=== PATIENT | female | born 1930 ===

== ENCOUNTER 2017-10-09 21:20 | Observation (INO) | payer MEDICARE, OTHER ==
[2017-10-09 21:21] VITALS: BMI 23.1
--- NOTE | 2017-10-09 22:29 | ED PDOC ---
Arrival/HPI <Aaron Morales - Last Filed: 10/09/17 23:48> <Radha Terrell - Last Filed: 10/10/17 04:25> - General Chief Complaint: GI Problem Time Seen by Provider: 10/09/17 21:40 - History of Present Illness Narrative History of Present Illness (Text): 86 year old female with a past medical history of gastric ulcers, diverticulitis , GERD, constipation, hypertension, CHF, anemia, dementia, COPD, diabetes, UTI, and osteoarthritis presents with 5 episodes of black vomit since this morning. Patient reports she felt dizzy this morning, she drank coffee, had loss of appetite today and ate minimally. She has not been able to eat today without vomiting. She also reports RLQ and LLQ crampy pain, but denies any urinary symptoms. She was given mylanta and tylenol at the [facility], but reports that this only minimally helped her symptoms. She also reports a frontal pressure headache and neck pain without any photophobia, phonophobia, change in vision, or change in hearing. She denies fever, chest pain, heart palpitations, shortness of breath, cough, diarrhea, dysuria, hematuria, or urinary frequency. (Radha Terrell) Past Medical History - Provider Review Nursing Documentation Reviewed: Yes - Infectious Disease Hx of Infectious Diseases: None - Tetanus Immunization Tetanus Immunization: Unknown - Reproductive Menopause: Yes - Cardiac Hx Cardiac Disorders: Yes Hx Congestive Heart Failure: Yes Hx Hypertension: Yes - Pulmonary Hx Chronic Obstructive Pulmonary Disease (COPD): Yes - Neurological HX Cerebrovascular Accident: No - HEENT Hx HEENT Disorder: No Hx Blind: No Hx Cataracts: No Hx Deafness: No Hx Difficulty Chewing: No Hx Epistaxis: No Hx Glaucoma: No Hx Macular Degeneration: No - Renal Hx Renal Failure: No - Endocrine/Metabolic Hx Diabetes Mellitus Type 1: Yes - Hematological/Oncological Hx Blood Transfusions: Yes Hx Blood Transfusion Reaction: (NOT AT PRESENT) - Integumentary Hx Dermatological Disorder: No Hx Basal Cell Carcinoma: No Hx Eczema: No Hx Melanoma: No Hx Psoriasis: No Hx Squamous Cell Carcinoma: No - Musculoskeletal/Rheumatological Hx Arthritis: Yes - Gastrointestinal Hx Gastrointestinal Disorders: No Hx Colostomy: No Hx Crohn's Disease: No Hx Diverticulitis: Yes Hx Gall Bladder Disease: No Hx Gastroesophageal Reflux: Yes Hx Ileostomy: No Hx Liver Failure: No Hx Pancreatitis: No HX Swallowing Problems: No - Genitourinary/Gynecological Hx Genitourinary Disorders: Yes Hx Hematuria: Yes Hx Incontinence: Yes Hx Sexually Transmitted Diseases: No Hx Urinary Tract Infection: No - Psychiatric Hx Psychophysiologic Disorder: Yes Hx Anxiety: Yes Hx Bipolar Disorder: No Hx Depression: Yes Hx Emotional Abuse: No Hx Hallucinations: No Hx Panic Disorder: No Hx Post Traumatic Stress Disorder: No Hx Psychosis: No Hx Physical Abuse: No Hx Schizophrenia: No Hx Sexual Abuse: No Hx Substance Use: No - Surgical History Hx Amputation: No Hx Appendectomy: No Hx Cardiac Catheterization: No Hx Cholecystectomy: No Hx Coronary Stent: No Hx Gastric Bypass Surgery: No Hx Hysterectomy: Yes Hx Joint Replacement: No Hx Kidney Transplant: No Hx Liver Transplant: No Hx Mastectomy: No Hx Musculoskeletal Surgery: No Hx Open Heart Surgery: No Hx Orthopedic Surgery: Yes Hx Splenectomy: No Hx Valve Replacement: No Other/Comment: Tonsillectomy - Anesthesia Hx Anesthesia Reactions: No (UNKNOWN) Hx Malignant Hyperthermia: No (UNKNOWN) - Suicidal Assessment Feels Threatened In Home Enviroment: No <Radha Terrell - Last Filed: 10/10/17 04:25> Family/Social History - Physician Review Nursing Documentation Reviewed: Yes Family/Social History: Unknown Family HX Smoking Status: Former Smoker Hx Alcohol Use: No Hx Substance Use: No Hx Substance Use Treatment: No <Radha Terrell - Last Filed: 10/10/17 04:25> Allergies/Home Meds <Aaron Morales - Last Filed: 10/09/17 23:48> <Radha Terrell - Last Filed: 10/10/17 04:25> Allergies/Adverse Reactions: Allergies aspirin Allergy (Verified 10/09/17 21:43) NAUSEA Home Medications: Home Meds Medication Instructions Recorded Confirmed Ferrous Sulfate 325 mg PO DAILY 01/01/16 10/09/17 Losartan Potassium [Cozaar] 100 mg PO DAILY 01/01/16 10/09/17 Acetaminophen [Acetaminophen ER] 650 mg PO Q4H PRN 01/02/16 10/09/17 Aluminum Hydroxide/Magnesium H 30 ml PO Q3 PRN 01/02/16 10/09/17 [Maalox 30 ml] Docusate Sodium [Move It Along] 200 mg PO HS 01/02/16 10/09/17 Docusate [Colace] 200 mg PO HS 01/02/16 10/09/17 Lorazepam [Ativan] 0.5 mg PO TID PRN 01/02/16 10/09/17 Magnesium Hydroxide [Milk Of 30 ml PO DAILY PRN 01/02/16 10/09/17 Magnesia] Mirtazapine [Remeron] 15 mg PO HS 01/02/16 10/09/17 Promethazine [Phenergan Oral Syrup] 6.25 mg PO Q4H PRN 01/02/16 10/09/17 Sod Phos,M-B/Na Phos,Di-Ba [Enema] 133 ml RC DAILY PRN 01/02/16 10/09/17 Sucralfate [Carafate] 1 gm PO QID 01/02/16 10/09/17 Review of Systems - Physician Review All systems were reviewed & negative as marked: Yes - Review of Systems Constitutional: Normal Eyes: Normal. absent: Vision Changes, Photophobia ENT: Sore Throat. absent: Hearing Changes Respiratory: Normal. absent: SOB, Cough Cardiovascular: Normal. absent: Chest Pain, Palpitations Gastrointestinal: Abdominal Pain (LLQ and RLQ), Nausea, Vomiting (black vomitus x5) Genitourinary Female: Normal. absent: Dysuria, Frequency, Hematuria Musculoskeletal: Arthralgias (right hand pain, left foot pain), Neck Pain. absent: Back Pain Skin: Normal Neurological: Headache (frontal), Dizziness <Radha Terrell - Last Filed: 10/10/17 04:25> Physical Exam <Aaron Morales - Last Filed: 10/09/17 23:48> Vital Signs Reviewed: Yes Temperature: Afebrile Blood Pressure: Normal Pulse: Regular Respiratory Rate: Normal Appearance: Positive for: Well-Appearing Pain Distress: Mild Mental Status: Positive for: Alert and Oriented X 3 - Systems Exam Head: Present: Atraumatic, Normocephalic Pupils: Present: PERRL Extroacular Muscles: Present: EOMI Conjunctiva: Present: Normal Mouth: Present: Moist Mucous Membranes, Normal Tounge. No: Normal Teeth (upper teeth not present) Pharnyx: Present: Normal. No: ERYTHEMA, EXUDATE Nose (External): Present: Atraumatic Respiratory/Chest: Present: Clear to Auscultation Cardiovascular: Present: Regular Rate and Rhythm, Normal S1, S2. No: Murmurs Abdomen: Present: Tenderness (LLQ and RLQ mild), Normal Bowel Sounds. No: Distention, Peritoneal Signs Upper Extremity: Present: Normal Inspection, Normal ROM, NORMAL PULSES, Tenderness (right hand) Lower Extremity: Present: Normal Inspection, NORMAL PULSES, Normal ROM. No: Philippe's Sign Neurological: Present: GCS=15, CN II-XII Intact, Speech Normal, Motor Func Grossly Intact Skin: Present: Warm, Dry, Normal Color <Radha Terrell - Last Filed: 10/10/17 04:25> Vital Signs Temp Pulse Resp BP Pulse Ox 10/09/17 21:39 99 F 84 17 124/58 L 97 Medical Decision Making <Aaron Morales - Last Filed: 10/09/17 23:48> <Radha Terrell - Last Filed: 10/10/17 04:25> ED Course and Treatment: 10/09/17 23:47 Jeanette Cantrell is an 86 year old female who presents to the emergency department complaining of several episodes of hematemesis today. In agreement with resident note, which includes further HPI details. Patient was seen and evaluated with resident, came up with plan and treatment together. (Aaron Morales) Impression: 86 year old female with a past medical history of gastric ulcers, diverticulitis, GERD, constipation, hypertension, CHF, anemia, dementia, COPD, diabetes, UTI, and osteoarthritis presents with 5 episodes of black vomit since this morning. Assessment: GI bleed due to gastric ulcer vs. gastritis Rule out anemia due to GI bleed, Plan: CBC and CMP to rule out anemia and electrolyte abnormalities due to black vomitus. Lipase ordered to rule out pancreatitis. Abdominal CT ordered to evaluate for reason of GI bleed. Urinanalysis to rule out UTI. 10/10/17 02:40 Rectal exam done to evaluate for blood in stool. Exam was inconclusive as no stool was able to be appreciated from the rectum on exam. Patient was given IV morphine 4 mg for arthritic neck pain. Chest X ray shows hiatal hernia and no acute process. EKG shows normal sinus rhythm with vent rate at 78. Abdominal CT shows hiatal hernia but no acute findings. Labs are unremarkable. Urinalysis is unremarkable. Case was discussed with Dr. Karimi. Patient will be admitted to the service for abdominal pain and coffee ground emesis. (Radha Terrell) - Lab Interpretations Lab Results: 10/09/17 23:13 10/09/17 23:13 Lab Results 10/10/17 00:55: Urine Color Yellow, Urine Appearance Clear, Urine pH 8.0, Ur Specific [place] 1.010, Urine Protein Negative, Urine Glucose (UA) Negative, Urine Ketones Negative, Urine Blood Negative, Urine Nitrate Negative, Urine Bilirubin Negative, Urine Urobilinogen 0.2, Ur Leukocyte Esterase Trace H, Urine RBC Negative, Urine WBC 0 - 2, Ur Epithelial Cells 3 - 4, Urine Bacteria Few 10/09/17 23:13: Sodium 138, Potassium 4.0, Chloride 96 L, Carbon Dioxide 33, Anion Gap 14, BUN 35 H, Creatinine 1.0, Est GFR ( Amer) > 60, Est GFR ( Non-Af Amer) 52, Random Glucose 179 H, Calcium 9.2, Magnesium 2.2, Total Bilirubin 0.5, AST 30, ALT 22, Alkaline Phosphatase 86, Total Protein 7.4, Albumin 4.2, Globulin 3.2, Albumin/Globulin Ratio 1.3, Lipase 133 10/09/17 23:13: PT 11.3, INR 0.99, APTT 25.8 10/09/17 23:13: WBC 10.2 D, RBC 3.65, Hgb 10.8 L, Hct 32.4 L, MCV 88.8, MCH 29.6, MCHC 33.3, RDW 15.5 H, Plt Count 237, MPV 8.8, Gran % 69.6 H, Lymph % ( Auto) 22.1, [place] % (Auto) 7.2 H, Eos % (Auto) 0.9 L, Baso % (Auto) 0.2, Gran # 7.07 H, Lymph # (Auto) 2.2, Irion # (Auto) 0.7 H, Eos # (Auto) 0.1, Baso # (Auto ) 0.02 - RAD Interpretation Radiology Orders: 10/09/17 22:36 ABD & PELVIS IV CONTRAST ONLY [CT] Stat 10/09/17 22:37 CHEST PORTABLE [RAD] Stat - Medication Orders Current Medication Orders: Sodium Chloride (Sodium Chloride 0.9%) 500 mls @ 75 mls/hr IV .Q6H40M STA Stop: 10/10/17 05:17 Last Admin: 10/09/17 23:36 Dose: 75 mls/hr eMAR Start Stop Document 10/09/17 23:36 SS (Rec: 10/09/17 23:36 SS [id number]) Intravenous Solution Start Date 10/09/17 Start Time 23:36 Sodium Chloride (Sodium Chloride 0.9%) 1,000 mls @ 100 mls/hr IV .Q10H STA Stop: 10/10/17 13:02 Last Admin: 10/10/17 04:06 Dose: 100 mls/hr eMAR Start Stop Document 10/10/17 04:06 SS (Rec: 10/10/17 04:06 SS [id number]) Intravenous Solution Start Date 10/10/17 Start Time 04:06 Discontinued Medications Morphine Sulfate (Morphine) 4 mg IVP STAT STA Stop: 10/10/17 00:04 Last Admin: 10/10/17 00:11 Dose: IVP Administration Document 10/10/17 00:11 [facility] (Rec[facility] 10[facility]10[facility]17 [id number] Charges for Administration # of IVP Administrations 0 Ondansetron HCl (Zofran Inj) 4 mg IVP STAT STA Stop: 10/09/17 22:54 Last Admin: 10/09/17 23:36 Dose: 4 mg IVP Administration Document 10/09/17 23:36 SS (Rec: 10/09/17 23:36 SS [id number]) Charges for Administration # of IVP Administrations 1 Pantoprazole Sodium (Protonix Inj) 40 mg IVP ONCE STA Stop: 10/10/17 03:05 Last Admin: 10/10/17 04:06 Dose: 40 mg IVP Administration Document 10/10/17 04:06 SS (Rec: 10/10/17 04:06 SS [id number]) Charges for Administration # of IVP Administrations 1 - Scribe Statement The provider has reviewed the documentation as recorded by the Scribe <Aaron Morales - Last Filed: 10/09/17 23:48> - PA / [employer] / Resident Statement / has reviewed & agrees with the documentation as recorded. / has examined the patient and agrees with the treatment plan. <Radha Terrell - Last Filed: 10/10/17 04:25> - Scribe Statement Brittny Copeland Provider Scribe Attestation: All medical record entries made by the Scribe were at my direction and personally dictated by me. I have reviewed the chart and agree that the record accurately reflects my personal performance of the history, physical exam, medical decision making, and the department course for this patient. I have also personally directed, reviewed, and agree with the discharge instructions and disposition. (Aaron Morales) Disposition/Present on Arrival <Aaron Morales - Last Filed: 10/09/17 23:48> - Present on Arrival Any Indicators Present on Arrival: No History of DVT/PE: No History of Uncontrolled Diabetes: No Urinary Catheter: No History of Decub. Ulcer: No History Surgical Site Infection Following: None - Disposition Have Diagnosis and Disposition been Completed?: Yes Disposition Time: 02:45 Patient Plan: Admission <Radha Terrell - Last Filed: 10/10/17 04:25> - Disposition Diagnosis: Coffee ground emesis, Abdominal pain Disposition: HOSPITALIZED Patient Problems: Current Active Problems Problem Status Onset Abdominal pain Acute Coffee ground emesis Acute Condition: STABLE
[2017-10-09] MEDS ORDERED: Sodium Chloride 0.9% 500 ML IV STA (22:38)
[2017-10-09 23:41] LABS: ALB/GLOB RATIO 1.3 (1.1-1.8); ALBUMIN 4.2 g/dL (3.0-4.8); ALT/SGPT 22 U/L (7-56); AST/SGOT 30 U/L (14-36); BLOOD UREA NITROGEN 35 mg/dL (7-21); CALCIUM 9.2 mg/dL (8.4-10.5); GFR AFRICAN-AMERICAN > 60; GFR NON-AFRICAN AMERICAN 52; LIPASE 133 U/L (23-300)
[2017-10-09 23:57] LABS: INR 0.99 (0.93-1.08); PROTHROMBIN TIME 11.3 SECONDS (9.4-12.5)
[2017-10-09 23:58] LABS: BASO # 0.02 K/mm3 (0.0-2.0); BASO % 0.2 % (0.0-3.0); EOS # 0.1 (0.0-0.7); EOS % 0.9 % (1.5-5.0); GRAN # 7.07 (1.4-6.5); GRAN % 69.6 % (50.0-68.0); HEMOGLOBIN 10.8 g/dL (12.0-16.0); LYMPH # 2.2 (1.2-3.4); LYMPH % 22.1 % (22.0-35.0); MEAN CELL VOLUME 88.8 fl (80.0-105.0); MEAN CORPUSCULAR HEMOGLOBIN 29.6 pg (25.0-35.0); MEAN CORPUSCULAR HGB CONC 33.3 g/dl (31.0-37.0); MEAN PLATELET VOLUME 8.8 fl (7.0-11.0); MONO # 0.7 (0.1-0.6); MONO % 7.2 % (1.0-6.0); PARTIAL THROMBOPLASTIN TIME 25.8 Seconds (25.1-36.5); RBC 3.65 10^6/uL (3.5-6.1); RED CELL DISTRIBUTION WIDTH 15.5 % (11.5-14.5); WHITE BLOOD COUNT 10.2 10^3/ul (4.5-11.0)
[2017-10-10] MEDS ORDERED: Morphine 4 mg/ml ISec IVP STA (00:03)
[2017-10-10] MEDS ORDERED: Morphine 2 mg/ml ISec ONE (00:11)
[2017-10-10] MEDS ORDERED: Iohexol 350 MG/100 ML VIAL ONE (00:53)
[2017-10-10 01:19] LABS: URINE BILIRUBIN NEGATIVE (NEGATIVE); URINE BLOOD NEGATIVE (NEGATIVE); URINE GLUCOSE (UA) NEGATIVE (NEGATIVE); URINE LEUKOCYTE ESTERASE TRACE Leu/uL (NEGATIVE); URINE PROTEIN NEGATIVE mg/dL (<30 mg/dL); URINE UROBILINOGEN 0.2 E.U./dL (<1 E.U./dL)
[2017-10-10 01:29] LABS: URINE COLOR YELLOW (YELLOW)
[2017-10-10 01:30] LABS: URINE APPEARANCE CLEAR (CLEAR)
[2017-10-10 01:42] LABS: URINE BACTERIA FEW (NEG); URINE RBC NEGATIVE /hpf (0-2); URINE WBC 0 - 2 /hpf (0-6)
[2017-10-10] MEDS ORDERED: Sodium Chloride 0.9% 1,000 ML IV STA (03:03)
[2017-10-10 09:07] LABS: HEMOGLOBIN 9.4 g/dL (12.0-16.0); MEAN CELL VOLUME 89.3 fl (80.0-105.0); MEAN CORPUSCULAR HEMOGLOBIN 29.5 pg (25.0-35.0); MEAN PLATELET VOLUME 8.4 fl (7.0-11.0); RBC 3.19 10^6/uL (3.5-6.1); RED CELL DISTRIBUTION WIDTH 15.7 % (11.5-14.5); WHITE BLOOD COUNT 7.1 10^3/ul (4.5-11.0)
[2017-10-10 09:20] LABS: BLOOD UREA NITROGEN 27 mg/dL (7-21); CALCIUM 8.6 mg/dL (8.4-10.5); GFR AFRICAN-AMERICAN > 60; GFR NON-AFRICAN AMERICAN 52
--- NOTE | 2017-10-10 09:33 | CP.PCM.CON ---
<Phoebe Green - Last Filed: 10/10/17 09:34> History of Present Illness - History of Present Illness History of Present Illness: Surgery Consult: Dr. Isaacs Pt is an 86F with PMHx significant for HTN, DM, GERD, diverticulosis & hiatal hernia who presents to [facility] with complaints of abdominal pain & hematemesis. As per the pt, she had one cup of coffee yesterday morning & started having vomiting which she describes as "black" in color. Pt states she has never had this happen before & denies any blood in the vomitus. Pt also admits to associated epigastric pain likely from retching. She states she had multiple episodes of vomiting throughout the day yesterday. Admits to having regular BMs everyday without any blood. Denies any other associated symptoms of fevers or chills. Pt denies difficulty swallowing or SOB. Pt does not recall her last colonoscopy/endoscopy but as per medical records she had an endoscopy/ colonoscopy in June 2015 which showed esophagitis with gastric ulcer as well as diverticulosis & colon polyps that were reported to be tubular adenomas in the ascending colon. PMHx: as stated above PSHx: hysterectomy, tonsillectomy & R hip surgery SocialHx: admits to smoking in the past, denies EtOH/drugs All: ASA Review of Systems - Review of Systems All systems: reviewed and no additional remarkable complaints except (as per HPI ) Past Patient History - Infectious Disease Hx of Infectious Diseases: None - Tetanus Immunizations Tetanus Immunization: Unknown - Past Medical History & Family History Past Medical History?: Yes - Past Social History Smoking Status: Former Smoker - CARDIAC Hx Cardiac Disorders: Yes Hx Hypertension: Yes - PULMONARY Hx Chronic Obstructive Pulmonary Disease (COPD): Yes - NEUROLOGICAL HX Cerebrovascular Accident: No - HEENT Hx HEENT Problems: No Hx Blind: No Hx Cataracts: No Hx Deafness: No Hx Difficulty Chewing: No Hx Epistaxis: No Hx Glaucoma: No Hx Macular Degeneration: No - RENAL Hx Renal Failure: No - ENDOCRINE/METABOLIC Hx Diabetes Mellitus Type 2: Yes - HEMATOLOGICAL/ONCOLOGICAL Hx Blood Disorders: Yes Hx AIDS: No Hx Anemia: Yes Hx Hepatitis C: No - INTEGUMENTARY Hx Dermatological Problems: No Hx Basil Cell: No Hx Eczema: No Hx Melanoma: No Hx Psoriasis: No Hx Squamous Cell: No - MUSCULOSKELETAL/RHEUMATOLOGICAL Hx Arthritis: Yes Hx Falls: Yes - GASTROINTESTINAL Hx Gastrointestinal Disorders: No Hx Colostomy: No Hx Crohn's Disease: No Hx Gall Bladder Disease: No Hx Gastroesophageal Reflux: Yes Hx Ileostomy: No Hx Liver Failure: No Hx Pancreatitis: No HX Swallowing Problems: No - GENITOURINARY/GYNECOLOGICAL Hx Genitourinary Disorders: Yes Hx Hematuria: Yes Hx Incontinence: Yes Hx Sexually Transmitted Disorders: No Hx Urinary Tract Infection: No - PSYCHIATRIC Hx Psychophysiologic Disorder: Yes Hx Anxiety: Yes Hx Bipolar Disorder: No Hx Depression: Yes Hx Emotional Abuse: No Hx Hallucinations: No Hx Panic Symptoms: No Hx Post Traumatic Stress Disorder: No Hx Psychosis: No Hx Physical Abuse: No Hx Schizophrenia: No Hx Sexual Abuse: No - SURGICAL HISTORY Hx Amputation: No Hx Appendectomy: No Hx Cardiac Catheterization: No Hx Cholecystectomy: No Hx Coronary Stent: No Hx Gastric Bypass Surgery: No Hx Hysterectomy: Yes Hx Joint Replacement: No Hx Kidney Transplant: No Hx Liver Transplant: No Hx Mastectomy: No Hx Musculoskeletal Surgery: No Hx Open Heart Surgery: No Hx Orthopedic Surgery: Yes Hx Splenectomy: No Hx Valve Replacement: No Other/Comment: Tonsillectomy - ANESTHESIA Hx Anesthesia Reactions: No (UNKNOWN) Hx Malignant Hyperthermia: No (UNKNOWN) Meds Allergies/Adverse Reactions: Allergies Allergy/AdvReac Type Severity Reaction Status Date / Time aspirin Allergy NAUSEA Verified 10/09/17 21:43 - Medications Medications: Current Medications Acetaminophen (Tylenol 325mg Tab) 650 mg PO Q4H PRN PRN Reason: mild pain Ferrous Sulfate (Feosol) 324 mg PO DAILY HANNA Sodium Chloride (Sodium Chloride 0.9%) 1,000 mls @ 100 mls/hr IV .Q10H STA Stop: 10/10/17 13:02 Last Admin: 10/10/17 04:06 Dose: 100 mls/hr Losartan Potassium (Cozaar) 100 mg PO DAILY HANNA Mirtazapine (Remeron) 15 mg PO HS HANNA Sucralfate (Carafate Tab) 1 gm PO QID HANNA Physical Exam - Constitutional Appears: Well, No Acute Distress - Head Exam Head Exam: ATRAUMATIC, NORMOCEPHALIC - Eye Exam Eye Exam: Normal appearance - ENT Exam ENT Exam: Mucous Membranes Moist - Respiratory Exam Respiratory Exam: NORMAL BREATHING PATTERN - Cardiovascular Exam Cardiovascular Exam: RRR - GI/Abdominal Exam GI & Abdominal Exam: Soft, Tenderness (epigastric). absent: Distended, Guarding , Rebound - Neurological Exam Neurological exam: Alert, Oriented x3 - Skin Skin Exam: Dry, Warm Results - Vital Signs Recent Vital Signs: Last Vital Signs Temp 98.2 F 10/10/17 05:30 Pulse 73 10/10/17 05:30 Resp 20 10/10/17 05:30 BP 126/65 10/10/17 05:30 Pulse Ox 97 10/10/17 05:05 - Labs Result Diagrams: 10/10/17 09:00 10/10/17 09:00 Labs: Laboratory Results - last 24 hr 10/10/17 10/10/17 09:00 09:00 WBC 7.1 D RBC 3.19 L Hgb 9.4 L Hct 28.5 L MCV 89.3 MCH 29.5 MCHC 33.0 RDW 15.7 H Plt Count 197 MPV 8.4 Sodium 140 Potassium 4.3 Chloride 101 Carbon Dioxide 31 Anion Gap 12 BUN 27 H Creatinine 1.0 Est GFR ( Amer) > 60 Est GFR (Non-Af Amer) 52 Random Glucose 179 H Calcium 8.6 - Imaging and Cardiology CT scan - abdomen Status: Image reviewed by me Assessment & Plan - Assessment and Plan (Free Text) Assessment: 86F presenting with hematemesis & hiatal hernia Plan: - monitor H/H; no longer vomiting - f/u GI recs - poor surgical candidate for hiatal hernia repair due to advanced age and co- morbidities, no plan for surgical intervention at this time - recommend q2 turning & air mattress to prevent pressure ulcers - d/w Dr. Ferny Green <Jim Isaacs - Last Filed: 10/10/17 14:30> Meds - Medications Medications: Current Medications Acetaminophen (Tylenol 325mg Tab) 650 mg PO Q4H PRN PRN Reason: mild pain Ferrous Sulfate (Feosol) 324 mg PO DAILY [facility] Last Admin: 10/10/17 09:38 Dose: 324 mg Losartan Potassium (Cozaar) 100 mg PO DAILY [facility] Last Admin: 10/10/17 09:38 Dose: 100 mg Mirtazapine (Remeron) 15 mg PO HS HANNA Pantoprazole Sodium (Protonix Inj) 40 mg IVP DAILY [facility] Sucralfate (Carafate Tab) 1 gm PO QID [facility] Last Admin: 10/10/17 14:21 Dose: 1 gm Results - Vital Signs Recent Vital Signs: Last Vital Signs Temp 98.2 F 10/10/17 05:30 Pulse 73 10/10/17 05:30 Resp 20 10/10/17 05:30 BP 126/65 10/10/17 05:30 Pulse Ox 97 10/10/17 05:05 - Labs Result Diagrams: 10/10/17 09:00 10/10/17 09:00 Labs: Laboratory Results - last 24 hr 10/10/17 10/10/17 09:00 09:00 WBC 7.1 D RBC 3.19 L Hgb 9.4 L Hct 28.5 L MCV 89.3 MCH 29.5 MCHC 33.0 RDW 15.7 H Plt Count 197 MPV 8.4 Sodium 140 Potassium 4.3 Chloride 101 Carbon Dioxide 31 Anion Gap 12 BUN 27 H Creatinine 1.0 Est GFR ( Amer) > 60 Est GFR (Non-Af Amer) 52 Random Glucose 179 H Calcium 8.6 Assessment & Plan - Assessment and Plan (Free Text) Assessment: Dx Hematemesis secondary to Incarcerated Sliding gastric hernia stuck in the chest No evidence bleeding now C/O Rt groin strain(Bulge not hernia) Will follow BNo surgery needed This consult done under my direct supervision Christiano Isaacs MD FACS
--- NOTE | 2017-10-10 09:48 | RAD ---
Date of service: 10/10/2017 HISTORY: r/o infiltrate COMPARISON: 07/07/2015 FINDINGS: LUNGS: No active pulmonary disease. PLEURA: No significant pleural effusion identified, no pneumothorax apparent. CARDIOVASCULAR: Normal. OSSEOUS STRUCTURES: No significant abnormalities. VISUALIZED UPPER ABDOMEN: Large hiatal hernia OTHER FINDINGS: None. IMPRESSION: No active disease. Large hiatal hernia
--- NOTE | 2017-10-10 11:07 | CT ---
Date of service: 10/10/2017 PROCEDURE: CT Abdomen and Pelvis with contrast HISTORY: abdominal pain, vomiting COMPARISON: 02/01/2016. TECHNIQUE: Contrast dose: 100 cc Omnipaque 350. Radiation dose: Total exam DLP = 407.73 mGy-cm. This CT exam was performed using one or more of the following dose reduction techniques: Automated exposure control, adjustment of the mA and/or kV according to patient size, and/or use of iterative reconstruction technique. FINDINGS: LOWER THORAX: Stable large hiatal hernia. LIVER: Unremarkable. No gross lesion or ductal dilatation. GALLBLADDER AND BILE DUCTS: Status post cholecystectomy. No abnormality is seen in the gallbladder fossa. PANCREAS: Unremarkable. No gross lesion or ductal dilatation. SPLEEN: Unremarkable. ADRENALS: Unremarkable. No mass. KIDNEYS AND URETERS: Unremarkable. No hydronephrosis. No solid mass. Incidental finding(s): Bilateral simple renal cysts unchanged compared to the prior study. VASCULATURE: Unremarkable. No aortic aneurysm. BOWEL: Diverticulosis without an acute inflammatory component or other associated pathologic process. APPENDIX: Normal appendix. PERITONEUM: Unremarkable. No free fluid. No free air. LYMPH NODES: Unremarkable. No enlarged lymph nodes. BLADDER: Unremarkable. REPRODUCTIVE: Unremarkable. BONES: Compression deformities T10, L3, L4. The findings at L3 are stable. Additional compression deformities new compared to the prior CT scan 01/01/2016. OTHER FINDINGS: None. IMPRESSION: No acute findings related to/accounting for the clinical presentation. Additional benign and/or incidental findings described above. New compression deformities thoracolumbar spine. Otherwise No significant interval change compared to the prior examination(s). Concordant results (preliminary interpretation) provided by [employer]. Procedure Completed: :17. Preliminary ([employer]) Report: Dictated and Authenticated: 02:25. Final Interpretation: 11:05. October 10, 2017.
--- NOTE | 2017-10-10 13:26 | CP.PCM.CON ---
<Chelsea Anderson - Last Filed: 10/10/17 15:10> History of Present Illness - History of Present Illness History of Present Illness: Seen and examined at bedside earlier today, chart reviewed. Request for GI consult is for abdominal pain and hematemesis. HPI: This is an 86 year old female from care home brought to the hospital yesterday for complaints of abdominal pain and hematemesis. Patient reported that she had a cup of "black" coffee yesterday morning and then started to vomit multiple times, it appeared "coffee ground". Prior to yesterday events, she has never had any N/V or abdominal pain. She did have epeigastic discomfort which has now resolved, denies having symptoms of dyspepsia or abdominal pain. Denies use of NSAIDS, if she needs something for pain, she is given tylenol as per patient. No change in bowel habits, melena or BRBPR. No weight loss or complaints of dysphagia. She has had EGD in colonoscopy in the past, most recent noted is 06/2015, EGD showed gastric ulcer/duodenal ulcer/esophagitis, gastric BX did show intestinal metaplasia, no dysplasia or HP. Colonoscopy showed coon polyps that were tubular adenomas. On admission ct scan A&P done and showed hiatal hernia and extensive diverticulosis with no signs of diverticulitis. CXR revealed large H/H but no active lung disease. Patient is NPO and no further episode of hematemesis or abdominal pain. PMH: HTN, PUD,GERD, diverticulsis, hiatal hernia, Anemia PSH: hysterectomy, right hip surgery,tonsilectomy Allergies: Aspirin MEDS: reviewed as per MAR Family HX: noncontributory at this time Social HX: former smoker, denies ETOH, drugs ROS: systems reviewed with positive findings, see HPI Past Patient History - Infectious Disease Hx of Infectious Diseases: None - Tetanus Immunizations Tetanus Immunization: Unknown - Past Medical History & Family History Past Medical History?: Yes - Past Social History Smoking Status: Former Smoker - CARDIAC Hx Cardiac Disorders: Yes Hx Hypertension: Yes - PULMONARY Hx Chronic Obstructive Pulmonary Disease (COPD): Yes - NEUROLOGICAL HX Cerebrovascular Accident: No - HEENT Hx HEENT Problems: No Hx Blind: No Hx Cataracts: No Hx Deafness: No Hx Difficulty Chewing: No Hx Epistaxis: No Hx Glaucoma: No Hx Macular Degeneration: No - RENAL Hx Renal Failure: No - ENDOCRINE/METABOLIC Hx Diabetes Mellitus Type 2: Yes - HEMATOLOGICAL/ONCOLOGICAL Hx Blood Disorders: Yes Hx AIDS: No Hx Anemia: Yes Hx Hepatitis C: No - INTEGUMENTARY Hx Dermatological Problems: No Hx Basil Cell: No Hx Eczema: No Hx Melanoma: No Hx Psoriasis: No Hx Squamous Cell: No - MUSCULOSKELETAL/RHEUMATOLOGICAL Hx Arthritis: Yes Hx Falls: Yes - GASTROINTESTINAL Hx Gastrointestinal Disorders: No Hx Colostomy: No Hx Crohn's Disease: No Hx Gall Bladder Disease: No Hx Gastroesophageal Reflux: Yes Hx Ileostomy: No Hx Liver Failure: No Hx Pancreatitis: No HX Swallowing Problems: No - GENITOURINARY/GYNECOLOGICAL Hx Genitourinary Disorders: Yes Hx Hematuria: Yes Hx Incontinence: Yes Hx Sexually Transmitted Disorders: No Hx Urinary Tract Infection: No - PSYCHIATRIC Hx Psychophysiologic Disorder: Yes Hx Anxiety: Yes Hx Bipolar Disorder: No Hx Depression: Yes Hx Emotional Abuse: No Hx Hallucinations: No Hx Panic Symptoms: No Hx Post Traumatic Stress Disorder: No Hx Psychosis: No Hx Physical Abuse: No Hx Schizophrenia: No Hx Sexual Abuse: No - SURGICAL HISTORY Hx Amputation: No Hx Appendectomy: No Hx Cardiac Catheterization: No Hx Cholecystectomy: No Hx Coronary Stent: No Hx Gastric Bypass Surgery: No Hx Hysterectomy: Yes Hx Joint Replacement: No Hx Kidney Transplant: No Hx Liver Transplant: No Hx Mastectomy: No Hx Musculoskeletal Surgery: No Hx Open Heart Surgery: No Hx Orthopedic Surgery: Yes Hx Splenectomy: No Hx Valve Replacement: No Other/Comment: Tonsillectomy - ANESTHESIA Hx Anesthesia Reactions: No (UNKNOWN) Hx Malignant Hyperthermia: No (UNKNOWN) Meds Allergies/Adverse Reactions: Allergies Allergy/AdvReac Type Severity Reaction Status Date / Time aspirin Allergy NAUSEA Verified 10/09/17 21:43 - Medications Medications: Current Medications Acetaminophen (Tylenol 325mg Tab) 650 mg PO Q4H PRN PRN Reason: mild pain Ferrous Sulfate (Feosol) 324 mg PO DAILY [facility] Last Admin: 10/10/17 09:38 Dose: 324 mg Sodium Chloride (Sodium Chloride 0.9%) 1,000 mls @ 100 mls/hr IV .Q10H STA Stop: 10/10/17 13:02 Last Admin: 10/10/17 04:06 Dose: 100 mls/hr Losartan Potassium (Cozaar) 100 mg PO DAILY [facility] Last Admin: 10/10/17 09:38 Dose: 100 mg Mirtazapine (Remeron) 15 mg PO HS [facility] Pantoprazole Sodium (Protonix Inj) 40 mg IVP DAILY [facility] Sucralfate (Carafate Tab) 1 gm PO QID [facility] Last Admin: 10/10/17 09:39 Dose: 1 gm Physical Exam - Constitutional Appears: No Acute Distress - Head Exam Head Exam: NORMOCEPHALIC - Eye Exam Eye Exam: Normal appearance. absent: Scleral icterus - ENT Exam ENT Exam: Mucous Membranes Moist - Neck Exam Neck exam: Positive for: Normal Inspection - Respiratory Exam Respiratory Exam: NORMAL BREATHING PATTERN. absent: Respiratory Distress - Cardiovascular Exam Cardiovascular Exam: +S1, +S2 - GI/Abdominal Exam GI & Abdominal Exam: Normal Bowel Sounds, Soft. absent: Distended, Guarding, Rebound, Tenderness - Extremities Exam Extremities exam: Positive for: pedal pulses present. Negative for: calf tenderness, pedal edema - Neurological Exam Neurological exam: Alert, Oriented x3 - Skin Skin Exam: Dry, Warm Results - Vital Signs Recent Vital Signs: Last Vital Signs Temp 98.2 F 10/10/17 05:30 Pulse 73 10/10/17 05:30 Resp 20 10/10/17 05:30 BP 126/65 10/10/17 05:30 Pulse Ox 97 10/10/17 05:05 - Labs Result Diagrams: 10/10/17 09:00 10/10/17 09:00 Labs: Laboratory Results - last 24 hr 10/10/17 10/10/17 09:00 09:00 WBC 7.1 D RBC 3.19 L Hgb 9.4 L Hct 28.5 L MCV 89.3 MCH 29.5 MCHC 33.0 RDW 15.7 H Plt Count 197 MPV 8.4 Sodium 140 Potassium 4.3 Chloride 101 Carbon Dioxide 31 Anion Gap 12 BUN 27 H Creatinine 1.0 Est GFR ( Amer) > 60 Est GFR (Non-Af Amer) 52 Random Glucose 179 H Calcium 8.6 Assessment & Plan - Assessment and Plan (Free Text) Assessment: ASSESSMENT: Hematemesis, differential to consider is PUD, h/o of gastric /duodenal ulcer, Ashley bowman tear Chronic Anemia Hiatal hernia DM HTN Diverticulosis PLAN: Continue Protonix 40 mg IVP on Carafate monitor h/h and for GI bleeding currently NPO, continue IVF for hydration, if no nausea consider clear liquids patient would benefit from EGD to check for ulcer/any ary bowman tear, pateint agree for procedure, will plan for tomorrow 10/11/17 in am. Thank you for this consult and for allowing us to participate in your patient care, further recommendation based upon clinical course. Seen and discussed with Dr. Reyes. <Leyla Reyes V - Last Filed: 10/10/17 23:34> Meds - Medications Medications: Current Medications Acetaminophen (Tylenol 325mg Tab) 650 mg PO Q4H PRN PRN Reason: mild pain Ferrous Sulfate (Feosol) 324 mg PO DAILY [facility] Last Admin: 10/10/17 09:38 Dose: 324 mg Sodium Chloride (Sodium Chloride 0.9%) 1,000 mls @ 100 mls/hr IV .Q10H [facility] Last Admin: 10/10/17 21:00 Dose: Not Given Losartan Potassium (Cozaar) 100 mg PO DAILY [facility] Last Admin: 10/10/17 09:38 Dose: 100 mg Mirtazapine (Remeron) 15 mg PO HS [facility] Last Admin: 10/10/17 21:17 Dose: 15 mg Pantoprazole Sodium (Protonix Inj) 40 mg IVP DAILY [facility] Sucralfate (Carafate Tab) 1 gm PO QID [facility] Last Admin: 10/10/17 21:17 Dose: 1 gm Results - Vital Signs Recent Vital Signs: Last Vital Signs Temp 98.4 F 10/10/17 21:59 Pulse 71 10/10/17 21:59 Resp 20 10/10/17 21:59 BP 132/66 10/10/17 21:59 Pulse Ox 94 L 10/10/17 21:59 - Labs Result Diagrams: 10/10/17 09:00 10/10/17 09:00 Labs: Laboratory Results - last 24 hr 10/10/17 10/10/17 09:00 09:00 WBC 7.1 D RBC 3.19 L Hgb 9.4 L Hct 28.5 L MCV 89.3 MCH 29.5 MCHC 33.0 RDW 15.7 H Plt Count 197 MPV 8.4 Sodium 140 Potassium 4.3 Chloride 101 Carbon Dioxide 31 Anion Gap 12 BUN 27 H Creatinine 1.0 Est GFR ( Amer) > 60 Est GFR (Non-Af Amer) 52 Random Glucose 179 H Calcium 8.6 Attending/Attestation - Attestation I have personally seen and examined this patient.: Yes I have fully participated in the care of the patient.: Yes I have reviewed all pertinent clinical information: Yes Notes (Text): This is an addendum to GI consult report dictated by the Chelsea Anderson ANP.The patient was seen and examined earlier. Medical records, lab studies, imagings were reviewed. Last 24 hours events reviewed. Agreed with the above treatment plan as outlined in Chelsea Anderson's notes the with the addition of the following on examination patient has some tenderness in the right upper quadrant area and epigastric area Her previous GI workup reviewed History of the large duodenal ulcer Continue PPI Follow-up of hemoglobin Clear liquid diet Would benefit from EGD 10/10/17 23:32
--- NOTE | 2017-10-10 18:47 | CARD ---
APPROVED REPORT Date of service: 10/09/2017 EKG Measurement Heart [id number] <Conclusion> Normal sinus rhythm Normal ECG
[2017-10-10] MEDS: Sodium Chloride 0.9% 1,000 ML IV SCH (21:00)
[2017-10-10] MEDS ORDERED: Morphine 2 mg/ml ISec IVP STA (23:48)
[2017-10-10] MEDS ORDERED: DiphenhydrAMINE 12.5 mg/5 ml LIQ UD (5 ml) PO STA (23:49)
[2017-10-11 07:06] LABS: HEMOGLOBIN 8.6 g/dL (12.0-16.0); MEAN CELL VOLUME 90.8 fl (80.0-105.0); MEAN CORPUSCULAR HEMOGLOBIN 29.2 pg (25.0-35.0); MEAN CORPUSCULAR HGB CONC 32.1 g/dl (31.0-37.0); MEAN PLATELET VOLUME 8.5 fl (7.0-11.0); RBC 2.95 10^6/uL (3.5-6.1); RED CELL DISTRIBUTION WIDTH 15.8 % (11.5-14.5); WHITE BLOOD COUNT 5.7 10^3/ul (4.5-11.0)
[2017-10-11 07:33] LABS: BLOOD UREA NITROGEN 16 mg/dL (7-21); GFR AFRICAN-AMERICAN > 60; GFR NON-AFRICAN AMERICAN 59
--- NOTE | 2017-10-11 08:07 | CP.PCM.PN ---
Subjective - Date & Time of Evaluation Date of Evaluation: 10/11/17 Time of Evaluation: 08:05 - Subjective Subjective: General Surgery Progress Note for: Dr. Isaacs Pt was seen and examined this morning at bedside. No acute events as per nursing. Pt denies fever, chills, nausea, vomiting, or abdominal pain. She is currently NPO. Objective - Vital Signs/Intake and Output Vital Signs (last 24 hours): Temp Pulse Resp BP Pulse Ox 98.6 F 69 20 128/56 L 95 10/11/17 06:00 10/11/17 06:00 10/11/17 06:00 10/11/17 06:00 10/11/17 06:00 Intake and Output: 10/11/17 10/11/17 06:59 18:59 Intake Total 360 Balance 360 - Medications Medications: Current Medications Acetaminophen (Tylenol 325mg Tab) 650 mg PO Q4H PRN PRN Reason: mild pain Ferrous Sulfate (Feosol) 324 mg PO DAILY [facility] Last Admin: 10/10/17 09:38 Dose: 324 mg Sodium Chloride (Sodium Chloride 0.9%) 1,000 mls @ 100 mls/hr IV .Q10H [facility] Last Admin: 10/10/17 21:00 Dose: Not Given Losartan Potassium (Cozaar) 100 mg PO DAILY [facility] Last Admin: 10/10/17 09:38 Dose: 100 mg Mirtazapine (Remeron) 15 mg PO HS [facility] Last Admin: 10/10/17 21:17 Dose: 15 mg Pantoprazole Sodium (Protonix Inj) 40 mg IVP DAILY [facility] Sucralfate (Carafate Tab) 1 gm PO QID [facility] Last Admin: 10/10/17 21:17 Dose: 1 gm - Labs Labs: 10/11/17 06:30 10/11/17 06:30 PT 11.3 SECONDS (9.4-12.5) 10/09/17 23:13 INR 0.99 (0.93-1.08) 10/09/17 23:13 APTT 25.8 Seconds (25.1-36.5) 10/09/17 23:13 - Constitutional Appears: Well, Non-toxic, No Acute Distress - Head Exam Head Exam: ATRAUMATIC, NORMOCEPHALIC - Eye Exam Eye Exam: EOMI, Normal appearance - Respiratory Exam Respiratory Exam: NORMAL BREATHING PATTERN. absent: Accessory Muscle Use, Respiratory Distress - Cardiovascular Exam Cardiovascular Exam: +S1, +S2 - GI/Abdominal Exam GI & Abdominal Exam: Soft, Normal Bowel Sounds. absent: Distended, Firm, Guarding, Rigid, Tenderness - Neurological Exam Neurological Exam: Alert, Awake, Oriented x3 - Psychiatric Exam Psychiatric exam: Normal Affect, Normal Mood - Skin Skin Exam: Dry, Intact, Normal Color, Warm Assessment and Plan - Assessment and Plan (Free Text) Assessment: 86yo F presenting with hematemesis & hiatal hernia Plan: - No surgical intervention planned at this time s no surgery is indicated - H&H lower from yest. cont to f/u H&H - EGD- Gastritis at GE junction, type III paraesophageal hernia - f/u GI recs - contact surgical team for any further questions or concerns. - Discussed with Dr. Isaacs
[2017-10-11 08:10] LABS: HDL CHOLESTEROL 39 mg/dL (29-60); IRON 49 ug/dL (45-180)
[2017-10-11 08:19] LABS: % IRON SATURATION 25 % (20-55); TOTAL IRON BINDING CAPACITY 195 ug/dL (265-497)
[2017-10-11 08:20] LABS: LDL CHOLESTEROL 71 mg/dL (0-129)
[2017-10-11] MEDS ORDERED: Propofol 10 mg/ml Inj (20 ML) ONE (08:25)
[2017-10-11] MEDS ORDERED: Sodium Chloride 0.9% 1,000 ML IV SCH (09:45)
--- NOTE | 2017-10-11 09:47 | HP ---
CHIEF COMPLAINT: Diarrhea with blood. HISTORY OF PRESENT ILLNESS: Ms. Jeanette Cantrell is an 86-year-old female with past medical history of gastric ulcer, diverticulitis, GERD, constipation, hypertension, congestive heart failure, anemia, dementia, COPD, diabetes mellitus, UTI, osteoarthritis came to the Emergency Room from [facility] with episodes of black vomitus and diarrhea. The patient reports that she felt dizzy and she has a dark coffee-ground vomitus, loss of appetite. She has not been able to eat on the day of admission due to vomiting, also reports right lower quadrant and left lower quadrant crampy abdominal pain. The patient denies any other symptoms. She was also given Tylenol at care home, she believes, but reports that this only minimally helped her symptoms. She is feeling frontal pressure, headache and neck pain without any photophobia. No change of vision. She denies fever, chills. PAST MEDICAL HISTORY: As above. History of gastritis, gastric ulcer, diverticulitis, GERD, constipation, hypertension, congestive heart failure, anemia, dementia, COPD, UTI, degenerative joint disease, chronic pain syndrome, diabetes mellitus, history of hematuria, urinary incontinence, hysterectomy. FAMILY HISTORY: Father and mother, noncontributory. HABITS: Former smoker, no drugs, no ethanol. ALLERGIES: THE PATIENT IS ALLERGIC TO ASPIRIN. HOME MEDICATIONS: Ferrous sulfate, losartan, multivitamin, Colace, Ativan, Remeron, Phenergan and Carafate. REVIEW OF SYSTEMS: Patient was seen and examined on bedside in her room, looking comfortable. Severe abdominal pain. No dysuria, frequency or hematuria. Complaining about headache. No neck pain, no back pain. No fever, no chills. PHYSICAL EXAMINATION: VITAL SIGNS: Temperature 98.4, pulse 71, blood pressure 130/66, pulse oxymetry 94, respiratory rate 20. HEENT: Head: Normocephalic, atraumatic. Eyes: PERRLA. Extraocular muscles intact. Conjunctivae clear. Nose patent. Mucous membranes moist. NECK: Supple. No carotid bruits. No JVD or thyromegaly. CHEST: Bilaterally symmetrical. HEART: S1 and S2 positive. LUNGS: Clear to auscultation. ABDOMEN: Soft. Bowel sounds present. No organomegaly. EXTREMITIES: No edema, no cyanosis. NEUROLOGICAL: Patient is awake and alert. Moving all four extremities. No focal deficit. LABORATORY DATA: White blood cell 7.4, hemoglobin 9.4, hematocrit 28.5, platelets 194. Sodium 140, potassium 4.1, BUN 27, creatinine 1, glucose 179. ASSESSMENT AND PLAN: Ms. Jeanette Cantrell is an 86-year-old female with anemia; increased BUN; hyperglycemia, urinary tract infection; seen by Gastroenterology, Dr. Reyes; history of hypertension; peptic ulcer disease; gastroesophageal reflux disease; diverticulitis; hiatal hernia; anemia; hysterectomy; right hip surgery; tonsillectomy; history of diabetes mellitus, came with hematemesis. Differential to consider is peptic ulcer disease, has history of gastric ulcers, duodenal ulcers, Rena-Herrera tear, chronic anemia and hiatal hernia. Continue Protonix intravenously, on Carafate. Monitoring hemoglobin and hematocrit; for gastrointestinal bleeding, continue nothing by mouth, continue intravenous fluid. If no nausea and vomiting, we will start clear liquid diet. The patient will benefit from esophagogastroduodenoscopy to check any ulcer or any Rena-Herrera tear, maybe she will go for endoscopy tomorrow. Medical records, labs and images over the last 24 hours was reviewed. GI and DVT prophylaxis. Resume proton pump inhibitor. Follow up with hemoglobin. Clear liquid diet. Will benefit from esophagogastroduodenoscopy. We will follow up. Nevin Karimi MD MTDD
[2017-10-11 12:02] LABS: HEMOGLOBIN 9.1 g/dL (12.0-16.0)
[2017-10-11 13:36] LABS: FOLATE > 20.0 ng/mL
[2017-10-11] MEDS: Sodium Chloride 0.9% 1,000 ML IV SCH (15:55)
[2017-10-12] MEDS: Sodium Chloride 0.9% 1,000 ML IV SCH ×2 (06:09→10:25)
--- NOTE | 2017-10-12 08:07 | PN ---
DATE: 10/11/2017 SUBJECTIVE: The patient was seen and examined on the bedside on 10/11/2017, looking comfortable. Abdominal pain is better. No acute event noted overnight. No diarrhea. No fever. No chills. No hematuria or hematochezia. No gaseous stomach. The patient was currently n.p.o. before procedure. PHYSICAL EXAMINATION: VITAL SIGNS: Temperature 98.6, pulse 69, respiratory rate 20, blood pressure 120/80 , pulse oximetry 95. HEENT: Head normocephalic, atraumatic. Eyes PERRLA. Extraocular muscles intact. Conjunctivae clear. Nose patent. Mucous membrane moist. NECK: Supple. No carotid bruit. No JVD or thyromegaly. CHEST: Bilaterally symmetrical. HEART: S1 and S2 positive. LUNGS: Clear to auscultation. ABDOMEN: Soft. Bowel sounds positive. No organomegaly. EXTREMITIES: No edema. No cyanosis. NEUROLOGICAL: The patient is awake and alert, but confused. MEDICATIONS: Tylenol, ferrous sulfate, normal saline, losartan, Remeron, pantoprazole, sucralfate. LABORATORY DATA: White blood cells 5.7, hemoglobin 8.6, hematocrit 26.8, platelets 197. Sodium 142, potassium 4.2, BUN 16, creatinine 0.9, glucose 154. ASSESSMENT AND PLAN: Ms. Jeanette Cantrell, 86-year-old female with anemia, hyperglycemia. Came with hematemesis and hiatal hernia. History of chronic obstructive pulmonary disease, chronic pain syndrome. No surgical intervention. Plan at this time, no surgery indicated by Dr. Isaacs. Monitoring H and H. Gastric and deep venous thrombosis prophylaxis. Esophagogastroduodenoscopy done, which shows gastritis at gastroesophageal junction, type 3 paraesophageal hernias. Follow up with the GI record. The patient will see drying oven tender as outpatient. The patient has advanced dementia. Surgical team saw the patient. The patient is not a candidate for surgery as per Dr. Isaacs. Hypertension, hypothyroidism, hypercholesterolemia. The patient is a resident of [facility], we will discharge there. we will follow up. Nevin Karimi MD [facility] # [id number] MTDD
[2017-10-12 09:34] LABS: HEMOGLOBIN 9.3 g/dL (12.0-16.0); MEAN CELL VOLUME 90.2 fl (80.0-105.0); MEAN CORPUSCULAR HEMOGLOBIN 29.5 pg (25.0-35.0); MEAN CORPUSCULAR HGB CONC 32.7 g/dl (31.0-37.0); MEAN PLATELET VOLUME 8.4 fl (7.0-11.0); RBC 3.15 10^6/uL (3.5-6.1); RED CELL DISTRIBUTION WIDTH 15.4 % (11.5-14.5); WHITE BLOOD COUNT 6.2 10^3/ul (4.5-11.0)
--- NOTE | 2017-10-12 10:34 | CP.PCM.PN ---
Subjective - Date & Time of Evaluation Date of Evaluation: 10/12/17 Time of Evaluation: 10:00 - Subjective Subjective: S&E at bedside and chart reviewed, no acute overnight events reported. S/p EGD yesterday, found to have a Grade A esophagitis and large parapesophageal hernia , type III. tolerating puree diet, no N/V or abdominal pain. Just informed today that patient is under Public guardian, this information was clarified with social media editor Sophia Objective - Vital Signs/Intake and Output Vital Signs (last 24 hours): Temp Pulse Resp BP Pulse Ox 98.6 F 70 18 135/69 96 10/12/17 06:00 10/12/17 06:00 10/12/17 06:00 10/12/17 06:00 10/12/17 06:00 Intake and Output: 10/12/17 10/12/17 06:59 18:59 Intake Total 360 Balance 360 - Medications Medications: Current Medications Acetaminophen (Tylenol 325mg Tab) 650 mg PO Q4H PRN PRN Reason: mild pain Last Admin: 10/11/17 21:51 Dose: 650 mg Ferrous Sulfate (Feosol) 324 mg PO DAILY [facility] Last Admin: 10/11/17 15:48 Dose: 324 mg Sodium Chloride (Sodium Chloride 0.9%) 1,000 mls @ 100 mls/hr IV .Q10H [facility] Last Admin: 10/12/17 06:09 Dose: 100 mls/hr Losartan Potassium (Cozaar) 100 mg PO DAILY [facility] Last Admin: 10/11/17 15:47 Dose: 100 mg Mirtazapine (Remeron) 15 mg PO HS [facility] Last Admin: 10/11/17 21:51 Dose: 15 mg Pantoprazole Sodium (Protonix Inj) 40 mg IVP DAILY [facility] Last Admin: 10/11/17 15:47 Dose: 40 mg Sucralfate (Carafate Tab) 1 gm PO QID [facility] Last Admin: 10/11/17 21:52 Dose: 1 gm - Labs Labs: 10/12/17 09:20 10/11/17 06:30 PT 11.3 SECONDS (9.4-12.5) 10/09/17 23:13 INR 0.99 (0.93-1.08) 10/09/17 23:13 APTT 25.8 Seconds (25.1-36.5) 10/09/17 23:13 - Constitutional Appears: No Acute Distress - Eye Exam Eye Exam: Normal appearance. absent: Scleral icterus - ENT Exam ENT Exam: Mucous Membranes Moist - Neck Exam Neck Exam: Normal Inspection - Respiratory Exam Respiratory Exam: NORMAL BREATHING PATTERN. absent: Respiratory Distress - Cardiovascular Exam Cardiovascular Exam: +S1, +S2 - GI/Abdominal Exam GI & Abdominal Exam: Soft, Normal Bowel Sounds. absent: Guarding, Tenderness, Rebound - Extremities Exam Extremities Exam: absent: Calf Tenderness, Pedal Edema - Neurological Exam Neurological Exam: Alert, Awake, Oriented x3 - Skin Skin Exam: Dry, Warm Assessment and Plan - Assessment and Plan (Free Text) Assessment: ASSESSMENT: Resolved Hematemesis, s/p EGD. LA grade A/ Large paraesophageal hernia type III , w/ BX Chronic Anemia, hgb stable Hiatal hernia DM HTN Diverticulosis PLAN: change protonix 40 mg to Pepcid 20 mg BID continue Carafate monitor h/h and for GI bleeding continue puree diet FU egd BX Spoke to Public Guardian: Alfredo Christianson [phone], discuss findings of EGD and recommendations. on discharge recommend puree diet for large hernia , continue carafate and pepcid 20 mg BID Seen and discussed with Dr. Reyes.
[2017-10-12 15:11] VITALS: BP 173/79; PULSE 75; RESP 20; TEMP 99.2; O2SAT 94
--- NOTE | 2017-10-15 05:08 | DS ---
10/12/17 DISPOSITION: Discharged to [facility]. CHIEF COMPLAINT: Diarrhea with blood and vomiting. HISTORY OF PRESENT ILLNESS: Ms. Jeanette Cantrell is an 86-year-old female with past medical history of gastric ulcer, diverticulitis, GERD, constipation, hypertension, congestive heart failure, anemia, dementia, COPD, diabetes mellitus, UTI, came to the Emergency Room from [facility] with episodes of black vomitus and diarrhea. The patient reports that she felt dizzy and she had a dark coffee-ground vomitus, loss of appetite. She was not able to eat that day. We admitted the patient, GI consult called with Dr. Reyes who ultimately saw the patient. The patient went for endoscopy by the GI, discharged to [facility] today with followup. PAST MEDICAL HISTORY: As above. History of gastritis, gastric ulcers, diverticulitis, GERD, constipation, hypertension, congestive heart failure, anemia, dementia, COPD, UTI, degenerative joint disease, chronic pain syndrome, diabetes mellitus, hematuria, hematochezia, urinary incontinence, hysterectomy. FAMILY HISTORY: Father and mother, noncontributory. HABITS: Former smoker. No smoking, no drugs. No ethanol. ALLERGIES: THE PATIENT IS ALLERGIC WITH ASPIRIN. HOME MEDICATIONS: Reviewed by me. REVIEW OF SYSTEMS: The patient was seen and examined at bedside in her room, looking comfortable. No more nausea, vomiting, or diarrhea. No abdominal pain. No acute events happened overnight. Status post EGD, found to have grade A esophagitis and large paraesophageal hernia, type 3. Tolerated pureed diet. PHYSICAL EXAMINATION: VITAL SIGNS: Temperature 98.6, pulse 70, respiratory rate 18, blood pressure 135/69. HEENT: Head: Normocephalic, atraumatic. Eyes: PERRLA. Extraocular muscles intact. Conjunctivae clear. Nose patent. NECK: Supple. No carotid bruits. No JVD or thyromegaly. CHEST: Bilaterally symmetrical. HEART: S1 and S2 positive. LUNGS: Clear to auscultation. ABDOMEN: Soft. Bowel sounds present. No organomegaly. EXTREMITIES: No edema, no cyanosis. NEUROLOGICAL: The patient is awake and alert. Moving all four extremities. No focal deficit. MEDICATIONS: Tylenol, iron, sodium, losartan, pantoprazole, sucralfate. LABORATORY DATA: White blood count 6.2, hemoglobin 9.3, hematocrit 28.4, platelets 195. Sodium 142, potassium 4.2, BUN 16, creatinine 0.9, glucose 154. ASSESSMENT AND PLAN: Ms. Jeanette Cantrell is an 86-year-old lady with anemia, hyperglycemia. Came with hematemesis, resolved, status post esophagogastroduodenoscopy, large grade A paraesophageal hernia, type 3; chronic anemia, now hemoglobin is stable; hiatal hernia; diabetes mellitus; hypertension; hypercholesterolemia; diverticulitis. Gave Protonix 40 mg p.o. b.i.d., Pepcid 20 twice a day. Continue Carafate. Continue monitoring hemoglobin and hematocrit for gastrointestinal bleeding. Continue pureed diet. Nevin Karimi MD MTDD
== END 2017-10-12 16:20 | disposition home or self-care (01) ==
LOC: ED 21:20 → ERH 10-10 02:45 → 5RNO 10-10 04:41
PROVIDERS: ADMIT Internal Medicine; ATTEND Internal Medicine
DX: K92.0 Hematemesis (principal); K29.50 Unspecified chronic gastritis without bleeding; K44.9 Diaphragmatic hernia without obstruction or gangrene; K21.0 Gastro-esophageal reflux disease with esophagitis; D12.2 Benign neoplasm of ascending colon; D64.9 Anemia, unspecified; E03.9 Hypothyroidism, unspecified; E78.00 Pure hypercholesterolemia, unspecified; F03.90 Unspecified dementia, unspecified severity, without behavioral disturbance, psychotic disturbance, mood disturbance, and anxiety; G89.4 Chronic pain syndrome; I11.0 Hypertensive heart disease with heart failure; I50.9 Heart failure, unspecified; J44.9 Chronic obstructive pulmonary disease, unspecified; E11.65 Type 2 diabetes mellitus with hyperglycemia; Z87.11 Personal history of peptic ulcer disease; Z79.4 Long term (current) use of insulin; Z87.891 Personal history of nicotine dependence; Z88.6 Allergy status to analgesic agent
CPT/HCPCS: 36415; 43239; 71045; 74177; 80048; 80053; 80061; 81001; 82607; 82746; 82948; 83036; 83540; 83550; 83690; 83735; 84100; 84443; 85014; 85018; 85025; 85027; 85610; 85730; 86850; 86900; 86920; 87086; 88305; 88342; 93005; 96374; 96375; 96376; 99285; C9113; G0378; J2001; J2270; J2405; J2704; J7030; J7040; Q9967

== ENCOUNTER 2018-01-31 10:01 | Emergency (ER) | payer MEDICARE, OTHER ==
[2018-01-31 10:02] VITALS: BMI 23.1
--- NOTE | 2018-01-31 11:25 | ED PDOC ---
Arrival/HPI - General Chief Complaint: Abdominal Pain Historian: Patient - History of Present Illness Narrative History of Present Illness (Text): 01/31/18 11:14 87yo female with pmhx of hypertension referred to ED from a DC by Dr. Mcdaniel for right lower abdominal pain. Per Dr. Mcdaniel patient's US showed mass in NH and he wants abdominal CT. Patient however complained of suprapubic pain and urinary frequency. She denies nausea, vomiting, diarrhea, constipation, fever, chills, back pain, any other complaint. Past Medical History - Provider Review Nursing Documentation Reviewed: Yes - Infectious Disease Hx of Infectious Diseases: None - Tetanus Immunization Tetanus Immunization: Unknown - Reproductive Menopause: Yes - Cardiac Hx Cardiac Disorders: Yes Hx Hypertension: Yes - Pulmonary Hx Chronic Obstructive Pulmonary Disease (COPD): Yes - Neurological HX Cerebrovascular Accident: No - HEENT Hx HEENT Disorder: No Hx Blind: No Hx Cataracts: No Hx Deafness: No Hx Difficulty Chewing: No Hx Epistaxis: No Hx Glaucoma: No Hx Macular Degeneration: No - Renal Hx Renal Failure: No - Endocrine/Metabolic Hx Diabetes Mellitus Type 2: Yes - Hematological/Oncological Hx Blood Transfusions: Yes Hx Blood Transfusion Reaction: No (NOT AT PRESENT) - Integumentary Hx Dermatological Disorder: No Hx Basal Cell Carcinoma: No Hx Eczema: No Hx Melanoma: No Hx Psoriasis: No Hx Squamous Cell Carcinoma: No - Musculoskeletal/Rheumatological Hx Arthritis: Yes Hx Falls: Yes - Gastrointestinal Hx Gastrointestinal Disorders: No Hx Colostomy: No Hx Crohn's Disease: No Hx Gall Bladder Disease: No Hx Gastroesophageal Reflux: Yes Hx Ileostomy: No Hx Liver Failure: No Hx Pancreatitis: No HX Swallowing Problems: No - Genitourinary/Gynecological Hx Genitourinary Disorders: Yes Hx Hematuria: Yes Hx Incontinence: Yes Hx Sexually Transmitted Diseases: No Hx Urinary Tract Infection: No - Psychiatric Hx Psychophysiologic Disorder: Yes Hx Anxiety: Yes Hx Depression: Yes Hx Substance Use: No - Surgical History Hx Amputation: No Hx Appendectomy: No Hx Cardiac Catheterization: No Hx Cholecystectomy: No Hx Coronary Stent: No Hx Gastric Bypass Surgery: No Hx Hysterectomy: Yes Hx Joint Replacement: No Hx Kidney Transplant: No Hx Liver Transplant: No Hx Mastectomy: No Hx Musculoskeletal Surgery: No Hx Open Heart Surgery: No Hx Orthopedic Surgery: Yes Hx Splenectomy: No Hx Valve Replacement: No Other/Comment: Tonsillectomy - Anesthesia Hx Anesthesia Reactions: No (UNKNOWN) Hx Malignant Hyperthermia: No (UNKNOWN) - Suicidal Assessment Feels Threatened In Home Enviroment: No Family/Social History - Physician Review Nursing Documentation Reviewed: Yes Family/Social History: Unknown Family HX Smoking Status: Former Smoker Hx Alcohol Use: No Hx Substance Use: No Hx Substance Use Treatment: No Allergies/Home Meds Allergies/Adverse Reactions: Allergies aspirin Allergy (Verified 10/09/17 21:43) NAUSEA Home Medications: Home Meds Medication Instructions Recorded Confirmed Ferrous Sulfate 325 mg PO DAILY 01/01/16 10/09/17 Losartan Potassium [Cozaar] 100 mg PO DAILY 01/01/16 10/09/17 Acetaminophen [Acetaminophen ER] 650 mg PO Q4H PRN 01/02/16 10/09/17 Aluminum Hydroxide/Magnesium H 30 ml PO Q3 PRN 01/02/16 10/09/17 [Maalox 30 ml] Docusate Sodium [Move It Along] 200 mg PO HS 01/02/16 10/09/17 Docusate [Colace] 200 mg PO HS 01/02/16 10/09/17 Lorazepam [Ativan] 0.5 mg PO TID PRN 01/02/16 10/09/17 Magnesium Hydroxide [Milk Of 30 ml PO DAILY PRN 01/02/16 10/09/17 Magnesia] Mirtazapine [Remeron] 15 mg PO HS 01/02/16 10/09/17 Promethazine [Phenergan Oral Syrup] 6.25 mg PO Q4H PRN 01/02/16 10/09/17 Sod Phos,M-B/Na Phos,Di-Ba [Enema] 133 ml RC DAILY PRN 01/02/16 10/09/17 Sucralfate [Carafate] 1 gm PO QID 01/02/16 10/09/17 Review of Systems - Physician Review All systems were reviewed & negative as marked: Yes - Review of Systems Constitutional: Normal Eyes: Normal ENT: Normal Respiratory: Normal Cardiovascular: Normal Gastrointestinal: Abdominal Pain. absent: Constipation, Diarrhea, Nausea, Vomiting, Hematochezia, Hematemesis Genitourinary Female: Frequency. absent: Dysuria, Hematuria Musculoskeletal: Normal Skin: Normal Neurological: Normal Endocrine: Normal Hemo/Lymphatic: Normal Psychiatric: Normal Physical Exam Vital Signs Reviewed: Yes Vital Signs Temp Pulse Resp BP Pulse Ox 01/31/18 10:20 98.1 F 68 18 101/66 99 Temperature: Afebrile Blood Pressure: Normal Pulse: Regular Respiratory Rate: Normal Appearance: Positive for: Well-Appearing, Non-Toxic, Comfortable Pain Distress: None Mental Status: Positive for: Alert and Oriented X 3 - Systems Exam Head: Present: Atraumatic, Normocephalic Pupils: Present: PERRL Extroacular Muscles: Present: EOMI Conjunctiva: Present: Normal Mouth: Present: Moist Mucous Membranes Neck: Present: Normal Range of Motion Respiratory/Chest: Present: Clear to Auscultation, Good Air Exchange. No: Respiratory Distress, Accessory Muscle Use Cardiovascular: Present: Regular Rate and Rhythm, Normal S1, S2. No: Murmurs Abdomen: Present: Tenderness (Suprapubic tenderness), Normal Bowel Sounds, Guarding (Voluntary). No: Distention, Peritoneal Signs, Rebound, McBurney's Point Tender, Rovsing's Sign Present Back: Present: Normal Inspection Upper Extremity: Present: Normal Inspection. No: Cyanosis, Edema Lower Extremity: Present: Normal Inspection. No: Edema Neurological: Present: GCS=15, CN II-XII Intact, Speech Normal Skin: Present: Warm, Dry, Normal Color. No: Rashes Psychiatric: Present: Alert, Oriented x 3, Normal Insight, Normal Concentration Medical Decision Making ED Course and Treatment: 01/31/18 13:21 87yo female referred to ED from DC for lower abdominal pain. Labs UA Blood culture Lactic acid EKG Pt's pain was controlled in ED with medication. Her lab was unremarkable. She had UTI and was treated with Keflex Abdominal/Pelvis CT IMPRESSION: 1. 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 2. No bowel obstruction, measure edema, ascites or free intrarenal gas. Extensive left colonic diverticular disease without diverticulitis. 3. Possible constipation. 4. Bilateral renal cysts appear stable. 5. Bilateral hip ORIF obscures imaging through the lower pelvis. 01/31/18 18:15 All result was DW the Pt's PMD who also saw her in ED and he recommends that she be discharged back to [place] with abx. Result and plan was DW the pt and she agreed. - RAD Interpretation Radiology Orders: 01/31/18 10:16 ABD & PELVIS IV CONTRAST ONLY [CT] Stat Disposition/Present on Arrival - Present on Arrival Any Indicators Present on Arrival: No History of DVT/PE: No History of Uncontrolled Diabetes: No Urinary Catheter: No History of Decub. Ulcer: No History Surgical Site Infection Following: None - Disposition Have Diagnosis and Disposition been Completed?: Yes Diagnosis: UTI (urinary tract infection) Disposition: HOME/ ROUTINE Disposition Time: 13:25 Patient Plan: Discharge Patient Problems: Current Active Problems Problem Status Onset UTI (urinary tract infection) Acute Condition: STABLE Discharge Instructions (ExitCare): Urinary Tract Infections in Adults Additional Instructions: Follow up with your Doctor Return to ED for any new or worsening symptoms Prescriptions: Cephalexin [cephalexin] 500 mg PO TID #21 cap Referrals: Nevin Karimi MD [Primary Care Provider] - Follow up with primary Dante Mcdaniel DO [Staff Provider] - Follow up with primary Forms: [facility] (Spanish)
[2018-01-31 11:39] LABS: BASO # 0.02 K/mm3 (0.0-2.0); BASO % 0.2 % (0.0-3.0); EOS # 0.1 (0.0-0.7); EOS % 1.3 % (1.5-5.0); GRAN # 6.49 (1.4-6.5); GRAN % 70.6 % (50.0-68.0); HEMOGLOBIN 11.2 g/dL (12.0-16.0); LYMPH # 1.8 (1.2-3.4); MEAN CELL VOLUME 91.4 fl (80.0-105.0); MEAN CORPUSCULAR HEMOGLOBIN 29.2 pg (25.0-35.0); MEAN PLATELET VOLUME 8.5 fl (7.0-11.0); MONO # 0.7 (0.1-0.6); MONO % 7.9 % (1.0-6.0); RBC 3.83 10^6/uL (3.5-6.1); RED CELL DISTRIBUTION WIDTH 13.9 % (11.5-14.5); WHITE BLOOD COUNT 9.2 10^3/uL (4.5-11.0)
[2018-01-31 11:44] LABS: ALB/GLOB RATIO 1.2 (1.1-1.8); ALBUMIN 3.8 g/dL (3.0-4.8); ALT/SGPT 18 U/L (7-56); AMYLASE 43 U/L (35-125); AST/SGOT 23 U/L (14-36); BLOOD UREA NITROGEN 16 mg/dL (7-21); GFR NON-AFRICAN AMERICAN 59; LIPASE 24 U/L (23-300)
[2018-01-31 11:50] LABS: INR 0.93; PARTIAL THROMBOPLASTIN TIME 26.3 Seconds (25.1-36.5); PROTHROMBIN TIME 10.7 SECONDS (9.4-12.5)
[2018-01-31 11:52] LABS: PH,URINE 7.5 (4.7-8.0); URINE BILIRUBIN NEGATIVE (NEGATIVE); URINE BLOOD NEGATIVE (NEGATIVE); URINE GLUCOSE (UA) NEGATIVE (NEGATIVE); URINE LEUKOCYTE ESTERASE SMALL Leu/uL (NEGATIVE); URINE PROTEIN NEGATIVE mg/dL (<30 mg/dL); URINE UROBILINOGEN 0.2 E.U./dL (<1 E.U./dL)
[2018-01-31 11:56] LABS: TROPONIN I 0.01 ng/mL
[2018-01-31 11:58] LABS: URINE APPEARANCE CLEAR (CLEAR); URINE COLOR YELLOW (YELLOW)
[2018-01-31] MEDS ORDERED: Iohexol 350 MG/100 ML VIAL ONE (12:05)
[2018-01-31 12:11] LABS: URINE AMORPHOUS SEDIMENT FEW; URINE BACTERIA MANY (NEG); URINE RBC 0 - 2 /hpf (0-2)
--- NOTE | 2018-01-31 13:19 | CT ---
Date of service: 01/31/2018 PROCEDURE: CT Abdomen and Pelvis with contrast HISTORY: abdominal pain COMPARISON: Abdomen and Pelvis CT with contrast 10/10/2017. TECHNIQUE: Following the intravenous administration of iodinated contrast material, a CT examination of the abdomen and pelvis performed from the domes of the diaphragms to the symphysis pubis with reformatted datasets provided in axial, sagittal and coronal planes. Oral contrast was not administered as per referring physician request. Coronal and sagittal reformats were generated. Contrast dose: Omnipaque 350, 96 cc Radiation dose: Total exam DLP = 278.02 mGy-cm. This CT exam was performed using one or more of the following dose reduction techniques: Automated exposure control, adjustment of the mA and/or kV according to patient size, and/or use of iterative reconstruction technique. FINDINGS: LOWER THORAX: Large hiatal hernia is again identified. Cardiomegaly is noted as well as atherosclerotic thoracic aortic changes but no pleural or pericardial effusion appreciable. LIVER: Diminished attenuation again seen throughout the liver. Stable limited blush of iodinated contrast material is appreciate the left lobe liver once again potentially reflecting small AVM or fistula dating back to prior CT with contrast 04/22/2015. Stable limited dilatation of the common hepatic duct is appreciated likely as a post cholecystectomy product. GALLBLADDER AND BILE DUCTS: Prior cholecystectomy again evident with stable likely related dilatation of the common bile duct without choledocholithiasis. PANCREAS: Unremarkable. No gross lesion or ductal dilatation. SPLEEN: Tiny lucency under 1 cm size is too small to characterize but stable in the interval. ADRENALS: Unremarkable. No mass. KIDNEYS AND URETERS: Multiple renal cysts are identified bilaterally, left greater than right with dominant cyst exophytic off the lower pole left kidney stable in size a 5.0 cm. No obstructive uropathy bilaterally. No definite radiodense urolithiasis or perinephric change bilaterally. No solid enhancing mass bilaterally. VASCULATURE: Nonaneurysmal abdominal aortic calcific atherosclerotic changes are identified. BOWEL: No bowel obstruction identified. Lack oral contrast limits evaluation of the gastrointestinal tract. Moderate fecal loading seen throughout the colon with extensive left colonic diverticular disease again evident, primarily affecting the sigmoid segment, but without acute inflammatory changes related. Small bowel appears normal in caliber throughout. Prominent fecal loading may indicate at least an element of constipation. Clinically correlate. APPENDIX: Not identified. No CT evidence to suggest appendicitis. PERITONEUM: Unremarkable. No free fluid. No free air. LYMPH NODES: Unremarkable. No enlarged lymph nodes. BLADDER: Distended but thin and smooth walled REPRODUCTIVE: Partially obscured by extensive orthopedic hardware in this patient is status post bilateral ORIF for bilateral proximal femoral fractures. BONES: Chronic L3 vertebral body fracture reiterated. OTHER FINDINGS: None. IMPRESSION: 1. 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 2. No bowel obstruction, measure edema, ascites or free intrarenal gas. Extensive left colonic diverticular disease without diverticulitis. 3. Possible constipation. 4. Bilateral renal cysts appear stable. 5. Bilateral hip ORIF obscures imaging through the lower pelvis.
[2018-01-31 18:26] VITALS: TEMP 98
--- NOTE | 2018-01-31 19:26 | CARD ---
APPROVED REPORT Date of service: 01/31/2018 EKG Measurement Heart [id number] ID [id number] <Conclusion> Normal sinus rhythm Normal ECG
[2018-01-31 20:46] VITALS: RESP 16
[2018-01-31 23:02] VITALS: BP 119/56; PULSE 70; O2SAT 95
== END 2018-01-31 23:00 | disposition home or self-care (01) ==
LOC: ED 10:01
DX: N39.0 Urinary tract infection, site not specified (principal); E11.9 Type 2 diabetes mellitus without complications; I10 Essential (primary) hypertension; J44.9 Chronic obstructive pulmonary disease, unspecified; Z87.891 Personal history of nicotine dependence
CPT/HCPCS: 74177; 80053; 81001; 82150; 82550; 83605; 83615; 83690; 84484; 85025; 85610; 85730; 87040; 87086; 87181; 93005; 99285; Q9967

== ENCOUNTER 2018-04-16 08:35 | Observation (INO) | payer MEDICARE, OTHER ==
[2018-04-16 09:06] VITALS: BMI 23.6
--- NOTE | 2018-04-16 09:07 | ED PDOC ---
Arrival/HPI - General Time Seen by Provider: 04/16/18 08:57 Historian: Patient - History of Present Illness Narrative History of Present Illness (Text): 04/16/18 09:04 87 year old female, whose past medical history includes diabetes, COPD, anemia, Peptic ulcer disease, and hypertension, presents to the emergency department complaining of vomiting and abdominal pain. Patient states she began vomiting coffee ground last night and has had several episodes since. She denies fevers, chills, headache, dizziness, chest pain, shortness of breath, dyspnea on exertion, cough, diarrhea, back pain, neck pain, or any other complaint. PMD: Dr. Mcdaniel Time/Duration: 24 hours Symptom Onset: Gradual Symptom Course: Unchanged Activities at Onset: Light Context: Other (long term) Past Medical History - Provider Review Nursing Documentation Reviewed: Yes - Infectious Disease Hx of Infectious Diseases: None - Tetanus Immunization Tetanus Immunization: Unknown - Cardiac Hx Cardiac Disorders: Yes Hx Hypertension: Yes - Pulmonary Hx Chronic Obstructive Pulmonary Disease (COPD): Yes - Neurological HX Cerebrovascular Accident: No - HEENT Hx HEENT Disorder: No Hx Blind: No Hx Cataracts: No Hx Deafness: No Hx Difficulty Chewing: No Hx Epistaxis: No Hx Glaucoma: No Hx Macular Degeneration: No - Renal Hx Renal Failure: No - Endocrine/Metabolic Hx Diabetes Mellitus Type 2: Yes - Hematological/Oncological Hx Blood Transfusions: Yes Hx Blood Transfusion Reaction: No (NOT AT PRESENT) - Integumentary Hx Dermatological Disorder: No Hx Basal Cell Carcinoma: No Hx Eczema: No Hx Melanoma: No Hx Psoriasis: No Hx Squamous Cell Carcinoma: No - Musculoskeletal/Rheumatological Hx Arthritis: Yes Hx Falls: Yes - Gastrointestinal Hx Gastrointestinal Disorders: No Hx Colostomy: No Hx Crohn's Disease: No Hx Gall Bladder Disease: No Hx Gastroesophageal Reflux: Yes Hx Ileostomy: No Hx Liver Failure: No Hx Pancreatitis: No HX Swallowing Problems: No - Genitourinary/Gynecological Hx Genitourinary Disorders: Yes Hx Hematuria: Yes Hx Incontinence: Yes Hx Sexually Transmitted Diseases: No Hx Urinary Tract Infection: No - Psychiatric Hx Psychophysiologic Disorder: Yes Hx Anxiety: Yes Hx Depression: Yes Hx Substance Use: No - Surgical History Hx Amputation: No Hx Appendectomy: No Hx Cardiac Catheterization: No Hx Cholecystectomy: No Hx Coronary Stent: No Hx Gastric Bypass Surgery: No Hx Hysterectomy: Yes Hx Joint Replacement: No Hx Kidney Transplant: No Hx Liver Transplant: No Hx Mastectomy: No Hx Musculoskeletal Surgery: No Hx Open Heart Surgery: No Hx Orthopedic Surgery: Yes Hx Splenectomy: No Hx Valve Replacement: No Other/Comment: Tonsillectomy - Anesthesia Hx Anesthesia Reactions: No (UNKNOWN) Hx Malignant Hyperthermia: No (UNKNOWN) - Suicidal Assessment Feels Threatened In Home Enviroment: No Family/Social History - Physician Review Nursing Documentation Reviewed: Yes Family/Social History: No Known Family HX Smoking Status: Former Smoker Hx Alcohol Use: No Hx Substance Use: No Hx Substance Use Treatment: No Allergies/Home Meds Allergies/Adverse Reactions: Allergies aspirin Allergy (Verified 10/09/17 21:43) NAUSEA Home Medications: Home Meds Medication Instructions Recorded Confirmed Acetaminophen [Acetaminophen ER] 650 mg PO Q4H PRN 01/02/16 04/16/18 Acetaminophen [Tylenol] 325 mg PO QID 04/16/18 04/16/18 Albuterol/Ipratropium [Duoneb 3 0.5 - 2.5 mg IH BID 04/16/18 04/16/18 mg/0.5 mg (3 ml) UD] Bisacodyl [Dulcolax] 5 mg PO BID 04/16/18 04/16/18 Guaifenesin/Dextromethorphan 10 ml PO Q8 04/16/18 04/16/18 [Diabetic Tussin] Insulin Human Regular [HumuLIN R] 100 units SQ DAILY 04/16/18 04/16/18 Lactobacillus Acidophilus [Bacid 1 mg PO DAILY 04/16/18 04/16/18 Acidophilus] Lactulose [Enulose] 30 ml PO DAILY 04/16/18 04/16/18 Lidocaine [Lidocare] 1 mg ID PRN PRN 04/16/18 04/16/18 Lubiprostone [Amitiza] 8 mcg PO BID 04/16/18 04/16/18 Magnesium Hydroxide [Milk Of 30 ml PO DAILY 04/16/18 04/16/18 Magnesia] Metoclopramide [Reglan] 10 mg PO DAILY 04/16/18 04/16/18 Mirtazapine [Remeron] 15 mg PO HS 04/16/18 04/16/18 Montelukast Sodium [Singulair] 10 mg PO DAILY 04/16/18 04/16/18 Mv-Mn/Iron/Folic Acid/Herb 190 5,000 unit PO DAILY 04/16/18 04/16/18 [Vitamin D3 Complete Caplet] Omeprazole 20 mg PO DAILY 04/16/18 04/16/18 Ondansetron HCl [Zofran] 4 mg PO DAILY 04/16/18 04/16/18 Polyethylene Glycol 3350 [Miralax] 17 gm PO DAILY 04/16/18 04/16/18 Propylene Glycol/Peg 400/Pf 1 % OU BID 04/16/18 04/16/18 [Systane Ultra 0.4-0.3% Eye Drp] Ranitidine HCl [Acid Paper Cleaner] 150 mg PO DAILY 04/16/18 04/16/18 SITagliptin [Januvia] 50 mg PO DAILY 04/16/18 04/16/18 Sucralfate [Carafate Tab] 1 gm PO QID 04/16/18 04/16/18 Tolnaftate [Antifungal Cream] 14.18 gm TOP DAILY 04/16/18 04/16/18 Tramadol HCl [Ultram] 50 mg PO BID 04/16/18 04/16/18 Vitamin B Complex [B Complex] 100 mg PO DAILY 04/16/18 04/16/18 Zolpidem [Ambien] 5 mg PO HS 04/16/18 04/16/18 Review of Systems - Physician Review All systems were reviewed & negative as marked: Yes - Review of Systems Constitutional: absent: Fevers Cardiovascular: absent: Chest Pain Physical Exam - Physical Exam Narrative Physical Exam (Text): 04/16/18 09:05 Constitutional: No acute distress. Head: Normocephalic. Atraumatic. Eyes: PERRL. ENT: Moist mucous membranes. Neck: Supple. Cardiovascular: Tachycardia. Chest: No tenderness. Respiratory: Clear to auscultation bilaterally. GI: Soft. Mild diffuse abdominal tenderness. Nondistended. Bucket at bedside with coffee ground emesis. Back: No CVA tenderness. Musculoskeletal: No tenderness or swelling of extremities. Skin: No rash. Neurologic: Alert, no focal deficit. Vital Signs Reviewed: Yes Vital Signs Temp Pulse Resp BP Pulse Ox 04/16/18 08:36 98.2 F 95 H 18 160/82 H 93 L Temperature: Afebrile Blood Pressure: Hypertensive Pulse: Tachycardic Respiratory Rate: Normal Appearance: Positive for: Well-Appearing, Non-Toxic, Comfortable Pain Distress: None Mental Status: Positive for: Alert and Oriented X 3 Medical Decision Making ED Course and Treatment: 04/16/18 09:07 Impression: 87 year old female who presents to the emergency department complaining of vomit and abdominal pain. Plan: -- BBK -- CT abdomen and Pelvis -- Labs -- Chest X-ray -- Protonix -- Zofran -- Urine culture -- Urinalysis -- Reassess and disposition Prior Visits: Notes and results from previous visits were reviewed. Progress Notes: EKG reviewed by me at 8:56am, shows: NSR at [address] elevations. 04/16/18 11:17 CT abdomen and Pelvis reviewed by radiologist, shows: IMPRESSION: Questionable large hiatal hernia or elevated left hemidiaphragm with large portion of the stomach in the left lower hemithorax. Grossly unchanged from prior examination. Extensive colonic diverticulosis. Bilateral renal cysts. Dr. Mcdaniel accepts patient to his service. Consult placed for GI Barak. - Lab Interpretations I have reviewed the lab results: Yes - RAD Interpretation Radiology Orders: 04/16/18 09:02 CHEST PORTABLE [RAD] Stat 04/16/18 09:03 ABD & PELVIS IV CONTRAST ONLY [CT] Stat - EKG Interpretation Interpreted by ED Physician: Yes Type: 12 lead EKG - Scribe Statement The provider has reviewed the documentation as recorded by the Scribe Rosa Obrien Provider Scribe Attestation: All medical record entries made by the Scribe were at my direction and personally dictated by me. I have reviewed the chart and agree that the record accurately reflects my personal performance of the history, physical exam, medical decision making, and the department course for this patient. I have also personally directed, reviewed, and agree with the discharge instructions and disposition. Disposition/Present on Arrival - Present on Arrival Any Indicators Present on Arrival: No History of DVT/PE: No History of Uncontrolled Diabetes: No Urinary Catheter: No History Surgical Site Infection Following: None - Disposition Have Diagnosis and Disposition been Completed?: Yes Diagnosis: GI bleed Disposition: HOSPITALIZED Disposition Time: 11:25 Patient Plan: Admission, Telemetry Condition: GUARDED
[2018-04-16 09:25] LABS: BASO # 0.01 K/mm3 (0.0-2.0); BASO % 0.1 % (0.0-3.0); EOS % 0.2 % (1.5-5.0); HEMOGLOBIN 12.6 g/dL (12.0-16.0); LYMPH # 1.4 (1.2-3.4); LYMPH % 15.5 % (22.0-35.0); MEAN CELL VOLUME 93.8 fl (80.0-105.0); MEAN CORPUSCULAR HEMOGLOBIN 30.2 pg (25.0-35.0); MEAN CORPUSCULAR HGB CONC 32.2 g/dl (31.0-37.0); MONO # 0.8 (0.1-0.6); MONO % 8.8 % (1.0-6.0); RBC 4.17 10^6/uL (3.5-6.1); WHITE BLOOD COUNT 8.9 10^3/uL (4.5-11.0)
[2018-04-16 09:43] LABS: INR 1.02; PARTIAL THROMBOPLASTIN TIME 29.8 Seconds (26.9-38.3); PROTHROMBIN TIME 11.5 SECONDS (9.4-12.5)
[2018-04-16 09:44] LABS: ALB/GLOB RATIO 1.3 (1.1-1.8); ALBUMIN 4.8 g/dL (3.0-4.8); CALCIUM 9.6 mg/dL (8.4-10.5)
[2018-04-16] MEDS ORDERED: Iohexol 300 100 ML IJ ONE (09:50)
--- NOTE | 2018-04-16 11:13 | CT ---
Date of service: 04/16/2018 PROCEDURE: CT Abdomen and Pelvis with contrast HISTORY: abd pain, coffee ground emesis COMPARISON: 01/31/2018 TECHNIQUE: Contrast dose: Radiation dose: Total exam DLP = 520.36 mGy-cm. This CT exam was performed using one or more of the following dose reduction techniques: Automated exposure control, adjustment of the mA and/or kV according to patient size, and/or use of iterative reconstruction technique. FINDINGS: LOWER THORAX: Questionable large hiatal hernia or elevated left hemidiaphragm with large portion of the stomach in the left lower hemithorax. LIVER: Unremarkable. No gross lesion or ductal dilatation. GALLBLADDER AND BILE DUCTS: Cholecystectomy. PANCREAS: Unremarkable. No gross lesion or ductal dilatation. SPLEEN: Unremarkable. ADRENALS: Unremarkable. No mass. KIDNEYS AND URETERS: Bilateral renal cysts measuring up to 5.7 centimeters in the left kidney. No hydronephrosis. No solid mass. VASCULATURE: Unremarkable. No aortic aneurysm. No aortic atherosclerotic calcification or mural plaque present. BOWEL: Extensive colonic diverticulosis. No obstruction. No gross mural thickening. APPENDIX: Normal appendix. PERITONEUM: Unremarkable. No free fluid. No free air. LYMPH NODES: Unremarkable. No enlarged lymph nodes. BLADDER: Unremarkable. REPRODUCTIVE: Unremarkable. BONES: No acute fracture. OTHER FINDINGS: Bilateral hip surgery with streak artifact limiting assessment of the pelvis. IMPRESSION: Questionable large hiatal hernia or elevated left hemidiaphragm with large portion of the stomach in the left lower hemithorax. Grossly unchanged from prior examination. Extensive colonic diverticulosis. Bilateral renal cysts.
[2018-04-16 12:26] LABS: PH,URINE 8.5 (4.7-8.0); URINE BILIRUBIN NEGATIVE (NEGATIVE); URINE BLOOD TRACE-INTACT (NEGATIVE); URINE GLUCOSE (UA) NEGATIVE (NEGATIVE); URINE LEUKOCYTE ESTERASE NEGATIVE Leu/uL (NEGATIVE); URINE PROTEIN 100 mg/dL (<30 mg/dL); URINE UROBILINOGEN 0.2 E.U./dL (<1 E.U./dL)
[2018-04-16 12:27] LABS: URINE APPEARANCE SL CLOUDY (CLEAR); URINE COLOR YELLOW (YELLOW)
[2018-04-16 12:30] LABS: URINE BACTERIA FEW /hpf; URINE WBC 0 - 2 /hpf (0-6)
[2018-04-16] MEDS ORDERED: Sodium Chloride 0.45% 1,000 ML IV SCH (13:30)
[2018-04-16] MEDS: Morphine 2 mg/ml ISec IVP PRN (14:25)
--- NOTE | 2018-04-16 14:38 | RAD ---
Date of service: 04/16/2018 HISTORY: r/o PNA COMPARISON: Portable chest 10/10/2017. abdomen pelvis CT 04/16/2018. FINDINGS: LUNGS: No definite interval acute infiltrate bilaterally. Large hiatal hernia (as per abdomen pelvis CT 04/16/2018) suspected once again, larger in size. PLEURA: No significant pleural effusion identified, no pneumothorax apparent. CARDIOVASCULAR: No aortic atherosclerotic calcification present. Stable cardiac size. No pulmonary vascular congestion. OSSEOUS STRUCTURES: No significant abnormalities. VISUALIZED UPPER ABDOMEN: Normal. OTHER FINDINGS: None. IMPRESSION: No acute infiltrate, pleural effusion or interval cardiomegaly. No pulmonary congestion. Large hiatal hernia now identified in the interval, likely increased in size.
[2018-04-16] MEDS ORDERED: Influenza Vaccine 60 mcg/0.5 mL SYR (4YR UP) IM ONE (17:17)
[2018-04-16] MEDS ORDERED: Pneumococcal 23-Valent Vaccine IM ONE (17:17)
[2018-04-16] MEDS: Insulin Reg-MEDIUM-Coverage SC SCH ×2 (18:12→22:12)
--- NOTE | 2018-04-16 18:45 | CP.PCM.CON ---
<Noah George - Last Filed: 04/16/18 18:42> History of Present Illness - History of Present Illness History of Present Illness: PGY-4 GI Fellow Consult Note Pt is an 87 yo Hisp Female with h/o Erosive Esophagitis, Large Hiatal Hernia, PUD, GERD, DM, HTN, COPD presenting with black emesis. She states in the PM of 04/15 she began to feel nauseous with episodes of black emesis. She reported multiple episodes with some associated bilateral lower quadrant achy pain. Denied and precipitating or alleviating factors. States that last BM was 3-4 days ago and was brown in color. She denied any weights loss, dysphagia, lightheadedness, NSAID/ASA/blood thinner use. EGD September 2017 with large Type III Hiatal Hernia, Gatritis (+IM, -HP). Previous EGD from 2015 with duodenal and gastric ulcers. CSPY 07/15/15: Diverticulosis and 2 tubular adenomas. 12 point ROS negative other than stated above MHx: See above SurgHx: Hysterectomy, Tonsillectomy, R Hip surgery Meds: Reviewed in chart FamHx: Denied CRC SocHx: Former tobacco, denied illicits/EtOH All: ASA Past Patient History - Infectious Disease Hx of Infectious Diseases: None - Tetanus Immunizations Tetanus Immunization: Unknown - Past Medical History & Family History Past Medical History?: Yes - Past Social History Smoking Status: Former Smoker - CARDIAC Hx Cardiac Disorders: Yes Hx Hypertension: Yes - PULMONARY Hx Respiratory Disorders: Yes (USED TO SMOKE CIGARETTES) Hx Chronic Obstructive Pulmonary Disease (COPD): Yes - NEUROLOGICAL Hx Neurological Disorder: Yes HX Cerebrovascular Accident: No Hx Dementia: Yes Hx Dizziness: Yes - HEENT Hx HEENT Problems: No Hx Blind: No Hx Cataracts: No Hx Deafness: No Hx Difficulty Chewing: No Hx Epistaxis: No Hx Glaucoma: No Hx Macular Degeneration: No - RENAL Hx Renal Failure: No - ENDOCRINE/METABOLIC Hx Endocrine Disorders: Yes Hx Diabetes Mellitus Type 2: Yes - HEMATOLOGICAL/ONCOLOGICAL Hx Blood Disorders: Yes Hx AIDS: No Hx Anemia: Yes Hx Hepatitis C: No - INTEGUMENTARY Hx Dermatological Problems: No Hx Basil Cell: No Hx Eczema: No Hx Melanoma: No Hx Psoriasis: No Hx Squamous Cell: No - MUSCULOSKELETAL/RHEUMATOLOGICAL Hx Musculoskeletal Disorders: Yes Hx Arthritis: Yes Hx Falls: Yes Hx Unsteady Gait: Yes (WALKER) - GASTROINTESTINAL Hx Gastrointestinal Disorders: Yes (DIVERTICULOSIS,DIAPHRAGMATIC HERNIA,PUD) Hx Colostomy: No Hx Crohn's Disease: No Hx Gall Bladder Disease: No Hx Gastroesophageal Reflux: Yes Hx Ileostomy: No Hx Liver Failure: No Hx Pancreatitis: No HX Swallowing Problems: No - GENITOURINARY/GYNECOLOGICAL Hx Genitourinary Disorders: Yes (URINARY RETENTION,STRAIGHT CATH FOR RESIDUAL URINE) Hx Hematuria: Yes Hx Incontinence: Yes Hx Sexually Transmitted Disorders: No Hx Urinary Tract Infection: No - PSYCHIATRIC Hx Psychophysiologic Disorder: Yes (INSOMNIA) Hx Anxiety: Yes Hx Depression: Yes Hx Substance Use: No - SURGICAL HISTORY Hx Surgeries: Yes Hx Amputation: No Hx Appendectomy: No Hx Cardiac Catheterization: No Hx Cholecystectomy: No Hx Coronary Stent: No Hx Gastric Bypass Surgery: No Hx Hysterectomy: Yes Hx Joint Replacement: No Hx Kidney Transplant: No Hx Liver Transplant: No Hx Mastectomy: No Hx Musculoskeletal Surgery: No Hx Open Heart Surgery: No Hx Orthopedic Surgery: Yes Hx Splenectomy: No Hx Valve Replacement: No Other/Comment: Tonsillectomy - ANESTHESIA Hx Anesthesia Reactions: No (UNKNOWN) Hx Malignant Hyperthermia: No (UNKNOWN) Meds Allergies/Adverse Reactions: Allergies Allergy/AdvReac Type Severity Reaction Status Date / Time aspirin Allergy NAUSEA Verified 04/16/18 11:57 - Medications Medications: Current Medications Sodium Chloride (Sodium Chloride 0.45%) 1,000 mls @ 40 mls/hr IV .Q24H [facility] Last Admin: 04/16/18 14:24 Dose: 40 mls/hr Insulin Human Regular (Humulin R Med) 0 units SC [facility]; Protocol Last Admin: 04/16/18 18:12 Dose: Not Given Metoclopramide HCl (Reglan) 10 mg PO DAILY [facility] Montelukast Sodium (Singulair) 10 mg PO DAILY [facility] Morphine Sulfate (Morphine) 2 mg IVP Q4H PRN PRN Reason: Pain, moderate (4-7) Last Admin: 04/16/18 14:25 Dose: 2 mg Non-Formulary Medication (Lubiprostone [Amitiza]) 8 mcg PO BID [facility] Last Admin: 04/16/18 18:13 Dose: Not Given Ondansetron HCl (Zofran Inj) 4 mg IVP Q6H PRN PRN Reason: Nausea/Vomiting Pantoprazole Sodium (Protonix Inj) 40 mg IVP Q12 [facility] Polyethylene Glycol (Miralax) 17 gm PO DAILY [facility] Sitagliptin Phosphate (Januvia) 50 mg PO DAILY [facility] Zolpidem Tartrate (Ambien) 5 mg PO HS [facility]; Protocol Physical Exam - Constitutional Appears: Well, No Acute Distress - Head Exam Head Exam: ATRAUMATIC, NORMAL INSPECTION - Eye Exam Eye Exam: EOMI. absent: Scleral icterus - ENT Exam ENT Exam: Mucous Membranes Moist. absent: Mucous Membranes Dry - Respiratory Exam Respiratory Exam: Clear to Auscultation Bilateral, NORMAL BREATHING PATTERN. absent: Accessory Muscle Use - Cardiovascular Exam Cardiovascular Exam: REGULAR RHYTHM, RRR - GI/Abdominal Exam GI & Abdominal Exam: Normal Bowel Sounds, Soft, Tenderness (mildly ttp in bilateral lower quads w/o guarding). absent: Bruit, Diminished Bowel Sounds, Distended, Firm, Guarding, Hernia, Organomegaly, Pulsatile Mass, Rebound, Rigid - Rectal Exam Rectal Exam: NORMAL INSPECTION Additional comments: brown stool on GENNY - Extremities Exam Extremities exam: Positive for: normal inspection. Negative for: pedal edema - Neurological Exam Neurological exam: Alert, CN II-XII Intact - Psychiatric Exam Psychiatric exam: Normal Affect, Normal Mood - Skin Skin Exam: Dry, Warm Results - Vital Signs Recent Vital Signs: Last Vital Signs Temp 98.2 F 04/16/18 08:36 Pulse 80 04/16/18 16:31 Resp 18 04/16/18 16:40 BP 140/66 04/16/18 16:31 Pulse Ox 100 04/16/18 16:31 - Labs Result Diagrams: 04/16/18 09:00 04/16/18 09:00 Labs: Laboratory Results - last 24 hr 04/16/18 04/16/18 04/16/18 09:00 09:00 09:00 WBC 8.9 RBC 4.17 Hgb 12.6 Hct 39.1 MCV 93.8 MCH 30.2 MCHC 32.2 RDW 14.0 Plt Count 283 MPV 9.0 Neut % (Auto) 75.4 H Lymph % (Auto) 15.5 L [place] % (Auto) 8.8 H Eos % (Auto) 0.2 L Baso % (Auto) 0.1 Lymph # (Auto) 1.4 [place] # (Auto) 0.8 H Eos # (Auto) 0.0 Baso # (Auto) 0.01 Absolute Neuts (auto) 6.71 H PT 11.5 INR 1.02 APTT 29.8 Sodium 142 Potassium 3.2 L Chloride 89 L Carbon Dioxide 40 H D Anion Gap 16 BUN 29 H Creatinine 1.1 Est GFR ( Amer) 57 Est GFR (Non-Af Amer) 47 Random Glucose 229 H Calcium 9.6 Phosphorus 4.2 Magnesium 2.3 H Total Bilirubin 0.9 AST 24 ALT 21 Alkaline Phosphatase 106 Total Protein 8.6 H Albumin 4.8 Globulin 3.8 Albumin/Globulin Ratio 1.3 Lipase 61 Urine Color Urine Appearance Urine pH Ur Specific [place] Urine Protein Urine Glucose (UA) Urine Ketones Urine Blood Urine Nitrate Urine Bilirubin Urine Urobilinogen Ur Leukocyte Esterase Urine RBC Urine WBC Ur Epithelial Cells Urine Bacteria Urine Other Blood Type Antibody Screen BBK History Checked 04/16/18 04/16/18 09:00 12:15 WBC RBC Hgb Hct MCV MCH MCHC RDW Plt Count MPV Neut % (Auto) Lymph % (Auto) [place] % (Auto) Eos % (Auto) Baso % (Auto) Lymph # (Auto) [place] # (Auto) Eos # (Auto) Baso # (Auto) Absolute Neuts (auto) PT INR APTT Sodium Potassium Chloride Carbon Dioxide Anion Gap BUN Creatinine Est GFR ( Amer) Est GFR (Non-Af Amer) Random Glucose Calcium Phosphorus Magnesium Total Bilirubin AST ALT Alkaline Phosphatase Total Protein Albumin Globulin Albumin/Globulin Ratio Lipase Urine Color Yellow Urine Appearance Sl cloudy Urine pH 8.5 Ur Specific [place] 1.015 Urine Protein 100 H Urine Glucose (UA) Negative Urine Ketones 15 H Urine Blood Trace-intact H Urine Nitrate Negative Urine Bilirubin Negative Urine Urobilinogen 0.2 Ur Leukocyte Esterase Negative Urine RBC 2 - 5 H Urine WBC 0 - 2 Ur Epithelial Cells 3 - 4 Urine Bacteria Few Urine Other Fiber Blood Type A POSITIVE Antibody Screen Negative BBK History Checked Patient has bt Assessment & Plan - Assessment and Plan (Free Text) Assessment: # Coffee ground emesis: Hgb at baseline. Vitals stable Pt with known h/o PUD, Hiatal hernia and Erosive Esophagitis, all placing at risk for upper GI bleeding sources ([place] ulcers/erosions with hiatal hernia). # H/o tubular adenomas, Diverticulosis Plan: - Cont PPI IV BID - NPO - Will consider EGD pending course - Monitor Labs Pt discussed with Dr. Cancino; please see attestation for further recs/changes. <Dejan Cancino - Last Filed: 04/16/18 21:53> Meds - Medications Medications: Current Medications Sodium Chloride (Sodium Chloride 0.45%) 1,000 mls @ 40 mls/hr IV .Q24H [facility] Last Admin: 04/16/18 14:24 Dose: 40 mls/hr Insulin Human Regular (Humulin R Med) 0 units SC [facility]; Protocol Last Admin: 04/16/18 18:12 Dose: Not Given Metoclopramide HCl (Reglan) 10 mg PO DAILY [facility] Montelukast Sodium (Singulair) 10 mg PO DAILY [facility] Morphine Sulfate (Morphine) 2 mg IVP Q4H PRN PRN Reason: Pain, moderate (4-7) Last Admin: 04/16/18 14:25 Dose: 2 mg Non-Formulary Medication (Lubiprostone [Amitiza]) 8 mcg PO BID [facility] Last Admin: 04/16/18 18:13 Dose: Not Given Ondansetron HCl (Zofran Inj) 4 mg IVP Q6H PRN PRN Reason: Nausea/Vomiting Pantoprazole Sodium (Protonix Inj) 40 mg IVP Q12 [facility] Polyethylene Glycol (Miralax) 17 gm PO DAILY [facility] Sitagliptin Phosphate (Januvia) 50 mg PO DAILY [facility] Zolpidem Tartrate (Ambien) 5 mg PO HS [facility]; Protocol Results - Vital Signs Recent Vital Signs: Last Vital Signs Temp 98.5 F 04/16/18 18:00 Pulse 82 04/16/18 18:00 Resp 18 04/16/18 18:00 BP 132/78 04/16/18 18:00 Pulse Ox 100 04/16/18 18:00 - Labs Result Diagrams: 04/16/18 09:00 04/16/18 09:00 Labs: Laboratory Results - last 24 hr 04/16/18 04/16/18 04/16/18 09:00 09:00 09:00 WBC 8.9 RBC 4.17 Hgb 12.6 Hct 39.1 MCV 93.8 MCH 30.2 MCHC 32.2 RDW 14.0 Plt Count 283 MPV 9.0 Neut % (Auto) 75.4 H Lymph % (Auto) 15.5 L [place] % (Auto) 8.8 H Eos % (Auto) 0.2 L Baso % (Auto) 0.1 Lymph # (Auto) 1.4 [place] # (Auto) 0.8 H Eos # (Auto) 0.0 Baso # (Auto) 0.01 Absolute Neuts (auto) 6.71 H PT 11.5 INR 1.02 APTT 29.8 Sodium 142 Potassium 3.2 L Chloride 89 L Carbon Dioxide 40 H D Anion Gap 16 BUN 29 H Creatinine 1.1 Est GFR ( Amer) 57 Est GFR (Non-Af Amer) 47 Random Glucose 229 H Calcium 9.6 Phosphorus 4.2 Magnesium 2.3 H Total Bilirubin 0.9 AST 24 ALT 21 Alkaline Phosphatase 106 Total Protein 8.6 H Albumin 4.8 Globulin 3.8 Albumin/Globulin Ratio 1.3 Lipase 61 Urine Color Urine Appearance Urine pH Ur Specific [place] Urine Protein Urine Glucose (UA) Urine Ketones Urine Blood Urine Nitrate Urine Bilirubin Urine Urobilinogen Ur Leukocyte Esterase Urine RBC Urine WBC Ur Epithelial Cells Urine Bacteria Urine Other Blood Type Antibody Screen BBK History Checked 04/16/18 04/16/18 09:00 12:15 WBC RBC Hgb Hct MCV MCH MCHC RDW Plt Count MPV Neut % (Auto) Lymph % (Auto) [place] % (Auto) Eos % (Auto) Baso % (Auto) Lymph # (Auto) [place] # (Auto) Eos # (Auto) Baso # (Auto) Absolute Neuts (auto) PT INR APTT Sodium Potassium Chloride Carbon Dioxide Anion Gap BUN Creatinine Est GFR ( Amer) Est GFR (Non-Af Amer) Random Glucose Calcium Phosphorus Magnesium Total Bilirubin AST ALT Alkaline Phosphatase Total Protein Albumin Globulin Albumin/Globulin Ratio Lipase Urine Color Yellow Urine Appearance Sl cloudy Urine pH 8.5 Ur Specific [place] 1.015 Urine Protein 100 H Urine Glucose (UA) Negative Urine Ketones 15 H Urine Blood Trace-intact H Urine Nitrate Negative Urine Bilirubin Negative Urine Urobilinogen 0.2 Ur Leukocyte Esterase Negative Urine RBC 2 - 5 H Urine WBC 0 - 2 Ur Epithelial Cells 3 - 4 Urine Bacteria Few Urine Other Fiber Blood Type A POSITIVE Antibody Screen Negative BBK History Checked Patient has bt Attending/Attestation - Attestation I have personally seen and examined this patient.: Yes I have fully participated in the care of the patient.: Yes I have reviewed all pertinent clinical information: Yes Notes (Text): 04/16/18 21:48 I have seen and examined patient with GI fellow. Agree with above documentation with the following additions. In brief, this is an 87 year old female with history of DM, HTN, GERD, hiatal hernia, who presents to hospital with complaint of abdominal pain and vomiting. She claims symptoms began 2 days ago in the evening, prior to this she was in usual state of health. She describes multiple episodes of dark colored emesis along with epigastric abdominal discomfort, 5/10 intensity, radiating to umbilicus. She denies fever/chills, weight loss, NSAID use, rectal bleeding. She had an EGD in September 2017 showing large hiatal hernia and gastritis. DM/HTN GERD Hiatal hernia Abdominal pain, vomiting CT imaging reviewed by me showing large hiatal hernia, no other gross GI pathol ogy - Clear liquid diet as tolerated - Continue with PPI therapy - H/H stable, continue to monitor - Anti-emetic therapy PRN - No current planned GI intervention, however will continue to monitor patient clinical course. She may benefit from elective surgical consultation for large hiatal hernia management.
--- NOTE | 2018-04-16 22:06 | HP ---
DATE OF EXAM: 04/16/2018 HISTORY OF PRESENT ILLNESS: I was called this morning from the longterm where she lives that she was throwing up coffee-ground emesis. She has been having abdominal pain for the past few days. She is an 87-year-old white female who presents with vomiting, abdominal pain for about 24 hours, coffee-ground last night. Several episodes can keep anything down. She has a past medical history of diabetes, COPD, anemia, peptic ulcer disease, hypertension, chronic abdominal pain. She has arthritis. She has fallen in the past. She has mostly in a wheelchair. She has reflux hematuria history, incontinence history, anxiety, depression, hysterectomy history. As far as the surgery is concerned, orthopedic surgery, tonsillectomy. ALLERGIES: ALLERGY TO ASPIRIN. MEDICATIONS: She is on a lot of medications. Tylenol, DuoNebs, Dulcolax, cough medicine as needed, acidophilus, Enulose, lidocaine, Amitiza, Reglan, Remeron, Singulair, omeprazole, Zofran, MiraLax, ranitidine, Januvia, Carafate, antifungal cream, Ultram, vitamins, and Ambien. FAMILY HISTORY: Unknown family history. SOCIAL HISTORY: Former smoker. No alcohol. No drugs. REVIEW OF SYSTEMS: No acute vision or hearing changes. No sore throat. No chest pain or palpitations. There is abdominal pain as throwing up coffee-ground emesis. No diarrhea. No back pain or leg pains. PHYSICAL EXAMINATION: VITAL SIGNS: She has a temperature 98.2, pulse 95, respiratory 18, blood pressure 160/82, 93% O2 sat. HEENT: Head is atraumatic, normocephalic, little bit distress and throwing up. Throat is dry. Extraocular muscles are intact. NECK: Supple. HEART: Regular rate. Normal S1, S2. LUNGS: Decreased breath sounds bilaterally, poor inspiration, but clear to auscultation. No wheezes or rhonchi. No rales. ABDOMEN: Mildly distended. Mild diffuse tenderness all over the place. Decreased bowel sounds are present. There is no guarding or rebound of the abdomen. EXTREMITIES: No edema. NEUROLOGIC: Alert and oriented x3, pleasant. LABORATORY DATA: had to cut through her situation, she had a questionable large hiatal hernia, elevated hemidiaphragm or large portion of the stomach and left lower hemithorax grossly unchanged from prior exam. Extensive diverticulosis that from the CAT scan of the abdomen and pelvis. She also had a urine which was clean. Sodium 142, potassium 3.2 BUN 29, creatinine 1.1, GFR is greater than 60, sugar is 229, on coverage, calcium 9.6, phosphorous 4.2, magnesium 2.3, total bili is 0.9, AST is 24, ALT is 21, alk phos 16, total protein 8.6, albumin is 4.8, lipase 61. INR is 1.02. White count 8.9, hemoglobin 12.6, hematocrit 39.1, platelets 283. PLAN: There is a occult blood pending. She will be go back on her medications. She will have GI consult. She is to be on IV fluids and we are looking for a GI bleed with her with abdominal pain. Dante Mcdaniel DO MTDD
--- NOTE | 2018-04-17 00:01 | CP.PCM.PN ---
<Giselle Ryder - Last Filed: 04/17/18 00:17> Subjective - Date & Time of Evaluation Date of Evaluation: 04/16/18 Time of Evaluation: 23:59 - Subjective Subjective: PGY-3 for House Doc CC: No urine output for more than 12 hours, bladder scan 255cc S: Pt is an 87 yo Hisp Female with h/o Erosive Esophagitis, Large Hiatal Hernia, PUD, GERD, DM, HTN, COPD presenting with black emesis. EGD September 2017 with large Type III Hiatal Hernia, Gatritis (+IM, -HP). Previous EGD from 2015 with duodenal and gastric ulcers. CSPY 07/15/15: Diverticulosis and 2 tubular adenomas. She is NPO, PPI IV BID, 1/2NS @ 40 Per primary team's H&P, she has CHF and CAD. She had hx of urinary retention O: vss. SaO2 99 RA EOMI, non-icteric Regular, S1, S2, systolic murmur CTA b/l no W/r/r/ Soft NTND, BS normal (+) suprapubic tenderness. No CVA tendernss A: Urinary retention Oliguria likely decrease renal perfusion from GI bleed lost and dehydration R/O UTI from suprapubic tenderess P: Med reviewed, unlikely anticholingeric effect NS@80. D/C 1/2NS strict i/o connor now. PMD to re-eval in Am whether discontinue or not Urinalysis and urine culture. Hold Antibiotics pending u/a result RN will call PMD in mily AM to notify. Objective - Vital Signs/Intake and Output Vital Signs (last 24 hours): Temp Pulse Resp BP Pulse Ox 98.5 F 90 18 132/78 100 04/16/18 18:00 04/16/18 22:00 04/16/18 18:00 04/16/18 18:00 04/16/18 18:00 - Medications Medications: Current Medications Sodium Chloride (Sodium Chloride 0.45%) 1,000 mls @ 40 mls/hr IV .Q24H [facility] Last Admin: 04/16/18 14:24 Dose: 40 mls/hr Insulin Human Regular (Humulin R Med) 0 units SC [facility]; Protocol Last Admin: 04/16/18 22:12 Dose: Not Given Metoclopramide HCl (Reglan) 10 mg PO DAILY [facility] Montelukast Sodium (Singulair) 10 mg PO DAILY [facility] Morphine Sulfate (Morphine) 2 mg IVP Q4H PRN PRN Reason: Pain, moderate (4-7) Last Admin: 04/16/18 14:25 Dose: 2 mg Non-Formulary Medication (Lubiprostone [Amitiza]) 8 mcg PO BID [facility] Last Admin: 04/16/18 18:13 Dose: Not Given Ondansetron HCl (Zofran Inj) 4 mg IVP Q6H PRN PRN Reason: Nausea/Vomiting Pantoprazole Sodium (Protonix Inj) 40 mg IVP Q12 [facility] Last Admin: 04/16/18 21:51 Dose: 40 mg Polyethylene Glycol (Miralax) 17 gm PO DAILY [facility] Sitagliptin Phosphate (Januvia) 50 mg PO DAILY [facility] Zolpidem Tartrate (Ambien) 5 mg PO HS [facility]; Protocol Last Admin: 04/16/18 21:51 Dose: 5 mg - Labs Labs: 04/16/18 09:00 04/16/18 09:00 PT 11.5 SECONDS (9.4-12.5) 04/16/18 09:00 INR 1.02 04/16/18 09:00 APTT 29.8 Seconds (26.9-38.3) 04/16/18 09:00 <Shruthi Crystal - Last Filed: 04/17/18 04:18> Objective - Vital Signs/Intake and Output Vital Signs (last 24 hours): Temp Pulse Resp BP Pulse Ox 97.4 F L 79 20 137/74 99 04/17/18 00:01 04/17/18 02:00 04/17/18 00:01 04/17/18 00:01 04/17/18 00:01 Intake and Output: 04/16/18 04/17/18 18:59 06:59 Output Total 215 Balance -215 - Medications Medications: Current Medications Sodium Chloride (Sodium Chloride 0.9%) 1,000 mls @ 80 mls/hr IV .[id number] [facility] Last Admin: 04/17/18 00:19 Dose: 80 mls/hr Insulin Human Regular (Humulin R Med) 0 units SC [facility]; Protocol Last Admin: 04/16/18 22:12 Dose: Not Given Metoclopramide HCl (Reglan) 10 mg PO DAILY [facility] Montelukast Sodium (Singulair) 10 mg PO DAILY [facility] Morphine Sulfate (Morphine) 2 mg IVP Q4H PRN PRN Reason: Pain, moderate (4-7) Last Admin: 04/16/18 14:25 Dose: 2 mg Non-Formulary Medication (Lubiprostone [Amitiza]) 8 mcg PO BID [facility] Last Admin: 04/16/18 18:13 Dose: Not Given Ondansetron HCl (Zofran Inj) 4 mg IVP Q6H PRN PRN Reason: Nausea/Vomiting Pantoprazole Sodium (Protonix Inj) 40 mg IVP Q12 [facility] Last Admin: 04/16/18 21:51 Dose: 40 mg Polyethylene Glycol (Miralax) 17 gm PO DAILY [facility] Sitagliptin Phosphate (Januvia) 50 mg PO DAILY [facility] Zolpidem Tartrate (Ambien) 5 mg PO HS [facility]; Protocol Last Admin: 04/16/18 21:51 Dose: 5 mg - Labs Labs: 04/16/18 09:00 04/16/18 09:00 PT 11.5 SECONDS (9.4-12.5) 04/16/18 09:00 INR 1.02 04/16/18 09:00 APTT 29.8 Seconds (26.9-38.3) 04/16/18 09:00 Attending/Attestation - Attestation I have personally seen and examined this patient.: No I have fully participated in the care of the patient.: Yes I have reviewed all pertinent clinical information, including history, physical exam and plan: Yes
[2018-04-17] MEDS: Sodium Chloride 0.9% 1,000 ML IV SCH ×3 (00:19→15:33)
[2018-04-17 00:42] LABS: URINE BILIRUBIN SMALL (NEGATIVE); URINE BLOOD TRACE-INTACT (NEGATIVE); URINE GLUCOSE (UA) NEGATIVE (NEGATIVE); URINE LEUKOCYTE ESTERASE NEGATIVE Leu/uL (NEGATIVE); URINE PROTEIN 100 mg/dL (<30 mg/dL)
[2018-04-17 00:44] LABS: URINE APPEARANCE CLEAR (CLEAR); URINE COLOR YELLOW (YELLOW)
[2018-04-17 00:54] LABS: URINE BACTERIA FEW /hpf
[2018-04-17] MEDS: Morphine 2 mg/ml ISec IVP PRN ×3 (05:22→13:57)
[2018-04-17 05:58] VITALS: O2SAT 95
[2018-04-17 06:56] LABS: MEAN CELL VOLUME 94.4 fl (80.0-105.0); MEAN CORPUSCULAR HEMOGLOBIN 28.8 pg (25.0-35.0); MEAN CORPUSCULAR HGB CONC 30.5 g/dl (31.0-37.0); MEAN PLATELET VOLUME 8.8 fl (7.0-11.0); RBC 3.4 10^6/uL (3.5-6.1); RED CELL DISTRIBUTION WIDTH 14.4 % (11.5-14.5)
[2018-04-17 07:00] LABS: ALB/GLOB RATIO 1.2 (1.1-1.8); ALBUMIN 3.5 g/dL (3.0-4.8)
[2018-04-17 07:30] LABS: HEMOGLOBIN 9.8 g/dL (12.0-16.0)
[2018-04-17] MEDS: Insulin Reg-MEDIUM-Coverage SC SCH ×3 (08:54→17:26)
[2018-04-17] MEDS ORDERED: POLYETHYLENE GLYCOL 3350 17 GM/Dose PACKET PO SCH (10:00)
--- NOTE | 2018-04-17 11:36 | CP.PCM.PN ---
<Noah George - Last Filed: 04/17/18 11:32> Subjective - Date & Time of Evaluation Date of Evaluation: 04/17/18 Time of Evaluation: 09:30 - Subjective Subjective: PGY-4 GI Fellow Prog Note Pt lying in bed when seen this AM. States she is doing well. States last episode of black emesis was last night, only 2 total since admission. Abd pain also improved. States plans to try to eat more than simply drinking coffee. 5 point ROS negative other than stated above Objective - Vital Signs/Intake and Output Vital Signs (last 24 hours): Temp Pulse Resp BP Pulse Ox 98 F 87 20 120/50 L 95 04/17/18 05:57 04/17/18 05:57 04/17/18 05:57 04/17/18 05:57 04/17/18 05:57 Intake and Output: 04/17/18 04/17/18 06:59 18:59 Intake Total 1220 Output Total 515 Balance 705 - Medications Medications: Current Medications Ferrous Sulfate (Feosol) 324 mg PO DAILY [facility] Sodium Chloride (Sodium Chloride 0.9%) 1,000 mls @ 80 mls/hr IV .[id number] [facility] Last Admin: 04/17/18 00:19 Dose: 80 mls/hr Potassium Chloride (Potassium Chloride 10 Meq/100 Ml) 10 meq in 100 mls @ 50 mls/hr IVPB Q2H [facility] Stop: 04/17/18 12:14 Last Admin: 04/17/18 08:55 Dose: 50 mls/hr Insulin Human Regular (Humulin R Med) 0 units SC ACHS [facility]; Protocol Last Admin: 04/17/18 08:54 Dose: 1 units Metoclopramide HCl (Reglan) 10 mg PO DAILY [facility] Last Admin: 04/17/18 09:03 Dose: 10 mg Montelukast Sodium (Singulair) 10 mg PO DAILY [facility] Last Admin: 04/17/18 09:03 Dose: 10 mg Morphine Sulfate (Morphine) 2 mg IVP Q4H PRN PRN Reason: Pain, moderate (4-7) Last Admin: 04/17/18 08:55 Dose: 2 mg Non-Formulary Medication (Lubiprostone [Amitiza]) 8 mcg PO BID [facility] Last Admin: 04/17/18 09:04 Dose: Not Given Ondansetron HCl (Zofran Inj) 4 mg IVP Q6H PRN PRN Reason: Nausea/Vomiting Pantoprazole Sodium (Protonix Inj) 40 mg IVP Q12 [facility] Last Admin: 04/17/18 09:03 Dose: 40 mg Polyethylene Glycol (Miralax) 17 gm PO DAILY [facility] Last Admin: 04/17/18 09:04 Dose: 17 gm Sitagliptin Phosphate (Januvia) 50 mg PO DAILY [facility] Last Admin: 04/17/18 09:03 Dose: 50 mg Zolpidem Tartrate (Ambien) 5 mg PO HS [facility]; Protocol Last Admin: 04/16/18 21:51 Dose: 5 mg - Labs Labs: 04/17/18 06:00 04/17/18 06:00 PT 11.5 SECONDS (9.4-12.5) 04/16/18 09:00 INR 1.02 04/16/18 09:00 APTT 29.8 Seconds (26.9-38.3) 04/16/18 09:00 - Constitutional Appears: Well, Chronically Ill - Head Exam Head Exam: ATRAUMATIC, NORMAL INSPECTION - Eye Exam Eye Exam: EOMI. absent: Scleral icterus - ENT Exam ENT Exam: Mucous Membranes Moist. absent: Mucous Membranes Dry - Respiratory Exam Respiratory Exam: NORMAL BREATHING PATTERN. absent: Accessory Muscle Use, Respiratory Distress - GI/Abdominal Exam GI & Abdominal Exam: Soft, Normal Bowel Sounds. absent: Bruit, Distended, Firm, Guarding, Rigid, Tenderness, Mass, Organomegaly, Pulsatile Mass Assessment and Plan - Assessment and Plan (Free Text) Assessment: # Coffee ground emesis: Improved. Hgb at baseline (suspect concentration on admission). Vitals stable Pt with known h/o PUD, Hiatal hernia and Erosive E sophagitis, all placing at risk for upper GI bleeding sources ([place]abar ulcers/erosions with hiatal hernia). # H/o tubular adenomas, Diverticulosis Plan: - Transition to PO PPI QD - OK to advance diet - No plans for EGD at this time unless symptoms worsen, Hgb drop, etc. Pt discussed with Dr. Cancino; please see attestation for further recs/changes. <Dejan Cancino - Last Filed: 04/17/18 12:15> Objective - Vital Signs/Intake and Output Vital Signs (last 24 hours): Temp Pulse Resp BP Pulse Ox 98 F 87 20 120/50 L 95 04/17/18 05:57 04/17/18 05:57 04/17/18 05:57 04/17/18 05:57 04/17/18 05:57 Intake and Output: 04/17/18 04/17/18 06:59 18:59 Intake Total 1220 Output Total 515 Balance 705 - Medications Medications: Current Medications Ferrous Sulfate (Feosol) 324 mg PO DAILY [facility] Sodium Chloride (Sodium Chloride 0.9%) 1,000 mls @ 80 mls/hr IV .[id number] [facility] Last Admin: 04/17/18 00:19 Dose: 80 mls/hr Potassium Chloride (Potassium Chloride 10 Meq/100 Ml) 10 meq in 100 mls @ 50 mls/hr IVPB Q2H [facility] Stop: 04/17/18 12:14 Last Admin: 04/17/18 08:55 Dose: 50 mls/hr Insulin Human Regular (Humulin R Med) 0 units SC [facility]; Protocol Last Admin: 04/17/18 08:54 Dose: 1 units Metoclopramide HCl (Reglan) 10 mg PO DAILY [facility] Last Admin: 04/17/18 09:03 Dose: 10 mg Montelukast Sodium (Singulair) 10 mg PO DAILY [facility] Last Admin: 04/17/18 09:03 Dose: 10 mg Morphine Sulfate (Morphine) 2 mg IVP Q4H PRN PRN Reason: Pain, moderate (4-7) Last Admin: 04/17/18 08:55 Dose: 2 mg Non-Formulary Medication (Lubiprostone [Amitiza]) 8 mcg PO BID [facility] Last Admin: 04/17/18 09:04 Dose: Not Given Ondansetron HCl (Zofran Inj) 4 mg IVP Q6H PRN PRN Reason: Nausea/Vomiting Pantoprazole Sodium (Protonix Ec Tab) 40 mg PO 0600 [facility] Polyethylene Glycol (Miralax) 17 gm PO DAILY [facility] Last Admin: 04/17/18 09:04 Dose: 17 gm Sitagliptin Phosphate (Januvia) 50 mg PO DAILY [facility] Last Admin: 04/17/18 09:03 Dose: 50 mg Zolpidem Tartrate (Ambien) 5 mg PO HS [facility]; Protocol Last Admin: 04/16/18 21:51 Dose: 5 mg - Labs Labs: 04/17/18 06:00 04/17/18 06:00 PT 11.5 SECONDS (9.4-12.5) 04/16/18 09:00 INR 1.02 04/16/18 09:00 APTT 29.8 Seconds (26.9-38.3) 04/16/18 09:00 Attending/Attestation - Attestation I have fully participated in the care of the patient.: Yes I have reviewed all pertinent clinical information, including history, physical exam and plan: Yes Notes (Text): 04/17/18 12:13 Nausea, vomiting - resolved History of hiatal hernia from EGD in June 2017, again visualized on cross sectional imaging - Advance diet as tolerated - Continue with PPI therapy - Anti-emetic therapy as needed - Patient would benefit from elective surgical evaluation for potential hernia repair if symptoms recur - If patient tolerating PO diet, from GI perspective ok to discharge home with subsequent outpatient follow up
--- NOTE | 2018-04-17 12:50 | CARD ---
APPROVED REPORT Date of service: 04/16/2018 EKG Measurement Heart [id number] <Conclusion> Normal sinus rhythm
[2018-04-17 13:03] VITALS: RESP 18
[2018-04-17 18:01] VITALS: BP 125/62; PULSE 83; TEMP 98.7
--- NOTE | 2018-04-18 00:02 | DS ---
HISTORY OF PRESENT ILLNESS: The patient is taking clear liquids very well. I am going to increase it to regular today. If she does well at lunch time, I am going to discharge her back to [facility], should be in observation level of care and also it is okay PHYSICAL EXAMINATION: VITAL SIGNS: She has 98 temperature, 78 pulse, 120/58 blood pressure, 20 respiratory rate, and 95% O2 saturation on room air. HEENT: Head is atraumatic and normocephalic. HEART: Regular rate. LUNGS: Clear to auscultation. ABDOMEN: Soft, nontender, and positive bowel sounds. EXTREMITIES: No edema. MEDICATIONS: She will back on her regular medications. The pain is much better. She wants to stick with the Reglan. I am also going to add some iron. She was seen by GI and she said she can go back. Her urine was clean. LABORATORY DATA: She had a sodium 137, potassium 3.1, BUN is 27, creatinine 1.1, GFR is 47, sugar is 163, calcium is 8, total bilirubin 1.1, AST is 25, ALT is 20, alk phos 25, total protein 6.5. INR is 1.02. White count 70, hemoglobin 9.8, hematocrit 32.1, platelets 241. PLAN: She will be on the Reglan and she will be hopefully going back this afternoon to [facility] where she lives and with the same medications she is on now which I send a copy of medication list that she is on here with her to [facility], and I will see you there tomorrow. Dante Mcdaniel DO MTDD
[2018-04-18] MEDS ORDERED: Pantoprazole 40 mg EC Tab PO SCH (06:00)
== END 2018-04-17 20:23 ==
LOC: ED 08:35 → ERH 11:30 → INTOOBSV 11:30 → ERH 16:54 → 2RNO 17:49
PROVIDERS: ADMIT Family Medicine; ATTEND Family Medicine
DX: K92.2 Gastrointestinal hemorrhage, unspecified (principal); R10.9 Unspecified abdominal pain; K21.0 Gastro-esophageal reflux disease with esophagitis; K44.9 Diaphragmatic hernia without obstruction or gangrene; K57.30 Diverticulosis of large intestine without perforation or abscess without bleeding; E11.9 Type 2 diabetes mellitus without complications; E86.0 Dehydration; F03.90 Unspecified dementia, unspecified severity, without behavioral disturbance, psychotic disturbance, mood disturbance, and anxiety; I11.0 Hypertensive heart disease with heart failure; I25.10 Atherosclerotic heart disease of native coronary artery without angina pectoris; I50.9 Heart failure, unspecified; J44.9 Chronic obstructive pulmonary disease, unspecified; M19.90 Unspecified osteoarthritis, unspecified site; N28.1 Cyst of kidney, acquired; G47.00 Insomnia, unspecified; Z87.11 Personal history of peptic ulcer disease; Z87.19 Personal history of other diseases of the digestive system; Z87.891 Personal history of nicotine dependence; Z90.710 Acquired absence of both cervix and uterus; Z88.6 Allergy status to analgesic agent
CPT/HCPCS: 36415; 71045; 74177; 80053; 81001; 82948; 83690; 83735; 84100; 85025; 85027; 85610; 85730; 86850; 86900; 87086; 93005; 96374; 96375; 96376; 99285; C9113; G0378; J2270; J2405; J3480; J7030; Q9967

== ENCOUNTER 2018-04-20 17:45 | Observation (INO) | payer MEDICARE, OTHER ==
[2018-04-20 18:32] LABS: PH,URINE 7.5 (4.7-8.0); URINE BILIRUBIN NEGATIVE (NEGATIVE); URINE BLOOD TRACE-LYSED (NEGATIVE); URINE GLUCOSE (UA) NEGATIVE (NEGATIVE); URINE LEUKOCYTE ESTERASE SMALL Leu/uL (NEGATIVE); URINE PROTEIN 30 mg/dL (<30 mg/dL); URINE UROBILINOGEN 0.2 E.U./dL (<1 E.U./dL)
[2018-04-20 18:33] LABS: URINE APPEARANCE CLOUDY (CLEAR); URINE COLOR LIGHT YELLOW (YELLOW)
[2018-04-20 18:45] LABS: URINE BACTERIA MANY /hpf
[2018-04-20 19:02] LABS: BASO # 0.01 K/mm3 (0.0-2.0); BASO % 0.1 % (0.0-3.0); EOS # 0.1 (0.0-0.7); EOS % 0.5 % (1.5-5.0); HEMOGLOBIN 11.7 g/dL (12.0-16.0); LYMPH # 1.6 (1.2-3.4); LYMPH % 16.1 % (22.0-35.0); MEAN CELL VOLUME 92.2 fl (80.0-105.0); MEAN CORPUSCULAR HEMOGLOBIN 30.3 pg (25.0-35.0); MEAN CORPUSCULAR HGB CONC 32.9 g/dl (31.0-37.0); MEAN PLATELET VOLUME 8.9 fl (7.0-11.0); MONO # 0.8 (0.1-0.6); MONO % 8.4 % (1.0-6.0); RBC 3.86 10^6/uL (3.5-6.1); RED CELL DISTRIBUTION WIDTH 14.1 % (11.5-14.5)
[2018-04-20 19:12] LABS: INR 0.95; PROTHROMBIN TIME 10.6 SECONDS (9.4-12.5)
[2018-04-20 19:18] LABS: ALB/GLOB RATIO 1.2 (1.1-1.8); ALBUMIN 4.2 g/dL (3.0-4.8); ALT/SGPT 20 U/L (7-56); AST/SGOT 24 U/L (14-36); BLOOD UREA NITROGEN 17 mg/dL (7-21); CALCIUM 9.1 mg/dL (8.4-10.5); GFR NON-AFRICAN AMERICAN > 60; LIPASE 74 U/L (23-300)
[2018-04-20 19:24] LABS: TROPONIN I 0.04 ng/mL
[2018-04-20] MEDS ORDERED: Morphine 2 mg/ml ISec IVP SCH (20:00)
[2018-04-20] MEDS ORDERED: Iohexol 350 MG/100 ML VIAL ONE ×2 (20:09→20:18)
[2018-04-20] MEDS ORDERED: Sodium Chloride 0.45% 1,000 ML IV SCH (20:15)
--- NOTE | 2018-04-20 20:20 | ED PDOC ---
Arrival/HPI - General Chief Complaint: Abdominal Pain Time Seen by Provider: 04/20/18 18:06 Historian: Patient - History of Present Illness Narrative History of Present Illness (Text): 04/20/18 20:17 87yo female with pmhx of Diabetes, chronic back pain, GI bleed referred from [place] for complaint of abdominal pain and back pain. Patient notes that pain started today. Also repot urinary frequency. Denies dysuria, hematuria, fever, chills, chest pain, SOB, diaphoresis, chest pain, tearing/ripping upper back pain, nausea, vomiting, diarrhea, any other complaint. Past Medical History - Provider Review Nursing Documentation Reviewed: Yes - Infectious Disease Hx of Infectious Diseases: None - Tetanus Immunization Tetanus Immunization: Unknown - Reproductive Menopause: Yes - Cardiac Hx Cardiac Disorders: Yes Hx Hypertension: Yes - Pulmonary Hx Respiratory Disorders: Yes (USED TO SMOKE CIGARETTES) Hx Chronic Obstructive Pulmonary Disease (COPD): Yes - Neurological Hx Neurological Disorder: Yes HX Cerebrovascular Accident: No Hx Dementia: Yes Hx Dizziness: Yes - HEENT Hx HEENT Disorder: No Hx Blind: No Hx Cataracts: No Hx Deafness: No Hx Difficulty Chewing: No Hx Epistaxis: No Hx Glaucoma: No Hx Macular Degeneration: No - Renal Hx Renal Failure: No - Endocrine/Metabolic Hx Endocrine Disorders: Yes Hx Diabetes Mellitus Type 2: Yes - Hematological/Oncological Hx Blood Disorders: Yes Hx AIDS: No Hx Anemia: Yes Hx Hepatitis C: No - Integumentary Hx Dermatological Disorder: No Hx Basal Cell Carcinoma: No Hx Eczema: No Hx Melanoma: No Hx Psoriasis: No Hx Squamous Cell Carcinoma: No - Musculoskeletal/Rheumatological Hx Musculoskeletal Disorders: Yes Hx Arthritis: Yes Hx Falls: Yes Hx Unsteady Gait: Yes (WALKER) - Gastrointestinal Hx Gastrointestinal Disorders: Yes (DIVERTICULOSIS,DIAPHRAGMATIC HERNIA,PUD) Hx Colostomy: No Hx Crohn's Disease: No Hx Gall Bladder Disease: No Hx Gastroesophageal Reflux: Yes Hx Ileostomy: No Hx Liver Failure: No Hx Pancreatitis: No HX Swallowing Problems: No - Genitourinary/Gynecological Hx Genitourinary Disorders: Yes (URINARY RETENTION,STRAIGHT CATH FOR RESIDUAL URINE) Hx Hematuria: Yes Hx Incontinence: Yes Hx Sexually Transmitted Diseases: No Hx Urinary Tract Infection: No - Psychiatric Hx Psychophysiologic Disorder: Yes (INSOMNIA) Hx Anxiety: Yes Hx Depression: Yes Hx Substance Use: No - Surgical History Hx Amputation: No Hx Appendectomy: No Hx Cardiac Catheterization: No Hx Cholecystectomy: No Hx Coronary Stent: No Hx Gastric Bypass Surgery: No Hx Hysterectomy: Yes Hx Joint Replacement: No Hx Kidney Transplant: No Hx Liver Transplant: No Hx Mastectomy: No Hx Musculoskeletal Surgery: No Hx Open Heart Surgery: No Hx Orthopedic Surgery: Yes Hx Splenectomy: No Hx Valve Replacement: No Other/Comment: Tonsillectomy - Anesthesia Hx Anesthesia: Yes Hx Anesthesia Reactions: No (UNKNOWN) Hx Malignant Hyperthermia: No (UNKNOWN) - Suicidal Assessment Feels Threatened In Home Enviroment: No Family/Social History - Physician Review Nursing Documentation Reviewed: Yes Family/Social History: Unknown Family HX Smoking Status: Former Smoker Hx Alcohol Use: No Hx Substance Use: No Hx Substance Use Treatment: No Allergies/Home Meds Allergies/Adverse Reactions: Allergies aspirin Allergy (Verified 04/16/18 11:57) NAUSEA Home Medications: Home Meds Medication Instructions Recorded Confirmed RX: Acetaminophen [Acetaminophen 650 mg PO Q4H PRN 01/02/16 04/16/18 ER] Acetaminophen [Tylenol] 325 mg PO QID 04/16/18 04/16/18 Bisacodyl [Dulcolax] 5 mg PO BID 04/16/18 04/16/18 Guaifenesin/Dextromethorphan 10 ml PO Q8 04/16/18 04/16/18 [Diabetic Tussin] Insulin Human Regular [HumuLIN R] 100 units SQ DAILY 04/16/18 04/16/18 Magnesium Hydroxide [Milk Of 30 ml PO DAILY 04/16/18 04/16/18 Magnesia] Metoclopramide [Reglan] 10 mg PO DAILY 04/16/18 04/16/18 Mv-Mn/Iron/Folic Acid/Herb 190 5,000 unit PO DAILY 04/16/18 04/16/18 [Vitamin D3 Complete Caplet] Omeprazole 20 mg PO DAILY 04/16/18 04/16/18 Ondansetron HCl [Zofran] 4 mg PO DAILY 04/16/18 04/16/18 Polyethylene Glycol 3350 [Miralax] 17 gm PO DAILY 04/16/18 04/16/18 Propylene Glycol/Peg 400/Pf 1 % OU BID 04/16/18 04/16/18 [Systane Ultra 0.4-0.3% Eye Drp] RX: Albuterol/Ipratropium [Duoneb 0.5 - 2.5 mg IH BID 04/16/18 04/16/18 3 mg/0.5 mg (3 ml) UD] RX: Lactobacillus Acidophilus 1 mg PO DAILY 04/16/18 04/16/18 [Bacid Acidophilus] RX: Lactulose [Enulose] 30 ml PO DAILY 04/16/18 04/16/18 RX: Lidocaine [Lidocare] 1 mg ID PRN PRN 04/16/18 04/16/18 RX: Lubiprostone [Amitiza] 8 mcg PO BID 04/16/18 04/16/18 RX: Mirtazapine [Remeron] 15 mg PO HS 04/16/18 04/16/18 RX: Montelukast Sodium [Singulair] 10 mg PO DAILY 04/16/18 04/16/18 RX: Ranitidine HCl [Acid Clerk Of Scales] 150 mg PO DAILY 04/16/18 04/16/18 RX: Sucralfate [Carafate Tab] 1 gm PO QID 04/16/18 04/16/18 RX: Tramadol HCl [Ultram] 50 mg PO BID 04/16/18 04/16/18 SITagliptin [Januvia] 50 mg PO DAILY 04/16/18 04/16/18 Tolnaftate [Antifungal Cream] 14.18 gm TOP DAILY 04/16/18 04/16/18 Vitamin B Complex [B Complex] 100 mg PO DAILY 04/16/18 04/16/18 Zolpidem [Ambien] 5 mg PO HS 04/16/18 04/16/18 Review of Systems - Physician Review All systems were reviewed & negative as marked: Yes - Review of Systems Constitutional: Normal Eyes: Normal ENT: Normal Respiratory: Normal Cardiovascular: Normal Gastrointestinal: Normal Genitourinary Female: Normal Musculoskeletal: Normal Skin: Normal Neurological: Normal Endocrine: Normal Hemo/Lymphatic: Normal Psychiatric: Normal Physical Exam Vital Signs Reviewed: Yes Vital Signs Temp Pulse Resp BP Pulse Ox 04/20/18 18:19 178/94 H 98 04/20/18 17:51 98.2 F 97 H 19 171/84 H 98 Temperature: Afebrile Blood Pressure: Normal Pulse: Regular Respiratory Rate: Normal Appearance: Positive for: Well-Appearing, Non-Toxic, Comfortable Pain Distress: None Mental Status: Positive for: Alert and Oriented X 3 - Systems Exam Head: Present: Atraumatic, Normocephalic Pupils: Present: PERRL Extroacular Muscles: Present: EOMI Conjunctiva: Present: Normal Mouth: Present: Moist Mucous Membranes Neck: Present: Normal Range of Motion Respiratory/Chest: Present: Clear to Auscultation, Good Air Exchange. No: Respiratory Distress, Accessory Muscle Use Cardiovascular: Present: Regular Rate and Rhythm, Normal S1, S2. No: Murmurs Abdomen: Present: Normal Bowel Sounds, Other (soft). No: Tenderness, Distention, Peritoneal Signs, Rebound, Guarding, McBurney's Point Tender, Rovsing's Sign Present Back: Present: Paraspinal Tenderness. No: Midline Tenderness, Pain with Leg Raise Upper Extremity: Present: Normal Inspection. No: Cyanosis, Edema Lower Extremity: Present: Normal Inspection. No: Edema Neurological: Present: GCS=15, CN II-XII Intact, Speech Normal Skin: Present: Warm, Dry, Normal Color. No: Rashes Psychiatric: Present: Alert, Oriented x 3, Normal Insight, Normal Concentration Medical Decision Making ED Course and Treatment: 04/21/18 01:29 PT present to ED for stated history. Lab EKG Abdominal pelvic CT Tramadol EKG Sinus rhythm with PVC @ 95bpm. N-stemi Labs was unremarkable She had UTI and Rocephin was ordered Case was NADINE Nur while he was in ED and he saw pt by the bedside. Pt was admitted to his service. abd/pelvic CT - Diverticulitis - Lab Interpretations Lab Results: PT 10.6 SECONDS (9.4-12.5) 04/20/18 18:52 INR 0.95 04/20/18 18:52 APTT 34.0 Seconds (26.9-38.3) 04/20/18 18:52 Troponin I 0.04 ng/mL D 04/20/18 18:52 Total Bilirubin 0.5 mg/dL (0.2-1.3) 04/20/18 18:52 AST 24 U/L (14-36) 04/20/18 18:52 ALT 20 U/L (7-56) 04/20/18 18:52 Alkaline Phosphatase 91 U/L (38-126) 04/20/18 18:52 Total Protein 7.6 g/dL (5.8-8.3) 04/20/18 18:52 Albumin 4.2 g/dL (3.0-4.8) 04/20/18 18:52 Globulin 3.4 gm/dL 04/20/18 18:52 Albumin/Globulin Ratio 1.2 (1.1-1.8) 04/20/18 18:52 Lipase 74 U/L (23-300) 04/20/18 18:52 Urine Color Light yellow (YELLOW) 04/20/18 18:26 Urine Appearance Cloudy (CLEAR) 04/20/18 18:26 Urine pH 7.5 (4.7-8.0) 04/20/18 18:26 Ur Specific [place] 1.020 (1.005-1.035) 04/20/18 18:26 Urine Protein 30 mg/dL (<30 mg/dL) H 04/20/18 18:26 Urine Glucose (UA) Negative mg/dL (NEGATIVE) 04/20/18 18:26 Urine Ketones Negative mg/dL (NEGATIVE) 04/20/18 18:26 Urine Blood Trace-lysed (NEGATIVE) H 04/20/18 18:26 Urine Nitrate Negative (NEGATIVE) 04/20/18 18:26 Urine Bilirubin Negative (NEGATIVE) 04/20/18 18:26 Urine Urobilinogen 0.2 E.U./dL (<1 E.U./dL) 04/20/18 18:26 Ur Leukocyte Esterase Small [place]/uL (NEGATIVE) H 04/20/18 18:26 Urine RBC 2 - 5 /hpf (0-2) H 04/20/18 18:26 Urine WBC 5 - 10 /hpf (0-6) H 04/20/18 18:26 Ur Epithelial Cells 4 - 5 /hpf (0-5) 04/20/18 18:26 Urine Bacteria Many /hpf (NONE) 04/20/18 18:26 - RAD Interpretation Radiology Orders: 04/20/18 20:01 CHEST PORTABLE [RAD] Stat 04/20/18 20:02 ABD & PELVIS IV CONTRAST ONLY [CT] Stat - Medication Orders Current Medication Orders: Sodium Chloride (Sodium Chloride 0.45%) 1,000 mls @ 40 mls/hr IV .Q24H [facility] Morphine Sulfate (Morphine) 1 mg IVP Q4 [facility] Ondansetron HCl (Zofran Inj) 4 mg IVP Q6 PRN PRN Reason: Nausea/Vomiting Pantoprazole Sodium (Protonix Inj) 40 mg IVP BID [facility] Discontinued Medications Tramadol HCl (Ultram) 50 mg PO STAT [facility] Stop: 04/20/18 18:24 Last Admin: 04/20/18 18:39 Dose: 50 mg MAR Pain Assessment Document 04/20/18 18:39 MA (Rec: 04/20/18 18:39 MA [id number]) Pain Reassessment Is this a pain reassessment? Yes Sleep Is patient sleeping during reassessment? No Presence of Pain Presence of Pain Yes Pain Scale Used Protocol: PSCALES Pain Scale Used Numeric Location Upper or Lower Lower Pain Location Body Site Back Description Description Constant Intensity of Pain at present 8 Pain Behavior Moaning Crying Irritability Aggravating Factors Changing Position Alleviating Factors/Management Medication Techniques Disposition/Present on Arrival - Present on Arrival Any Indicators Present on Arrival: No History of DVT/PE: No History of Uncontrolled Diabetes: No Urinary Catheter: No History of Decub. Ulcer: No History Surgical Site Infection Following: None - Disposition Have Diagnosis and Disposition been Completed?: Yes Diagnosis: UTI (urinary tract infection), Intractable pain, Diverticulitis, Lumbar compression fracture Disposition: HOSPITALIZED Disposition Time: 20:00 Patient Plan: Admission Patient Problems: Current Active Problems Problem Status Onset Diverticulitis Acute Intractable pain Acute Lumbar compression fracture Acute UTI (urinary tract infection) Acute Condition: FAIR
[2018-04-20] MEDS ORDERED: cefTRIAXone 1 gm 1 GM/100 ML BAG IVPB STA (20:21)
[2018-04-20 20:34] LABS: AMYLASE 54 U/L (35-125)
[2018-04-20] MEDS: Morphine 2 mg/ml ISec IVP PRN (22:33)
[2018-04-20] MEDS: Insulin Reg-MEDIUM-Coverage SC SCH (22:40)
--- NOTE | 2018-04-20 23:17 | HP ---
DATE OF EXAM: 04/20/2018 HISTORY OF PRESENT ILLNESS: I was called to the [facility] for her because she has a lot of abdominal pain and I went to see her. She has some guarding. She was yelling and screaming very loud, very acutely and I sent her to the [facility]. She is an 87-year-old white female who I know very well with chronic back pain, chronic abdominal pain, and hiatal hernia; at this time, it was quite severe with some guarding and no rebound in the residential. Also increase in urination. No fever. No chills, just not herself, clinically uncomfortable, would need anything, and threw up little bit in the residential. She quit cigarettes. PAST MEDICAL HISTORY: She has a history of COPD, dementia, dizziness, diabetes, anemia history, unsteady gait, she is usually on a wheelchair, and arthritis. She has a history of falls. She has diverticulosis, diaphragmatic hernia, and peptic ulcer disease. She has reflux and urinary retention. She has been straight cath before, hematuria before, incontinence of the urine, insomnia, anxiety, and depression. PAST SURGICAL HISTORY: She has tonsillectomy. She has hip surgery. FAMILY HISTORY: Unknown family history. SOCIAL HISTORY: Former smoker. No alcohol. No drugs. ALLERGIES: ASPIRIN. MEDICATIONS: She is on Tylenol, DuoNebs, Dulcolax, Tussin, Bacid,Enulose, lidocaine, Amitiza, milk of magnesia, Reglan, Remeron, Singulair, multivitamin, Zofran, MiraLax, ranitidine, Januvia, Carafate, antifungal, Ultram, B complex, and Ambien. REVIEW OF SYSTEMS: No acute vision or hearing changes. No sore throat. No chest pain. No shortness of breath. There is abdominal pain, severe. She is also throwing up. PHYSICAL EXAMINATION: VITAL SIGNS: Temperature 98.2, pulse 97, respiratory rate 19, blood pressure 178/94, and O2 sat 98%. GENERAL: She is a lot uncomfortable, alert and oriented x3, and very much in pain. HEENT: Head is atraumatic and normocephalic. Extraocular muscles are intact. Pupils equal and reactive to light. Throat is moist. NECK: Supple. HEART: Regular rate. Normal S1 and S2. LUNGS: Decreased breath sounds bilaterally. Poor inspiration. ABDOMEN: Mildly distended. Some guarding. No rebound. Decreased bowel sounds. There is palpable back pain. EXTREMITIES: No edema. NEUROLOGIC: GCS is 15. Cranial nerves II through XII grossly intact. Alert and oriented x3. SKIN: For I could tell is intact. No apparent rashes. LABORATORY DATA: She had multiple tests done. White count 10, hemoglobin 11.7, hematocrit 35.6, and platelets 279. INR is 0.95. Sodium 136, potassium 4.3, BUN 17, creatinine 0.8, GFR is greater than 60, sugar is 145, and calcium 9.1. Total bili is 0.5, AST is 24, ALT is 20, alk phos is 91, lactate dehydrogenase is high at 41, and total creatine kinase is 44. Troponin I is 0.04. Total protein is 7.6. Albumin is 4.2, amylase is 54, and lipase is 74. Urine has many bacteria, small leukocytes. She will be put in observation level of care, awaiting for a CAT scan of the abdomen and pelvis to come back. Chest x-ray is pending. IMPRESSION AND PLAN: She has Zofran. She has Rocephin for the urine, IV Protonix, morphine, IV fluids, and n.p.o. Hold off on the consults for now until we get the abdominal and pelvis CAT scan. We will watch her overnight in observation level of care, hopefully this will resolve. Jeanette Cantrell with severe abdominal pain. Dante Mcdaniel DO
[2018-04-21 03:44] VITALS: BMI 25.0
[2018-04-21] MEDS: Insulin Reg-MEDIUM-Coverage SC SCH ×2 (08:57→11:56)
[2018-04-21] MEDS ORDERED: cefTRIAXone 1 gm 1 GM/100 ML BAG IVPB SCH (10:00)
--- NOTE | 2018-04-21 11:15 | CARD ---
APPROVED REPORT Date of service: 04/20/2018 EKG Measurement Heart [id number] <Conclusion> Sinus rhythm with frequent premature ventricular complexes Nonspecific ST and T wave abnormality Abnormal ECG
--- NOTE | 2018-04-21 13:36 | RAD ---
Date of service: 04/20/2018 HISTORY: admission COMPARISON: Comparison chest dated 04/16/2018. Comparison also made with concurrent CT scan abdomen pelvis which also image both lung bases. FINDINGS: LUNGS: No acute infiltrates. PLEURA: No significant pleural effusion identified, no pneumothorax apparent. CARDIOVASCULAR: Moderate aortic atherosclerotic calcification present. Heart appears enlarged. There is a large hiatal hernia. OSSEOUS STRUCTURES: No significant abnormalities. VISUALIZED UPPER ABDOMEN: Normal. OTHER FINDINGS: None. IMPRESSION: No acute infiltrates. Cardiomegaly with large hiatal hernia.
[2018-04-21] MEDS: Morphine 2 mg/ml ISec IVP PRN (13:57)
[2018-04-21 14:25] VITALS: BP 126/65; PULSE 75; RESP 20; TEMP 97.9; O2SAT 94
--- NOTE | 2018-04-21 15:50 | CT ---
Date of service: 04/20/2018 PROCEDURE: CT Abdomen and Pelvis.. HISTORY: Abdominal pain COMPARISON: Comparison made with prior CT scan 04/16/2018. TECHNIQUE: Contiguous axial images of the abdomen and pelvis performed following intravenous injection of approximately 97 cc Omnipaque 350 contrast material. Reformats generated. Radiation dose: Total exam DLP = 290.26 mGy-cm. This CT exam was performed using one or more of the following dose reduction techniques: Automated exposure control, adjustment of the mA and/or kV according to patient size, and/or use of iterative reconstruction technique. FINDINGS: LOWER THORAX: Heart appears mildly enlarged. No significant pericardial effusion. There is a large sliding-type hiatal hernia with a large portion of the stomach occupying the left medial lung base. The there appears to be some minimal compressive type atelectasis left lung base as well. No effusion or evidence of basilar pneumothorax. LIVER: Mild fatty hepatic infiltration. No obvious hepatic masses collections or calcifications. Portal and splenic veins are opacified. GALLBLADDER AND BILE DUCTS: Cholecystectomy. PANCREAS: Pancreas is atrophic. SPLEEN: Spleen exhibits normal size and attenuation pattern. ADRENALS: No obvious adrenal lesions are identified.. KIDNEYS AND URETERS: Kidneys demonstrate relatively symmetric nephrograms. Read demonstrated are multiple on bilateral low-attenuation foci the largest of which is consistent with a simple exophytic cyst exophytic arising from the lower pole left kidney measuring approximately 5.2 x 4.9 cm.. The smaller foci on may represent on smaller hyperdense cysts. Follow-up ultrasound could confirm if necessary. BLADDER: Urinary bladder is physiologically distended. No evidence of intraluminal urinary bladder calculi. REPRODUCTIVE: Hysterectomy APPENDIX: Unremarkable. BOWEL: Evaluation of the bowel is somewhat limited due to the lack of oral contrast material. As mentioned above, there is a large sliding-type hiatal hernia with most of the stomach occupying the posteromedial lung base. Visualized loops of small bowel exhibit relatively normal contour and caliber. No evidence of acute mechanical small bowel obstruction. Extensive colonic diverticula again seen the bulk of which arise from distal descending and sigmoid colon however diverticula are also seen along the transverse and right colon as well.. There is wall thickening of a short segment of the splenic flexure region consistent with acute a diverticulitis.. There is also wall thickening of the distal of sigmoid and rectum. Possibility of an intrinsic invasive wall lesion must be considered as well. Follow-up of colonoscopy rib suggested following treatment for acute diverticulitis. PERITONEUM: Unremarkable. No fluid collection. No free air. Small fat containing umbilical hernia.. LYMPH NODES: Unremarkable. No enlarged lymph nodes. VASCULATURE: Unremarkable. No aortic aneurysm. Mild moderate o aortic atherosclerotic calcification or mural plaque present. BONES: Diffuse demineralization. Chronic anterior wedge deformities of the L3, L4 and T10 segments multilevel degenerative spondylosis of the thoracic and lower lumbar spine. Compression screws and intramedullary fixation rods both femurs. OTHER FINDINGS: None. IMPRESSION: Extensive colonic diverticula with evidence of acute diverticulitis involving a short segment of the splenic flexure region of the colon. Large sliding-type hiatal hernia. Cholecystectomy. Fatty infiltration. Large exophytic cyst left kidney. Multiple additional low-attenuation foci both kidneys likely representing cysts as well though some are hyperdense in appearance Hysterectomy. Redemonstrated are
--- NOTE | 2018-04-22 02:07 | DS ---
HISTORY OF PRESENT ILLNESS: She came in yesterday for severe abdominal pain, given medications and treatment and antibiotics and IV fluids and it resolved. Today, she is doing much better. Our plan is to make her in observation level of care and discharge her back to the [facility] on the second floor. She is eating some and no more abdominal pain. PHYSICAL EXAMINATION: VITAL SIGNS: She has a 97.8 temperature, 73 pulse, 122/63 blood pressure, 18 respiratory rate, and 95% sat on room air. HEENT: Head is atraumatic, normocephalic. HEART: Regular rate. LUNGS: Decreased breath sounds, but clear. ABDOMEN: Soft. Positive bowel sounds. Nontender. No guarding or rebound. EXTREMITIES: No edema, much better. LABORATORY DATA: She has a 10 white count, 11.7 hemoglobin, 35.6 hematocrit and 279 platelets. Sodium 136, potassium 4.3, BUN 17, creatinine 0.8, GFR is greater than 60, sugar is 152, calcium is 9.1, total bili is 0.5, AST is 20, ALT is 20. Troponin I is 0.04, total protein 7.6, amylase is 54, lipase is 74. I discussed with the GI fellow. I went over the CAT scan of the abdomen and pelvis that showed a little bit of enterocolitis. They said it is okay, possible many bacteria in the urine. She had a dose of Rocephin, will give another one today. She will be discharged back to the [facility] with severe abdominal pain observation level. Dante Mcdaniel DO MTDGarry
== END 2018-04-21 17:11 ==
LOC: ED 17:45 → INTOOBSV 20:00 → OBSVTOIN 20:00 → ERH 20:00 → 5RSO 04-21 00:10
PROVIDERS: ADMIT Family Medicine; ATTEND Family Medicine
DX: R10.9 Unspecified abdominal pain (principal); N39.0 Urinary tract infection, site not specified; K57.92 Diverticulitis of intestine, part unspecified, without perforation or abscess without bleeding; M48.56XA Collapsed vertebra, not elsewhere classified, lumbar region, initial encounter for fracture; E11.9 Type 2 diabetes mellitus without complications; G89.29 Other chronic pain; I10 Essential (primary) hypertension; J44.9 Chronic obstructive pulmonary disease, unspecified; K21.9 Gastro-esophageal reflux disease without esophagitis; K44.9 Diaphragmatic hernia without obstruction or gangrene; F03.90 Unspecified dementia, unspecified severity, without behavioral disturbance, psychotic disturbance, mood disturbance, and anxiety; Z87.11 Personal history of peptic ulcer disease; Z87.891 Personal history of nicotine dependence; Z90.710 Acquired absence of both cervix and uterus; Z91.81 History of falling; R33.9 Retention of urine, unspecified; Z88.6 Allergy status to analgesic agent
CPT/HCPCS: 71045; 74177; 80053; 81001; 82150; 82550; 82948; 83615; 83690; 84484; 85025; 85610; 85730; 87040; 87086; 93005; 96374; 96375; 96376; 99284; C9113; G0378; J0696; J2270; J7030; Q9967

== ENCOUNTER 2018-05-01 01:42 | Inpatient (IN) | payer MEDICARE, OTHER ==
[2018-05-01 01:53] VITALS: BMI 23.9
[2018-05-01] MEDS ORDERED: Sodium Chloride 0.9% 1,000 ML IV SCH (02:00)
[2018-05-01 02:43] LABS: BASO # 0.01 K/mm3 (0.0-2.0); BASO % 0.1 % (0.0-3.0); EOS % 0.1 % (1.5-5.0); HEMOGLOBIN 12.1 g/dL (12.0-16.0); LYMPH # 1.7 (1.2-3.4); MEAN CELL VOLUME 93.1 fl (80.0-105.0); MEAN CORPUSCULAR HGB CONC 32.2 g/dl (31.0-37.0); MEAN PLATELET VOLUME 8.6 fl (7.0-11.0); MONO # 0.9 (0.1-0.6); MONO % 6.3 % (1.0-6.0); RBC 4.04 10^6/uL (3.5-6.1); RED CELL DISTRIBUTION WIDTH 14.1 % (11.5-14.5)
[2018-05-01 02:47] LABS: INR 1.03; PROTHROMBIN TIME 11.4 SECONDS (9.4-12.5)
--- NOTE | 2018-05-01 02:51 | ED PDOC ---
Arrival/HPI - General Chief Complaint: Abdominal Pain Time Seen by Provider: 05/01/18 01:46 Historian: Patient - History of Present Illness Narrative History of Present Illness (Text): 05/01/18 01:58 Jeanette Cantrell is an 87 year old female, whose past medical history includes COPD, dementia, anemia, peptic ulcer disease, GERD, diabetes, and hypertension, who presents to the Emergency department sent from skilled nursing for hematemesis. As per skilled nursing, patient had coffee-grind emesis today. Patient also reports associated abdominal discomfort. Patient denies any fever, chills, chest pain, shortness of breath, diarrhea, urinary symptoms, back pain, neck pain, headache, dizziness, or any other complaints. Symptom Onset: Gradual Symptom Course: Unchanged Activities at Onset: Light Context: Home Past Medical History - Provider Review Nursing Documentation Reviewed: Yes - Infectious Disease Hx of Infectious Diseases: None - Tetanus Immunization Tetanus Immunization: Unknown - Cardiac Hx Cardiac Disorders: Yes Hx Hypertension: Yes - Pulmonary Hx Respiratory Disorders: Yes (USED TO SMOKE CIGARETTES) Hx Chronic Obstructive Pulmonary Disease (COPD): Yes - Neurological Hx Neurological Disorder: Yes HX Cerebrovascular Accident: No Hx Dementia: Yes Hx Dizziness: Yes - HEENT Hx HEENT Disorder: No Hx Blind: No Hx Cataracts: No Hx Deafness: No Hx Difficulty Chewing: No Hx Epistaxis: No Hx Glaucoma: No Hx Macular Degeneration: No - Renal Hx Renal Failure: No - Endocrine/Metabolic Hx Endocrine Disorders: Yes Hx Diabetes Mellitus Type 2: Yes - Hematological/Oncological Hx Blood Disorders: Yes Hx AIDS: No Hx Anemia: Yes Hx Hepatitis C: No - Integumentary Hx Dermatological Disorder: No Hx Basal Cell Carcinoma: No Hx Eczema: No Hx Melanoma: No Hx Psoriasis: No Hx Squamous Cell Carcinoma: No - Musculoskeletal/Rheumatological Hx Musculoskeletal Disorders: Yes Hx Arthritis: Yes Hx Falls: Yes Hx Unsteady Gait: Yes (WALKER) - Gastrointestinal Hx Gastrointestinal Disorders: Yes (DIVERTICULOSIS,DIAPHRAGMATIC HERNIA,PUD) Hx Colostomy: No Hx Crohn's Disease: No Hx Gall Bladder Disease: No Hx Gastroesophageal Reflux: Yes Hx Ileostomy: No Hx Liver Failure: No Hx Pancreatitis: No HX Swallowing Problems: No - Genitourinary/Gynecological Hx Genitourinary Disorders: Yes Hx Hematuria: Yes Hx Incontinence: Yes Hx Sexually Transmitted Diseases: No Hx Urinary Tract Infection: No - Psychiatric Hx Psychophysiologic Disorder: Yes (INSOMNIA) Hx Anxiety: Yes Hx Depression: Yes Hx Substance Use: No - Surgical History Hx Amputation: No Hx Appendectomy: No Hx Cardiac Catheterization: No Hx Cholecystectomy: No Hx Coronary Stent: No Hx Gastric Bypass Surgery: No Hx Hysterectomy: Yes Hx Joint Replacement: No Hx Kidney Transplant: No Hx Liver Transplant: No Hx Mastectomy: No Hx Musculoskeletal Surgery: No Hx Open Heart Surgery: No Hx Orthopedic Surgery: Yes Hx Splenectomy: No Hx Valve Replacement: No Other/Comment: Tonsillectomy - Anesthesia Hx Anesthesia: Yes Hx Anesthesia Reactions: No (UNKNOWN) Hx Malignant Hyperthermia: No (UNKNOWN) - Suicidal Assessment Feels Threatened In Home Enviroment: No Family/Social History - Physician Review Nursing Documentation Reviewed: Yes Family/Social History: Unknown Family HX Smoking Status: Never Smoked Hx Alcohol Use: No Hx Substance Use: No Hx Substance Use Treatment: No Allergies/Home Meds Allergies/Adverse Reactions: Allergies aspirin Allergy (Verified 05/01/18 01:53) NAUSEA Home Medications: Home Meds Medication Instructions Recorded Confirmed RX: Acetaminophen [Acetaminophen 650 mg PO Q4H PRN 01/02/16 05/01/18 ER] RX: Acetaminophen [Tylenol] 325 mg PO QID 04/16/18 05/01/18 RX: Albuterol/Ipratropium [Duoneb 0.5 - 2.5 mg IH BID 04/16/18 05/01/18 3 mg/0.5 mg (3 ml) UD] RX: Bisacodyl [Dulcolax] 5 mg PO BID 04/16/18 05/01/18 RX: Guaifenesin/Dextromethorphan 10 ml PO Q8 04/16/18 05/01/18 [Diabetic Tussin] RX: Insulin Human Regular [HumuLIN 100 units SQ DAILY 04/16/18 05/01/18 R] RX: Lactobacillus Acidophilus 1 mg PO DAILY 04/16/18 05/01/18 [Bacid Acidophilus] RX: Lactulose [Enulose] 30 ml PO DAILY 04/16/18 05/01/18 RX: Lidocaine [Lidocare] 1 mg ID PRN PRN 04/16/18 05/01/18 RX: Lubiprostone [Amitiza] 8 mcg PO BID 04/16/18 05/01/18 RX: Magnesium Hydroxide [Milk Of 30 ml PO DAILY 04/16/18 05/01/18 Magnesia] RX: Metoclopramide [Reglan] 10 mg PO DAILY 04/16/18 05/01/18 RX: Mirtazapine [Remeron] 15 mg PO HS 04/16/18 05/01/18 RX: Montelukast Sodium [Singulair] 10 mg PO DAILY 04/16/18 05/01/18 RX: Mv-Mn/Iron/Folic Acid/Herb 190 5,000 unit PO DAILY 04/16/18 05/01/18 [Vitamin D3 Complete Caplet] RX: Omeprazole 20 mg PO DAILY 04/16/18 05/01/18 RX: Ondansetron HCl [Zofran] 4 mg PO DAILY 04/16/18 05/01/18 RX: Polyethylene Glycol 3350 17 gm PO DAILY 04/16/18 05/01/18 [Miralax] RX: Propylene Glycol/Peg 400/Pf 1 % OU BID 04/16/18 05/01/18 [Systane Ultra 0.4-0.3% Eye Drp] RX: Ranitidine HCl [Acid Automatic Paint Sprayer Operator] 150 mg PO DAILY 04/16/18 05/01/18 RX: SITagliptin [Januvia] 50 mg PO DAILY 04/16/18 05/01/18 RX: Sucralfate [Carafate Tab] 1 gm PO QID 04/16/18 05/01/18 RX: Tolnaftate [Antifungal Cream] 14.18 gm TOP DAILY 04/16/18 05/01/18 RX: Tramadol HCl [Ultram] 50 mg PO BID 04/16/18 05/01/18 RX: Vitamin B Complex [B Complex] 100 mg PO DAILY 04/16/18 05/01/18 RX: Zolpidem [Ambien] 5 mg PO HS 04/16/18 05/01/18 Review of Systems - Physician Review All systems were reviewed & negative as marked: Yes - Review of Systems Constitutional: Normal. absent: Fevers Eyes: Normal ENT: Normal Respiratory: Normal. absent: SOB, Cough Cardiovascular: Normal. absent: Chest Pain Gastrointestinal: Abdominal Pain, Hematemesis Genitourinary Female: Normal. absent: Dysuria, Frequency, Hematuria, Urine Output Changes Musculoskeletal: Normal. absent: Back Pain, Neck Pain Skin: Normal. absent: Rash Neurological: Normal. absent: Headache, Dizziness Endocrine: Normal Hemo/Lymphatic: Normal Psychiatric: Normal Physical Exam Vital Signs Reviewed: Yes Vital Signs Temp Pulse Resp BP Pulse Ox 05/01/18 01:55 98.4 F 101 H 16 131/97 H 95 Temperature: Afebrile Blood Pressure: Normal Pulse: Regular Respiratory Rate: Normal Appearance: Positive for: Well-Appearing, Non-Toxic, Comfortable Pain Distress: None Mental Status: Positive for: Alert and Oriented X 3 - Systems Exam Head: Present: Atraumatic, Normocephalic Pupils: Present: PERRL Extroacular Muscles: Present: EOMI Conjunctiva: Present: Normal Mouth: Present: Moist Mucous Membranes Neck: Present: Normal Range of Motion Respiratory/Chest: Present: Clear to Auscultation, Good Air Exchange. No: Respiratory Distress, Accessory Muscle Use Cardiovascular: Present: Regular Rate and Rhythm, Normal S1, S2. No: Murmurs Abdomen: No: Tenderness, Distention, Peritoneal Signs Back: Present: Normal Inspection Upper Extremity: Present: Normal Inspection. No: Cyanosis, Edema Lower Extremity: Present: Normal Inspection. No: Edema Neurological: Present: GCS=15, CN II-XII Intact, Speech Normal Skin: Present: Warm, Dry, Normal Color. No: Rashes Psychiatric: Present: Alert, Oriented x 3, Normal Insight, Normal Concentration Medical Decision Making ED Course and Treatment: 05/01/18 01:58 Impression: 87 year old female sent for coffee-grind vomiting. Plan: -- EKG -- CT Abdomen and Pelvis -- Labs, blood type and screen, amylase, lipase, cardiac enzymes -- IV fluids -- Protonix -- Morphine -- Reassess and disposition Prior Visits: Notes and results from previous visits were reviewed. Progress Notes: Reviewed EKG, sinus tachycardia at 101 bpm[address] Non-specific ST/T wave changes. 05/01/18 03:[address] Mcdaniel, who is aware and agrees with plan. Accepts pt in to his service. Pt will be admitted to Telemetry for GI bleed. 05/01/18 04:45 CT Abdomen and Pelvis: Large hiatal hernia. Left lower lobe airspace consolidation suggestive of pneumonia. Cholecystectomy. Colonic diverticulosis. Mild multifocal thickening of the colon more prominent in the transverse and descending colon. Bilateral renal cysts are noted with the largest measuring 5.2 cm on the left side. Distended bladder. Fat-containing umbilical hernia without incarceration. Normal unenhanced liver. Nondilated extrahepatic biliary system. Normal unenhanced spleen. Normal pancreas. Normal bilateral adrenal glands. Normal size of the right kidney. There is no right renal mass. There are no right renal calculi. There is no right hydronephrosis. Normal visualized right ureter. Normal size of the left kidney. There is no left renal mass. There are no left renal calculi. There is no left hydronephrosis. Normal visualized left ureter. Normal visualized stomach. Normal small intestine. The appendix is visualized and appears normal. There is no demonstrated peritoneal fluid. Normal abdominal aorta. Normal inferior vena cava. Normal retroperitoneum. There is no pelvic mass lesion or lymphadenopathy. There is no pelvic fluid. Diffuse spondylosis. Mild benign chronic osteoporotic compression deformities of mid lumbar vertebral bodies. IMPRESSION: Large hiatal hernia. Left lower lobe airspace consolidation suggestive of pneumonia. Cholecystectomy. Colonic diverticulosis. Mild multifocal thickening of the colon more prominent in the transverse and descending colon. Underdistention, spasm versus mild colitis. Bilateral renal cysts are noted with the largest measuring 5.2 cm on the left side. Distended bladder. Electronically signed on May 01, 2018 4:43:20 AM EST by: Shannon Portillo M.D., Certified by ABR, MSK, Neuroradiology - Lab Interpretations Lab Results: PT 11.4 SECONDS (9.4-12.5) 05/01/18 02:28 INR 1.03 05/01/18 02:28 APTT 29.0 Seconds (26.9-38.3) 05/01/18 02:28 I have reviewed the lab results: Yes - RAD Interpretation Radiology Orders: 05/01/18 01:58 CHEST PORTABLE [RAD] Stat Automatic Edger: Radiologist - EKG Interpretation Interpreted by ED Physician: Yes Type: 12 lead EKG - Medication Orders Current Medication Orders: Sodium Chloride (Sodium Chloride 0.9%) 1,000 mls @ 80 mls/hr IV .[id number] HANNA Last Admin: 05/01/18 02:30 Dose: 80 mls/hr eMAR Start Stop Document 05/01/18 02:30 SS (Rec: 05/01/18 02:30 SS [id number]) Intravenous Solution Start Date 05/01/18 Start Time 02:30 Discontinued Medications Pantoprazole Sodium (Protonix Inj) 40 mg IVP ONCE STA Stop: 05/01/18 02:01 Last Admin: 05/01/18 02:30 Dose: 40 mg IVP Administration Document 05/01/18 02:30 SS (Rec: 05/01/18 02:30 SS [id number]) Charges for Administration # of IVP Administrations 1 - PA / TECHNICAL SALES SPECIALIST / Resident Statement MD/DO has reviewed & agrees with the documentation as recorded. - Scribe Statement The provider has reviewed the documentation as recorded by the Brockibmikel Hernandez Provider Scribe Attestation: All medical record entries made by the Scribmikel were at my direction and personally dictated by me. I have reviewed the chart and agree that the record accurately reflects my personal performance of the history, physical exam, medical decision making, and the department course for this patient. I have also personally directed, reviewed, and agree with the discharge instructions and disposition. Disposition/Present on Arrival - Present on Arrival Any Indicators Present on Arrival: No History of DVT/PE: No History of Uncontrolled Diabetes: Yes Urinary Catheter: No History of Decub. Ulcer: No History Surgical Site Infection Following: None - Disposition Have Diagnosis and Disposition been Completed?: Yes Diagnosis: Coffee ground emesis Disposition: HOSPITALIZED Disposition Time: 03:30 Condition: FAIR
[2018-05-01 02:55] LABS: ALB/GLOB RATIO 1.3 (1.1-1.8); ALBUMIN 4.6 g/dL (3.0-4.8); CALCIUM 9.5 mg/dL (8.4-10.5)
[2018-05-01 02:57] LABS: TROPONIN I 0.02 ng/mL
[2018-05-01] MEDS ORDERED: Morphine 2 mg/ml ISec IVP STA (03:09)
[2018-05-01] MEDS ORDERED: Sodium Chloride 0.9% 1,000 ML IV STA (03:31)
[2018-05-01] MEDS ORDERED: Morphine 2 mg/ml ISec IVP SCH (05:43)
[2018-05-01] MEDS ORDERED: Morphine 2 mg/ml ISec IVP PRN (05:44)
[2018-05-01] MEDS: Morphine 2 mg/ml ISec IVP PRN ×2 (05:53→17:59)
[2018-05-01] MEDS ORDERED: Vancomycin 1gm in NS 250ml 1 GM/250 ML BAG IVPB STA (06:39)
[2018-05-01] MEDS ORDERED: Piperacillin/Tazobact 3.375 gm 100 ML IVPB STA (06:40)
[2018-05-01] MEDS: Sodium Chloride 0.45% 1,000 ML IV SCH (08:15)
--- NOTE | 2018-05-01 09:50 | RAD ---
Date of service: 05/01/2018 HISTORY: gi bleed COMPARISON: 04/20/2018 FINDINGS: LUNGS: No active pulmonary disease. PLEURA: No significant pleural effusion identified, no pneumothorax apparent. CARDIOVASCULAR: Aortic calcification Normal cardiac size. No pulmonary vascular congestion. OSSEOUS STRUCTURES: No significant abnormalities. VISUALIZED UPPER ABDOMEN: There is a large hiatal hernia measuring 12 cm in diameter. This is unchanged OTHER FINDINGS: None. IMPRESSION: No active disease.
--- NOTE | 2018-05-01 10:07 | CARD ---
APPROVED REPORT Date of service: 05/01/2018 EKG Measurement Heart [id number] <Conclusion> Sinus tachycardia Cannot rule out Anterior infarct, age undetermined Abnormal ECG
[2018-05-01] MEDS: Insulin Reg-MEDIUM-Coverage SC SCH ×3 (12:10→22:57)
--- NOTE | 2018-05-01 12:55 | CT ---
Date of service: 05/01/2018 PROCEDURE: CT Abdomen and Pelvis without intravenous contrast HISTORY: abd pain COMPARISON: None. TECHNIQUE: Without contrast.. Contrast dose: Radiation dose: Total exam DLP = 274.25 mGy-cm. This CT exam was performed using one or more of the following dose reduction techniques: Automated exposure control, adjustment of the mA and/or kV according to patient size, and/or use of iterative reconstruction technique. FINDINGS: LOWER THORAX: There is a large hiatal hernia measuring 7 cm in height. Coronary artery and aortic calcification. Minimal infiltrate or atelectasis at left lung base. LIVER: Unremarkable. No gross lesion or ductal dilatation. GALLBLADDER AND BILE DUCTS: Gallbladder removed PANCREAS: Unremarkable. No gross lesion or ductal dilatation. SPLEEN: Unremarkable. ADRENALS: Unremarkable. No mass. KIDNEYS AND URETERS: Unremarkable. No hydronephrosis. No solid mass. Multiple cysts VASCULATURE: Unremarkable. No aortic aneurysm. Aortic calcification BOWEL: Severe diverticulosis of the sigmoid colon APPENDIX: Unremarkable. Normal appendix. PERITONEUM: Unremarkable. No free fluid. No free air. LYMPH NODES: Unremarkable. No enlarged lymph nodes. BLADDER: Unremarkable. REPRODUCTIVE: Unremarkable. BONES: No acute fracture. OTHER FINDINGS: The report concurs with the preliminary [facility] report IMPRESSION: No acute intra-abdominal findings
--- NOTE | 2018-05-01 13:10 | CP.PCM.CON ---
<MatthieuDevi - Last Filed: 05/01/18 13:16> History of Present Illness - History of Present Illness History of Present Illness: PGY5 GI Fellow Consult Note Pt is an 87 yo Hisp Female with h/o Erosive Esophagitis, Large Hiatal Hernia, PUD, GERD, DM, HTN, COPD presenting with black emesis at [place]. She states that yesterday she began to feel nauseous and had multiple episodes of black emesis. She reported multiple episodes with some associated bilateral lower quadrant achy pain. Denied and precipitating or alleviating factors. States that last BM was today in [facility] and was brown in color, but she suffers from chronic constipation. She denied any weights loss, dysphagia, lightheadedness, NSAID/ASA/blood thinner use. She presented to [facility] in 03/2018 with similar complaint, conservative management was advised since hgb was stable. Her hgb continues to be stable around 12. EGD September 2017 with large Type III Hiatal Hernia, Gatritis (+IM, -HP). Previous EGD from 2015 with duodenal and gastric ulcers. CSPY 07/15/15: Diverticulosis and 2 tubular adenomas. 12 point ROS negative other than stated above MHx: See above SurgHx: Hysterectomy, Tonsillectomy, R Hip surgery Meds: Reviewed in chart FamHx: Denied CRC SocHx: Former tobacco, denied illicits/EtOH Past Patient History - Infectious Disease Hx of Infectious Diseases: None - Tetanus Immunizations Tetanus Immunization: Unknown - Past Medical History & Family History Past Medical History?: Yes - Past Social History Smoking Status: Never Smoked - CARDIAC Hx Cardiac Disorders: Yes Hx Hypertension: Yes - PULMONARY Hx Respiratory Disorders: Yes (USED TO SMOKE CIGARETTES) Hx Chronic Obstructive Pulmonary Disease (COPD): Yes - NEUROLOGICAL Hx Neurological Disorder: Yes HX Cerebrovascular Accident: No Hx Dementia: Yes Hx Dizziness: Yes - HEENT Hx HEENT Problems: No Hx Blind: No Hx Cataracts: No Hx Deafness: No Hx Difficulty Chewing: No Hx Epistaxis: No Hx Glaucoma: No Hx Macular Degeneration: No - RENAL Hx Renal Failure: No - ENDOCRINE/METABOLIC Hx Endocrine Disorders: Yes Hx Diabetes Mellitus Type 2: Yes - HEMATOLOGICAL/ONCOLOGICAL Hx Blood Disorders: Yes Hx AIDS: No Hx Anemia: Yes Hx Hepatitis C: No - INTEGUMENTARY Hx Dermatological Problems: No Hx Basil Cell: No Hx Eczema: No Hx Melanoma: No Hx Psoriasis: No Hx Squamous Cell: No - MUSCULOSKELETAL/RHEUMATOLOGICAL Hx Musculoskeletal Disorders: Yes Hx Arthritis: Yes Hx Falls: Yes Hx Unsteady Gait: Yes (WALKER) - GASTROINTESTINAL Hx Gastrointestinal Disorders: Yes (DIVERTICULOSIS,DIAPHRAGMATIC HERNIA,PUD) Hx Colostomy: No Hx Crohn's Disease: No Hx Gall Bladder Disease: No Hx Gastroesophageal Reflux: Yes Hx Ileostomy: No Hx Liver Failure: No Hx Pancreatitis: No HX Swallowing Problems: No - GENITOURINARY/GYNECOLOGICAL Hx Genitourinary Disorders: Yes Hx Hematuria: Yes Hx Incontinence: Yes Hx Sexually Transmitted Disorders: No Hx Urinary Tract Infection: No - PSYCHIATRIC Hx Psychophysiologic Disorder: Yes (INSOMNIA) Hx Anxiety: Yes Hx Depression: Yes Hx Substance Use: No - SURGICAL HISTORY Hx Amputation: No Hx Appendectomy: No Hx Cardiac Catheterization: No Hx Cholecystectomy: No Hx Coronary Stent: No Hx Gastric Bypass Surgery: No Hx Hysterectomy: Yes Hx Joint Replacement: No Hx Kidney Transplant: No Hx Liver Transplant: No Hx Mastectomy: No Hx Musculoskeletal Surgery: No Hx Open Heart Surgery: No Hx Orthopedic Surgery: Yes Hx Splenectomy: No Hx Valve Replacement: No Other/Comment: Tonsillectomy - ANESTHESIA Hx Anesthesia: Yes Hx Anesthesia Reactions: No (UNKNOWN) Hx Malignant Hyperthermia: No (UNKNOWN) Meds Allergies/Adverse Reactions: Allergies Allergy/AdvReac Type Severity Reaction Status Date / Time aspirin Allergy NAUSEA Verified 05/01/18 01:53 - Medications Medications: Current Medications Sodium Chloride (Sodium Chloride 0.45%) 1,000 mls @ 60 mls/hr IV .[id number] [facility] Last Admin: 05/01/18 08:15 Dose: 60 mls/hr Piperacillin Sod/Tazobactam Sod (Zosyn 3.375 In Ns 100ml) 100 mls @ 25 mls/hr IVPB Q8 [facility]; Protocol Stop: 05/08/18 14:01 Insulin Human Regular (Humulin R Med) 0 units SC ACHS [facility]; Protocol Last Admin: 05/01/18 12:10 Dose: Not Given Morphine Sulfate (Morphine) 1 mg IVP Q3 PRN PRN Reason: Pain, moderate (4-7) Last Admin: 05/01/18 05:53 Dose: 1 mg Ondansetron HCl (Zofran Inj) 4 mg IVP Q6H PRN PRN Reason: Nausea/Vomiting Ondansetron HCl (Zofran Inj) 4 mg IVP Q6 PRN PRN Reason: Nausea/Vomiting Pantoprazole Sodium (Protonix Inj) 40 mg IVP DAILY@0600 [facility] Physical Exam - Constitutional Appears: Well, No Acute Distress - Head Exam Head Exam: ATRAUMATIC, NORMOCEPHALIC - Eye Exam Eye Exam: Normal appearance - ENT Exam ENT Exam: Mucous Membranes Moist, Normal Exam - Neck Exam Neck exam: Positive for: Normal Inspection - Respiratory Exam Respiratory Exam: Clear to Auscultation Bilateral, NORMAL BREATHING PATTERN. absent: Rales, Rhonchi, Wheezes, Respiratory Distress - Cardiovascular Exam Cardiovascular Exam: REGULAR RHYTHM, +S1, +S2 - GI/Abdominal Exam GI & Abdominal Exam: Normal Bowel Sounds, Tenderness (lower quadrants B/L). absent: Distended, Firm, Guarding, Hernia, Organomegaly, Pulsatile Mass, Rebound, Rigid, Soft - Rectal Exam Rectal Exam: NORMAL INSPECTION. absent: Black Stool, Bloody Stool, Hemorrhoids, Fecal Impaction - Extremities Exam Extremities exam: Negative for: joint swelling, pedal edema - Neurological Exam Neurological exam: Alert, Oriented x3 - Psychiatric Exam Psychiatric exam: Normal Affect, Normal Mood - Skin Skin Exam: Dry, Intact, Normal Color, Warm Results - Vital Signs Recent Vital Signs: Last Vital Signs Temp 98.2 F 05/01/18 12:35 Pulse 67 05/01/18 12:35 Resp 20 05/01/18 12:35 BP 119/70 05/01/18 12:35 Pulse Ox 99 05/01/18 12:35 - Labs Result Diagrams: 05/01/18 02:28 05/01/18 02:28 Labs: Laboratory Results - last 24 hr 05/01/18 05/01/18 05/01/18 02:28 02:28 02:28 WBC 14.0 H D RBC 4.04 Hgb 12.1 Hct 37.6 MCV 93.1 MCH 30.0 MCHC 32.2 RDW 14.1 Plt Count 303 MPV 8.6 Neut % (Auto) 81.5 H Lymph % (Auto) 12.0 L [place] % (Auto) 6.3 H Eos % (Auto) 0.1 L Baso % (Auto) 0.1 Lymph # (Auto) 1.7 [place] # (Auto) 0.9 H Eos # (Auto) 0.0 Baso # (Auto) 0.01 Absolute Neuts (auto) 11.43 H PT 11.4 INR 1.03 APTT 29.0 Sodium 137 Potassium 3.6 Chloride 89 L Carbon Dioxide 38 H Anion Gap 13 BUN 34 H Creatinine 1.2 Est GFR ( Amer) 51 Est GFR (Non-Af Amer) 42 POC Glucose (mg/dL) Random Glucose 267 H Calcium 9.5 Total Bilirubin 0.6 AST 28 ALT 11 Alkaline Phosphatase 84 Lactate Dehydrogenase 482 Total Creatine Kinase 23 L Troponin I 0.02 D Total Protein 8.1 Albumin 4.6 Globulin 3.6 Albumin/Globulin Ratio 1.3 Amylase 108 Lipase 180 Blood Type Antibody Screen BBK History Checked 05/01/18 05/01/18 02:45 12:04 WBC RBC Hgb Hct MCV MCH MCHC RDW Plt Count MPV Neut % (Auto) Lymph % (Auto) [place] % (Auto) Eos % (Auto) Baso % (Auto) Lymph # (Auto) [place] # (Auto) Eos # (Auto) Baso # (Auto) Absolute Neuts (auto) PT INR APTT Sodium Potassium Chloride Carbon Dioxide Anion Gap BUN Creatinine Est GFR ( Amer) Est GFR (Non-Af Amer) POC Glucose (mg/dL) 146 H Random Glucose Calcium Total Bilirubin AST ALT Alkaline Phosphatase Lactate Dehydrogenase Total Creatine Kinase Troponin I Total Protein Albumin Globulin Albumin/Globulin Ratio Amylase Lipase Blood Type A POSITIVE Antibody Screen Negative BBK History Checked Patient has bt Assessment & Plan - Assessment and Plan (Free Text) Assessment: Pt is an 87 yo Hisp Female with h/o Erosive Esophagitis, Large Hiatal Hernia, PUD, GERD, DM, HTN, COPD presenting with black emesis at [place]. Coffee ground emesis?: Hgb at baseline. Vitals stable h/o PUD Hiatal hernia hx of Erosive Esophagitis H/o tubular adenomas Diverticulosis Plan: - Cont PPI IV BID - start clears for now - Will consider EGD pending course - Monitor Labs, repeat CBC at 1400 - recommend type and screen, obtaining blood consent - maintain at least x2 IVs Pt discussed with Dr. Cancino; please see attestation for further recs/changes. <Dejan Cancino - Last Filed: 05/01/18 17:57> Meds - Medications Medications: Current Medications Sodium Chloride (Sodium Chloride 0.45%) 1,000 mls @ 60 mls/hr IV .[id number] [facility] Last Admin: 05/01/18 08:15 Dose: 60 mls/hr Piperacillin Sod/Tazobactam Sod (Zosyn 3.375 In Ns 100ml) 100 mls @ 25 mls/hr I VPB Q8 [facility]; Protocol Stop: 05/08/18 14:01 Last Admin: 05/01/18 14:29 Dose: 25 mls/hr Insulin Human Regular (Humulin R Med) 0 units SC ACHS [facility]; Protocol Last Admin: 05/01/18 12:10 Dose: Not Given Morphine Sulfate (Morphine) 1 mg IVP Q3 PRN PRN Reason: Pain, moderate (4-7) Last Admin: 05/01/18 05:53 Dose: 1 mg Ondansetron HCl (Zofran Inj) 4 mg IVP Q6H PRN PRN Reason: Nausea/Vomiting Ondansetron HCl (Zofran Inj) 4 mg IVP Q6 PRN PRN Reason: Nausea/Vomiting Pantoprazole Sodium (Protonix Inj) 40 mg IVP Q12 [facility] Results - Vital Signs Recent Vital Signs: Last Vital Signs Temp 97.0 F L 05/01/18 14:41 Pulse 79 05/01/18 17:15 Resp 16 05/01/18 17:15 BP 106/41 L 05/01/18 14:41 Pulse Ox 98 05/01/18 14:41 - Labs Result Diagrams: 05/01/18 17:15 05/01/18 02:28 Labs: Laboratory Results - last 24 hr 05/01/18 05/01/18 05/01/18 02:28 02:28 02:28 WBC 14.0 H D RBC 4.04 Hgb 12.1 Hct 37.6 MCV 93.1 MCH 30.0 MCHC 32.2 RDW 14.1 Plt Count 303 MPV 8.6 Neut % (Auto) 81.5 H Lymph % (Auto) 12.0 L [place] % (Auto) 6.3 H Eos % (Auto) 0.1 L Baso % (Auto) 0.1 Lymph # (Auto) 1.7 [place] # (Auto) 0.9 H Eos # (Auto) 0.0 Baso # (Auto) 0.01 Absolute Neuts (auto) 11.43 H PT 11.4 INR 1.03 APTT 29.0 Sodium 137 Potassium 3.6 Chloride 89 L Carbon Dioxide 38 H Anion Gap 13 BUN 34 H Creatinine 1.2 Est GFR ( Amer) 51 Est GFR (Non-Af Amer) 42 POC Glucose (mg/dL) Random Glucose 267 H Calcium 9.5 Total Bilirubin 0.6 AST 28 ALT 11 Alkaline Phosphatase 84 Lactate Dehydrogenase 482 Total Creatine Kinase 23 L Troponin I 0.02 D Total Protein 8.1 Albumin 4.6 Globulin 3.6 Albumin/Globulin Ratio 1.3 Amylase 108 Lipase 180 Blood Type Antibody Screen BBK History Checked 05/01/18 05/01/18 05/01/18 02:45 12:04 16:05 WBC RBC Hgb Hct MCV MCH MCHC RDW Plt Count MPV Neut % (Auto) Lymph % (Auto) [place] % (Auto) Eos % (Auto) Baso % (Auto) Lymph # (Auto) [place] # (Auto) Eos # (Auto) Baso # (Auto) Absolute Neuts (auto) PT INR APTT Sodium Potassium Chloride Carbon Dioxide Anion Gap BUN Creatinine Est GFR ( Amer) Est GFR (Non-Af Amer) POC Glucose (mg/dL) 146 H 277 H Random Glucose Calcium Total Bilirubin AST ALT Alkaline Phosphatase Lactate Dehydrogenase Total Creatine Kinase Troponin I Total Protein Albumin Globulin Albumin/Globulin Ratio Amylase Lipase Blood Type A POSITIVE Antibody Screen Negative BBK History Checked Patient has bt 05/01/18 17:15 WBC 8.3 D RBC 3.38 L Hgb 9.9 L D Hct 32.2 L MCV 95.3 MCH 29.3 MCHC 30.7 L RDW 14.5 Plt Count 216 MPV 8.1 Neut % (Auto) Lymph % (Auto) [place] % (Auto) Eos % (Auto) Baso % (Auto) Lymph # (Auto) [place] # (Auto) Eos # (Auto) Baso # (Auto) Absolute Neuts (auto) PT INR APTT Sodium Potassium Chloride Carbon Dioxide Anion Gap BUN Creatinine Est GFR ( Amer) Est GFR (Non-Af Amer) POC Glucose (mg/dL) Random Glucose Calcium Total Bilirubin AST ALT Alkaline Phosphatase Lactate Dehydrogenase Total Creatine Kinase Troponin I Total Protein Albumin Globulin Albumin/Globulin Ratio Amylase Lipase Blood Type Antibody Screen BBK History Checked Attending/Attestation - Attestation I have personally seen and examined this patient.: Yes I have fully participated in the care of the patient.: Yes I have reviewed all pertinent clinical information: Yes Notes (Text): 05/01/18 17:52 I have seen and examined patient with GI fellow. Agree with above documentation with the following additions. In brief, this is an 87 year old female with history of DM, HTN, COPD, GERD, hiatal hernia who presents from nursing facility with complaint of abdominal pain and emesis. She had a recent hospitalization for similar complaints with symptoms that resolved with conservative management. She reports having epigastric abdominal pain, 5/10 intensity that started yesterday and was accompanied by two episodes of dark colored emesis. Since arrival to hospital she has not had any recurrent vomiting and is tolerating PO liquids without difficulty. She denies weight loss, rectal bleeding. She underwent EGD in 2018 which showed a large hiatal hernia. DM/HTN COPD GERD hiatal hernia Anemia Vomiting, abdominal pain - Clear liquid diet as tolerated - Anti-emetic therapy PRN - H/H stable, continue to monitor - Continue with PPI therapy - Will plan for EGD Sunday for further evaluation of recurrent abdominal pain and vomiting in setting of anemia - rule out peptic ulcer disease, esophagitis, sumanth ulcer. Will continue to monitor patient clinical course.
[2018-05-01] MEDS: Piperacillin/Tazobact 3.375 gm 100 ML IVPB SCH ×2 (14:29→22:02)
--- NOTE | 2018-05-01 15:09 | CP.PCM.CON ---
History of Present Illness - History of Present Illness History of Present Illness: 87 year old female with PMH of DM, HTN, CAD, COPD, Arthritis, S/P hysterectomy, S/P tonsillectomy, History of right hip surgery, Left hip fracture S/P intramedullary fixation, S/P treatment for PSeudomembranous colitis, S/P colonoscopy and colonic polyp removal, S/P UTI with Morganella morgagni S/P treatment with Ciprofloxacin and S/P treatment of recurrent UTI with Nitrofurantoin, Enterococcus in the urine S/P treatment with Nitrofurantoin, Urinary incontinence was brought in to [facility] because of apparent coffee[facility] [facility]. The patient is currently complaining of epigastric pain. She denies fever or chills, no nausea but states she had vomiting, no headache or dizziness, no chest pain, no SOB, no diarrhea, no dysuria, no cough, no rhinorrhea, no sore throat. Infectious diseases consult is requested to see if the patient needs antibiotics. Review of Systems - Review of Systems All systems: reviewed and no additional remarkable complaints except (as per HPI) Past Patient History - Infectious Disease Hx of Infectious Diseases: None - Tetanus Immunizations Tetanus Immunization: Unknown - Past Medical History & Family History Past Medical History?: Yes - Past Social History Smoking Status: Never Smoked - CARDIAC Hx Cardiac Disorders: Yes Hx Hypertension: Yes - PULMONARY Hx Respiratory Disorders: Yes (USED TO SMOKE CIGARETTES) Hx Chronic Obstructive Pulmonary Disease (COPD): Yes - NEUROLOGICAL Hx Neurological Disorder: Yes HX Cerebrovascular Accident: No Hx Dementia: Yes Hx Dizziness: Yes - HEENT Hx HEENT Problems: No Hx Blind: No Hx Cataracts: No Hx Deafness: No Hx Difficulty Chewing: No Hx Epistaxis: No Hx Glaucoma: No Hx Macular Degeneration: No - RENAL Hx Renal Failure: No - ENDOCRINE/METABOLIC Hx Endocrine Disorders: Yes Hx Diabetes Mellitus Type 2: Yes - HEMATOLOGICAL/ONCOLOGICAL Hx Blood Disorders: Yes Hx AIDS: No Hx Anemia: Yes Hx Hepatitis C: No - INTEGUMENTARY Hx Dermatological Problems: No Hx Basil Cell: No Hx Eczema: No Hx Melanoma: No Hx Psoriasis: No Hx Squamous Cell: No - MUSCULOSKELETAL/RHEUMATOLOGICAL Hx Musculoskeletal Disorders: Yes Hx Arthritis: Yes Hx Falls: Yes Hx Unsteady Gait: Yes (WALKER) - GASTROINTESTINAL Hx Gastrointestinal Disorders: Yes (DIVERTICULOSIS,DIAPHRAGMATIC HERNIA,PUD) Hx Colostomy: No Hx Crohn's Disease: No Hx Gall Bladder Disease: No Hx Gastroesophageal Reflux: Yes Hx Ileostomy: No Hx Liver Failure: No Hx Pancreatitis: No HX Swallowing Problems: No - GENITOURINARY/GYNECOLOGICAL Hx Genitourinary Disorders: Yes Hx Hematuria: Yes Hx Incontinence: Yes Hx Sexually Transmitted Disorders: No Hx Urinary Tract Infection: No - PSYCHIATRIC Hx Psychophysiologic Disorder: Yes (INSOMNIA) Hx Anxiety: Yes Hx Depression: Yes Hx Substance Use: No - SURGICAL HISTORY Hx Amputation: No Hx Appendectomy: No Hx Cardiac Catheterization: No Hx Cholecystectomy: No Hx Coronary Stent: No Hx Gastric Bypass Surgery: No Hx Hysterectomy: Yes Hx Joint Replacement: No Hx Kidney Transplant: No Hx Liver Transplant: No Hx Mastectomy: No Hx Musculoskeletal Surgery: No Hx Open Heart Surgery: No Hx Orthopedic Surgery: Yes Hx Splenectomy: No Hx Valve Replacement: No Other/Comment: Tonsillectomy - ANESTHESIA Hx Anesthesia: Yes Hx Anesthesia Reactions: No (UNKNOWN) Hx Malignant Hyperthermia: No (UNKNOWN) Meds Allergies/Adverse Reactions: Allergies Allergy/AdvReac Type Severity Reaction Status Date / Time aspirin Allergy NAUSEA Verified 05/01/18 01:53 - Medications Medications: Current Medications Sodium Chloride (Sodium Chloride 0.45%) 1,000 mls @ 60 mls/hr IV .[id number] [facility] Last Admin: 05/01/18 08:15 Dose: 60 mls/hr Insulin Human Regular (Humulin R Med) 0 units SC [facility]; Protocol Morphine Sulfate (Morphine) 1 mg IVP Q3 PRN PRN Reason: Pain, moderate (4-7) Last Admin: 05/01/18 05:53 Dose: 1 mg Ondansetron HCl (Zofran Inj) 4 mg IVP Q6H PRN PRN Reason: Nausea/Vomiting Ondansetron HCl (Zofran Inj) 4 mg IVP Q6 PRN PRN Reason: Nausea/Vomiting Pantoprazole Sodium (Protonix Inj) 40 mg IVP DAILY@0600 [facility] Physical Exam - Constitutional Appears: Chronically Ill - Head Exam Head Exam: NORMAL INSPECTION - Respiratory Exam Respiratory Exam: Decreased Breath Sounds - Cardiovascular Exam Cardiovascular Exam: +S1, +S2 - GI/Abdominal Exam GI & Abdominal Exam: Soft, Tenderness (mild, epigastric). absent: Distended, Firm, Rebound, Rigid Results - Vital Signs Recent Vital Signs: Last Vital Signs Temp 98.4 F 05/01/18 08:15 Pulse 66 05/01/18 08:15 Resp 20 05/01/18 08:15 BP 115/57 L 05/01/18 08:15 Pulse Ox 100 05/01/18 08:15 - Labs Result Diagrams: 05/01/18 02:28 05/01/18 02:28 Labs: Laboratory Results - last 24 hr 05/01/18 05/01/18 05/01/18 02:28 02:28 02:28 WBC 14.0 H D RBC 4.04 Hgb 12.1 Hct 37.6 MCV 93.1 MCH 30.0 MCHC 32.2 RDW 14.1 Plt Count 303 MPV 8.6 Neut % (Auto) 81.5 H Lymph % (Auto) 12.0 L [place] % (Auto) 6.3 H Eos % (Auto) 0.1 L Baso % (Auto) 0.1 Lymph # (Auto) 1.7 [place] # (Auto) 0.9 H Eos # (Auto) 0.0 Baso # (Auto) 0.01 Absolute Neuts (auto) 11.43 H PT 11.4 INR 1.03 APTT 29.0 Sodium 137 Potassium 3.6 Chloride 89 L Carbon Dioxide 38 H Anion Gap 13 BUN 34 H Creatinine 1.2 Est GFR ( Amer) 51 Est GFR (Non-Af Amer) 42 Random Glucose 267 H Calcium 9.5 Total Bilirubin 0.6 AST 28 ALT 11 Alkaline Phosphatase 84 Lactate Dehydrogenase 482 Total Creatine Kinase 23 L Troponin I 0.02 D Total Protein 8.1 Albumin 4.6 Globulin 3.6 Albumin/Globulin Ratio 1.3 Amylase 108 Lipase 180 Blood Type Antibody Screen BBK History Checked 05/01/18 02:45 WBC RBC Hgb Hct MCV MCH MCHC RDW Plt Count MPV Neut % (Auto) Lymph % (Auto) [place] % (Auto) Eos % (Auto) Baso % (Auto) Lymph # (Auto) [place] # (Auto) Eos # (Auto) Baso # (Auto) Absolute Neuts (auto) PT INR APTT Sodium Potassium Chloride Carbon Dioxide Anion Gap BUN Creatinine Est GFR ( Amer) Est GFR (Non-Af Amer) Random Glucose Calcium Total Bilirubin AST ALT Alkaline Phosphatase Lactate Dehydrogenase Total Creatine Kinase Troponin I Total Protein Albumin Globulin Albumin/Globulin Ratio Amylase Lipase Blood Type A POSITIVE Antibody Screen Negative BBK History Checked Patient has bt Assessment & Plan - Assessment and Plan (Free Text) Plan: Assessment Hematemesis, R/O bleeding gastrointestinal ulcers, R/O bleeding varices history of Left hip fracture S/P intramedullary fixation sustained after a fall S/P treatment for PSeudomembranous colitis S/P colonoscopy and colonic polyp removal S/P UTI with Morganella morgagni S/P treatment with Ciprofloxacin and S/P treatment of recurrent UTI with Nitrofurantoin Enterococcus in the urine S/P treatment with Nitrofurantoin Urinary incontinence DM HTN CAD COPD Arthritis S/P hysterectomy S/P tonsillectomy History of right hip surgery Plan since etiology of upper GI bleeding is not yet determined, we have started Rocephin and Flagyl for now follow up GI evaluation and recommendations follow up CT A/P results will monitor clinically
[2018-05-01] MEDS ORDERED: Influenza Vaccine 60 mcg/0.5 mL SYR (4YR UP) IM ONE (17:34)
[2018-05-01] MEDS ORDERED: Pneumococcal 23-Valent Vaccine IM ONE (17:34)
[2018-05-01 17:37] LABS: HEMOGLOBIN 9.9 g/dL (12.0-16.0); MEAN CELL VOLUME 95.3 fl (80.0-105.0); MEAN CORPUSCULAR HEMOGLOBIN 29.3 pg (25.0-35.0); MEAN CORPUSCULAR HGB CONC 30.7 g/dl (31.0-37.0); MEAN PLATELET VOLUME 8.1 fl (7.0-11.0); RBC 3.38 10^6/uL (3.5-6.1); RED CELL DISTRIBUTION WIDTH 14.5 % (11.5-14.5); WHITE BLOOD COUNT 8.3 10^3/uL (4.5-11.0)
[2018-05-01 17:53] LABS: ALB/GLOB RATIO 1.3 (1.1-1.8); ALBUMIN 3.6 g/dL (3.0-4.8); CALCIUM 7.9 mg/dL (8.4-10.5)
[2018-05-01] MEDS: Dextrose 50% SYRINGE Inj (50 ml) IV PRN ×2 (21:45→21:49)
[2018-05-02] MEDS: Morphine 2 mg/ml ISec IVP PRN ×7 (01:37→22:36)
[2018-05-02] MEDS: Sodium Chloride 0.45% 1,000 ML IV SCH (03:28)
[2018-05-02] MEDS: Piperacillin/Tazobact 3.375 gm 100 ML IVPB SCH ×3 (05:14→21:22)
[2018-05-02] MEDS ORDERED: Pantoprazole 40mg/100mL NS 40 MG/100 ML BAG IVPB SCH (06:00)
--- NOTE | 2018-05-02 07:04 | CP.PCM.PN ---
<Devi Sommers - Last Filed: 05/02/18 09:00> Subjective - Date & Time of Evaluation Date of Evaluation: 05/02/18 Time of Evaluation: 07:00 - Subjective Subjective: PGY5 Gi Follow-up Pt seen and examined bedside No complaints tolerated diet Scheduled for EGD tomorrow No complaints denies any rectal bleeding, hematemesis, or coffeeground emesis ROS: 12 point ROS conducted, neg other than above Objective - Vital Signs/Intake and Output Vital Signs (last 24 hours): Temp Pulse Resp BP Pulse Ox 98.1 F 74 18 96/44 L 96 05/01/18 22:00 05/01/18 22:00 05/01/18 22:00 05/01/18 22:00 05/01/18 22:00 Intake and Output: 05/02/18 05/02/18 06:59 18:59 Intake Total 540 Output Total 200 Balance 340 - Medications Medications: Current Medications Dextrose (Dextrose 50% Inj) 0 ml IV STAT PRN; Protocol PRN Reason: Hypoglycemia Protocol Last Admin: 05/01/18 21:49 Dose: 50 ml Sodium Chloride (Sodium Chloride 0.45%) 1,000 mls @ 60 mls/hr IV .[id number] [facility] Last Admin: 05/02/18 03:28 Dose: Not Given Piperacillin Sod/Tazobactam Sod (Zosyn 3.375 In Ns 100ml) 100 mls @ 25 mls/hr IVPB Q8 [facility]; Protocol Stop: 05/08/18 14:01 Last Admin: 05/02/18 05:14 Dose: 25 mls/hr Dextrose (Dextrose 5% In Water 1000 Ml) 1,000 mls @ 0 mls/hr IV .Q0M PRN; Protocol PRN Reason: Hypoglycemia Protocol Insulin Human Regular (Humulin R Med) 0 units SC ACHS [facility]; Protocol Last Admin: 05/01/18 22:57 Dose: Not Given Morphine Sulfate (Morphine) 1 mg IVP Q3 PRN PRN Reason: Pain, moderate (4-7) Last Admin: 05/02/18 06:14 Dose: 1 mg Ondansetron HCl (Zofran Inj) 4 mg IVP Q6H PRN PRN Reason: Nausea/Vomiting Ondansetron HCl (Zofran Inj) 4 mg IVP Q6 PRN PRN Reason: Nausea/Vomiting Pantoprazole Sodium (Protonix Inj) 40 mg IVP Q12 [facility] Last Admin: 05/01/18 22:01 Dose: 40 mg - Labs Labs: 05/01/18 17:15 05/01/18 17:15 PT 11.4 SECONDS (9.4-12.5) 05/01/18 02:28 INR 1.03 05/01/18 02:28 APTT 29.0 Seconds (26.9-38.3) 05/01/18 02:28 - Constitutional Appears: Well, No Acute Distress - Head Exam Head Exam: ATRAUMATIC, NORMOCEPHALIC - Eye Exam Eye Exam: Normal appearance - ENT Exam ENT Exam: Mucous Membranes Moist, Normal Exam - Neck Exam Neck Exam: Normal Inspection - Respiratory Exam Respiratory Exam: Clear to Ausculation Bilateral, NORMAL BREATHING PATTERN. absent: Rales, Rhonchi, Wheezes, Respiratory Distress, Stridor - Cardiovascular Exam Cardiovascular Exam: REGULAR RHYTHM, +S1, +S2 - GI/Abdominal Exam GI & Abdominal Exam: Soft, Normal Bowel Sounds. absent: Distended, Firm, Guarding, Rigid, Tenderness, Organomegaly, Rebound - Extremities Exam Extremities Exam: absent: Joint Swelling, Pedal Edema - Neurological Exam Neurological Exam: Alert, Awake, Oriented x3 - Psychiatric Exam Psychiatric exam: Normal Affect, Normal Mood - Skin Skin Exam: Dry, Intact, Normal Color, Warm Assessment and Plan - Assessment and Plan (Free Text) Assessment: Pt is an 87 yo Hisp Female with h/o Erosive Esophagitis, Large Hiatal Hernia, PUD, GERD, DM, HTN, COPD presenting with black emesis at ND. Coffee ground emesis?: Hgb decreased (delusional?). Vitals stable h/o PUD Hiatal hernia hx of Erosive Esophagitis H/o tubular adenomas Diverticulosis Plan: - Cont PPI IV BID - continue clears, NPO after midnight for EGD tomorrow - Monitor Labs - maintain at least x2 IVs - zofran PRN Pt discussed with Dr. Cancino; please see attestation for further recs/changes. <Dejan Cancino Y - Last Filed: 05/02/18 09:35> Objective - Vital Signs/Intake and Output Vital Signs (last 24 hours): Temp Pulse Resp BP Pulse Ox 97.9 F 72 17 104/54 L 94 L 05/02/18 06:00 05/02/18 06:00 05/02/18 06:00 05/02/18 06:00 05/02/18 06:00 Intake and Output: 05/02/18 05/02/18 06:59 18:59 Intake Total 540 Output Total 200 Balance 340 - Medications Medications: Current Medications Dextrose (Dextrose 50% Inj) 0 ml IV STAT PRN; Protocol PRN Reason: Hypoglycemia Protocol Last Admin: 05/01/18 21:49 Dose: 50 ml Sodium Chloride (Sodium Chloride 0.45%) 1,000 mls @ 60 mls/hr IV .[id number] [facility] Last Admin: 05/02/18 03:28 Dose: Not Given Piperacillin Sod/Tazobactam Sod (Zosyn 3.375 In Ns 100ml) 100 mls @ 25 mls/hr IVPB Q8 [facility]; Protocol Stop: 05/08/18 14:01 Last Admin: 05/02/18 05:14 Dose: 25 mls/hr Dextrose (Dextrose 5% In Water 1000 Ml) 1,000 mls @ 0 mls/hr IV .Q0M PRN; Protocol PRN Reason: Hypoglycemia Protocol Insulin Human Regular (Humulin R Med) 0 units SC ACHS [facility]; Protocol Last Admin: 05/01/18 22:57 Dose: Not Given Morphine Sulfate (Morphine) 1 mg IVP Q3 PRN PRN Reason: Pain, moderate (4-7) Last Admin: 05/02/18 09:26 Dose: 1 mg Ondansetron HCl (Zofran Inj) 4 mg IVP Q6H PRN PRN Reason: Nausea/Vomiting Ondansetron HCl (Zofran Inj) 4 mg IVP Q6 PRN PRN Reason: Nausea/Vomiting Pantoprazole Sodium (Protonix Inj) 40 mg IVP Q12 [facility] Last Admin: 05/01/18 22:01 Dose: 40 mg - Labs Labs: 05/02/18 07:00 05/02/18 07:00 PT 11.4 SECONDS (9.4-12.5) 05/01/18 02:28 INR 1.03 05/01/18 02:28 APTT 29.0 Seconds (26.9-38.3) 05/01/18 02:28 Attending/Attestation - Attestation I have fully participated in the care of the patient.: Yes I have reviewed all pertinent clinical information, including history, physical exam and plan: Yes Notes (Text): 05/02/18 09:33 DM/HTN GERD Hiatal hernia COPD Vomiting - resolved Anemia - Liquid diet as tolerated - Continue to monitor H/H - Continue with PPI therapy - Will plan for EGD tomorrow for further evaluation of recurrent vomiting, NPO after midnight
[2018-05-02 07:24] LABS: MEAN CORPUSCULAR HEMOGLOBIN 29.8 pg (25.0-35.0); MEAN CORPUSCULAR HGB CONC 31.4 g/dl (31.0-37.0); MEAN PLATELET VOLUME 8.5 fl (7.0-11.0); RBC 3.02 10^6/uL (3.5-6.1); RED CELL DISTRIBUTION WIDTH 14.5 % (11.5-14.5); WHITE BLOOD COUNT 7.2 10^3/uL (4.5-11.0)
[2018-05-02 07:51] LABS: ALB/GLOB RATIO 1.2 (1.1-1.8); ALBUMIN 3.2 g/dL (3.0-4.8); ALT/SGPT 11 U/L (7-56); AST/SGOT 18 U/L (14-36); BLOOD UREA NITROGEN 16 mg/dL (7-21); CALCIUM 7.8 mg/dL (8.4-10.5); GFR NON-AFRICAN AMERICAN 52
--- NOTE | 2018-05-02 11:45 | CP.PCM.APN ---
Subjective - Date & Time of Evaluation Date of Evaluation: 05/02/18 Time of Evaluation: 10:35 - Subjective Subjective: pt seen and examineda t bedside, pt c/o headache and abd pain Review of Systems - Constitutional Constitutional: Headache - Gastrointestinal Gastrointestinal: As Per HPI Additional comments: abd pain Objective - Vital Signs/Intake and Output Vital Signs (last 24 hours): Temp Pulse Resp BP Pulse Ox 97.9 F 72 17 104/54 L 94 L 05/02/18 06:00 05/02/18 06:00 05/02/18 06:00 05/02/18 06:00 05/02/18 06:00 Intake and Output: 05/02/18 05/02/18 06:59 18:59 Intake Total 540 Output Total 200 Balance 340 - Medications Medications: Current Medications Dextrose (Dextrose 50% Inj) 0 ml IV STAT PRN; Protocol PRN Reason: Hypoglycemia Protocol Last Admin: 05/01/18 21:49 Dose: 50 ml Sodium Chloride (Sodium Chloride 0.45%) 1,000 mls @ 60 mls/hr IV .[id number] [facility] Last Admin: 05/02/18 03:28 Dose: Not Given Piperacillin Sod/Tazobactam Sod (Zosyn 3.375 In Ns 100ml) 100 mls @ 25 mls/hr IVPB Q8 [facility]; Protocol Stop: 05/08/18 14:01 Last Admin: 05/02/18 05:14 Dose: 25 mls/hr Dextrose (Dextrose 5% In Water 1000 Ml) 1,000 mls @ 0 mls/hr IV .Q0M PRN; Protocol PRN Reason: Hypoglycemia Protocol Insulin Human Regular (Humulin R Med) 0 units SC ACHS [facility]; Protocol Last Admin: 05/01/18 22:57 Dose: Not Given Morphine Sulfate (Morphine) 1 mg IVP Q3 PRN PRN Reason: Pain, moderate (4-7) Last Admin: 05/02/18 09:26 Dose: 1 mg Ondansetron HCl (Zofran Inj) 4 mg IVP Q6H PRN PRN Reason: Nausea/Vomiting Ondansetron HCl (Zofran Inj) 4 mg IVP Q6 PRN PRN Reason: Nausea/Vomiting Pantoprazole Sodium (Protonix Inj) 40 mg IVP Q12 [facility] Last Admin: 05/02/18 11:11 Dose: 40 mg - Labs Labs: 05/02/18 07:00 05/02/18 07:00 PT 11.4 SECONDS (9.4-12.5) 05/01/18 02:28 INR 1.03 05/01/18 02:28 APTT 29.0 Seconds (26.9-38.3) 05/01/18 02:28 - Constitutional Appears: No Acute Distress - Eye Exam Eye Exam: Normal appearance - Neck Exam Neck Exam: Normal Inspection - Respiratory Exam Respiratory Exam: Decreased Breath Sounds, NORMAL BREATHING PATTERN - Cardiovascular Exam Cardiovascular Exam: +S1, +S2 - Extremities Exam Extremities Exam: Normal Capillary Refill - Neurological Exam Neurological Exam: Awake - Psychiatric Exam Psychiatric exam: Normal Mood - Skin Skin Exam: Dry, Intact Assessment and Plan - Assessment and Plan (Free Text) Plan: ITS Impressions Chest X-Ray 05/01/18 01:58 IMPRESSION: No active disease. Abdomen/Pelvis CT 05/01/18 03:23 IMPRESSION: No acute intra-abdominal findings 87 yr female with pmh sig for erosive esophitis, large haital hernia, gerd, dm, dm, htn, copd, psuedomembranous colitis, uti with dawson , left hip fracture s/p IM tootie admitted from [facility] with reports of coffee ground emesis as well as leukocytosis now admitted and undergoing eval with gastroenterology and inf disease on IV antibiotics with workup in progress. pt on bid IV PPI pt for EGD in am with Dr Cancino will continue to follow, discussed with inter. disc team BPCI/TIC - BPCIA/TIC Educated pt/family on BPCIA/CIR/Med to Bed Programs: N/A Flyers given, including [facility] Beneficiary letter: N/A Pt/family verbalized understanding & agreed to program: N/A
--- NOTE | 2018-05-02 13:18 | PN ---
DATE: 05/02/2018 SUBJECTIVE: I saw her this morning in bed. She is still having abdominal pain, still not feeling well, still nauseous. She is on dextrose IV, insulin coverage, morphine, Protonix IV b.i.d., IV fluids, Zofran and Zosyn. PHYSICAL EXAMINATION: VITAL SIGNS: She has a 97.9 temperature, 72 pulse, 104/54 blood pressure, 17 respiratory rate, 94% O2 sat on room air. HEENT: Head is atraumatic, normocephalic. HEART: Regular rate. LUNGS: Decreased breath sounds but clear. ABDOMEN: Mildly discomfort. No guarding, no rebound. Bowel sounds may be little distended. She has a history of hiatal hernia. She has feels nauseous, but she kept the food down so far. EXTREMITIES: No edema. Like to get her out of bed to chair, may be some physical therapy. LABORATORY DATA: She has a 7.2 white count better. When she came in, it was 14.9 hemoglobin, 28.7 hematocrit with 224 platelets. She has 1.03 INR. 134 sodium, potassium 3.7, BUN 16, creatinine 1, GFR is greater than 60, sugar is 122, calcium 7.8, total bili is 0.6, AST is 18, ALT is 11, alk phos 52, total protein is 5.8. ASSESSMENT AND PLAN: She is being seen by Infectious Disease and by GI. She is going to go for a endoscopy tomorrow for the recurrent nausea, vomiting and gastrointestinal bleed. CAT scan of the abdomen, no intra-abdominal pathology. She is in discomfort. Continue with the medications, pain medications, and hopefully she will do well with the endoscopy tomorrow as per Infectious Disease and GI. Dante Mcdaniel DO
--- NOTE | 2018-05-02 15:01 | CP.PCM.PN ---
Subjective - Date & Time of Evaluation Date of Evaluation: 05/02/18 Time of Evaluation: 12:10 - Subjective Subjective: Comfortable in bed, afebrile, still with some abdominal discomfort. Objective - Vital Signs/Intake and Output Vital Signs (last 24 hours): Temp Pulse Resp BP Pulse Ox 97.0 F L 79 16 106/41 L 98 05/01/18 14:41 05/01/18 14:41 05/01/18 14:41 05/01/18 14:41 05/01/18 14:41 - Medications Medications: Current Medications Sodium Chloride (Sodium Chloride 0.45%) 1,000 mls @ 60 mls/hr IV .[id number] [facility] Last Admin: 05/01/18 08:15 Dose: 60 mls/hr Piperacillin Sod/Tazobactam Sod (Zosyn 3.375 In Ns 100ml) 100 mls @ 25 mls/hr IVPB Q8 [facility]; Protocol Stop: 05/08/18 14:01 Last Admin: 05/01/18 14:29 Dose: 25 mls/hr Insulin Human Regular (Humulin R Med) 0 units SC ACHS [facility]; Protocol Last Admin: 05/01/18 12:10 Dose: Not Given Morphine Sulfate (Morphine) 1 mg IVP Q3 PRN PRN Reason: Pain, moderate (4-7) Last Admin: 05/01/18 05:53 Dose: 1 mg Ondansetron HCl (Zofran Inj) 4 mg IVP Q6H PRN PRN Reason: Nausea/Vomiting Ondansetron HCl (Zofran Inj) 4 mg IVP Q6 PRN PRN Reason: Nausea/Vomiting Pantoprazole Sodium (Protonix Inj) 40 mg IVP Q12 [facility] - Labs Labs: 05/01/18 02:28 05/01/18 02:28 PT 11.4 SECONDS (9.4-12.5) 05/01/18 02:28 INR 1.03 05/01/18 02:28 APTT 29.0 Seconds (26.9-38.3) 05/01/18 02:28 - Constitutional Appears: No Acute Distress, Chronically Ill - Head Exam Head Exam: NORMAL INSPECTION - Neck Exam Neck Exam: absent: Meningismus - Respiratory Exam Respiratory Exam: Decreased Breath Sounds - Cardiovascular Exam Cardiovascular Exam: +S1, +S2 - GI/Abdominal Exam GI & Abdominal Exam: Soft, Tenderness (mild, epigastric). absent: Distended, Guarding, Rigid, Rebound Assessment and Plan - Assessment and Plan (Free Text) Plan: Assessment Hematemesis, R/O bleeding gastrointestinal ulcers, R/O bleeding varices history of Left hip fracture S/P intramedullary fixation sustained after a fall S/P treatment for PSeudomembranous colitis S/P colonoscopy and colonic polyp removal S/P UTI with Morganella morgagni S/P treatment with Ciprofloxacin and S/P treatment of recurrent UTI with Nitrofurantoin Enterococcus in the urine S/P treatment with Nitrofurantoin Urinary incontinence DM HTN CAD COPD Arthritis S/P hysterectomy S/P tonsillectomy History of right hip surgery Plan since etiology of upper GI bleeding is not yet determined, will continue Rocephin and Flagyl day 2 for now as per GI, patient for EGD tomorrow reviewed CT A/P - no intra-abdominal infection source noted will continue to monitor clinically
[2018-05-02] MEDS: Insulin Reg-MEDIUM-Coverage SC SCH ×3 (17:28→22:41)
[2018-05-03] MEDS: Morphine 2 mg/ml ISec IVP PRN ×2 (03:09→20:17)
[2018-05-03] MEDS: Sodium Chloride 0.45% 1,000 ML IV SCH (05:56)
[2018-05-03] MEDS: Piperacillin/Tazobact 3.375 gm 100 ML IVPB SCH ×3 (05:56→21:30)
[2018-05-03 07:07] LABS: HEMOGLOBIN 9.4 g/dL (12.0-16.0); MEAN CELL VOLUME 94.3 fl (80.0-105.0); MEAN CORPUSCULAR HEMOGLOBIN 29.7 pg (25.0-35.0); MEAN CORPUSCULAR HGB CONC 31.5 g/dl (31.0-37.0); MEAN PLATELET VOLUME 8.9 fl (7.0-11.0); RBC 3.16 10^6/uL (3.5-6.1); RED CELL DISTRIBUTION WIDTH 14.4 % (11.5-14.5); WHITE BLOOD COUNT 6.8 10^3/uL (4.5-11.0)
[2018-05-03 07:44] LABS: ALB/GLOB RATIO 1.1 (1.1-1.8); ALBUMIN 3.2 g/dL (3.0-4.8); ALT/SGPT 11 U/L (7-56); AST/SGOT 17 U/L (14-36); BLOOD UREA NITROGEN 12 mg/dL (7-21); CALCIUM 8.1 mg/dL (8.4-10.5); GFR NON-AFRICAN AMERICAN 52
[2018-05-03] MEDS: Insulin Reg-MEDIUM-Coverage SC SCH ×4 (08:18→21:19)
[2018-05-03] MEDS ORDERED: Lidocaine 1% Inj (20ml) ONE (11:30)
[2018-05-03] MEDS ORDERED: Etomidate 20 mg/10ml Inj IV ONE (11:31)
[2018-05-03] MEDS ORDERED: Sodium Chloride 0.9% 1,000 ML IV SCH (12:00)
--- NOTE | 2018-05-03 12:33 | PN ---
DATE: 05/03/2018 SUBJECTIVE: She is resting comfortably in bed. She is still having abdominal discomfort. She is n.p.o. She is going for endoscopy today finally because she has had so many abdominal discomforts and pains back and forth was going on and there was lot of coughing up blood. MEDICATIONS: She is on morphine, Protonix, IV fluids, Zofran, and Zosyn. PHYSICAL EXAMINATION: VITAL SIGNS: She has 98.7 temperature, 63 pulse, 120/52 blood pressure, 20 respiratory rate, 93% O2 sat on room air. HEAD: Atraumatic, normocephalic. HEART: Regular rate. LUNGS: Decreased breath sounds, but clear. ABDOMEN: Softer today. Positive bowel sounds. She is hungry. EXTREMITIES: No edema. LABORATORY DATA: She has a 6.8 white count, 9.4 hemoglobin, 29.8 hematocrit with 222 platelets. Sodium 139, potassium 3.7, BUN 12, creatinine 1, GFR is greater than 60, sugar is 113, calcium is 8.1, total bili is 0.6. AST is 17, ALT is 11, alk phos 65. ASSESSMENT AND PLAN: Being seen by Infectious Disease, GI. CAT scan of the abdomen and pelvis showed no acute intra-abdominal findings. Intravenous antibiotics and an endoscopy today. We will see where that leads us back to [facility] where she lives at will as per instructions from Infectious Disease and GI. Dante Mcdaniel DO MTDGarry
[2018-05-03] MEDS ORDERED: Petrolatum Oint Foilpak (5 gm) TOP PRN (13:00)
--- NOTE | 2018-05-03 13:16 | CP.PCM.PN ---
Subjective - Date & Time of Evaluation Date of Evaluation: 05/03/18 Time of Evaluation: 11:05 - Subjective Subjective: Comfortable in bed, no fevers, went fot EGD this morning. Objective - Vital Signs/Intake and Output Vital Signs (last 24 hours): Temp Pulse Resp BP Pulse Ox 97.9 F 72 17 104/54 L 94 L 05/02/18 06:00 05/02/18 06:00 05/02/18 06:00 05/02/18 06:00 05/02/18 06:00 Intake and Output: 05/02/18 05/02/18 06:59 18:59 Intake Total 540 Output Total 200 Balance 340 - Medications Medications: Current Medications Dextrose (Dextrose 50% Inj) 0 ml IV STAT PRN; Protocol PRN Reason: Hypoglycemia Protocol Last Admin: 05/01/18 21:49 Dose: 50 ml Sodium Chloride (Sodium Chloride 0.45%) 1,000 mls @ 60 mls/hr IV .[id number] [facility] Last Admin: 05/02/18 03:28 Dose: Not Given Piperacillin Sod/Tazobactam Sod (Zosyn 3.375 In Ns 100ml) 100 mls @ 25 mls/hr IVPB Q8 [facility]; Protocol Stop: 05/08/18 14:01 Last Admin: 05/02/18 13:05 Dose: 25 mls/hr Dextrose (Dextrose 5% In Water 1000 Ml) 1,000 mls @ 0 mls/hr IV .Q0M PRN; Protocol PRN Reason: Hypoglycemia Protocol Insulin Human Regular (Humulin R Med) 0 units SC ACHS [facility]; Protocol Last Admin: 05/01/18 22:57 Dose: Not Given Morphine Sulfate (Morphine) 1 mg IVP Q3 PRN PRN Reason: Pain, moderate (4-7) Last Admin: 05/02/18 13:02 Dose: 1 mg Ondansetron HCl (Zofran Inj) 4 mg IVP Q6H PRN PRN Reason: Nausea/Vomiting Ondansetron HCl (Zofran Inj) 4 mg IVP Q6 PRN PRN Reason: Nausea/Vomiting Pantoprazole Sodium (Protonix Inj) 40 mg IVP Q12 [facility] Last Admin: 05/02/18 11:11 Dose: 40 mg - Labs Labs: 05/02/18 07:00 05/02/18 07:00 PT 11.4 SECONDS (9.4-12.5) 05/01/18 02:28 INR 1.03 05/01/18 02:28 APTT 29.0 Seconds (26.9-38.3) 05/01/18 02:28 - Constitutional Appears: Chronically Ill - Head Exam Head Exam: NORMAL INSPECTION - Respiratory Exam Respiratory Exam: Decreased Breath Sounds - Cardiovascular Exam Cardiovascular Exam: +S1, +S2 - GI/Abdominal Exam GI & Abdominal Exam: Soft. absent: Tenderness Assessment and Plan - Assessment and Plan (Free Text) Plan: Assessment Hematemesis, R/O bleeding gastrointestinal ulcers; EGD done did not show bleeding varices history of Left hip fracture S/P intramedullary fixation sustained after a fall S/P treatment for PSeudomembranous colitis S/P colonoscopy and colonic polyp removal S/P UTI with Morganella morgagni S/P treatment with Ciprofloxacin and S/P treatment of recurrent UTI with Nitrofurantoin Enterococcus in the urine S/P treatment with Nitrofurantoin Urinary incontinence DM HTN CAD COPD Arthritis S/P hysterectomy S/P tonsillectomy History of right hip surgery Plan on Zosyn day 3 - will just check urine and it that is negative will d/c antibiotics reviewed CT A/P - no intra-abdominal infection source noted will continue to monitor clinically discussed with Dr. Mcdaniel
--- NOTE | 2018-05-03 13:25 | CP.PCM.PN ---
Subjective - Date & Time of Evaluation Date of Evaluation: 05/03/18 Time of Evaluation: 13:20 - Subjective Subjective: Patient seen and examined, no acute events overnight. She denies abdominal pain or recurrent episodes of vomiting. s/p EGD today showing gastritis, large paraesophageal hernia. Objective - Vital Signs/Intake and Output Vital Signs (last 24 hours): Temp Pulse Resp BP Pulse Ox 98.4 F 65 16 164/80 H 100 05/03/18 12:18 05/03/18 12:18 05/03/18 12:18 05/03/18 12:18 05/03/18 12:18 Intake and Output: 05/03/18 05/03/18 06:59 18:59 Intake Total 240 75 Output Total 1700 600 Balance -1460 -525 - Medications Medications: Current Medications Dextrose (Dextrose 50% Inj) 0 ml IV STAT PRN; Protocol PRN Reason: Hypoglycemia Protocol Last Admin: 05/01/18 21:49 Dose: 50 ml Sodium Chloride (Sodium Chloride 0.45%) 1,000 mls @ 60 mls/hr IV .[id number] [facility] Last Admin: 05/03/18 05:56 Dose: 60 mls/hr Piperacillin Sod/Tazobactam Sod (Zosyn 3.375 In Ns 100ml) 100 mls @ 25 mls/hr IVPB Q8 [facility]; Protocol Stop: 05/08/18 14:01 Last Admin: 05/03/18 13:00 Dose: 25 mls/hr Dextrose (Dextrose 5% In Water 1000 Ml) 1,000 mls @ 0 mls/hr IV .Q0M PRN; Protocol PRN Reason: Hypoglycemia Protocol Sodium Chloride (Sodium Chloride 0.9%) 1,000 mls @ 100 mls/hr IV .Q10H [facility] Stop: 05/03/18 13:49 Insulin Human Regular (Humulin R Med) 0 units SC ACHS [facility]; Protocol Last Admin: 05/03/18 11:03 Dose: Not Given Morphine Sulfate (Morphine) 1 mg IVP Q3 PRN PRN Reason: Pain, moderate (4-7) Last Admin: 05/03/18 03:09 Dose: 1 mg Ondansetron HCl (Zofran Inj) 4 mg IVP Q6H PRN PRN Reason: Nausea/Vomiting Ondansetron HCl (Zofran Inj) 4 mg IVP Q6 PRN PRN Reason: Nausea/Vomiting Pantoprazole Sodium (Protonix Ec Tab) 40 mg PO 0600 [facility] - Labs Labs: 05/03/18 06:45 05/03/18 06:45 PT 11.4 SECONDS (9.4-12.5) 05/01/18 02:28 INR 1.03 05/01/18 02:28 APTT 29.0 Seconds (26.9-38.3) 05/01/18 02:28 Assessment and Plan - Assessment and Plan (Free Text) Assessment: DM/HTN UTI Pulmonary HTN COPD Abdominal pain, vomiting - resolved s/p EGD today showing large paraesopageal hernia, gastritis. No features of recent or active bleeding noted. Plan: - Advance diet as tolerated, suggest small frequent meals throughout the course of the day - Follow up EGD biopsy results - Continue with antibiotic therapy as per ID - Continue with PPI therapy - Anti-emetic therapy PRN - Ideally would suggest surgical evaluation for hernia repair to prevent recurre nt vomiting, however patient is likely poor surgical candidate. Would favor strict dietary control and observation for time being. No further planned GI intervention, will sign off case. Please reconsult as necessary, thank you.
[2018-05-03 14:25] LABS: URINE BILIRUBIN NEGATIVE (NEGATIVE); URINE BLOOD SMALL (NEGATIVE); URINE GLUCOSE (UA) NEGATIVE (NEGATIVE); URINE LEUKOCYTE ESTERASE TRACE Leu/uL (NEGATIVE); URINE PROTEIN TRACE mg/dL (<30 mg/dL); URINE UROBILINOGEN 0.2 E.U./dL (<1 E.U./dL)
[2018-05-03 14:37] LABS: URINE APPEARANCE CLEAR (CLEAR); URINE COLOR YELLOW (YELLOW)
[2018-05-03 14:51] LABS: URINE BACTERIA MANY /hpf
--- NOTE | 2018-05-03 22:46 | CP.PCM.PN ---
Subjective - Date & Time of Evaluation Date of Evaluation: 05/03/18 Time of Evaluation: 22:42 - Subjective Subjective: president celebrity acquistion had asked to co sign order for 1:1 sitter. Patient was evaluated in Room # 563-01. Complains of upper back pain and requests pain medication. As per nurse Jacques, has received Morphine sulfate. Has no other complaints. Seems to be confused.Does not answer questions to evaluate her status of orientation. Medical record was reviewed. This 87 year old white woman was admitted with complaint of coffe ground emesis. She has PMH of COPD,dementia, DM,HTN,GERD,PUD, UTI, anemia. Objective - Vital Signs/Intake and Output Vital Signs (last 24 hours): Temp Pulse Resp BP Pulse Ox 98.6 F 70 20 139/63 96 05/03/18 22:40 05/03/18 22:40 05/03/18 22:40 05/03/18 22:40 05/03/18 22:40 Intake and Output: 05/03/18 05/04/18 18:59 06:59 Intake Total 735 Output Total 2300 Balance -1565 - Medications Medications: Current Medications Dextrose (Dextrose 50% Inj) 0 ml IV STAT PRN; Protocol PRN Reason: Hypoglycemia Protocol Last Admin: 05/01/18 21:49 Dose: 50 ml Emollient Ointment (Vaseline Oint) 0 gm TOP DAILY PRN PRN Reason: DRY SKIN Sodium Chloride (Sodium Chloride 0.45%) 1,000 mls @ 60 mls/hr IV .[id number] [facility] Last Admin: 05/03/18 05:56 Dose: 60 mls/hr Piperacillin Sod/Tazobactam Sod (Zosyn 3.375 In Ns 100ml) 100 mls @ 25 mls/hr IVPB Q8 [facility]; Protocol Stop: 05/08/18 14:01 Last Admin: 05/03/18 21:30 Dose: 25 mls/hr Dextrose (Dextrose 5% In Water 1000 Ml) 1,000 mls @ 0 mls/hr IV .Q0M PRN; Protocol PRN Reason: Hypoglycemia Protocol Insulin Human Regular (Humulin R Med) 0 units SC ACHS [facility]; Protocol Last Admin: 05/03/18 21:19 Dose: Not Given Morphine Sulfate (Morphine) 1 mg IVP Q3 PRN PRN Reason: Pain, moderate (4-7) Last Admin: 05/03/18 20:17 Dose: 1 mg Ondansetron HCl (Zofran Inj) 4 mg IVP Q6H PRN PRN Reason: Nausea/Vomiting Ondansetron HCl (Zofran Inj) 4 mg IVP Q6 PRN PRN Reason: Nausea/Vomiting Pantoprazole Sodium (Protonix Ec Tab) 40 mg PO 0600 [facility] - Labs Labs: 05/03/18 06:45 05/03/18 06:45 PT 11.4 SECONDS (9.4-12.5) 05/01/18 02:28 INR 1.03 05/01/18 02:28 APTT 29.0 Seconds (26.9-38.3) 05/01/18 02:28 - Constitutional Appears: Well, No Acute Distress - Head Exam Head Exam: ATRAUMATIC, NORMAL INSPECTION, NORMOCEPHALIC - Eye Exam Eye Exam: Normal appearance - ENT Exam ENT Exam: Normal External Ear Exam - Neck Exam Neck Exam: Normal Inspection - Respiratory Exam Respiratory Exam: NORMAL BREATHING PATTERN - Cardiovascular Exam Cardiovascular Exam: absent: JVD - GI/Abdominal Exam GI & Abdominal Exam: absent: Distended - Rectal Exam Rectal Exam: Deferred - Exam Additional comments: Deferred. - Extremities Exam Extremities Exam: Normal Inspection - Back Exam Back Exam: NORMAL INSPECTION - Neurological Exam Neurological Exam: Altered - Psychiatric Exam Psychiatric exam: Anxious - Skin Skin Exam: Normal Color Assessment and Plan - Assessment and Plan (Free Text) Assessment: Confusion. Anemia. COPD. Dementia. PUD. GERD. DM. HTN. Plan: As per nurse Hanna , 1:1 order was not carried out as they are planning for discharge of patient. Will continue 1:1 PRN later on. Continue other management.
[2018-05-04] MEDS ORDERED: Pantoprazole 40 mg EC Tab PO SCH (06:00)
[2018-05-04] MEDS: Piperacillin/Tazobact 3.375 gm 100 ML IVPB SCH (06:15)
[2018-05-04 08:02] LABS: HEMOGLOBIN 9.8 g/dL (12.0-16.0); MEAN CELL VOLUME 93.4 fl (80.0-105.0); MEAN CORPUSCULAR HEMOGLOBIN 29.4 pg (25.0-35.0); MEAN CORPUSCULAR HGB CONC 31.5 g/dl (31.0-37.0); MEAN PLATELET VOLUME 9.1 fl (7.0-11.0); RBC 3.33 10^6/uL (3.5-6.1); WHITE BLOOD COUNT 7.7 10^3/uL (4.5-11.0)
[2018-05-04 08:26] LABS: ALB/GLOB RATIO 1.1 (1.1-1.8); ALBUMIN 3.5 g/dL (3.0-4.8); ALT/SGPT 10 U/L (7-56); AST/SGOT 20 U/L (14-36); BLOOD UREA NITROGEN 13 mg/dL (7-21); CALCIUM 8.4 mg/dL (8.4-10.5); GFR NON-AFRICAN AMERICAN 59
[2018-05-04 08:36] VITALS: RESP 18
[2018-05-04] MEDS: Insulin Reg-MEDIUM-Coverage SC SCH ×2 (08:43→13:31)
--- NOTE | 2018-05-04 14:29 | CP.PCM.PN ---
Subjective - Date & Time of Evaluation Date of Evaluation: 05/04/18 Time of Evaluation: 11:25 - Subjective Subjective: Patient is comfortable, less abdominal discomfort, no fevers. Objective - Vital Signs/Intake and Output Vital Signs (last 24 hours): Temp Pulse Resp BP Pulse Ox 98.4 F 65 16 164/80 H 100 05/03/18 12:18 05/03/18 12:18 05/03/18 12:18 05/03/18 12:18 05/03/18 12:18 Intake and Output: 05/03/18 05/03/18 06:59 18:59 Intake Total 240 75 Output Total 1700 600 Balance -1460 -525 - Medications Medications: Current Medications Dextrose (Dextrose 50% Inj) 0 ml IV STAT PRN; Protocol PRN Reason: Hypoglycemia Protocol Last Admin: 05/01/18 21:49 Dose: 50 ml Sodium Chloride (Sodium Chloride 0.45%) 1,000 mls @ 60 mls/hr IV .[id number] HANNA Last Admin: 05/03/18 05:56 Dose: 60 mls/hr Piperacillin Sod/Tazobactam Sod (Zosyn 3.375 In Ns 100ml) 100 mls @ 25 mls/hr IVPB Q8 HANNA; Protocol Stop: 05/08/18 14:01 Last Admin: 05/03/18 13:00 Dose: 25 mls/hr Dextrose (Dextrose 5% In Water 1000 Ml) 1,000 mls @ 0 mls/hr IV .Q0M PRN; Protocol PRN Reason: Hypoglycemia Protocol Sodium Chloride (Sodium Chloride 0.9%) 1,000 mls @ 100 mls/hr IV .Q10H HANNA Stop: 05/03/18 13:49 Insulin Human Regular (Humulin R Med) 0 units SC ACHS HANNA; Protocol Last Admin: 05/03/18 11:03 Dose: Not Given Morphine Sulfate (Morphine) 1 mg IVP Q3 PRN PRN Reason: Pain, moderate (4-7) Last Admin: 05/03/18 03:09 Dose: 1 mg Ondansetron HCl (Zofran Inj) 4 mg IVP Q6H PRN PRN Reason: Nausea/Vomiting Ondansetron HCl (Zofran Inj) 4 mg IVP Q6 PRN PRN Reason: Nausea/Vomiting Pantoprazole Sodium (Protonix Ec Tab) 40 mg PO 0600 HANNA - Labs Labs: 05/03/18 06:45 05/03/18 06:45 PT 11.4 SECONDS (9.4-12.5) 05/01/18 02:28 INR 1.03 05/01/18 02:28 APTT 29.0 Seconds (26.9-38.3) 05/01/18 02:28 - Constitutional Appears: Chronically Ill - Head Exam Head Exam: NORMAL INSPECTION - Neck Exam Neck Exam: absent: Meningismus - Respiratory Exam Respiratory Exam: Decreased Breath Sounds - Cardiovascular Exam Cardiovascular Exam: +S1, +S2 - GI/Abdominal Exam GI & Abdominal Exam: Soft. absent: Tenderness Assessment and Plan - Assessment and Plan (Free Text) Plan: Assessment Hematemesis, R/O bleeding gastrointestinal ulcers; EGD done did not show bleeding varices history of Left hip fracture S/P intramedullary fixation sustained after a fall S/P treatment for PSeudomembranous colitis S/P colonoscopy and colonic polyp removal S/P UTI with Morganella morgagni S/P treatment with Ciprofloxacin and S/P treatment of recurrent UTI with Nitrofurantoin Enterococcus in the urine S/P treatment with Nitrofurantoin Urinary incontinence DM HTN CAD COPD Arthritis S/P hysterectomy S/P tonsillectomy History of right hip surgery Plan will d/c Zosyn - urinalysis does not show pyuria reviewed CT A/P - no intra-abdominal infection source noted will continue to monitor clinically while the patient is in the hospital discussed with Dr. Mcdaniel
[2018-05-04 14:41] VITALS: BP 144/73; PULSE 70; TEMP 98.9; O2SAT 93
--- NOTE | 2018-05-04 16:43 | DS ---
HISTORY: She is going to go back to [facility] today. She is doing much better. She is status post endoscopy. She will be on Protonix, Zofran and Zosyn. PHYSICAL EXAMINATION VITAL SIGNS: She has a 98.5 temperature, 61 pulse, 124/60 blood pressure, 18 respiratory rate, 94% O2 sat on 2 liters. HEENT: Head is atraumatic, normocephalic. HEART: Regular rate. LUNGS: Decreased breath sounds. ABDOMEN: Soft, nontender. Positive bowel sounds. She does have a bad hiatal hernia. EXTREMITIES: No edema. LABORATORY DATA: She had 7.7 white count, 9.8 hemoglobin, 31.1 hematocrit with a 210 platelets. She has 137 sodium, potassium 3.6, BUN is 30, creatinine 0.9, GFR is greater than 60, sugar is 123, calcium is 8.4, total bili is 0.9, AST is 20, ALT is 10, alkaline phosphatase is 67, total protein is 6.6. She had a urinary tract infection. She is going back to [facility]. She had a GI bleed, hiatal hernia, UTI, should be on IV antibiotics. We will try and decrease her medications and pain medications she will need to be on. I will see her there tomorrow. Dante Mcdaniel DO MTDD
== END 2018-05-04 15:34 | DRG 379 ==
LOC: ED 01:42 → ERH 03:29 → 5RNO 12:50
PROVIDERS: ADMIT Family Medicine; ATTEND Family Medicine
PROC: 0DB68ZX Excision of Stomach, Via Natural or Artificial Opening Endoscopic, Diagnostic (ICD-10-PCS; principal; 2018-05-03 10:30)
DX: K92.2 Gastrointestinal hemorrhage, unspecified (principal); K92.0 Hematemesis; K44.9 Diaphragmatic hernia without obstruction or gangrene; J44.9 Chronic obstructive pulmonary disease, unspecified; I10 Essential (primary) hypertension; E11.9 Type 2 diabetes mellitus without complications; K59.09 Other constipation; K57.30 Diverticulosis of large intestine without perforation or abscess without bleeding; N28.1 Cyst of kidney, acquired; F03.90 Unspecified dementia, unspecified severity, without behavioral disturbance, psychotic disturbance, mood disturbance, and anxiety; Z87.19 Personal history of other diseases of the digestive system; D64.9 Anemia, unspecified; Z87.440 Personal history of urinary (tract) infections; I25.10 Atherosclerotic heart disease of native coronary artery without angina pectoris; I27.20 Pulmonary hypertension, unspecified; K21.9 Gastro-esophageal reflux disease without esophagitis; Z87.11 Personal history of peptic ulcer disease; Z86.010 Personal history of colon polyps; M19.90 Unspecified osteoarthritis, unspecified site; R32 Unspecified urinary incontinence; Z87.891 Personal history of nicotine dependence; Z90.710 Acquired absence of both cervix and uterus; K29.50 Unspecified chronic gastritis without bleeding; R00.0 Tachycardia, unspecified; Z90.49 Acquired absence of other specified parts of digestive tract; Z88.6 Allergy status to analgesic agent; R11.2 Nausea with vomiting, unspecified; Z87.81 Personal history of (healed) traumatic fracture

== ENCOUNTER 2018-05-07 22:07 | Inpatient (IN) | payer MEDICARE, OTHER ==
[2018-05-07 22:07] VITALS: BMI 23.9
[2018-05-07] MEDS ORDERED: Sodium Chloride 0.9% 1,000 ML IV SCH (23:30)
[2018-05-07 23:51] LABS: BASO # 0.03 K/mm3 (0.0-2.0); BASO % 0.2 % (0.0-3.0); EOS # 0.1 (0.0-0.7); EOS % 0.6 % (1.5-5.0); HEMOGLOBIN 10.9 g/dL (12.0-16.0); LYMPH # 1.9 (1.2-3.4); LYMPH % 15.2 % (22.0-35.0); MEAN CELL VOLUME 94.1 fl (80.0-105.0); MEAN CORPUSCULAR HEMOGLOBIN 29.5 pg (25.0-35.0); MEAN CORPUSCULAR HGB CONC 31.3 g/dl (31.0-37.0); MEAN PLATELET VOLUME 8.8 fl (7.0-11.0); MONO # 0.9 (0.1-0.6); MONO % 7.4 % (1.0-6.0); RBC 3.7 10^6/uL (3.5-6.1); RED CELL DISTRIBUTION WIDTH 14.2 % (11.5-14.5); WHITE BLOOD COUNT 12.3 10^3/uL (4.5-11.0)
[2018-05-07 23:59] LABS: ALB/GLOB RATIO 1.3 (1.1-1.8); ALBUMIN 4.3 g/dL (3.0-4.8); ALT/SGPT 9 U/L (7-56); AST/SGOT 20 U/L (14-36); BLOOD UREA NITROGEN 17 mg/dL (7-21); CALCIUM 9.4 mg/dL (8.4-10.5); GFR NON-AFRICAN AMERICAN 59
[2018-05-08 03:03] LABS: PH,URINE 8.5 (4.7-8.0); URINE BILIRUBIN NEGATIVE (NEGATIVE); URINE BLOOD MODERATE (NEGATIVE); URINE GLUCOSE (UA) NEGATIVE (NEGATIVE); URINE LEUKOCYTE ESTERASE NEGATIVE Leu/uL (NEGATIVE); URINE PROTEIN 30 mg/dL (<30 mg/dL); URINE UROBILINOGEN 0.2 E.U./dL (<1 E.U./dL)
[2018-05-08 03:04] LABS: URINE APPEARANCE SL CLOUDY (CLEAR); URINE COLOR YELLOW (YELLOW)
[2018-05-08 03:26] LABS: URINE BACTERIA SMALL /hpf
[2018-05-08] MEDS ORDERED: Iohexol 350 MG/100 ML VIAL ONE (03:29)
--- NOTE | 2018-05-08 04:34 | ED PDOC ---
Arrival/HPI <Tala Cooper - Last Filed: 05/08/18 06:37> - General Historian: Patient - History of Present Illness Narrative History of Present Illness (Text): 05/08/18 06:43 87 y/o female with PMH of TIA, DM, hiatal hernia presents to the ED with hematemesis x1 this morning. [facility]. She admits to nausea, epigastric pain few hours after having breakfast that morning. She denied fever, chills, changes in bowel movement, hematochezia, melena, chest pain, SOB, palpitations. Time/Duration: 24 hours Symptom Onset: Gradual Quality: Aching Severity Level: 7 <BretshwetaYung - Last Filed: 05/08/18 06:48> - General Chief Complaint: Abdominal Pain Past Medical History - Provider Review Nursing Documentation Reviewed: Yes - Travel History Have you recently traveled outside [place] w/in the past 3 mons?: No - Infectious Disease Hx of Infectious Diseases: None - Tetanus Immunization Tetanus Immunization: Unknown - Reproductive Menopause: Yes - Cardiac Hx Cardiac Disorders: Yes Hx Hypertension: Yes - Pulmonary Hx Respiratory Disorders: Yes (USED TO SMOKE CIGARETTES) Hx Chronic Obstructive Pulmonary Disease (COPD): Yes - Neurological Hx Neurological Disorder: Yes HX Cerebrovascular Accident: No Hx Dementia: Yes Hx Dizziness: Yes - HEENT Hx HEENT Disorder: No Hx Blind: No Hx Cataracts: No Hx Deafness: No Hx Difficulty Chewing: No Hx Epistaxis: No Hx Glaucoma: No Hx Macular Degeneration: No - Renal Hx Renal Failure: No - Endocrine/Metabolic Hx Endocrine Disorders: Yes Hx Diabetes Mellitus Type 2: Yes - Hematological/Oncological Hx Blood Disorders: Yes Hx AIDS: No Hx Anemia: Yes Hx Hepatitis C: No - Integumentary Hx Dermatological Disorder: No Hx Basal Cell Carcinoma: No Hx Eczema: No Hx Melanoma: No Hx Psoriasis: No Hx Squamous Cell Carcinoma: No - Musculoskeletal/Rheumatological Hx Musculoskeletal Disorders: Yes Hx Arthritis: Yes Hx Falls: Yes Hx Unsteady Gait: Yes (WALKER) - Gastrointestinal Hx Gastrointestinal Disorders: Yes (DIVERTICULOSIS,DIAPHRAGMATIC HERNIA,PUD) Hx Colostomy: No Hx Crohn's Disease: No Hx Gall Bladder Disease: No Hx Gastroesophageal Reflux: Yes Hx Ileostomy: No Hx Liver Failure: No Hx Pancreatitis: No HX Swallowing Problems: No - Genitourinary/Gynecological Hx Genitourinary Disorders: Yes Hx Hematuria: Yes Hx Incontinence: Yes Hx Sexually Transmitted Diseases: No Hx Urinary Tract Infection: No - Psychiatric Hx Psychophysiologic Disorder: Yes (INSOMNIA) Hx Anxiety: Yes Hx Depression: Yes Hx Substance Use: No - Surgical History Hx Amputation: No Hx Appendectomy: No Hx Cardiac Catheterization: No Hx Cholecystectomy: No Hx Coronary Stent: No Hx Gastric Bypass Surgery: No Hx Hysterectomy: Yes Hx Joint Replacement: No Hx Kidney Transplant: No Hx Liver Transplant: No Hx Mastectomy: No Hx Musculoskeletal Surgery: No Hx Open Heart Surgery: No Hx Orthopedic Surgery: Yes Hx Splenectomy: No Hx Valve Replacement: No Other/Comment: Tonsillectomy - Anesthesia Hx Anesthesia: Yes Hx Anesthesia Reactions: No (UNKNOWN) Hx Malignant Hyperthermia: No (UNKNOWN) - Suicidal Assessment Feels Threatened In Home Enviroment: No <Yung Lugo - Last Filed: 05/08/18 06:48> Family/Social History - Physician Review Nursing Documentation Reviewed: Yes Family/Social History: No Known Family HX Smoking Status: Never Smoked Hx Alcohol Use: No Hx Substance Use: No Hx Substance Use Treatment: No <Yung Lugo - Last Filed: 05/08/18 06:48> Allergies/Home Meds <Tala Cooper - Last Filed: 05/08/18 06:37> <Yung Lugo - Last Filed: 05/08/18 06:48> Allergies/Adverse Reactions: Allergies aspirin Allergy (Verified 05/07/18 22:21) NAUSEA Home Medications: Home Meds Medication Instructions Recorded Confirmed Acetaminophen [Acetaminophen ER] 650 mg PO Q4H PRN 01/02/16 05/01/18 Acetaminophen [Tylenol] 325 mg PO QID 04/16/18 05/01/18 Albuterol/Ipratropium [Duoneb 3 0.5 - 2.5 mg IH BID 04/16/18 05/01/18 mg/0.5 mg (3 ml) UD] Bisacodyl [Dulcolax] 5 mg PO BID 04/16/18 05/01/18 Guaifenesin/Dextromethorphan 10 ml PO Q8 04/16/18 05/01/18 [Diabetic Tussin] Insulin Human Regular [HumuLIN R] 100 units SQ DAILY 04/16/18 05/01/18 Lactobacillus Acidophilus [Bacid 1 mg PO DAILY 04/16/18 05/01/18 Acidophilus] Lactulose [Enulose] 30 ml PO DAILY 04/16/18 05/01/18 Lidocaine [Lidocare] 1 mg ID PRN PRN 04/16/18 05/01/18 Lubiprostone [Amitiza] 8 mcg PO BID 04/16/18 05/01/18 Magnesium Hydroxide [Milk Of 30 ml PO DAILY 04/16/18 05/01/18 Magnesia] Metoclopramide [Reglan] 10 mg PO DAILY 04/16/18 05/01/18 Mirtazapine [Remeron] 15 mg PO HS 04/16/18 05/01/18 Montelukast Sodium [Singulair] 10 mg PO DAILY 04/16/18 05/01/18 Mv-Mn/Iron/Folic Acid/Herb 190 5,000 unit PO DAILY 04/16/18 05/01/18 [Vitamin D3 Complete Caplet] Omeprazole 20 mg PO DAILY 04/16/18 05/01/18 Ondansetron HCl [Zofran] 4 mg PO DAILY 04/16/18 05/01/18 Polyethylene Glycol 3350 [Miralax] 17 gm PO DAILY 04/16/18 05/01/18 Propylene Glycol/Peg 400/Pf 1 % OU BID 04/16/18 05/01/18 [Systane Ultra 0.4-0.3% Eye Drp] Ranitidine HCl [Acid Ball Fringe Machine Operator] 150 mg PO DAILY 04/16/18 05/01/18 SITagliptin [Januvia] 50 mg PO DAILY 04/16/18 05/01/18 Sucralfate [Carafate Tab] 1 gm PO QID 04/16/18 05/01/18 Tolnaftate [Antifungal Cream] 14.18 gm TOP DAILY 04/16/18 05/01/18 Tramadol HCl [Ultram] 50 mg PO BID 04/16/18 05/01/18 Vitamin B Complex [B Complex] 100 mg PO DAILY 04/16/18 05/01/18 Zolpidem [Ambien] 5 mg PO HS 04/16/18 05/01/18 Review of Systems - Physician Review All systems were reviewed & negative as marked: Yes - Review of Systems Constitutional: Normal. absent: Fevers, Night Sweats Eyes: Normal ENT: Normal Respiratory: Normal. absent: SOB, Cough Cardiovascular: Normal Gastrointestinal: Abdominal Pain, Nausea, Vomiting, Hematemesis Genitourinary Female: Normal Musculoskeletal: Normal Skin: Normal Neurological: Normal Endocrine: Normal Hemo/Lymphatic: Normal Psychiatric: Normal <Yung Lugo - Last Filed: 05/08/18 06:48> Physical Exam Vital Signs Temp Pulse Resp BP Pulse Ox 05/08/18 03:54 77 18 133/58 L 96 05/08/18 01:09 74 18 131/79 100 05/07/18 22:34 98.5 F 91 H 20 136/78 92 L <KennethTala - Last Filed: 05/08/18 06:37> Vital Signs Reviewed: Yes Vital Signs Temp Pulse Resp BP Pulse Ox 05/08/18 03:54 77 18 133/58 L 96 05/08/18 01:09 74 18 131/79 100 05/07/18 22:34 98.5 F 91 H 20 136/78 92 L Temperature: Afebrile Blood Pressure: Normal Pulse: Regular Respiratory Rate: Normal Appearance: Positive for: Well-Appearing, Non-Toxic, Comfortable Pain Distress: Mild Mental Status: Positive for: Alert and Oriented X 3 - Systems Exam Head: Present: Atraumatic, Normocephalic Pupils: Present: PERRL Extroacular Muscles: Present: EOMI Conjunctiva: Present: Normal Mouth: Present: Moist Mucous Membranes Pharnyx: Present: Normal Neck: Present: Normal Range of Motion Respiratory/Chest: Present: Clear to Auscultation, Good Air Exchange. No: Respiratory Distress, Wheezes, Rhonchi Cardiovascular: Present: Regular Rate and Rhythm, Normal S1, S2 Abdomen: Present: Tenderness (mild tender epigastric area), Normal Bowel Sounds. No: Distention Upper Extremity: Present: Normal Inspection. No: Cyanosis, Edema Lower Extremity: Present: Normal Inspection. No: Edema Neurological: Present: GCS=15, Speech Normal Skin: Present: Warm, Dry, Normal Color. No: Rashes Psychiatric: Present: Alert, Oriented x 3, Normal Insight <BretshwetaYung - Last Filed: 05/08/18 06:48> Medical Decision Making ED Course and Treatment: 05/08/18 05:27 CT SCAN OF THE ABDOMEN AND PELVIS WITH IV CONTRAST. CLINICAL INDICATION: Abdominal pain. TECHNIQUE: Axial and reformatted sagittal and coronal images of the abdomen pelvis obtained with IV contrast administration. COMPARISON: 05/01/2018. FINDINGS: Large hiatal hernia. Left lower lobe airspace consolidation suggestive of pneumonia. Cholecystectomy. Colonic diverticulosis. Moderate constipation. Bilateral renal cysts are noted with the largest measuring 5.2 cm on the left side. Underdistended , catheterized bladder. Fat-containing umbilical hernia without incarceration. Normal enhanced liver. Nondilated extrahepatic biliary system. Normal enhanced spleen. Normal pancreas. Normal bilateral adrenal glands. Normal size of the right kidney. There is no right renal mass. There are no right renal calculi. There is no right hydronephrosis. Normal visualized right ureter. Normal size of the left kidney. There is no left renal mass. There are no left renal calculi. There is no left hydronephrosis. Normal visualized left ureter. Normal visualized stomach. Normal small intestine. The appendix is visualized and appears normal. There is no demonstrated peritoneal fluid. Normal abdominal aorta. Normal inferior vena cava. Normal retroperitoneum. There is no pelvic mass lesion or lymphadenopathy. There is no pelvic fluid. Diffuse spondylosis. Mild benign chronic osteoporotic compression deformities of mid lumbar vertebral bodies. IMPRESSION: Large hiatal hernia. Left lower lobe airspace consolidation suggestive of pneumonia. Cholecystectomy. Colonic diverticulosis. Bilateral renal cysts are noted with the largest measuring 5.2 cm on the left side. Distended bladder. - Lab Interpretations Lab Results: Total Bilirubin 0.4 mg/dL (0.2-1.3) 05/07/18 22:48 AST 20 U/L (14-36) 05/07/18 22:48 ALT 9 U/L (7-56) 05/07/18 22:48 Alkaline Phosphatase 79 U/L (38-126) 05/07/18 22:48 Total Protein 7.7 g/dL (5.8-8.3) 05/07/18 22:48 Albumin 4.3 g/dL (3.0-4.8) 05/07/18 22:48 Globulin 3.3 gm/dL 05/07/18 22:48 Albumin/Globulin Ratio 1.3 (1.1-1.8) 05/07/18 22:48 Urine Color Yellow (YELLOW) 05/08/18 02:25 Urine Appearance Sl cloudy (CLEAR) 05/08/18 02:25 Urine pH 8.5 (4.7-8.0) 05/08/18 02:25 Ur Specific [place] 1.015 (1.005-1.035) 05/08/18 02:25 Urine Protein 30 mg/dL (<30 mg/dL) H 05/08/18 02:25 Urine Glucose (UA) Negative mg/dL (NEGATIVE) 05/08/18 02:25 Urine Ketones Negative mg/dL (NEGATIVE) 05/08/18 02:25 Urine Blood Moderate (NEGATIVE) H 05/08/18 02:25 Urine Nitrate Negative (NEGATIVE) 05/08/18 02:25 Urine Bilirubin Negative (NEGATIVE) 05/08/18 02:25 Urine Urobilinogen 0.2 E.U./dL (<1 E.U./dL) 05/08/18 02:25 Ur Leukocyte Esterase Negative [place]/uL (NEGATIVE) 05/08/18 02:25 Urine RBC 10 - 15 /hpf (0-2) H 05/08/18 02:25 Urine WBC 1 - 3 /hpf (0-6) 05/08/18 02:25 Ur Epithelial Cells 3 - 4 /hpf (0-5) 05/08/18 02:25 Urine Bacteria Small /hpf (NONE) 05/08/18 02:25 - RAD Interpretation Radiology Orders: 05/07/18 23:21 CHEST PORTABLE [RAD] Stat 05/08/18 02:34 ABDOMEN & PELVIS [ABD & PELVIS IV CONTRAST ONLY] [CT] Stat - Medication Orders Current Medication Orders: Sodium Chloride (Sodium Chloride 0.9%) 1,000 mls @ 100 mls/hr IV .Q10H HANNA Last Admin: 05/07/18 23:36 Dose: 100 mls/hr eMAR Start Stop Document 05/07/18 23:36 SS (Rec: 05/07/18 23:[address] [id number] Intravenous Solution Start Date 05/07/18 Start Time 23:36 Discontinued Medications Ondansetron HCl (Zofran Inj) 4 mg IVP STAT STA Stop: 05/07/18 23:22 Last Admin: 05/07/18 23:36 Dose: 4 mg IVP Administration Document 05/07/18 23:36 SS (Rec: 05/07/18 23:36 SS [id number]) Charges for Administration # of IVP Administrations 1 Pantoprazole Sodium (Protonix Inj) 40 mg IVP STAT STA Stop: 05/07/18 23:22 Last Admin: 05/07/18 23:36 Dose: 40 mg IVP Administration Document 05/07/18 23:36 SS (Rec: 05/07/18 23:36 [id number]) Charges for Administration # of IVP Administrations 1 <Tala Cooper - Last Filed: 05/08/18 06:37> - Lab Interpretations Lab Results: Total Bilirubin 0.4 mg/dL (0.2-1.3) 05/07/18 22:48 AST 20 U/L (14-36) 05/07/18 22:48 ALT 9 U/L (7-56) 05/07/18 22:48 Alkaline Phosphatase 79 U/L (38-126) 05/07/18 22:48 Total Protein 7.7 g/dL (5.8-8.3) 05/07/18 22:48 Albumin 4.3 g/dL (3.0-4.8) 05/07/18 22:48 Globulin 3.3 gm/dL 05/07/18 22:48 Albumin/Globulin Ratio 1.3 (1.1-1.8) 05/07/18 22:48 Urine Color Yellow (YELLOW) 05/08/18 02:25 Urine Appearance Sl cloudy (CLEAR) 05/08/18 02:25 Urine pH 8.5 (4.7-8.0) 05/08/18 02:25 Ur Specific [place] 1.015 (1.005-1.035) 05/08/18 02:25 Urine Protein 30 mg/dL (<30 mg/dL) H 05/08/18 02:25 Urine Glucose (UA) Negative mg/dL (NEGATIVE) 05/08/18 02:25 Urine Ketones Negative mg/dL (NEGATIVE) 05/08/18 02:25 Urine Blood Moderate (NEGATIVE) H 05/08/18 02:25 Urine Nitrate Negative (NEGATIVE) 05/08/18 02:25 Urine Bilirubin Negative (NEGATIVE) 05/08/18 02:25 Urine Urobilinogen 0.2 E.U./dL (<1 E.U./dL) 05/08/18 02:25 Ur Leukocyte Esterase Negative [place]/uL (NEGATIVE) 05/08/18 02:25 Urine RBC 10 - 15 /hpf (0-2) H 05/08/18 02:25 Urine WBC 1 - 3 /hpf (0-6) 05/08/18 02:25 Ur Epithelial Cells 3 - 4 /hpf (0-5) 05/08/18 02:25 Urine Bacteria Small /hpf (NONE) 05/08/18 02:25 - RAD Interpretation Radiology Orders: 05/07/18 23:21 CHEST PORTABLE [RAD] Stat 05/08/18 02:34 ABDOMEN & PELVIS [ABD & PELVIS IV CONTRAST ONLY] [CT] Stat - Medication Orders Current Medication Orders: Sodium Chloride (Sodium Chloride 0.9%) 1,000 mls @ 100 mls/hr IV .Q10H HANNA Last Admin: 05/07/18 23:36 Dose: 100 mls/hr eMAR Start Stop Document 05/07/18 23:36 SS (Rec: 05/07/18 23:[address] [facility] Intravenous Solution Start Date 05/07/18 Start Time 23:36 Discontinued Medications Ondansetron HCl (Zofran Inj) 4 mg IVP STAT STA Stop: 05/07/18 23:22 Last Admin: 05/07/18 23:36 Dose: 4 mg IVP Administration Document 05/07/18 23:36 SS (Rec: 05/07/18 23:[address] [id number]-) Charges for Administration # of IVP Administrations 1 Pantoprazole Sodium (Protonix Inj) 40 mg IVP STAT STA Stop: 05/07/18 23:22 Last Admin: 05/07/18 23:36 Dose: 40 mg IVP Administration Document 05/07/18 23:36 SS (Rec: 05/07/18 23:[address] [id number]-) Charges for Administration # of IVP Administrations 1 <Yung Lugo - Last Filed: 05/08/18 06:48> Disposition/Present on Arrival - Present on Arrival Any Indicators Present on Arrival: No History of DVT/PE: No History of Uncontrolled Diabetes: Yes Urinary Catheter: No History of Decub. Ulcer: No History Surgical Site Infection Following: None - Disposition Have Diagnosis and Disposition been Completed?: Yes Disposition Time: 06:37 Patient Plan: Admission <Tala Cooper - Last Filed: 05/08/18 06:37> - Present on Arrival Any Indicators Present on Arrival: No History of DVT/PE: No History of Uncontrolled Diabetes: Yes Urinary Catheter: No History of Decub. Ulcer: No History Surgical Site Infection Following: None <Yung Lugo - Last Filed: 05/08/18 06:48> - Disposition Diagnosis: Pneumonia Referrals: Dante Mcdaniel, [Primary Care Provider] - Follow up with primary Forms: [employer]ee[employer] (Greek)
[2018-05-08] MEDS ORDERED: Piperacillin/Tazobact 3.375 gm 100 ML IVPB STA (06:40)
[2018-05-08 09:11] LABS: PH,URINE 8.5 (4.7-8.0); URINE APPEARANCE CLEAR (CLEAR); URINE BILIRUBIN NEGATIVE (NEGATIVE); URINE BLOOD MODERATE (NEGATIVE); URINE COLOR LIGHT YELLOW (YELLOW); URINE GLUCOSE (UA) NEGATIVE (NEGATIVE); URINE LEUKOCYTE ESTERASE TRACE Leu/uL (NEGATIVE); URINE PROTEIN 30 mg/dL (<30 mg/dL); URINE UROBILINOGEN 0.2 E.U./dL (<1 E.U./dL)
[2018-05-08 09:19] LABS: URINE RBC 20 - 25 /hpf (0-2)
[2018-05-08 09:20] LABS: URINE AMORPHOUS SEDIMENT FEW /hpf; URINE BACTERIA SMALL /hpf
--- NOTE | 2018-05-08 09:36 | RAD ---
Date of service: 05/07/2018 HISTORY: cp COMPARISON: 05/01/2018 FINDINGS: LUNGS: No active pulmonary disease. PLEURA: No significant pleural effusion identified, no pneumothorax apparent. CARDIOVASCULAR: Aortic calcification Normal cardiac size. No pulmonary vascular congestion. OSSEOUS STRUCTURES: No significant abnormalities. VISUALIZED UPPER ABDOMEN: Large hiatal hernia measuring 12 cm OTHER FINDINGS: None. IMPRESSION: No active disease.
--- NOTE | 2018-05-08 10:05 | HP ---
DATE OF EXAM: 05/08/2018 HISTORY OF PRESENT ILL phone call from the retirement last night. She was throwing up coffee-ground emesis. She has done that before. She has not been feeling well. I have sent to the emergency room. She found to be having a pneumonia. She has been on antibiotics. She has a history of hypertension. She is to smoke cigarettes, history of COPD, dementia and dizziness. She has diabetes type 2. She has been anemic before. Arthritis, she has falls, unsteady gait, diverticulosis, bad hiatal hernia. She does have reflux. She had hematuria in the past. She is incontinent, insomnia, has anxiety and depression. She has had a tonsillectomy in her past. ALLERGIES: TO ASPIRIN. MEDIATIONS: She is on DuoNebs, insulin coverage, Amitiza, Reglan, Remeron, omeprazole, Zofran, Januvia. She is not feeling that great. FAMILY HISTORY: No known family history. SOCIAL HISTORY: No smoking now. No alcohol. No drugs. REVIEW OF SYSTEMS: She had nausea and vomiting with coffee-ground emesis. No fevers. No sweats. No shortness of breath. Mild cough every now and then. No chest pain or palpitations. She does have abdominal pain. She did throw up brown coffee-ground liquid. No problems urinating. She is incontinent, but no problems. No skin issues that she knows of. PHYSICAL EXAMINATION: GENERAL: She is well appearing, little uncomfortable. Alert and oriented x3. VITAL SIGNS: She has 98.5 temperature, 91 pulse, 20 respiratory rate, 136/70 blood pressure, 92% O2 sat. HEENT: Head is atraumatic, normocephalic. Extraocular muscles are intact. Pupils equal and reactive to light. Throat is dry. NECK: Supple. HEART: Regular rate. Normal S1, S2. LUNGS: Decreased breath sounds bilaterally. This is showing pneumonia on CT scan. No wheezes or rhonchi. ABDOMEN: Soft, nontender. Positive bowel sounds. There might be a little mid epigastric tenderness. No guarding. No rebound. EXTREMITIES: No edema. NEUROLOGIC: GCS is 15. Cranial nerves II through XII grossly intact. SKIN: For I could tell, no rashes or ulcers. LABORATORY DATA: CAT scan of the abdomen and pelvis that showed large hiatal hernia, left lower lobe pneumonia. She had multiple tests done. Urine was moderate blood, small bacteria. Sodium 138, potassium 4, BUN 70, creatinine 0.9, GFR is 59, sugar 159, calcium 9.4, phosphorous 3.6, magnesium 2.1. Total bili is 0.4, AST is 20, ALT is 9, alk phos 79, total protein 7.7. White count is 12.3, little up, 10.9 hemoglobin, 34.8 hematocrit, 274 platelets. IMPRESSION AND PLAN: She has some other tests pending. She is going to have a consult with Infectious Disease. We will put her on Merrem IV. She will be on her gastrointestinal medications and her insulin coverage. She will be seen by gastrointestinal and pulmonary and also Infectious Disease. I will order physical therapy. Hopefully, she will do well and improve. pneumonia, nausea, vomiting. Dante Mcdaniel DO MTDD
[2018-05-08] MEDS: Sodium Chloride 0.9% 1,000 ML IV SCH ×2 (10:42→22:24)
[2018-05-08] MEDS: Vancomycin 1gm in NS 250ml 1 GM/250 ML BAG IVPB SCH ×2 (10:42→22:22)
--- NOTE | 2018-05-08 10:42 | CP.PCM.CON ---
<SommersDevi kingsley - Last Filed: 05/08/18 10:50> History of Present Illness - History of Present Illness History of Present Illness: PGY5 Initial GI Consult Pt is an 87 yo Hisp Female with h/o Erosive Esophagitis, Large Hiatal Hernia, PUD, GERD, DM, HTN, COPD presenting with abd pain from OR. She was recently discharged [facility] 2 days prior for possible hematesmesis. [facility] underwent a EGD which revealed a large paraesophageal hernia and diffuse intestinal metaplasia of beck stomach (h.pylori neg); no evidence of previous bleed or source. Pt was stable prior to discharge and tolerating her meals. She denies any further episodes of hematemsis or coffee-ground emesis. She denies any rectal bleeding. She complains of epigastric discomfort and notes that it is a buring like sensation. She is asking for a regular diet in the AM. She denied any weights loss, dysphagia, lightheadedness, NSAID/ASA/blood thinner use. Her hgb continues to be stable around 10 EGD Apr 2018: paraesophageal hernia, + diffuse gastritis; September 2017 with large Type III Hiatal Hernia, Gatritis (+IM, -HP). Previous EGD from 2016 with duodenal and gastric ulcers. CSPY 07/15/15: Diverticulosis and 2 tubular adenomas. 12 point ROS negative other than stated above MHx: See above SurgHx: Hysterectomy, Tonsillectomy, R Hip surgery Meds: Reviewed in chart FamHx: Denied CRC SocHx: Former tobacco, denied illicits/EtOH Past Patient History - Infectious Disease Hx of Infectious Diseases: None - Tetanus Immunizations Tetanus Immunization: Unknown - Past Medical History & Family History Past Medical History?: Yes - Past Social History Smoking Status: Never Smoked - CARDIAC Hx Cardiac Disorders: Yes Hx Hypertension: Yes - PULMONARY Hx Respiratory Disorders: Yes (USED TO SMOKE CIGARETTES) Hx Chronic Obstructive Pulmonary Disease (COPD): Yes - NEUROLOGICAL Hx Neurological Disorder: Yes HX Cerebrovascular Accident: No Hx Dementia: Yes Hx Dizziness: Yes - HEENT Hx HEENT Problems: No Hx Blind: No Hx Cataracts: No Hx Deafness: No Hx Difficulty Chewing: No Hx Epistaxis: No Hx Glaucoma: No Hx Macular Degeneration: No - RENAL Hx Renal Failure: No - ENDOCRINE/METABOLIC Hx Endocrine Disorders: Yes Hx Diabetes Mellitus Type 2: Yes - HEMATOLOGICAL/ONCOLOGICAL Hx Blood Disorders: Yes Hx AIDS: No Hx Anemia: Yes Hx Hepatitis C: No - INTEGUMENTARY Hx Dermatological Problems: No Hx Basil Cell: No Hx Eczema: No Hx Melanoma: No Hx Psoriasis: No Hx Squamous Cell: No - MUSCULOSKELETAL/RHEUMATOLOGICAL Hx Musculoskeletal Disorders: Yes Hx Arthritis: Yes Hx Falls: Yes Hx Unsteady Gait: Yes (WALKER) - GASTROINTESTINAL Hx Gastrointestinal Disorders: Yes (DIVERTICULOSIS,DIAPHRAGMATIC HERNIA,PUD) Hx Colostomy: No Hx Crohn's Disease: No Hx Gall Bladder Disease: No Hx Gastroesophageal Reflux: Yes Hx Ileostomy: No Hx Liver Failure: No Hx Pancreatitis: No HX Swallowing Problems: No - GENITOURINARY/GYNECOLOGICAL Hx Genitourinary Disorders: Yes Hx Hematuria: Yes Hx Incontinence: Yes Hx Sexually Transmitted Disorders: No Hx Urinary Tract Infection: No - PSYCHIATRIC Hx Psychophysiologic Disorder: Yes (INSOMNIA) Hx Anxiety: Yes Hx Depression: Yes Hx Substance Use: No - SURGICAL HISTORY Hx Amputation: No Hx Appendectomy: No Hx Cardiac Catheterization: No Hx Cholecystectomy: No Hx Coronary Stent: No Hx Gastric Bypass Surgery: No Hx Hysterectomy: Yes Hx Joint Replacement: No Hx Kidney Transplant: No Hx Liver Transplant: No Hx Mastectomy: No Hx Musculoskeletal Surgery: No Hx Open Heart Surgery: No Hx Orthopedic Surgery: Yes Hx Splenectomy: No Hx Valve Replacement: No Other/Comment: Tonsillectomy - ANESTHESIA Hx Anesthesia: Yes Hx Anesthesia Reactions: No (UNKNOWN) Hx Malignant Hyperthermia: No (UNKNOWN) Meds Allergies/Adverse Reactions: Allergies Allergy/AdvReac Type Severity Reaction Status Date / Time aspirin Allergy NAUSEA Verified 05/07/18 22:21 - Medications Medications: Current Medications Meropenem (Merrem Iv 1 Gm Premix) 1 gm in 50 mls @ 100 mls/hr IVPB Q12 [facility]; Protocol Vancomycin HCl (Vancomycin 1gm) 1 gm in 250 mls @ 167 mls/hr IVPB Q12H [facility]; Protocol Sodium Chloride (Sodium Chloride 0.9%) 1,000 mls @ 80 mls/hr IV .[id number] [facility] Insulin Human Regular (Humulin R Med) 0 units SC ACHS [facility]; Protocol Metoclopramide HCl (Reglan) 10 mg IVP ACHS [facility] Ondansetron HCl (Zofran Inj) 4 mg IVP Q6 PRN PRN Reason: Nausea/Vomiting Pantoprazole Sodium (Protonix Inj) 40 mg IVP DAILY@0600 [facility] Physical Exam - Constitutional Appears: Non-toxic, No Acute Distress - Head Exam Head Exam: ATRAUMATIC, NORMOCEPHALIC - Eye Exam Eye Exam: Normal appearance - ENT Exam ENT Exam: Mucous Membranes Moist, Normal Exam - Neck Exam Neck exam: Positive for: Normal Inspection - Respiratory Exam Respiratory Exam: Clear to Auscultation Bilateral, NORMAL BREATHING PATTERN. absent: Rales, Rhonchi, Wheezes, Respiratory Distress - Cardiovascular Exam Cardiovascular Exam: REGULAR RHYTHM, +S1, +S2 - GI/Abdominal Exam GI & Abdominal Exam: Normal Bowel Sounds, Soft, Tenderness (epigastric). absent: Diminished Bowel Sounds, Distended, Firm, Hernia, Organomegaly, Rebound, Rigid - Rectal Exam Rectal Exam: Deferred - Extremities Exam Extremities exam: Negative for: joint swelling, pedal edema - Back Exam Back exam: NORMAL INSPECTION - Neurological Exam Neurological exam: Alert, Oriented x3 - Psychiatric Exam Psychiatric exam: Normal Affect, Normal Mood - Skin Skin Exam: Dry, Intact, Normal Color, Warm Results - Vital Signs Recent Vital Signs: Last Vital Signs Temp 98 F 05/08/18 09:05 Pulse 72 05/08/18 09:05 Resp 18 05/08/18 09:05 BP 120/68 05/08/18 09:05 Pulse Ox 98 05/08/18 09:05 - Labs Result Diagrams: 05/07/18 22:48 05/07/18 22:48 Labs: Laboratory Results - last 24 hr 05/07/18 05/07/18 05/08/18 22:48 22:48 02:25 WBC 12.3 H D RBC 3.70 Hgb 10.9 L Hct 34.8 L MCV 94.1 MCH 29.5 MCHC 31.3 RDW 14.2 Plt Count 274 MPV 8.8 Neut % (Auto) 76.6 H Lymph % (Auto) 15.2 L [place] % (Auto) 7.4 H Eos % (Auto) 0.6 L Baso % (Auto) 0.2 Lymph # (Auto) 1.9 [place] # (Auto) 0.9 H Eos # (Auto) 0.1 Baso # (Auto) 0.03 Absolute Neuts (auto) 9.45 H Sodium 138 Potassium 4.0 Chloride 96 L Carbon Dioxide 33 Anion Gap 13 BUN 17 Creatinine 0.9 Est GFR ( Amer) > 60 Est GFR (Non-Af Amer) 59 Random Glucose 159 H Calcium 9.4 Phosphorus 3.6 Magnesium 2.1 Total Bilirubin 0.4 AST 20 ALT 9 Alkaline Phosphatase 79 Total Protein 7.7 Albumin 4.3 Globulin 3.3 Albumin/Globulin Ratio 1.3 Urine Color Yellow Urine Appearance Sl cloudy Urine pH 8.5 Ur Specific [place] 1.015 Urine Protein 30 H Urine Glucose (UA) Negative Urine Ketones Negative Urine Blood Moderate H Urine Nitrate Negative Urine Bilirubin Negative Urine Urobilinogen 0.2 Ur Leukocyte Esterase Negative Urine RBC 10 - 15 H Urine WBC 1 - 3 Ur Epithelial Cells 3 - 4 Amorphous Sediment Urine Bacteria Small 05/08/18 09:00 WBC RBC Hgb Hct MCV MCH MCHC RDW Plt Count MPV Neut % (Auto) Lymph % (Auto) [place] % (Auto) Eos % (Auto) Baso % (Auto) Lymph # (Auto) [place] # (Auto) Eos # (Auto) Baso # (Auto) Absolute Neuts (auto) Sodium Potassium Chloride Carbon Dioxide Anion Gap BUN Creatinine Est GFR ( Amer) Est GFR (Non-Af Amer) Random Glucose Calcium Phosphorus Magnesium Total Bilirubin AST ALT Alkaline Phosphatase Total Protein Albumin Globulin Albumin/Globulin Ratio Urine Color Light yellow Urine Appearance Clear Urine pH 8.5 Ur Specific [place] 1.010 Urine Protein 30 H Urine Glucose (UA) Negative Urine Ketones Negative Urine Blood Moderate H Urine Nitrate Negative Urine Bilirubin Negative Urine Urobilinogen 0.2 Ur Leukocyte Esterase Trace H Urine RBC 20 - 25 H Urine WBC 5 - 10 H Ur Epithelial Cells 4 - 5 Amorphous Sediment Few Urine Bacteria Small Assessment & Plan - Assessment and Plan (Free Text) Assessment: Pt is an 87 yo Hisp Female with h/o Erosive Esophagitis, Large Hiatal Hernia, PUD, GERD, DM, HTN, COPD presenting with black emesis at OR. Abd pain, etiology: gastritis?, hiatial hernia? h/o PUD Hiatal hernia hx of Erosive Esophagitis H/o tubular adenomas Diverticulosis Plan: - continue protonix 40mg daily - advance diet to heart healthy - continue to monitor H/H - start miralax daily - no indication of GI bleed, no indication of repeat EGD Pt discussed with Dr. Cancino; please see attestation for further recs/changes. <Dejan Cancino Y - Last Filed: 05/08/18 12:36> Meds - Medications Medications: Current Medications Meropenem (Merrem Iv 1 Gm Premix) 1 gm in 50 mls @ 100 mls/hr IVPB Q12 [facility]; Protocol Vancomycin HCl (Vancomycin 1gm) 1 gm in 250 mls @ 167 mls/hr IVPB Q12H [facility]; Protocol Last Admin: 05/08/18 10:42 Dose: 167 mls/hr Sodium Chloride (Sodium Chloride 0.9%) 1,000 mls @ 80 mls/hr IV .[id number] [facility] Last Admin: 05/08/18 10:42 Dose: 80 mls/hr Insulin Human Regular (Humulin R Med) 0 units SC ACHS [facility]; Protocol Last Admin: 05/08/18 12:15 Dose: 1 units Metoclopramide HCl (Reglan) 5 mg IVP ACHS [facility] Last Admin: 05/08/18 12:15 Dose: 5 mg Ondansetron HCl (Zofran Inj) 4 mg IVP Q6 PRN PRN Reason: Nausea/Vomiting Pantoprazole Sodium (Protonix Inj) 40 mg IVP DAILY@0600 [facility] Results - Vital Signs Recent Vital Signs: Last Vital Signs Temp 98 F 05/08/18 09:05 Pulse 72 05/08/18 09:05 Resp 18 05/08/18 09:05 BP 120/68 05/08/18 09:05 Pulse Ox 98 05/08/18 09:05 - Labs Result Diagrams: 05/07/18 22:48 05/07/18 22:48 Labs: Laboratory Results - last 24 hr 05/07/18 05/07/18 05/08/18 22:48 22:48 02:25 WBC 12.3 H D RBC 3.70 Hgb 10.9 L Hct 34.8 L MCV 94.1 MCH 29.5 MCHC 31.3 RDW 14.2 Plt Count 274 MPV 8.8 Neut % (Auto) 76.6 H Lymph % (Auto) 15.2 L [place] % (Auto) 7.4 H Eos % (Auto) 0.6 L Baso % (Auto) 0.2 Lymph # (Auto) 1.9 [place] # (Auto) 0.9 H Eos # (Auto) 0.1 Baso # (Auto) 0.03 Absolute Neuts (auto) 9.45 H Sodium 138 Potassium 4.0 Chloride 96 L Carbon Dioxide 33 Anion Gap 13 BUN 17 Creatinine 0.9 Est GFR ( Amer) > 60 Est GFR (Non-Af Amer) 59 POC Glucose (mg/dL) Random Glucose 159 H Calcium 9.4 Phosphorus 3.6 Magnesium 2.1 Total Bilirubin 0.4 AST 20 ALT 9 Alkaline Phosphatase 79 Total Protein 7.7 Albumin 4.3 Globulin 3.3 Albumin/Globulin Ratio 1.3 Urine Color Yellow Urine Appearance Sl cloudy Urine pH 8.5 Ur Specific [place] 1.015 Urine Protein 30 H Urine Glucose (UA) Negative Urine Ketones Negative Urine Blood Moderate H Urine Nitrate Negative Urine Bilirubin Negative Urine Urobilinogen 0.2 Ur Leukocyte Esterase Negative Urine RBC 10 - 15 H Urine WBC 1 - 3 Ur Epithelial Cells 3 - 4 Amorphous Sediment Urine Bacteria Small 05/08/18 05/08/18 09:00 11:09 WBC RBC Hgb Hct MCV MCH MCHC RDW Plt Count MPV Neut % (Auto) Lymph % (Auto) [place] % (Auto) Eos % (Auto) Baso % (Auto) Lymph # (Auto) [place] # (Auto) Eos # (Auto) Baso # (Auto) Absolute Neuts (auto) Sodium Potassium Chloride Carbon Dioxide Anion Gap BUN Creatinine Est GFR ( Amer) Est GFR (Non-Af Amer) POC Glucose (mg/dL) 162 H Random Glucose Calcium Phosphorus Magnesium Total Bilirubin AST ALT Alkaline Phosphatase Total Protein Albumin Globulin Albumin/Globulin Ratio Urine Color Light yellow Urine Appearance Clear Urine pH 8.5 Ur Specific [place] 1.010 Urine Protein 30 H Urine Glucose (UA) Negative Urine Ketones Negative Urine Blood Moderate H Urine Nitrate Negative Urine Bilirubin Negative Urine Urobilinogen 0.2 Ur Leukocyte Esterase Trace H Urine RBC 20 - 25 H Urine WBC 5 - 10 H Ur Epithelial Cells 4 - 5 Amorphous Sediment Few Urine Bacteria Small Attending/Attestation - Attestation I have fully participated in the care of the patient.: Yes I have reviewed all pertinent clinical information: Yes Notes (Text): 05/08/18 12:34 DM/HTN GERD s/p EGD this month showing large paraesophageal hernia, gastritis COPD Nausea, vomiting - resolved Anemia, chronic disease Pneumonia - Advance diet as tolerated, suggest small frequent meals throughout the day - Continue with PPI - Antibiotic therapy for pneumonia as per medical team - H/H stable, continue to monitor - Anti-emetic therapy PRN - Will continue to monitor patient clinical course
--- NOTE | 2018-05-08 12:01 | CT ---
Date of service: 05/08/2018 PROCEDURE: CT Abdomen and Pelvis with contrast HISTORY: Abdominal pain, hematemesis. COMPARISON: 05/01/2018. CT abdomen and pelvis 10/10/2017 CT abdomen and pelvis. TECHNIQUE: Intravenous contrast dose: 100 cc Omnipaque 350. Radiation dose: Total exam DLP = 470.01 mGy-cm. This CT exam was performed using one or more of the following dose reduction techniques: Automated exposure control, adjustment of the mA and/or kV according to patient size, and/or use of iterative reconstruction technique. FINDINGS: LOWER THORAX: Stable paraesophageal hiatal hernia. Stable left lower lobe infiltrate/atelectasis. LIVER: Unremarkable. No gross lesion or ductal dilatation. GALLBLADDER AND BILE DUCTS: Status post cholecystectomy. No abnormality is seen in the gallbladder fossa. PANCREAS: Unremarkable. No gross lesion or ductal dilatation. SPLEEN: Unremarkable. ADRENALS: Unremarkable. No mass. KIDNEYS AND URETERS: Unremarkable. No hydronephrosis. No solid mass. Bilateral simple renal cysts Incidental finding(s):. VASCULATURE: Unremarkable. No aortic aneurysm. Atherosclerotic calcification and mural plaque present. Findings are seen throughout the aorta extending into the iliac vessels. BOWEL: Diverticulosis without an acute inflammatory component or other associated pathologic process. APPENDIX: No abnormalities to suggest acute appendicitis. No right lower quadrant inflammatory processes identified. PERITONEUM: Unremarkable. No free fluid. No free air. LYMPH NODES: Unremarkable. No enlarged lymph nodes. BLADDER: Llamas catheter decompresses the urinary bladder. REPRODUCTIVE: Prior hysterectomy. BONES: No acute fracture. Compression deformities L3 and L4. Additional findings identified in the lower thoracic spine. These are unchanged compared to prior CT scans. OTHER FINDINGS: Cutaneous and subcutaneous changes suggest decubitus ulcer inferior to the tip of the coccyx. These are stable findings. IMPRESSION: No acute or significant findings related to/ accounting for the clinical presentation. Additional benign and/or incidental findings described above. No significant interval change compared to the prior examination(s). Concordant findings (preliminary report) provided by [employer].
[2018-05-08] MEDS: Insulin Reg-MEDIUM-Coverage SC SCH ×3 (12:15→22:05)
[2018-05-08] MEDS: Meropenem IV 1 gm in NS 1 GM/50 ML BAG IVPB SCH ×2 (13:35→22:21)
[2018-05-08] MEDS: Morphine 2 mg/ml ISec IVP PRN ×3 (15:10→23:42)
--- NOTE | 2018-05-08 16:10 | CARD ---
APPROVED REPORT Date of service: 05/07/2018 EKG Measurement Heart [id number] <Conclusion> Normal sinus rhythm Normal ECG
--- NOTE | 2018-05-08 16:22 | CP.PCM.CON ---
History of Present Illness - History of Present Illness History of Present Illness: 87 year old female with PMH of DM, HTN, CAD, COPD, Arthritis, S/P hysterectomy, S/P tonsillectomy, History of right hip surgery, Left hip fracture S/P intramedullary fixation, S/P treatment for PSeudomembranous colitis, S/P colonoscopy and colonic polyp removal, S/P UTI with Morganella morgagni S/P treatment with Ciprofloxacin and S/P treatment of recurrent UTI with Nitrofurantoin, Enterococcus in the urine S/P treatment with Nitrofurantoin, Urinary incontinence was recently admitted for hematemesis and was found to have gastritis on EGD and was placed on anti-acid meds. [facility] the [facility] living but she developed nausea as well as generalized weakness. She denies fever or chills, no headache or dizziness, no chest pain, has dry cough, no sore throat, no rhinorrhea, no diarrhea, no dysuria, some abdominal discomf ort. CT scan of the abdomen and pelvis is showing left lower lobe infiltrate. Infectious Diseases consult is requested to further evaluate and manage. Review of Systems - Review of Systems All systems: reviewed and no additional remarkable complaints except (as per HPI) Past Patient History - Infectious Disease Hx of Infectious Diseases: None - Tetanus Immunizations Tetanus Immunization: Unknown - Past Medical History & Family History Past Medical History?: Yes - Past Social History Smoking Status: Never Smoked - CARDIAC Hx Cardiac Disorders: Yes Hx Hypertension: Yes - PULMONARY Hx Respiratory Disorders: Yes (USED TO SMOKE CIGARETTES) Hx Chronic Obstructive Pulmonary Disease (COPD): Yes - NEUROLOGICAL Hx Neurological Disorder: Yes HX Cerebrovascular Accident: No Hx Dementia: Yes Hx Dizziness: Yes - HEENT Hx HEENT Problems: No Hx Blind: No Hx Cataracts: No Hx Deafness: No Hx Difficulty Chewing: No Hx Epistaxis: No Hx Glaucoma: No Hx Macular Degeneration: No - RENAL Hx Renal Failure: No - ENDOCRINE/METABOLIC Hx Endocrine Disorders: Yes Hx Diabetes Mellitus Type 2: Yes - HEMATOLOGICAL/ONCOLOGICAL Hx Blood Disorders: Yes Hx AIDS: No Hx Anemia: Yes Hx Hepatitis C: No - INTEGUMENTARY Hx Dermatological Problems: No Hx Basil Cell: No Hx Eczema: No Hx Melanoma: No Hx Psoriasis: No Hx Squamous Cell: No - MUSCULOSKELETAL/RHEUMATOLOGICAL Hx Musculoskeletal Disorders: Yes Hx Arthritis: Yes Hx Falls: Yes Hx Unsteady Gait: Yes (WALKER) - GASTROINTESTINAL Hx Gastrointestinal Disorders: Yes (DIVERTICULOSIS,DIAPHRAGMATIC HERNIA,PUD) Hx Colostomy: No Hx Crohn's Disease: No Hx Gall Bladder Disease: No Hx Gastroesophageal Reflux: Yes Hx Ileostomy: No Hx Liver Failure: No Hx Pancreatitis: No HX Swallowing Problems: No - GENITOURINARY/GYNECOLOGICAL Hx Genitourinary Disorders: Yes Hx Hematuria: Yes Hx Incontinence: Yes Hx Sexually Transmitted Disorders: No Hx Urinary Tract Infection: No - PSYCHIATRIC Hx Psychophysiologic Disorder: Yes (INSOMNIA) Hx Anxiety: Yes Hx Depression: Yes Hx Substance Use: No - SURGICAL HISTORY Hx Amputation: No Hx Appendectomy: No Hx Cardiac Catheterization: No Hx Cholecystectomy: No Hx Coronary Stent: No Hx Gastric Bypass Surgery: No Hx Hysterectomy: Yes Hx Joint Replacement: No Hx Kidney Transplant: No Hx Liver Transplant: No Hx Mastectomy: No Hx Musculoskeletal Surgery: No Hx Open Heart Surgery: No Hx Orthopedic Surgery: Yes Hx Splenectomy: No Hx Valve Replacement: No Other/Comment: Tonsillectomy - ANESTHESIA Hx Anesthesia: Yes Hx Anesthesia Reactions: No (UNKNOWN) Hx Malignant Hyperthermia: No (UNKNOWN) Meds Allergies/Adverse Reactions: Allergies Allergy/AdvReac Type Severity Reaction Status Date / Time aspirin Allergy NAUSEA Verified 05/07/18 22:21 - Medications Medications: Current Medications Sodium Chloride (Sodium Chloride 0.9%) 1,000 mls @ 100 mls/hr IV .Q10H [facility] Last Admin: 05/07/18 23:36 Dose: 100 mls/hr Physical Exam - Constitutional Appears: No Acute Distress, Chronically Ill - Head Exam Head Exam: NORMAL INSPECTION - ENT Exam ENT Exam: Mucous Membranes Moist - Neck Exam Neck exam: Negative for: Meningismus - Respiratory Exam Respiratory Exam: Decreased Breath Sounds - Cardiovascular Exam Cardiovascular Exam: +S1, +S2 - GI/Abdominal Exam GI & Abdominal Exam: Soft. absent: Tenderness Results - Vital Signs Recent Vital Signs: Last Vital Signs Temp 98.2 F 05/08/18 05:33 Pulse 72 05/08/18 07:14 Resp 18 05/08/18 07:14 BP 116/48 L 05/08/18 07:14 Pulse Ox 98 05/08/18 07:14 - Labs Result Diagrams: 05/07/18 22:48 05/07/18 22:48 Labs: Laboratory Results - last 24 hr 05/07/18 05/07/18 05/08/18 22:48 22:48 02:25 WBC 12.3 H D RBC 3.70 Hgb 10.9 L Hct 34.8 L MCV 94.1 MCH 29.5 MCHC 31.3 RDW 14.2 Plt Count 274 MPV 8.8 Neut % (Auto) 76.6 H Lymph % (Auto) 15.2 L [place] % (Auto) 7.4 H Eos % (Auto) 0.6 L Baso % (Auto) 0.2 Lymph # (Auto) 1.9 [place] # (Auto) 0.9 H Eos # (Auto) 0.1 Baso # (Auto) 0.03 Absolute Neuts (auto) 9.45 H Sodium 138 Potassium 4.0 Chloride 96 L Carbon Dioxide 33 Anion Gap 13 BUN 17 Creatinine 0.9 Est GFR ( Amer) > 60 Est GFR (Non-Af Amer) 59 Random Glucose 159 H Calcium 9.4 Phosphorus 3.6 Magnesium 2.1 Total Bilirubin 0.4 AST 20 ALT 9 Alkaline Phosphatase 79 Total Protein 7.7 Albumin 4.3 Globulin 3.3 Albumin/Globulin Ratio 1.3 Urine Color Yellow Urine Appearance Sl cloudy Urine pH 8.5 Ur Specific [place] 1.015 Urine Protein 30 H Urine Glucose (UA) Negative Urine Ketones Negative Urine Blood Moderate H Urine Nitrate Negative Urine Bilirubin Negative Urine Urobilinogen 0.2 Ur Leukocyte Esterase Negative Urine RBC 10 - 15 H Urine WBC 1 - 3 Ur Epithelial Cells 3 - 4 Urine Bacteria Small Assessment & Plan - Assessment and Plan (Free Text) Plan: Assessment systemic inflammatory response syndrome due to left lower lobe HCAP history of Left hip fracture S/P intramedullary fixation sustained after a fall S/P treatment for PSeudomembranous colitis S/P colonoscopy and colonic polyp removal S/P UTI with Morganella morgagni S/P treatment with Ciprofloxacin and S/P treatment of recurrent UTI with Nitrofurantoin Enterococcus in the urine S/P treatment with Nitrofurantoin Urinary incontinence DM HTN CAD COPD Arthritis S/P hysterectomy S/P tonsillectomy History of right hip surgery Plan started Vancomycin and Merrem pending blood,sputum cx, PCT; reviewed CT A/P discussed with Dr. Mcdaniel
--- NOTE | 2018-05-08 16:27 | CON ---
DATE: 05/08/2018 REFERRING PHYSICIAN: Dante Mcdaniel DO REASON FOR CONSULT: Pneumonia. HISTORY OF PRESENT ILLNESS: This is an 87-year-old female with past medical history significant for TIA, diabetes mellitus, hiatal hernia, COPD, dementia, who presented to the emergency room with hematemesis x1. Today, the patient is seen sitting up in bed, in no acute distress. PAST MEDICAL HISTORY: Hypertension, COPD, dementia, diabetes mellitus, anemia, arthritis, diverticulosis, hiatal hernia, gastroesophageal reflux disease, insomnia, anxiety, depression, and tonsillectomy. ALLERGIES: ASPIRIN. FAMILY HISTORY: No cardiopulmonary disease reported. SOCIAL HISTORY: Former smoker. No EtOH abuse. No elicit drug use. MEDICATIONS: Humalog sliding scale a.c. at bedtime, meropenem 1 g, Reglan 5 mg a.c. at bedtime, morphine 1 mg every 4 hours pain, Zofran 4 mg every 6 hours p.r.n., Protonix 40 mg daily, sodium chloride 0.9% 1000 ml at 5 mL per hour, vancomycin 1 g every 12 hours. REVIEW OF SYSTEMS: No headache, rhinitis, cough, shortness of breath, chest pain, nausea, vomiting, diarrhea, leg pain or leg swelling reported today. The patient does have abdominal pain. PHYSICAL EXAMINATION: GENERAL: No acute distress. VITAL SIGNS: Blood pressure 120/68, pulse 72, temperature 98, oxygen saturation 90% on nasal cannula. HEENT: Moist mucous membranes. Crowded airway. Mallampati score of 4. NECK: Supple. No JVD. RESPIRATORY: Few rhonchi bilaterally. CARDIOVASCULAR: S1 and S2. ABDOMEN: Soft, right upper quadrant tenderness on palpation. EXTREMITIES: No bilateral lower extremity edema. NEUROLOGIC: Awake, alert, verbal. Follow commands. LABORATORY DATA: Reviewed. WBC 12.3, RBC 3.7, hemoglobin 10, hematocrit 34.8, platelets 274. Sodium 138, potassium 4.0, chloride 96, carbon dioxide 33, anion gap 13, BUN 17, creatinine 0.9, GFR is 59, POC glucose 162, random glucose 169, calcium 9.4, phosphorus 3.6, magnesium 2.1, total bilirubin 0.4, AST 20, ALT 9, alkaline phosphatase 79, total protein 7.7, albumin 4.3, globulin 3.3, albumin and globulin ration 1.3. Urinalysis shows urine protein 30, urine blood moderate, urine leukocyte esterase even RBC 20 to 25, urine WBC 5 to 10. Chest x-ray showed no active disease, just large hiatal hernia measuring 12 cm. Abdominal pelvis shows no acute or significant findings, but there was stable left lower infiltrate or atelectasis. IMPRESSION AND PLAN: Infiltrate on CT scan, chronic obstructive pulmonary disease, dementia, anemia, gastroesophageal reflux disease, hiatal hernia, arthritis. Procalcitonin level is pending. We will followup when available infiltrate possibly be aspirations as the patient had episode of hematemesis . On presenting to emergency department, we will place the patient on inhaled bronchodilators. We will placed the patient on Brovana, Pulmicort. The patient will need followup chest -ray to evaluate instability of infiltrates due to history of anemia. We will ordered sequential compression devices to bilateral lower extremity for deep venous thrombosis prophylaxis. Continue gastric prophylaxis. This patient seen and examined with Dr. Smith. Discussed assessment and plan as described above. This patient seen and examined with Harsha Comer, nurse practitioner. Discussed assessment and plan as described above. Thank you for this consult. We will follow with you. Hasrha Comer APN Malaika Smith MD
[2018-05-08 17:16] VITALS: RESP 20
[2018-05-08] MEDS: Arformoterol 15 mcg/2 ml Inh Sol IH SCH (19:57)
[2018-05-08] MEDS: Budesonide 0.5 mg/2 ml Inhal Susp UD IH SCH (19:57)
[2018-05-09] MEDS ORDERED: Pantoprazole 40mg/100mL NS 40 MG/100 ML BAG IVPB SCH (06:00)
[2018-05-09 06:38] LABS: MEAN CELL VOLUME 95.7 fl (80.0-105.0); MEAN CORPUSCULAR HEMOGLOBIN 30.1 pg (25.0-35.0); MEAN CORPUSCULAR HGB CONC 31.4 g/dl (31.0-37.0); MEAN PLATELET VOLUME 8.8 fl (7.0-11.0); RBC 2.76 10^6/uL (3.5-6.1); RED CELL DISTRIBUTION WIDTH 14.6 % (11.5-14.5); WHITE BLOOD COUNT 6.1 10^3/uL (4.5-11.0)
[2018-05-09] MEDS: Morphine 2 mg/ml ISec IVP PRN ×3 (06:45→21:22)
[2018-05-09 07:12] LABS: ALB/GLOB RATIO 1.1 (1.1-1.8); ALT/SGPT 11 U/L (7-56); AST/SGOT 22 U/L (14-36); BLOOD UREA NITROGEN 11 mg/dL (7-21); GFR NON-AFRICAN AMERICAN 52
[2018-05-09 07:23] LABS: HEMOGLOBIN 8.3 g/dL (12.0-16.0)
[2018-05-09] MEDS: Arformoterol 15 mcg/2 ml Inh Sol IH SCH ×2 (07:50→19:21)
[2018-05-09] MEDS: Budesonide 0.5 mg/2 ml Inhal Susp UD IH SCH ×2 (07:50→19:21)
[2018-05-09 08:01] LABS: HEMOGLOBIN 8.2 g/dL (12.0-16.0); MEAN CELL VOLUME 95.6 fl (80.0-105.0); MEAN CORPUSCULAR HEMOGLOBIN 29.9 pg (25.0-35.0); MEAN CORPUSCULAR HGB CONC 31.3 g/dl (31.0-37.0); MEAN PLATELET VOLUME 8.3 fl (7.0-11.0); RBC 2.74 10^6/uL (3.5-6.1); RED CELL DISTRIBUTION WIDTH 14.5 % (11.5-14.5); WHITE BLOOD COUNT 5.9 10^3/uL (4.5-11.0)
--- NOTE | 2018-05-09 08:28 | CP.PCM.PN ---
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 there was no sign of GI bleed per rectum or in emesis ROS: 12 point ROS conducted, neg other than above Objective - Vital Signs/Intake and Output Vital Signs (last 24 hours): Temp Pulse Resp BP Pulse Ox 98 F 67 20 106/59 L 96 05/09/18 08:12 05/09/18 08:12 05/09/18 08:12 05/09/18 08:12 05/09/18 08:12 Intake and Output: 05/09/18 05/09/18 06:59 18:59 Intake Total 860 Output Total 700 Balance 160 - Medications Medications: Current Medications Arformoterol Tartrate (Brovana) 15 mcg IH [id number] [facility] Last Admin: 05/09/18 07:50 Dose: 15 mcg Budesonide (Pulmicort Respules) 0.5 mg IH [id number] [facility] Last Admin: 05/09/18 07:50 Dose: 0.5 mg Meropenem (Merrem Iv 1 Gm Premix) 1 gm in 50 mls @ 100 mls/hr IVPB Q12 [facility]; Protocol Last Admin: 05/08/18 22:21 Dose: 100 mls/hr Vancomycin HCl (Vancomycin 1gm) 1 gm in 250 mls @ 167 mls/hr IVPB Q12H [facility]; Protocol Last Admin: 05/08/18 22:22 Dose: 167 mls/hr Sodium Chloride (Sodium Chloride 0.9%) 1,000 mls @ 80 mls/hr IV .[id number] [facility] Last Admin: 05/08/18 22:24 Dose: 80 mls/hr Insulin Human Regular (Humulin R Med) 0 units SC ACHS [facility]; Protocol Last Admin: 05/08/18 22:05 Dose: Not Given Metoclopramide HCl (Reglan) 5 mg IVP ACHS [facility] Last Admin: 05/08/18 22:23 Dose: 5 mg Morphine Sulfate (Morphine) 1 mg IVP Q4H PRN PRN Reason: Pain, moderate (4-7) Last Admin: 05/09/18 06:45 Dose: 1 mg Ondansetron HCl (Zofran Inj) 4 mg IVP Q6 PRN PRN Reason: Nausea/Vomiting Last Admin: 05/08/18 19:01 Dose: 4 mg Pantoprazole Sodium (Protonix Inj) 40 mg IVP DAILY@0600 [facility] Last Admin: 05/09/18 05:22 Dose: 40 mg - Labs Labs: 05/09/18 07:50 05/09/18 06:00 - Constitutional Appears: Well, No Acute Distress - Head Exam Head Exam: ATRAUMATIC, NORMOCEPHALIC - Eye Exam Eye Exam: Normal appearance - ENT Exam ENT Exam: Mucous Membranes Moist, Normal Exam - Neck Exam Neck Exam: Normal Inspection - Respiratory Exam Respiratory Exam: Clear to Ausculation Bilateral, NORMAL BREATHING PATTERN. absent: Rales, Rhonchi, Wheezes, Respiratory Distress - Cardiovascular Exam Cardiovascular Exam: REGULAR RHYTHM, +S1, +S2 - GI/Abdominal Exam GI & Abdominal Exam: Soft, Normal Bowel Sounds. absent: Distended, Firm, Guarding, Rigid, Tenderness, Organomegaly - Rectal Exam Rectal Exam: NORMAL INSPECTION. absent: Black Stool, Bloody Stool, Hemorrhoids - Extremities Exam Extremities Exam: absent: Joint Swelling, Pedal Edema - Neurological Exam Neurological Exam: Alert, Awake, Oriented x3 - Psychiatric Exam Psychiatric exam: Normal Affect, Normal Mood - Skin Skin Exam: Dry, Intact, Normal Color, Warm Assessment and Plan - Assessment and Plan (Free Text) Assessment: Pt is an 87 yo Hisp Female with h/o Erosive Esophagitis, Large Hiatal Hernia, PUD, GERD, DM, HTN, COPD presenting with black emesis at MI. Abd pain, etiology: gastritis?, hiatial hernia? h/o PUD Anemia, etiology chronic disease? Hiatal hernia hx of Erosive Esophagitis H/o tubular adenomas Diverticulosis Plan: -will check iron, ferritin, b12 and folate -repeat hgb stable at 8.2 in the AM, doubt any active GI bleed, rectal in the AM was neg - continue protonix 40mg daily - advance diet to heart healthy - continue to monitor H/H - continue miralax, transfuse if hgb <7 - no indication of GI bleed, no indication of repeat EGD Pt discussed with Dr. Cancino; please see attestation for further recs/changes. <Dejan Cancino - Last Filed: 05/09/18 11:16> Objective - Vital Signs/Intake and Output Vital Signs (last 24 hours): Temp Pulse Resp BP Pulse Ox 98 F 67 20 106/59 L 96 05/09/18 08:12 05/09/18 08:12 05/09/18 08:12 05/09/18 08:12 05/09/18 08:12 Intake and Output: 05/09/18 05/09/18 06:59 18:59 Intake Total 860 Output Total 700 Balance 160 - Medications Medications: Current Medications Arformoterol Tartrate (Brovana) 15 mcg IH [id number] [facility] Last Admin: 05/09/18 07:50 Dose: 15 mcg Budesonide (Pulmicort Respules) 0.5 mg IH [id number] [facility] Last Admin: 05/09/18 07:50 Dose: 0.5 mg Meropenem (Merrem Iv 1 Gm Premix) 1 gm in 50 mls @ 100 mls/hr IVPB Q12 [facility]; Protocol Last Admin: 05/08/18 22:21 Dose: 100 mls/hr Vancomycin HCl (Vancomycin 1gm) 1 gm in 250 mls @ 167 mls/hr IVPB Q12H [facility]; Protocol Last Admin: 05/08/18 22:22 Dose: 167 mls/hr Sodium Chloride (Sodium Chloride 0.9%) 1,000 mls @ 80 mls/hr IV .[id number] [facility] Last Admin: 05/08/18 22:24 Dose: 80 mls/hr Insulin Human Regular (Humulin R Med) 0 units SC ACHS [facility]; Protocol Last Admin: 05/08/18 22:05 Dose: Not Given Metoclopramide HCl (Reglan) 5 mg IVP ACHS [facility] Last Admin: 05/08/18 22:23 Dose: 5 mg Morphine Sulfate (Morphine) 1 mg IVP Q4H PRN PRN Reason: Pain, moderate (4-7) Last Admin: 05/09/18 06:45 Dose: 1 mg Ondansetron HCl (Zofran Inj) 4 mg IVP Q6 PRN PRN Reason: Nausea/Vomiting Last Admin: 05/08/18 19:01 Dose: 4 mg Pantoprazole Sodium (Protonix Inj) 40 mg IVP DAILY@0600 [facility] Last Admin: 05/09/18 05:22 Dose: 40 mg - Labs Labs: 05/09/18 07:50 05/09/18 06:00 Attending/Attestation - Attestation I have fully participated in the care of the patient.: Yes I have reviewed all pertinent clinical information, including history, physical exam and plan: Yes Notes (Text): 05/09/18 11:14 DM/HTN PUD GERD Hiatal hernia COPD Pneumonia - Diet as tolerated, recommend small quantity frequent meals given presence of large paraesophageal hernia - Consider CT surgical consultation given recurrent patient vomiting - Continue with PPI therapy - Continue to monitor H/H, no features of overt bleeding noted - Will continue to monitor patient clinical course
--- NOTE | 2018-05-09 11:01 | PN ---
DATE: 05/09/2018 SUBJECTIVE: She is resting comfortably in bed. She slept fairly well. She still feeling weak. She is being seen by Infectious Disease, GI and Pulmonary. She has a few issues going on, left lower lobe pneumonia, SIRS, nausea, vomiting, GI shows there is no GI bleed. PHYSICAL EXAMINATION: GENERAL: She is tired and weak. VITAL SIGNS: She has 98 temperature, 67 pulse, 106/59 blood pressure, 20 respiratory rate, 96% O2 sat on 2 liters. HEENT: Head is atraumatic, normocephalic. HEART: Regular rate. LUNGS: Decreased breath sounds. ABDOMEN: Soft and nontender. Positive bowel sounds. EXTREMITIES: No edema, but weak. MEDICATIONS: She is currently on Brovana, Merrem, morphine, Protonix, Pulmicort, Reglan, IV fluids, vancomycin IV and Zofran IV as needed. LABORATORY DATA: She has a white count of 5.9 better, hemoglobin dropped from 10.9 to 8.2, hematocrit 26.2, platelets are 182. I will add some iron. Sodium 137, potassium 4.2, BUN 11, creatinine 1, GFR is 52, sugar is 125, calcium is 8, total bilirubin is 0.2. AST is 22, ALT is 11, alk phos 58, continue with IV antibiotics. She might need physical therapy. I will order physical therapy for their advice. She has 10.9 hemoglobin, 28.2 hematocrit which is 2.7 grams of loss of hemoglobin. She might need a blood transfusion. We will continue with IV antibiotics, get out of bed to chair physical therapy recommend. Hopefully she will improve. She is here for SIRS, left lower lobe pneumonia, now anemia, coffee-ground emesis on 2.7 drop in hemoglobin. Dante Mcdaniel DO MTDGarry
[2018-05-09] MEDS: Insulin Reg-MEDIUM-Coverage SC SCH ×4 (11:11→22:19)
[2018-05-09] MEDS: Meropenem IV 1 gm in NS 1 GM/50 ML BAG IVPB SCH ×2 (11:11→21:19)
[2018-05-09] MEDS: Vancomycin 1gm in NS 250ml 1 GM/250 ML BAG IVPB SCH ×2 (11:20→21:20)
--- NOTE | 2018-05-09 13:44 | PN ---
DATE: 05/09/2018 PULMONARY PROGRESS NOTE REFERRING PHYSICIAN: Dr. Dante Mcdaniel. SUBJECTIVE: The patient is lying in bed. No acute distress. Complaining of generalized body ache. Denies cough, shortness of breath, chest pain, nausea, vomiting, diarrhea, leg pain, or leg swelling at this time. OBJECTIVE: GENERAL: No acute distress. VITAL SIGNS: Blood pressure 106/59, pulse 67, temperature 98, and oxygen saturation 96% on room air. HEENT: Moist mucous membranes. Crowded airway. Mallampati score of 4. NECK: Supple. No JVD. RESPIRATORY: Few rhonchi bilaterally. CARDIOVASCULAR: S1 and S2. ABDOMEN: Soft; positive epigastric tenderness. EXTREMITIES: No bilateral lower extremity edema. NEUROLOGIC: Awake, alert, and verbal. Follows commands. MEDICATIONS: Reviewed. Brovana 15 mcg inhalation every 12 hours, Pulmicort 0.5 mg inhalation every 12 hours, Humulin R sliding scale before meals and at bedtime, meropenem 1 g every 12 hours, Reglan 5 mg before meals and at bedtime, morphine 1 mg every 4 hours p.r.n., Zofran 4 mg IV push every 6 hours p.r.n., Protonix 40 mg daily, sodium chloride 0.9% 1000 mL at 80 mL per hour, and vancomycin 1 g every 12 hours. LABORATORY DATA: Reviewed. WBC 5.9, RBC 2.74, hemoglobin 8.2, hematocrit 26.2, and platelets 182. Sodium 137, potassium 4.2, chloride 105, carbon dioxide , BUN 11, creatinine 1, GFR 52, POC glucose 141, random glucose 125, calcium 8, total bilirubin 0.2, AST 22, ALT 11, alkaline phosphatase 58, total protein 5.6, albumin 3, globulin 2.6, albumin-globulin ratio 1.1, and procalcitonin less than 0.05. Blood cultures preliminary, no growth after 24 hours. Urine culture final, no growth. IMPRESSION AND PLAN: Infiltrate seen on CT scan. Procalcitonin is negative. Chronic obstructive pulmonary disease, dementia, anemia, gastroesophageal reflux disease, hiatal hernia, and arthritis. Infiltrate on CT scan may be aspiration as the patient had episode of hematemesis. The patient will need followup chest x-ray to evaluate stability of infiltrate. Continue inhaled bronchodilators. Continue sequential compression devices to bilateral lower extremities for deep venous thrombosis prophylaxis. The patient will need close cardiopulmonary monitoring, allow sedated as we suspect sleep apnea syndrome in this patient. We will change Protonix from daily to twice a day. The patient will need followup CBC in the morning. This patient seen and examined with Dr. Smith. Discussed assessment and plan as described above. This patient seen and examined with Harsha Comer, nurse practitioner. Discussed assessment and plan as described above. Thank you for this consult. We will follow with you. Harsha Comer APN Malaika Smith MD [facility]
--- NOTE | 2018-05-09 16:06 | CP.PCM.APN ---
Subjective - Date & Time of Evaluation Date of Evaluation: 05/09/18 Time of Evaluation: 11:10 - Subjective Subjective: Pt. seen and examined at bedside. Denied further vomiting, denied abdominal pain at present, denied nausea, states tolerated breakfast, pancakes and eggs. Objective - Vital Signs/Intake and Output Vital Signs (last 24 hours): Temp Pulse Resp BP Pulse Ox 98 F 67 20 106/59 L 96 05/09/18 08:12 05/09/18 08:12 05/09/18 08:12 05/09/18 08:12 05/09/18 08:12 Intake and Output: 05/09/18 05/09/18 06:59 18:59 Intake Total 860 Output Total 700 Balance 160 - Medications Medications: Current Medications Acetaminophen (Tylenol 325mg Tab) 650 mg PO Q4 PRN PRN Reason: Headache Last Admin: 05/09/18 15:00 Dose: 650 mg Arformoterol Tartrate (Brovana) 15 mcg IH [id number] [facility] Last Admin: 05/09/18 07:50 Dose: 15 mcg Budesonide (Pulmicort Respules) 0.5 mg IH [id number] [facility] Last Admin: 05/09/18 07:50 Dose: 0.5 mg Meropenem (Merrem Iv 1 Gm Premix) 1 gm in 50 mls @ 100 mls/hr IVPB Q12 [facility]; Protocol Last Admin: 05/09/18 11:11 Dose: 100 mls/hr Vancomycin HCl (Vancomycin 1gm) 1 gm in 250 mls @ 167 mls/hr IVPB Q12H [facility]; Protocol Last Admin: 05/09/18 11:20 Dose: 167 mls/hr Sodium Chloride (Sodium Chloride 0.9%) 1,000 mls @ 80 mls/hr IV .[id number] [facility] Last Admin: 05/08/18 22:24 Dose: 80 mls/hr Insulin Human Regular (Humulin R Med) 0 units SC ACHS [facility]; Protocol Last Admin: 05/09/18 13:08 Dose: 3 units Metoclopramide HCl (Reglan) 5 mg IVP ACHS [facility] Last Admin: 05/09/18 15:01 Dose: 5 mg Morphine Sulfate (Morphine) 1 mg IVP Q4H PRN PRN Reason: Pain, moderate (4-7) Last Admin: 05/09/18 12:21 Dose: 1 mg Ondansetron HCl (Zofran Inj) 4 mg IVP Q6 PRN PRN Reason: Nausea/Vomiting Last Admin: 05/08/18 19:01 Dose: 4 mg Pantoprazole Sodium (Protonix Inj) 40 mg IVP Q12H [facility] Last Admin: 05/09/18 15:00 Dose: 40 mg - Labs Labs: 05/09/18 07:50 05/09/18 06:00 - Constitutional Appears: Well, Non-toxic - Head Exam Head Exam: NORMOCEPHALIC - Eye Exam Eye Exam: Normal appearance - Neck Exam Neck Exam: Full ROM - Respiratory Exam Respiratory Exam: Clear to Ausculation Bilateral, NORMAL BREATHING PATTERN - Cardiovascular Exam Cardiovascular Exam: REGULAR RHYTHM, +S1, +S2 - GI/Abdominal Exam GI & Abdominal Exam: Soft - Rectal Exam Rectal Exam: Deferred - Exam Exam: absent: Circumcision, NORMAL INSPECTION, Scrotal Swelling, Testicular Tenderness, Uretheral Discharge, Testicular Vertical Lie, Bladder Distension Speculum exam: absent: Cervical Discharge, Erythema, Foreign Body, Laceration, NORMAL SPECULUM EXAM, Tissue, Vaginal Bleeding, Vaginal Discharge Bimanual exam: absent: Adenexal Mass, Adnexal, Cervical Motion Tendernes, NORMAL BIMANUAL EXAM, Uterine Enlargement, Uterine Tenderness - Extremities Exam Extremities Exam: Full ROM - Neurological Exam Neurological Exam: Alert, Awake, Oriented x3 - Psychiatric Exam Psychiatric exam: Normal Affect, Normal Mood - Skin Skin Exam: Dry, Intact, Normal Color, Warm Assessment and Plan - Assessment and Plan (Free Text) Assessment: ITS Impressions Chest X-Ray 05/07/18 23:21 IMPRESSION: No active disease. Abdomen/Pelvis CT 05/08/18 02:34 IMPRESSION: No acute or significant findings related to/ accounting for the clinical presentation. Additional benign and/or incidental findings described above. No significant interval change compared to the prior examination(s). Concordant findings (preliminary report) provided by [facility]. Assessment: 87 year old female with PMH of DM, HTN, CAD, COPD, Arthritis, S/P hysterectomy, S/P tonsillectomy, History of right hip surgery, Left hip fracture S/P intramedullary fixation, S/P treatment for PSeudomembranous colitis, now admitted with coffee ground emesis at half-way.CT ED resulted stable left lower infiltrates, admitted for further eval and treatment. Plan: 1. Pneumonia left lower lobe, Antibx per I.D., follow cbc. 2. Hematemesis GI consulted, monitor H/H, doubt active bleed, cont. Protonix, no workup recommended. 3. Anemia Monitor H/H, monitor, check Iron, Ferritin, B12, Folate. Will continue to monitor clinical status and follow closely. D/w consultants, PMD.
[2018-05-09] MEDS: Sodium Chloride 0.9% 1,000 ML IV SCH (18:05)
--- NOTE | 2018-05-09 21:15 | CP.PCM.PN ---
Subjective - Date & Time of Evaluation Date of Evaluation: 05/09/18 Time of Evaluation: 11:40 - Subjective Subjective: No fevers, not in distress. Objective - Vital Signs/Intake and Output Vital Signs (last 24 hours): Temp Pulse Resp BP Pulse Ox 98 F 72 18 120/68 98 05/08/18 09:05 05/08/18 09:05 05/08/18 14:56 05/08/18 09:05 05/08/18 09:05 - Medications Medications: Current Medications Arformoterol Tartrate (Brovana) 15 mcg IH [id number] [facility] Budesonide (Pulmicort Respules) 0.5 mg IH [id number] [facility] Meropenem (Merrem Iv 1 Gm Premix) 1 gm in 50 mls @ 100 mls/hr IVPB Q12 [facility]; Protocol Last Admin: 05/08/18 13:35 Dose: 100 mls/hr Vancomycin HCl (Vancomycin 1gm) 1 gm in 250 mls @ 167 mls/hr IVPB Q12H [facility]; Protocol Last Admin: 05/08/18 10:42 Dose: 167 mls/hr Sodium Chloride (Sodium Chloride 0.9%) 1,000 mls @ 80 mls/hr IV .[id number] [facility] Last Admin: 05/08/18 10:42 Dose: 80 mls/hr Insulin Human Regular (Humulin R Med) 0 units SC ACHS [facility]; Protocol Last Admin: 05/08/18 12:15 Dose: 1 units Metoclopramide HCl (Reglan) 5 mg IVP [facility] Last Admin: 05/08/18 12:15 Dose: 5 mg Morphine Sulfate (Morphine) 1 mg IVP Q4H PRN PRN Reason: Pain, moderate (4-7) Last Admin: 05/08/18 15:10 Dose: 1 mg Ondansetron HCl (Zofran Inj) 4 mg IVP Q6 PRN PRN Reason: Nausea/Vomiting Pantoprazole Sodium (Protonix Inj) 40 mg IVP DAILY@0600 [facility] - Labs Labs: 05/07/18 22:48 05/07/18 22:48 - Constitutional Appears: Chronically Ill - Head Exam Head Exam: NORMAL INSPECTION - Respiratory Exam Respiratory Exam: Decreased Breath Sounds - Cardiovascular Exam Cardiovascular Exam: +S1, +S2 - GI/Abdominal Exam GI & Abdominal Exam: Soft. absent: Tenderness Assessment and Plan - Assessment and Plan (Free Text) Plan: Assessment systemic inflammatory response syndrome due to left lower lobe HCAP history of Left hip fracture S/P intramedullary fixation sustained after a fall S/P treatment for PSeudomembranous colitis S/P colonoscopy and colonic polyp removal S/P UTI with Morganella morgagni S/P treatment with Ciprofloxacin and S/P treatment of recurrent UTI with Nitrofurantoin Enterococcus in the urine S/P treatment with Nitrofurantoin Urinary incontinence DM HTN CAD COPD Arthritis S/P hysterectomy S/P tonsillectomy History of right hip surgery Plan continue Vancomycin and Merrem day 2 pending final blood,sputum cx results; PCT is low; reviewed CT A/P discussed with Dr. Mcdaniel previously
[2018-05-10] MEDS: Morphine 2 mg/ml ISec IVP PRN (01:27)
[2018-05-10 06:32] LABS: HEMOGLOBIN 8.9 g/dL (12.0-16.0); MEAN CELL VOLUME 94.7 fl (80.0-105.0); MEAN CORPUSCULAR HEMOGLOBIN 29.6 pg (25.0-35.0); MEAN CORPUSCULAR HGB CONC 31.2 g/dl (31.0-37.0); MEAN PLATELET VOLUME 8.6 fl (7.0-11.0); RBC 3.01 10^6/uL (3.5-6.1); RED CELL DISTRIBUTION WIDTH 14.3 % (11.5-14.5)
[2018-05-10 07:12] LABS: ALB/GLOB RATIO 1.1 (1.1-1.8); ALBUMIN 3.1 g/dL (3.0-4.8); ALT/SGPT 12 U/L (7-56); AST/SGOT 19 U/L (14-36); BLOOD UREA NITROGEN 12 mg/dL (7-21); CALCIUM 8.3 mg/dL (8.4-10.5); GFR NON-AFRICAN AMERICAN 52
[2018-05-10] MEDS: Arformoterol 15 mcg/2 ml Inh Sol IH SCH (07:57)
[2018-05-10] MEDS: Budesonide 0.5 mg/2 ml Inhal Susp UD IH SCH (07:57)
[2018-05-10] MEDS: Insulin Reg-MEDIUM-Coverage SC SCH (08:00)
[2018-05-10] MEDS: Vancomycin 1gm in NS 250ml 1 GM/250 ML BAG IVPB SCH (08:28)
[2018-05-10 08:34] VITALS: BP 154/78; PULSE 81; TEMP 98.1; O2SAT 95
[2018-05-10] MEDS ORDERED: Amoxicillin-Clav 875-125 mg Tab PO SCH (10:00)
--- NOTE | 2018-05-10 10:26 | CP.PCM.PN ---
<Devi Sommers - Last Filed: 05/10/18 10:26> Subjective - Date & Time of Evaluation Date of Evaluation: 05/10/18 Time of Evaluation: 08:00 - Subjective Subjective: PGY 5 GI Follow-up Pt seen and examined bedside Has mild epigastric pain but sig improved Denies any nausea or vomiting Denies any rectal bleeding ROS: 12 point ROS conducted, neg other than above Objective - Vital Signs/Intake and Output Vital Signs (last 24 hours): Temp Pulse Resp BP Pulse Ox 98.1 F 81 20 154/78 H 95 05/10/18 06:00 05/10/18 06:00 05/10/18 06:00 05/10/18 06:00 05/10/18 06:00 Intake and Output: 05/10/18 05/10/18 06:59 18:59 Intake Total 1140 Output Total 2500 Balance -1360 - Medications Medications: Current Medications Acetaminophen (Tylenol 325mg Tab) 650 mg PO Q4 PRN PRN Reason: Headache Last Admin: 05/10/18 07:49 Dose: 650 mg Amoxicillin/Clavulanate Potassium (Augmentin 875 Mg-125 Mg Tab) 1 tab PO Q12 [facility]; Protocol Last Admin: 05/10/18 10:06 Dose: 1 tab Arformoterol Tartrate (Brovana) 15 mcg IH [id number] [facility] Last Admin: 05/10/18 07:57 Dose: 15 mcg Budesonide (Pulmicort Respules) 0.5 mg IH [id number] [facility] Last Admin: 05/10/18 07:57 Dose: 0.5 mg Vancomycin HCl (Vancomycin 1gm) 1 gm in 250 mls @ 167 mls/hr IVPB Q12H [facility]; Protocol Last Admin: 05/10/18 08:28 Dose: 167 mls/hr Sodium Chloride (Sodium Chloride 0.9%) 1,000 mls @ 80 mls/hr IV .[id number] [facility] Last Admin: 05/09/18 18:05 Dose: 80 mls/hr Insulin Human Regular (Humulin R Med) 0 units SC [facility]; Protocol Last Admin: 05/10/18 08:00 Dose: Not Given Metoclopramide HCl (Reglan) 5 mg IVP ACHS [facility] Last Admin: 05/10/18 08:00 Dose: Not Given Morphine Sulfate (Morphine) 1 mg IVP Q4H PRN PRN Reason: Pain, moderate (4-7) Last Admin: 05/10/18 01:27 Dose: 1 mg Ondansetron HCl (Zofran Inj) 4 mg IVP Q6 PRN PRN Reason: Nausea/Vomiting Last Admin: 05/08/18 19:01 Dose: 4 mg Pantoprazole Sodium (Protonix Inj) 40 mg IVP Q12H [facility] Last Admin: 05/10/18 01:33 Dose: 40 mg - Labs Labs: 05/10/18 06:10 05/10/18 06:10 - Constitutional Appears: Well, No Acute Distress - Head Exam Head Exam: ATRAUMATIC, NORMOCEPHALIC - Eye Exam Eye Exam: Normal appearance - ENT Exam ENT Exam: Mucous Membranes Moist, Normal Exam - Neck Exam Neck Exam: Normal Inspection - Respiratory Exam Respiratory Exam: Clear to Ausculation Bilateral, NORMAL BREATHING PATTERN. absent: Rales, Rhonchi, Wheezes, Respiratory Distress - Cardiovascular Exam Cardiovascular Exam: REGULAR RHYTHM, +S1, +S2 - GI/Abdominal Exam GI & Abdominal Exam: Soft, Tenderness (epigastric), Normal Bowel Sounds - Rectal Exam Rectal Exam: NORMAL INSPECTION - Extremities Exam Extremities Exam: absent: Joint Swelling, Pedal Edema - Neurological Exam Neurological Exam: Alert, Awake, Oriented x3 - Psychiatric Exam Psychiatric exam: Normal Affect, Normal Mood - Skin Skin Exam: Dry, Intact, Normal Color, Warm Assessment and Plan - Assessment and Plan (Free Text) Assessment: Pt is an 87 yo Hisp Female with h/o Erosive Esophagitis, Large Hiatal Hernia, PUD, GERD, DM, HTN, COPD presenting with black emesis at [place]. Abd pain, etiology: gastritis?, hiatial hernia? h/o PUD Anemia, etiology chronic disease? Hiatal hernia hx of Erosive Esophagitis H/o tubular adenomas Diverticulosis Plan: -hgb stable - continue protonix 40mg daily - advance diet to heart healthy - continue miralax, transfuse if hgb <7 - no indication of GI bleed, no indication of repeat EGD -okay to d/c from GI standpoint - advised small frequent meals Pt discussed with Dr. Cancino; please see attestation for further recs/changes. <Dejan Cancino Y - Last Filed: 05/10/18 10:59> Objective - Vital Signs/Intake and Output Vital Signs (last 24 hours): Temp Pulse Resp BP Pulse Ox 98.1 F 81 20 154/78 H 95 05/10/18 06:00 05/10/18 06:00 05/10/18 06:00 05/10/18 06:00 05/10/18 06:00 Intake and Output: 05/10/18 05/10/18 06:59 18:59 Intake Total 1140 Output Total 2500 Balance -1360 - Medications Medications: Current Medications Acetaminophen (Tylenol 325mg Tab) 650 mg PO Q4 PRN PRN Reason: Headache Last Admin: 05/10/18 07:49 Dose: 650 mg Amoxicillin/Clavulanate Potassium (Augmentin 875 Mg-125 Mg Tab) 1 tab PO Q12 [facility]; Protocol Last Admin: 05/10/18 10:06 Dose: 1 tab Arformoterol Tartrate (Brovana) 15 mcg IH [id number] [facility] Last Admin: 05/10/18 07:57 Dose: 15 mcg Budesonide (Pulmicort Respules) 0.5 mg IH [id number] [facility] Last Admin: 05/10/18 07:57 Dose: 0.5 mg Vancomycin HCl (Vancomycin 1gm) 1 gm in 250 mls @ 167 mls/hr IVPB Q12H [facility]; Protocol Last Admin: 05/10/18 08:28 Dose: 167 mls/hr Sodium Chloride (Sodium Chloride 0.9%) 1,000 mls @ 80 mls/hr IV .[id number] [facility] Last Admin: 05/09/18 18:05 Dose: 80 mls/hr Insulin Human Regular (Humulin R Med) 0 units SC ACHS [facility]; Protocol Last Admin: 05/10/18 08:00 Dose: Not Given Metoclopramide HCl (Reglan) 5 mg IVP ACHS [facility] Last Admin: 05/10/18 08:00 Dose: Not Given Morphine Sulfate (Morphine) 1 mg IVP Q4H PRN PRN Reason: Pain, moderate (4-7) Last Admin: 05/10/18 01:27 Dose: 1 mg Ondansetron HCl (Zofran Inj) 4 mg IVP Q6 PRN PRN Reason: Nausea/Vomiting Last Admin: 05/08/18 19:01 Dose: 4 mg Pantoprazole Sodium (Protonix Inj) 40 mg IVP Q12H [facility] Last Admin: 05/10/18 01:33 Dose: 40 mg - Labs Labs: 05/10/18 06:10 05/10/18 06:10 Attending/Attestation - Attestation I have personally seen and examined this patient.: Yes I have fully participated in the care of the patient.: Yes I have reviewed all pertinent clinical information, including history, physical exam and plan: Yes Notes (Text): 05/10/18 10:57 I have seen and examined patient with GI fellow. No acute events overnight, she is seen resting in bed comfortably. No recurrent abdominal pain or vomiting since she has been in hospital. Tolerating PO diet without difficulty. DM/HTN COPD Vomiting, paraesophageal hernia Anemia Dementia Pneumonia - Diet as tolerated, suggest small quantity frequent meals throughout the day - H/H stable, continue to monitor - Continue with antibiotic therapy as per ID - Suggest CT surgical evaluation in future if recurrent vomiting occurs given paraesophageal hernia - No further planned GI intervention, will sign off case. Please reconsult as necessary, thank you.
[2018-05-10 12:16] LABS: FERRITIN 15.8 ng/mL
--- NOTE | 2018-05-10 12:45 | PN ---
DATE: 05/10/2018 PULMONARY PROGRESS NOTE REFERRING PHYSICIAN: Dante Mcdaniel DO SUBJECTIVE: The patient is seen sitting up in bed. No acute distress. No overnight events reported. No headaches, rhinitis, cough, shortness of breath, chest pain, abdominal pain, nausea, vomiting, diarrhea, leg pain, or leg swelling reported. OBJECTIVE: GENERAL: No acute distress. VITAL SIGNS: Blood pressure 154/78, pulse 81, temperature 98.1, and oxygen saturation 95% on room air. HEENT: Moist mucous membranes. Crowded airway. Mallampati score of 4. NECK: Supple. No JVD. RESPIRATORY: Fair flow bilaterally. CARDIOVASCULAR: S1 and S2. ABDOMEN: Soft, nontender, no distension, no organomegaly. EXTREMITIES: No bilateral lower extremity edema. NEUROLOGIC: Awake, alert, and verbal. Follows commands. MEDICATIONS: Reviewed. Tylenol 650 every 4 hours p.r.n., Augmentin one tablet every 12 hours, Brovana 15 mcg every 12 hours, Pulmicort 0.5 mg every 12 hours, Humulin R sliding scale before meals and at bedtime, Reglan 5 mg before meals and at bedtime, morphine 1 mg every 4 hours p.r.n., Zofran 4 mg every 6 hours p.r.n., Protonix 40 mg every 12 hours, sodium chloride 0.9% 1000 mL at 80 mL per hour, and vancomycin 1 g every 12 hours. LABORATORY DATA: Reviewed. WBC 7, RBC 3.01, hemoglobin 8.9, hematocrit 28.5, and platelets 196. Sodium 138, potassium 4.1, chloride 107, carbon dioxide 27, anion gap 9, BUN 12, creatinine 1, GFR 52, POC glucose 133, random glucose 118, calcium 8.3, total bilirubin 0.3, AST 19, ALT 12, alkaline phosphatase 60, total protein 5.9, albumin 3.1, globulin 2.7, albumin-globulin ratio 1.1, and vitamin B12 pending. Blood cultures preliminary, no growth over 24 hours. IMPRESSION AND PLAN: Infiltrate seen on CT scan. Procalcitonin is negative. Chronic obstructive pulmonary disease, dementia, anemia, gastroesophageal reflux disease, hiatal hernia, and arthritis and suspected infiltrate may have been aspiration as the patient had episode of hematemesis upon coming to emergency room. The patient will need followup chest x-ray to evaluate stability of infiltrate. Continue inhaled bronchodilators, sequential compression devices to bilateral lower extremities for deep venous thrombosis prophylaxis. Head of bed elevated 45 degrees. Fall precaution. The patient is cleared from gastrointestinal perspective and possibly scheduled for discharge to home today. We did suspect sleep apnea syndrome in this patient. The patient will need sleep study as outpatient. This patient seen and examined with Dr. Smith. Discussed assessment and plan as described above. This patient seen and examined with Harsha Comer, nurse practitioner. Discussed assessment and plan as described above. Thank you for this consult. We will follow with you. Harsha Comer APN Malaika Smith MD
[2018-05-10 12:46] LABS: FOLATE 10.1 ng/mL
--- NOTE | 2018-05-10 12:51 | CP.PCM.PCO ---
Physician Communication Note - Physician Communication Note Physician Communication Note: PCT <0.05, cultures neg, switch to PO Augmentin fot 3-4 days
--- NOTE | 2018-05-10 22:52 | DS ---
HISTORY OF PRESENT ILLNESS: She is doing better. She does not want to be in the hospital anymore getting stronger. PHYSICAL EXAMINATION: VITAL SIGNS: She has a 98.1 temperature, 81 pulse, blood pressure, 20 respiratory rate, and 95% O2 sat on room air. HEENT: Head is atraumatic and normocephalic. HEART: Regular rate. LUNGS: Decreased breath sounds, but clear. ABDOMEN: Soft. EXTREMITIES: No edema eating and going to the bathroom. MEDICATIONS: She is on Brovana, insulin, Merrem, morphine, Protonix, Pulmicort, Reglan, IV fluids, Tylenol, vancomycin, and Zofran. LABORATORY DATA: White count 7, hemoglobin 8.9, hematocrit 20.5, and platelets 106. Sodium 138, potassium 4.1, BUN is 12, creatinine 1, GFR is 62, sugar is 118, calcium is 8.3, and total bili is 0.3. AST is 19, ALT is 12, alk phos is 60, and total protein is 5.9. ASSESSMENT AND PLAN: I am hoping to discharge her back to [facility] today, antibiotics as per Infectious Disease. She might need a few more days of IV antibiotics. I think we are going to do this at [facility] where she lives primarily. She has systemic inflammatory response syndrome and left lower lobe pneumonia. Dante Mcdaniel DO [place]
== END 2018-05-10 12:25 | DRG 194 ==
LOC: ED 22:07 → ERH 05-08 06:41 → 3RNO 05-08 09:21
PROVIDERS: ADMIT Family Medicine; ATTEND Family Medicine
PROC: 3E0F7GC Introduction of Other Therapeutic Substance into Respiratory Tract, Via Natural or Artificial Opening (ICD-10-PCS; principal; 2018-05-08)
DX: J18.1 Lobar pneumonia, unspecified organism (principal); J44.0 Chronic obstructive pulmonary disease with (acute) lower respiratory infection; K92.0 Hematemesis; I10 Essential (primary) hypertension; E11.9 Type 2 diabetes mellitus without complications; I25.10 Atherosclerotic heart disease of native coronary artery without angina pectoris; D63.8 Anemia in other chronic diseases classified elsewhere; F03.90 Unspecified dementia, unspecified severity, without behavioral disturbance, psychotic disturbance, mood disturbance, and anxiety; K21.0 Gastro-esophageal reflux disease with esophagitis; K27.9 Peptic ulcer, site unspecified, unspecified as acute or chronic, without hemorrhage or perforation; K57.30 Diverticulosis of large intestine without perforation or abscess without bleeding; K29.70 Gastritis, unspecified, without bleeding; K44.9 Diaphragmatic hernia without obstruction or gangrene; N28.1 Cyst of kidney, acquired; Y95 Nosocomial condition; Z86.73 Personal history of transient ischemic attack (TIA), and cerebral infarction without residual deficits; Z87.440 Personal history of urinary (tract) infections; Z86.010 Personal history of colon polyps; Z87.891 Personal history of nicotine dependence

== ENCOUNTER 2018-07-31 12:18 | Inpatient (IN) | payer MEDICARE, OTHER ==
--- NOTE | 2018-07-31 12:26 | ED PDOC ---
Arrival/HPI - General Time Seen by Provider: 07/31/18 12:21 - History of Present Illness Narrative History of Present Illness (Text): 07/31/18 12:25 Patient is an 87 y/o F with hx of COPD, dementia, PUD, GERD, on protonix and zantac, hematemesis, with endoscopy in April 2018 showing gastritis and paraesophageal hernia, presenting with another episode of hematemesis at halfway. Patient informs of multiple episodes of black vomit since last night; also informs of abdominal pain since yesterday. Notes cough secondary to episodes of vomiting. Patient denies nausea currently in the ED. Pt denies fevers, shortness of breath, chest pain, diarrhea, constipation, dysuria, hematuria, or any other complaints Time/Duration: 24 hours (yesterday) Symptom Onset: Sudden Activities at Onset: Light Context: Other (halfway) Past Medical History - Provider Review Nursing Documentation Reviewed: Yes Primary Care Provider: Dante Mcdaniel - Infectious Disease Hx of Infectious Diseases: None - Tetanus Immunization Tetanus Immunization: Unknown - Reproductive Menopause: Yes - Cardiac Hx Cardiac Disorders: Yes Hx Hypertension: Yes - Pulmonary Hx Respiratory Disorders: Yes (USED TO SMOKE CIGARETTES) Hx Chronic Obstructive Pulmonary Disease (COPD): Yes - Neurological Hx Neurological Disorder: Yes HX Cerebrovascular Accident: No Hx Dementia: Yes Hx Dizziness: Yes - HEENT Hx HEENT Disorder: No Hx Blind: No Hx Cataracts: No Hx Deafness: No Hx Difficulty Chewing: No Hx Epistaxis: No Hx Glaucoma: No Hx Macular Degeneration: No - Renal Hx Renal Failure: No - Endocrine/Metabolic Hx Endocrine Disorders: Yes Hx Diabetes Mellitus Type 2: Yes - Hematological/Oncological Hx Blood Disorders: Yes Hx AIDS: No Hx Anemia: Yes Hx Hepatitis C: No - Integumentary Hx Dermatological Disorder: No Hx Basal Cell Carcinoma: No Hx Eczema: No Hx Melanoma: No Hx Psoriasis: No Hx Squamous Cell Carcinoma: No - Musculoskeletal/Rheumatological Hx Arthritis: Yes - Gastrointestinal Hx Gastrointestinal Disorders: Yes (DIVERTICULOSIS,DIAPHRAGMATIC HERNIA,PUD) Hx Colostomy: No Hx Crohn's Disease: No Hx Gall Bladder Disease: No Hx Gastroesophageal Reflux: Yes Hx Ileostomy: No Hx Liver Failure: No Hx Pancreatitis: No HX Swallowing Problems: No - Genitourinary/Gynecological Hx Genitourinary Disorders: Yes Hx Hematuria: Yes Hx Incontinence: Yes Hx Sexually Transmitted Diseases: No Hx Urinary Tract Infection: No - Psychiatric Hx Psychophysiologic Disorder: Yes (INSOMNIA) Hx Anxiety: Yes Hx Depression: Yes Hx Substance Use: No - Surgical History Hx Amputation: No Hx Appendectomy: No Hx Cardiac Catheterization: No Hx Cholecystectomy: No Hx Coronary Stent: No Hx Gastric Bypass Surgery: No Hx Hysterectomy: Yes Hx Joint Replacement: No Hx Kidney Transplant: No Hx Liver Transplant: No Hx Mastectomy: No Hx Musculoskeletal Surgery: No Hx Open Heart Surgery: No Hx Orthopedic Surgery: Yes Hx Splenectomy: No Hx Valve Replacement: No Other/Comment: Tonsillectomy - Anesthesia Hx Anesthesia: Yes Hx Anesthesia Reactions: No (UNKNOWN) Hx Malignant Hyperthermia: No (UNKNOWN) - Suicidal Assessment Feels Threatened In Home Enviroment: No Family/Social History - Physician Review Nursing Documentation Reviewed: Yes Family/Social History: Unknown Family HX Smoking Status: Never Smoked Hx Alcohol Use: No Hx Substance Use: No Hx Substance Use Treatment: No Allergies/Home Meds Allergies/Adverse Reactions: Allergies aspirin Allergy (Verified 05/07/18 22:21) NAUSEA Home Medications: Home Meds Medication Instructions Recorded Confirmed Acetaminophen [Tylenol] 650 mg PO PRN PRN 07/31/18 07/31/18 Lactulose [Enulose] 10 gm PO DAILY 07/31/18 07/31/18 Metoclopramide HCl [Reglan] 5 mg PO HS PRN 07/31/18 07/31/18 Mylanta 07/31/18 Pantoprazole Sodium [Protonix] 40 mg PO BID 07/31/18 07/31/18 Ranitidine HCl [Zantac] 150 mg PO BID 07/31/18 07/31/18 SITagliptin [Januvia] 50 mg PO DAILY 07/31/18 07/31/18 Sertraline [Zoloft] 12.5 mg PO HS PRN 07/31/18 07/31/18 traMADol [Ultram] 50 mg PO TID PRN 07/31/18 07/31/18 Review of Systems - Review of Systems Constitutional: absent: Fevers Eyes: absent: Vision Changes ENT: absent: Hearing Changes Respiratory: Cough. absent: SOB Cardiovascular: absent: Chest Pain Gastrointestinal: Abdominal Pain, Nausea, Hematemesis Genitourinary Female: absent: Dysuria, Hematuria Skin: absent: Rash Physical Exam Temperature: Afebrile Blood Pressure: Normal Pulse: Regular Respiratory Rate: Normal Appearance: Positive for: Well-Appearing, Non-Toxic, Comfortable Pain Distress: None Mental Status: Positive for: Alert and Oriented X 3 - Systems Exam Head: Present: Atraumatic, Normocephalic Pupils: Present: PERRL Extroacular Muscles: Present: EOMI Conjunctiva: Present: Normal Mouth: Present: Moist Mucous Membranes Neck: Present: Normal Range of Motion Respiratory/Chest: Present: Clear to Auscultation, Good Air Exchange. No: Respiratory Distress, Accessory Muscle Use, Rales, Rhonchi Cardiovascular: Present: Normal S1, S2, Tachycardic. No: Murmurs, Rub, Gallop Abdomen: Present: Normal Bowel Sounds. No: Tenderness, Distention, Peritoneal Signs, Rebound, Guarding Back: Present: Normal Inspection Upper Extremity: Present: Normal Inspection. No: Cyanosis, Edema Lower Extremity: Present: Normal Inspection. No: Edema Neurological: Present: GCS=15, CN II-XII Intact, Speech Normal Skin: Present: Warm, Dry, Normal Color. No: Rashes Psychiatric: Present: Alert, Normal Insight, Normal Concentration. No: Oriented x 3 (oriented to person) Medical Decision Making ED Course and Treatment: 07/31/18 12:21 Impression: Pt is an 87 year old female, past medical history of COPD, dementia, PUD, GERD, on protonix and zantac, hematemesis, with endoscopy in April 2018 showing gastritis and paraesophageal hernia, presenting with another episode of hematemesis at halfway. Plan: -- Labs -- Chest X-Ray -- Protonix -- IV Fluids -- Zofran Inj -- Urinalysis -- Reassess and disposition Prior Visits: Notes and results from previous visits were reviewed. Progress Notes: 07/31/18 14:[address] Mcdaniel who requests urine / blood cultures and GI consult 07/31/18 14:08 Dr. Mcdaniel evaluated patient at beside; states pt is not her usual self and is concerned for sepsis. Requests abx and consult per Dr. Tejada (medical service) 07/31/18 15:21 CT abd/pelvis IMPRESSION: There is a large hiatal hernia. There is an air-fluid level within the hernia. There is severe mural thickening in the body of the stomach at the level of the diaphragm. This finding may represent gastritis or neoplastic lesion. 07/31/18 16:01 - Scribe Statement The provider has reviewed the documentation as recorded by the Scribe Claudio Oconnell All medical record entries made by the Scribe were at my direction and personally dictated by me. I have reviewed the chart and agree that the record accurately reflects my personal performance of the history, physical exam, medical decision making, and the department course for this patient. I have also personally directed, reviewed, and agree with the discharge instructions and disposition. Disposition/Present on Arrival - Present on Arrival Any Indicators Present on Arrival: No History of DVT/PE: No History of Uncontrolled Diabetes: Yes Urinary Catheter: No History of Decub. Ulcer: No History Surgical Site Infection Following: None - Disposition Have Diagnosis and Disposition been Completed?: Yes Diagnosis: SIRS (systemic inflammatory response syndrome), Hematemesis Disposition: HOSPITALIZED Disposition Time: 13:13 Patient Plan: Telemetry Patient Problems: Current Active Problems Problem Status Onset SIRS (systemic inflammatory response syndrome) Acute Hematemesis Acute Condition: FAIR
[2018-07-31] MEDS ORDERED: Sodium Chloride 0.9% 1,000 ML IV SCH ×2 (12:45→14:11)
[2018-07-31] MEDS ORDERED: Pantoprazole 40mg/100mL NS 40 MG/100 ML BAG IVPB SCH (12:45)
[2018-07-31 13:19] LABS: BASO # 0.01 K/mm3 (0.0-2.0); BASO % 0.1 % (0.0-3.0); HEMOGLOBIN 14.1 g/dL (12.0-16.0); LYMPH # 0.8 (1.2-3.4); LYMPH % 4.2 % (22.0-35.0); MEAN CELL VOLUME 89.3 fl (80.0-105.0); MEAN CORPUSCULAR HGB CONC 32.5 g/dl (31.0-37.0); MEAN PLATELET VOLUME 8.8 fl (7.0-11.0); MONO # 1.4 (0.1-0.6); MONO % 7.9 % (1.0-6.0); PLATELET COUNT 287 10^3/uL (120.0-450.0); RBC 4.86 10^6/uL (3.5-6.1); RED CELL DISTRIBUTION WIDTH 15.1 % (11.5-14.5); WHITE BLOOD COUNT 18.3 10^3/uL (4.5-11.0)
[2018-07-31 13:27] LABS: INR 0.99; PARTIAL THROMBOPLASTIN TIME 27.2 Seconds (26.9-38.3); PROTHROMBIN TIME 11.2 SECONDS (9.4-12.5)
[2018-07-31 13:35] LABS: ALB/GLOB RATIO 1.2 (1.1-1.8); ALBUMIN 4.3 g/dL (3.0-4.8); ALT/SGPT 15 U/L (7-56); AST/SGOT 30 U/L (14-36); BLOOD UREA NITROGEN 32 mg/dL (7-21); CALCIUM 9.4 mg/dL (8.4-10.5); GFR NON-AFRICAN AMERICAN 52; LIPASE 32 U/L (23-300)
[2018-07-31] MEDS ORDERED: Sodium Chloride 0.9% 500 ML IV STA (13:45)
[2018-07-31 13:49] LABS: LYMPHOCYTE 8 % (22.0-35.0); MONOCYTE 3 % (1.0-6.0); NEUTROPHIL 89 % (50.0-70.0); PLATELET ESTIMATE NORMAL (NORMAL)
[2018-07-31] MEDS ORDERED: Iohexol 300 100 ML IJ ONE (13:53)
[2018-07-31] MEDS ORDERED: metroNIDAZOLE IV 500 mg/100 ml 500 MG/100 ML BAG IVPB STA (14:04)
[2018-07-31] MEDS ORDERED: cefTRIAXone 1 gm 1 GM/100 ML BAG IVPB STA (14:04)
--- NOTE | 2018-07-31 15:08 | CT ---
Date of service: 07/31/2018 PROCEDURE: CT Abdomen and Pelvis with contrast HISTORY: hematemesis COMPARISON: None. TECHNIQUE: Contrast dose: 100 cc of Omni 300 Radiation dose: Total exam DLP = 338.65 mGy-cm. This CT exam was performed using one or more of the following dose reduction techniques: Automated exposure control, adjustment of the mA and/or kV according to patient size, and/or use of iterative reconstruction technique. FINDINGS: LOWER THORAX: There is a large hiatal hernia. There is an air-fluid level within the hernia. There is severe mural thickening in the body of the stomach at the level of the diaphragm. This finding may represent gastritis or neoplastic lesion. LIVER: Unremarkable. No gross lesion or ductal dilatation. GALLBLADDER AND BILE DUCTS: Gallbladder removed PANCREAS: Unremarkable. No gross lesion or ductal dilatation. SPLEEN: Unremarkable. ADRENALS: Unremarkable. No mass. KIDNEYS AND URETERS: Unremarkable. No hydronephrosis. No solid mass. VASCULATURE: Unremarkable. No aortic aneurysm. Extensive aortic calcification and mural thickening BOWEL: Unremarkable. No obstruction. No gross mural thickening. Severe diverticulosis of the sigmoid colon APPENDIX: Normal appendix. PERITONEUM: Unremarkable. No free fluid. No free air. LYMPH NODES: Unremarkable. No enlarged lymph nodes. BLADDER: Unremarkable. REPRODUCTIVE: Unremarkable. BONES: No acute fracture. OTHER FINDINGS: None. IMPRESSION: There is a large hiatal hernia. There is an air-fluid level within the hernia. There is severe mural thickening in the body of the stomach at the level of the diaphragm. This finding may represent gastritis or neoplastic lesion.
--- NOTE | 2018-07-31 15:16 | RAD ---
Date of service: 07/31/2018 HISTORY: hematemesis, abdominal pain COMPARISON: 05/07/2018 TECHNIQUE: 1 view obtained. FINDINGS: LUNGS: No active pulmonary disease. PLEURA: No significant pleural effusion identified, no pneumothorax apparent. CARDIOVASCULAR: Aortic calcification Normal cardiac size. No pulmonary vascular congestion. OSSEOUS STRUCTURES: No significant abnormalities. VISUALIZED UPPER ABDOMEN: Large hiatal hernia OTHER FINDINGS: None. IMPRESSION: Large hiatal hernia
[2018-07-31 15:49] LABS: URINE BILIRUBIN NEGATIVE (NEGATIVE); URINE BLOOD SMALL (NEGATIVE); URINE GLUCOSE (UA) 250 mg/dL (NEGATIVE); URINE LEUKOCYTE ESTERASE SMALL Leu/uL (NEGATIVE); URINE PROTEIN 100 mg/dL (<30 mg/dL); URINE UROBILINOGEN 0.2 E.U./dL (<1 E.U./dL)
[2018-07-31 15:49] LABS: VENOUS BLOOD GAS PO2 29 mm/Hg (30-55); VENOUS BLOOD PH 7.37 (7.32-7.43)
[2018-07-31 15:59] LABS: URINE APPEARANCE SL CLOUDY (CLEAR); URINE COLOR YELLOW (YELLOW)
[2018-07-31 16:08] LABS: URINE BACTERIA MANY /hpf; URINE WBC 25 - 30 /hpf (0-6)
[2018-07-31] MEDS ORDERED: Sodium Chloride 0.45% 1,000 ML IV SCH (17:45)
--- NOTE | 2018-07-31 18:33 | CARD ---
APPROVED REPORT Date of service: 07/31/2018 EKG Measurement Heart [id number] <Conclusion> Sinus rhythm with premature atrial complexes Anterior infarct, age undetermined NDSTT abnormalities CCR Abnormal ECG
[2018-07-31] MEDS ORDERED: Piperacill/Tazo 4.5gm in NS 4.5 GM/100 ML BAG IVPB SCH (22:00)
[2018-07-31] MEDS: Meropenem IV 1 gm in NS 1 GM/50 ML BAG IVPB SCH (22:29)
[2018-07-31] MEDS: Insulin Reg-MEDIUM-Coverage SC SCH (22:32)
[2018-07-31 23:39] VITALS: BMI 20.5
[2018-07-31] MEDS ORDERED: Pneumococcal 23-Valent Vaccine IM ONE (23:39)
--- NOTE | 2018-08-01 03:19 | HP ---
DATE OF EXAM: 07/31/2018 HISTORY OF PRESENT ILLNESS: I was called down to the emergency room 2 minutes in the hospital. She is an 87-year-old white female who I have known for many many years who presents from the [facility] with throwing up blood that happened once today in the [facility]. She has had it before. She has had gastritis, esophageal hernia, bloody throwing up, multiple episodes of vomit in the past. She has had abdominal pain on and off for months. She denies short of breath or chest pain. She is very uncomfortable, in a little bit of distress. PAST MEDICAL HISTORY: She is an 87-year-old white female who I know very well with history of gastroparesis, hiatal hernia, COPD, dementia, peptic ulcer disease, GERD. She had multiple throwing up blood. She quit cigarettes a very long time ago, mild dementia, dizziness, diabetes type 2, anemia history, diverticulosis, diaphragmatic hernia, peptic ulcer disease, gastroesophageal reflux, hematuria, history of incontinence, insomnia, anxiety, and depression. PAST SURGICAL HISTORY: She had a tonsillectomy. I believe she had an orthopedic surgery in the past. FAMILY HISTORY: Presently, unknown family history. SOCIAL HISTORY: Not smoking, drinking, or doing drugs at this time. ALLERGIES: ASPIRIN ALLERGY. MEDICATIONS: She is on Tylenol, Enulose, Reglan, Mylanta, Protonix, Zantac, Januvia, Zoloft, and Ultram. REVIEW OF SYSTEMS: No acute fevers or sweats. No vision changes. No hearing changes. No sore throat. No neck pain. There is a little bit of a cough. No shortness of breath. No chest pain or palpitations. There is abdominal pain with nausea and vomiting of blood. No problems urinating, she is incontinent. No rashes. She does get abdominal pain from time to time and arms and extremity pain from time to time. PHYSICAL EXAMINATION: GENERAL: She is presently not throwing up. She is fairly distressed, not really comfortable. Alert and oriented x3. VITAL SIGNS: She has 99.1 temperature, 85 pulse, 193/87 blood pressure, 19 respiratory rate, and 94% O2 sat. HEENT: Head is atraumatic, normocephalic. Extraocular muscles are intact. Pupils equally reactive to light. Throat is moist. NECK: Supple. No JVD. No meningeal signs. No palpable thyroid or cervical lymphadenopathy appreciated. HEART: Regular rate. Normal S1 and S2. LUNGS: Decreased breath sounds, poor inspiration, but clear to auscultation. ABDOMEN: Positive bowel sounds. Nontender. No guarding, no rebound, no CVA tenderness. EXTREMITIES: All four extremities have no edema. NEUROLOGIC: GCS is 15. Cranial nerves II through XII grossly intact. Speech is normal. SKIN: Warm and dry, a little poor turgor. DIAGNOSTICS: A CT scan of the abdomen and pelvis shows a large hiatal hernia. There is air fluid level within the hernia with severe mural thickening of the body of the stomach at the level of the diaphragm. It may represent a gastritis or neoplasm. Electrocardiogram; sinus rhythm, premature atrial complex with anterior infarct age undetermined. Chest x-ray; a large hiatal hernia. LABORATORY DATA: She has 137 sodium, potassium 3.7, BUN 32, creatinine is 1. GFR is 52, greater than 60. Last blood sugar was 210, when she came in it was 342. Calcium is 9.4. Phosphorous is 4.5. Magnesium 2.2. Total bili is 0.9. AST is 30. ALT is 15, alkaline phosphatase is 90, total protein is 7.8, albumin is 4.3. Globulin is 3.7. Lipase 32. Urine shows many bacteria. White count of 18.2, quite high, hemoglobin 14.1, hematocrit 43.4, and platelets of 287. ASSESSMENT AND PLAN: She is here in distress with throwing up blood. She has got an elevated white count. She has a little bit of renal insufficiency, throwing up blood. She will have consults with Gastroenterology, Infectious Disease, and Cardiology. She will have IV fluids. She will have clonidine patch, Merrem IV, pantoprazole IV, Reglan IV, Toradol for pain. We will see how she does. Dante Mcdaniel DO
[2018-08-01 07:04] LABS: BASO # 0.01 K/mm3 (0.0-2.0); BASO % 0.1 % (0.0-3.0); EOS % 0.2 % (1.5-5.0); LYMPH # 1.5 (1.2-3.4); LYMPH % 14.3 % (22.0-35.0); MEAN CELL VOLUME 89.7 fl (80.0-105.0); MEAN CORPUSCULAR HEMOGLOBIN 27.8 pg (25.0-35.0); MEAN PLATELET VOLUME 8.6 fl (7.0-11.0); MONO # 1.1 (0.1-0.6); MONO % 10.5 % (1.0-6.0); RBC 3.7 10^6/uL (3.5-6.1); RED CELL DISTRIBUTION WIDTH 15.6 % (11.5-14.5); WHITE BLOOD COUNT 10.6 10^3/uL (4.5-11.0)
[2018-08-01 07:21] LABS: ALB/GLOB RATIO 1.1 (1.1-1.8); ALT/SGPT 14 U/L (7-56); AST/SGOT 21 U/L (14-36); BLOOD UREA NITROGEN 28 mg/dL (7-21); CALCIUM 7.9 mg/dL (8.4-10.5); GFR NON-AFRICAN AMERICAN 52
[2018-08-01 07:22] LABS: HEMOGLOBIN 10.3 g/dL (12.0-16.0)
--- NOTE | 2018-08-01 07:53 | CP.PCM.CON ---
<Mike Vance - Last Filed: 08/01/18 14:19> History of Present Illness - History of Present Illness History of Present Illness: PGY6 GI Fellow Consult Note Patient is an 87yo female with PMHx significant for dementia, PUD, GERD, DM, HTN, COPD, large hiatal hernia and erosive esophagitis who presented to the ED from [facility] for coffee ground emesis. The patient is demented and thus his tory is limited. Yesterday she was seen in the ED and admitted to nausea/vomiting with ongoing nausea at the time of evaluation. Stated that emesis was yellow in color but it seems she was sent from [place] with "coffee ground" emesis. No further vomiting has been noted since the patient entered the hospital. Her initial blood work appeared to show volume depletion and hemoconcentration which has since normalized with IVF resuscitation. A noncontrast CT scan of the abdomen reveals known large paraesophageal hernia with most of the stomach lying in the chest along with gastric body inflammation/thickening at the diaphragmatic pinch. At this time, she admits to epigastric abdominal pain and ongoing nausea, but she has not had any further episodes of vomiting. Has been having difficulty passing urine. No fever, chills, change in bowel habits. 12 system ROS limited by dementia but otherwise negative PMHx: See HPI PSHx: Hysterectomy, right hip surgery, tonsillectomy FHx: Discussed with patient and she denies significant family history Social: Former tobacco use; denies EtOH or illicit drug use Endo: 04/2018 - EGD - Large paraesophageal hernia, + diffuse gastritis 09/2017 - EGD - Large Type III Hiatal Hernia, Gatritis (+IM, -HP) 06/2015 - Colon - Diverticulosis and 2 tubular adenomas Past Patient History - Infectious Disease Hx of Infectious Diseases: None - Tetanus Immunizations Tetanus Immunization: Unknown - Past Medical History & Family History Past Medical History?: Yes - Past Social History Smoking Status: Former Smoker - CARDIAC Hx Cardiac Disorders: Yes Hx Hypertension: Yes - PULMONARY Hx Respiratory Disorders: Yes (USED TO SMOKE CIGARETTES) Hx Chronic Obstructive Pulmonary Disease (COPD): Yes - NEUROLOGICAL Hx Neurological Disorder: Yes (NEUROPATHY) HX Cerebrovascular Accident: No Hx Dementia: Yes Hx Dizziness: Yes - HEENT Hx HEENT Problems: No Hx Blind: No Hx Cataracts: No Hx Deafness: No Hx Difficulty Chewing: No Hx Epistaxis: No Hx Glaucoma: No Hx Macular Degeneration: No - RENAL Hx Renal Failure: No - ENDOCRINE/METABOLIC Hx Endocrine Disorders: Yes Hx Diabetes Mellitus Type 2: Yes - HEMATOLOGICAL/ONCOLOGICAL Hx Blood Disorders: Yes Hx AIDS: No Hx Anemia: Yes Hx Hepatitis C: No - INTEGUMENTARY Hx Dermatological Problems: No Hx Basil Cell: No Hx Eczema: No Hx Melanoma: No Hx Psoriasis: No Hx Squamous Cell: No - MUSCULOSKELETAL/RHEUMATOLOGICAL Hx Musculoskeletal Disorders: Yes (HUMERUS FX,SHOULDER CONSTUSION, LS SPINE FRACTURE) Hx Arthritis: Yes Hx Falls: Yes Hx Unsteady Gait: Yes - GASTROINTESTINAL Hx Gastrointestinal Disorders: Yes (DIVERTICULOSIS,DIAPHRAGMATIC HERNIA,PUD) Hx Colostomy: No Hx Crohn's Disease: No Hx Diverticulitis: Yes Hx Gall Bladder Disease: No Hx Gastroesophageal Reflux: Yes Hx Ileostomy: No Hx Liver Failure: No Hx Pancreatitis: No HX Swallowing Problems: No Other/Comment: HEMATEMESIS 07-31-18,GI BLEED,HIATAL HERNIA - GENITOURINARY/GYNECOLOGICAL Hx Genitourinary Disorders: Yes (UROSEPSIS) Hx Hematuria: Yes Hx Incontinence: Yes Hx Sexually Transmitted Disorders: No Hx Urinary Tract Infection: No - PSYCHIATRIC Hx Psychophysiologic Disorder: Yes (INSOMNIA) Hx Anxiety: Yes Hx Depression: Yes Hx Substance Use: No - SURGICAL HISTORY Hx Surgeries: Yes Hx Amputation: No Hx Appendectomy: No Hx Cardiac Catheterization: No Hx Cholecystectomy: No Hx Coronary Stent: No Hx Gastric Bypass Surgery: No Hx Hysterectomy: Yes Hx Joint Replacement: No Hx Kidney Transplant: No Hx Liver Transplant: No Hx Mastectomy: No Hx Musculoskeletal Surgery: No Hx Open Heart Surgery: No Hx Orthopedic Surgery: Yes Hx Splenectomy: No Hx Valve Replacement: No Other/Comment: Tonsillectomy - ANESTHESIA Hx Anesthesia: Yes Hx Anesthesia Reactions: No (UNKNOWN) Hx Malignant Hyperthermia: No (UNKNOWN) Meds Allergies/Adverse Reactions: Allergies Allergy/AdvReac Type Severity Reaction Status Date / Time aspirin Allergy NAUSEA Verified 07/31/18 19:18 - Medications Medications: Current Medications Clonidine HCl (Catapres Tts1 0.1 Mg/24 Hr) 1 patch TD Q7D@1000 [facility] Last Admin: 07/31/18 19:15 Dose: 1 patch Sodium Chloride (Sodium Chloride 0.45%) 1,000 mls @ 60 mls/hr IV .[id number] [facility]ANNA Last Admin: 07/31/18 18:51 Dose: 60 mls/hr Meropenem (Merrem Iv 1 Gm Premix) 1 gm in 50 mls @ 100 mls/hr IVPB Q12 [facility]; Protocol Last Admin: 07/31/18 22:29 Dose: 100 mls/hr Insulin Human Regular (Humulin R Med) 0 units SC ACHS [facility]; Protocol Last Admin: 07/31/18 22:32 Dose: Not Given Ketorolac Tromethamine (Toradol) 15 mg IVP Q6 PRN PRN Reason: Pain, moderate (4-7) Last Admin: 08/01/18 06:43 Dose: 15 mg Ondansetron HCl (Zofran Inj) 4 mg IVP Q6 PRN PRN Reason: Nausea/Vomiting Pantoprazole Sodium (Protonix Inj) 40 mg IVP BID [facility] Physical Exam - Constitutional Appears: Non-toxic, No Acute Distress, Chronically Ill - Eye Exam Eye Exam: EOMI, PERRL - ENT Exam ENT Exam: Mucous Membranes Moist - Respiratory Exam Respiratory Exam: Clear to Auscultation Bilateral. absent: Rales, Rhonchi, Wheezes - Cardiovascular Exam Cardiovascular Exam: RRR, +S1, +S2 - GI/Abdominal Exam GI & Abdominal Exam: Normal Bowel Sounds, Soft, Tenderness (epigastric). absent: Distended, Firm, Guarding, Organomegaly, Rigid - Extremities Exam Extremities exam: Positive for: normal inspection. Negative for: pedal edema - Neurological Exam Neurological exam: Alert Additional comments: oriented X1 (person) - Psychiatric Exam Psychiatric exam: Normal Affect, Normal Mood - Skin Skin Exam: Dry, Warm Results - Vital Signs Recent Vital Signs: Last Vital Signs Temp 98.9 F 08/01/18 07:42 Pulse 74 08/01/18 07:42 Resp 20 08/01/18 07:42 BP 126/70 08/01/18 07:42 Pulse Ox 99 08/01/18 07:42 - Labs Result Diagrams: 08/01/18 06:40 08/01/18 06:40 Labs: Laboratory Results - last 24 hr 07/31/18 07/31/18 07/31/18 13:10 13:10 13:10 WBC 18.3 H D RBC 4.86 Hgb 14.1 D Hct 43.4 MCV 89.3 D MCH 29.0 MCHC 32.5 RDW 15.1 H Plt Count 287 MPV 8.8 Neut % (Auto) 87.8 H Lymph % (Auto) 4.2 L Aiken % (Auto) 7.9 H Eos % (Auto) 0.0 L Baso % (Auto) 0.1 Lymph # (Auto) 0.8 L Aiken # (Auto) 1.4 H Eos # (Auto) 0.0 Baso # (Auto) 0.01 Absolute Neuts (auto) 16.06 H Neutrophils % (Manual) 89 H Lymphocytes % (Manual) 8 L Monocytes % (Manual) 3 Platelet Evaluation Normal PT 11.2 INR 0.99 APTT 27.2 pO2 VBG pH VBG pCO2 VBG HCO3 VBG Total CO2 VBG O2 Sat (Calc) VBG Base Excess VBG Potassium Glucose Lactate FiO2 Sodium 137 Potassium 3.7 Chloride 93 L Carbon Dioxide 32 Anion Gap 16 BUN 32 H Creatinine 1.0 Est GFR ( Amer) > 60 Est GFR (Non-Af Amer) 52 POC Glucose (mg/dL) Random Glucose 342 H* D Calcium 9.4 Phosphorus 4.5 Magnesium 2.2 Total Bilirubin 0.9 AST 30 ALT 15 Alkaline Phosphatase 90 Troponin I Total Protein 7.8 Albumin 4.3 Globulin 3.5 Albumin/Globulin Ratio 1.2 Lipase 32 Venous Blood Potassium Urine Color Urine Appearance Urine pH Ur Specific [place] Urine Protein Urine Glucose (UA) Urine Ketones Urine Blood Urine Nitrate Urine Bilirubin Urine Urobilinogen Ur Leukocyte Esterase Urine RBC Urine WBC Ur Epithelial Cells Urine Bacteria Blood Type Antibody Screen BBK History Checked 07/31/18 07/31/18 07/31/18 13:10 15:35 15:40 WBC RBC Hgb Hct MCV MCH MCHC RDW Plt Count MPV Neut % (Auto) Lymph % (Auto) Aiken % (Auto) Eos % (Auto) Baso % (Auto) Lymph # (Auto) Aiken # (Auto) Eos # (Auto) Baso # (Auto) Absolute Neuts (auto) Neutrophils % (Manual) Lymphocytes % (Manual) Monocytes % (Manual) Platelet Evaluation PT INR APTT pO2 29 L VBG pH 7.37 VBG pCO2 55.0 VBG HCO3 31.8 H VBG Total CO2 33.5 H VBG O2 Sat (Calc) 56.5 VBG Base Excess 5.0 H VBG Potassium 3.1 L Glucose 278 H Lactate 1.8 FiO2 21.0 Sodium 136.0 Potassium Chloride 96.0 L Carbon Dioxide Anion Gap BUN Creatinine Est GFR ( Amer) Est GFR (Non-Af Amer) POC Glucose (mg/dL) Random Glucose Calcium Phosphorus Magnesium Total Bilirubin AST ALT Alkaline Phosphatase Troponin I Total Protein Albumin Globulin Albumin/Globulin Ratio Lipase Venous Blood Potassium 3.1 L Urine Color Yellow Urine Appearance Sl cloudy Urine pH 6.0 Ur Specific [place] >= 1.030 Urine Protein 100 H Urine Glucose (UA) 250 H Urine Ketones Trace H Urine Blood Small H Urine Nitrate Negative Urine Bilirubin Negative Urine Urobilinogen 0.2 Ur Leukocyte Esterase Small H Urine RBC 5 - 10 H Urine WBC 25 - 30 H Ur Epithelial Cells 6 - 8 H Urine Bacteria Many Blood Type A POSITIVE Antibody Screen Negative BBK History Checked Patient has bt 07/31/18 07/31/18 07/31/18 17:20 21:05 22:33 WBC RBC Hgb Hct MCV MCH MCHC RDW Plt Count MPV Neut % (Auto) Lymph % (Auto) Aiken % (Auto) Eos % (Auto) Baso % (Auto) Lymph # (Auto) Aiken # (Auto) Eos # (Auto) Baso # (Auto) Absolute Neuts (auto) Neutrophils % (Manual) Lymphocytes % (Manual) Monocytes % (Manual) Platelet Evaluation PT INR APTT pO2 VBG pH VBG pCO2 VBG HCO3 VBG Total CO2 VBG O2 Sat (Calc) VBG Base Excess VBG Potassium Glucose Lactate FiO2 Sodium Potassium Chloride Carbon Dioxide Anion Gap BUN Creatinine Est GFR ( Amer) Est GFR (Non-Af Amer) POC Glucose (mg/dL) 259 H 210 H Random Glucose Calcium Phosphorus Magnesium Total Bilirubin AST ALT Alkaline Phosphatase Troponin I 0.06 D Total Protein Albumin Globulin Albumin/Globulin Ratio Lipase Venous Blood Potassium Urine Color Urine Appearance Urine pH Ur Specific [place] Urine Protein Urine Glucose (UA) Urine Ketones Urine Blood Urine Nitrate Urine Bilirubin Urine Urobilinogen Ur Leukocyte Esterase Urine RBC Urine WBC Ur Epithelial Cells Urine Bacteria Blood Type Antibody Screen BBK History Checked 08/01/18 08/01/18 08/01/18 06:40 06:40 07:16 WBC 10.6 D RBC 3.70 Hgb 10.3 L D Hct 33.2 L MCV 89.7 MCH 27.8 MCHC 31.0 RDW 15.6 H Plt Count 239 MPV 8.6 Neut % (Auto) 74.9 H Lymph % (Auto) 14.3 L Aiken % (Auto) 10.5 H Eos % (Auto) 0.2 L Baso % (Auto) 0.1 Lymph # (Auto) 1.5 Aiken # (Auto) 1.1 H Eos # (Auto) 0.0 Baso # (Auto) 0.01 Absolute Neuts (auto) 7.95 H Neutrophils % (Manual) Lymphocytes % (Manual) Monocytes % (Manual) Platelet Evaluation PT INR APTT pO2 VBG pH VBG pCO2 VBG HCO3 VBG Total CO2 VBG O2 Sat (Calc) VBG Base Excess VBG Potassium Glucose Lactate FiO2 Sodium 137 Potassium 3.0 L Chloride 100 Carbon Dioxide 29 Anion Gap 10 BUN 28 H Creatinine 1.0 Est GFR ( Amer) > 60 Est GFR (Non-Af Amer) 52 POC Glucose (mg/dL) 169 H Random Glucose 153 H Calcium 7.9 L Phosphorus 3.7 Magnesium 2.0 Total Bilirubin 0.6 AST 21 ALT 14 Alkaline Phosphatase 63 Troponin I Total Protein 5.8 Albumin 3.0 Globulin 2.7 Albumin/Globulin Ratio 1.1 Lipase Venous Blood Potassium Urine Color Urine Appearance Urine pH Ur Specific [place] Urine Protein Urine Glucose (UA) Urine Ketones Urine Blood Urine Nitrate Urine Bilirubin Urine Urobilinogen Ur Leukocyte Esterase Urine RBC Urine WBC Ur Epithelial Cells Urine Bacteria Blood Type Antibody Screen BBK History Checked Assessment & Plan - Assessment and Plan (Free Text) Assessment: Patient is an 87yo female with PMHx significant for dementia, PUD, GERD, DM, HTN, COPD, large hiatal hernia and erosive esophagitis who presented to the ED from [facility] for coffee ground emesis -Nausea/vomiting -Large paraesophageal hernia Plan: -CT scan reviewed showing inflammation at diaphragmatic pinch - cannot rule out underlying ulcer disease (particularly Babar ulcer in setting of hernia) -Nausea/vomiting presumed 2/2 anatomy and lifestyle - recommend small meals, sitting upright during meals and not laying down soon after meals -Antiemetics per primary service -Continue Pantoprazole 40mg IV BID for now -Initial leukocytosis likely a result of hemoconcentration - do not suspect infectious etiology at this time, would discontinue antibiotic therapy in this patient unless urine culture is clinically relevant - ID following -Recommend tight glycemic control -Would discontinue Toradol (NSAID) and replace with Ultram or Tylenol as needed -Surgical consultation requested -No plan for endoscopic evaluation at this time -Advance diet as tolerated - Date & Time Date: 08/01/18 Time: 08:30 <Dejan Cancino - Last Filed: 08/01/18 15:20> Meds - Medications Medications: Current Medications Clonidine HCl (Catapres Tts1 0.1 Mg/24 Hr) 1 patch TD Q7D@1000 [facility]ANNA Last Admin: 07/31/18 19:15 Dose: 1 patch Meropenem (Merrem Iv 1 Gm Premix) 1 gm in 50 mls @ 100 mls/hr IVPB Q12 [facility]; Protocol Last Admin: 08/01/18 10:44 Dose: 100 mls/hr Sodium Chloride (Sodium Chloride 0.45%) 1,000 mls @ 80 mls/hr IV .[id number] [facility]ANNA Last Admin: 08/01/18 10:45 Dose: 80 mls/hr Insulin Human Regular (Humulin R Med) 0 units SC ACHS [facility]; Protocol Last Admin: 08/01/18 13:56 Dose: Not Given Ketorolac Tromethamine (Toradol) 15 mg IVP Q6 PRN PRN Reason: Pain, moderate (4-7) Last Admin: 08/01/18 06:43 Dose: 15 mg Ondansetron HCl (Zofran Inj) 4 mg IVP Q6 PRN PRN Reason: Nausea/Vomiting Last Admin: 08/01/18 09:28 Dose: 4 mg Pantoprazole Sodium (Protonix Inj) 40 mg IVP BID [facility] Last Admin: 08/01/18 10:45 Dose: 40 mg Results - Vital Signs Recent Vital Signs: Last Vital Signs Temp 98.9 F 08/01/18 07:42 Pulse 96 H 08/01/18 10:00 Resp 20 08/01/18 07:42 BP 126/70 08/01/18 07:42 Pulse Ox 99 08/01/18 07:42 - Labs Result Diagrams: 08/01/18 06:40 08/01/18 06:40 Labs: Laboratory Results - last 24 hr 07/31/18 07/31/18 07/31/18 15:35 15:40 17:20 WBC RBC Hgb Hct MCV MCH MCHC RDW Plt Count MPV Neut % (Auto) Lymph % (Auto) Aiken % (Auto) Eos % (Auto) Baso % (Auto) Lymph # (Auto) Aiken # (Auto) Eos # (Auto) Baso # (Auto) Absolute Neuts (auto) pO2 29 L VBG pH 7.37 VBG pCO2 55.0 VBG HCO3 31.8 H VBG Total CO2 33.5 H VBG O2 Sat (Calc) 56.5 VBG Base Excess 5.0 H VBG Potassium 3.1 L Sodium 136.0 Chloride 96.0 L Glucose 278 H Lactate 1.8 FiO2 21.0 Potassium Carbon Dioxide Anion Gap BUN Creatinine Est GFR ( Amer) Est GFR (Non-Af Amer) POC Glucose (mg/dL) 259 H Random Glucose Calcium Phosphorus Magnesium Total Bilirubin AST ALT Alkaline Phosphatase Troponin I Total Protein Albumin Globulin Albumin/Globulin Ratio Venous Blood Potassium 3.1 L Urine Color Yellow Urine Appearance Sl cloudy Urine pH 6.0 Ur Specific [place] >= 1.030 Urine Protein 100 H Urine Glucose (UA) 250 H Urine Ketones Trace H Urine Blood Small H Urine Nitrate Negative Urine Bilirubin Negative Urine Urobilinogen 0.2 Ur Leukocyte Esterase Small H Urine RBC 5 - 10 H Urine WBC 25 - 30 H Ur Epithelial Cells 6 - 8 H Urine Bacteria Many 07/31/18 07/31/18 08/01/18 21:05 22:33 06:40 WBC 10.6 D RBC 3.70 Hgb 10.3 L D Hct 33.2 L MCV 89.7 MCH 27.8 MCHC 31.0 RDW 15.6 H Plt Count 239 MPV 8.6 Neut % (Auto) 74.9 H Lymph % (Auto) 14.3 L Aiken % (Auto) 10.5 H Eos % (Auto) 0.2 L Baso % (Auto) 0.1 Lymph # (Auto) 1.5 Aiken # (Auto) 1.1 H Eos # (Auto) 0.0 Baso # (Auto) 0.01 Absolute Neuts (auto) 7.95 H pO2 VBG pH VBG pCO2 VBG HCO3 VBG Total CO2 VBG O2 Sat (Calc) VBG Base Excess VBG Potassium Sodium Chloride Glucose Lactate FiO2 Potassium Carbon Dioxide Anion Gap BUN Creatinine Est GFR ( Amer) Est GFR (Non-Af Amer) POC Glucose (mg/dL) 210 H Random Glucose Calcium Phosphorus Magnesium Total Bilirubin AST ALT Alkaline Phosphatase Troponin I 0.06 D Total Protein Albumin Globulin Albumin/Globulin Ratio Venous Blood Potassium Urine Color Urine Appearance Urine pH Ur Specific [place] Urine Protein Urine Glucose (UA) Urine Ketones Urine Blood Urine Nitrate Urine Bilirubin Urine Urobilinogen Ur Leukocyte Esterase Urine RBC Urine WBC Ur Epithelial Cells Urine Bacteria 08/01/18 08/01/18 08/01/18 06:40 07:16 11:21 WBC RBC Hgb Hct MCV MCH MCHC RDW Plt Count MPV Neut % (Auto) Lymph % (Auto) Aiken % (Auto) Eos % (Auto) Baso % (Auto) Lymph # (Auto) Aiken # (Auto) Eos # (Auto) Baso # (Auto) Absolute Neuts (auto) pO2 VBG pH VBG pCO2 VBG HCO3 VBG Total CO2 VBG O2 Sat (Calc) VBG Base Excess VBG Potassium Sodium 137 Chloride 100 Glucose Lactate FiO2 Potassium 3.0 L Carbon Dioxide 29 Anion Gap 10 BUN 28 H Creatinine 1.0 Est GFR ( Amer) > 60 Est GFR (Non-Af Amer) 52 POC Glucose (mg/dL) 169 H 178 H Random Glucose 153 H Calcium 7.9 L Phosphorus 3.7 Magnesium 2.0 Total Bilirubin 0.6 AST 21 ALT 14 Alkaline Phosphatase 63 Troponin I 0.06 Total Protein 5.8 Albumin 3.0 Globulin 2.7 Albumin/Globulin Ratio 1.1 Venous Blood Potassium Urine Color Urine Appearance Urine pH Ur Specific [place] Urine Protein Urine Glucose (UA) Urine Ketones Urine Blood Urine Nitrate Urine Bilirubin Urine Urobilinogen Ur Leukocyte Esterase Urine RBC Urine WBC Ur Epithelial Cells Urine Bacteria Attending/Attestation - Attestation I have fully participated in the care of the patient.: Yes I have reviewed all pertinent clinical information: Yes Notes (Text): 08/01/18 15:17 DM/HTN GERD Dementia COPD Hiatal hernia Nausea, vomiting - resolved - Liquid diet, advance slowly as tolerated. Suggest small frequent meals throughout the day. - Anti-emetic therapy PRN - H/H stable, continue to monitor - Continue with PPI therapy - Suggest alternative pain medication other than Toradol for ongoing relief - CT imaging reviewed by me showing gastric wall thickening in region of hernia. Given ongoing repeated symptoms of abdominal pain and vomiting, will recommend surgical consultation for consideration of potential hernia repair. - Will continue to monitor patient clinical course
[2018-08-01 08:35] LABS: TROPONIN I 0.06 ng/mL
--- NOTE | 2018-08-01 09:52 | CARD ---
APPROVED REPORT Date of service: 07/31/2018 EKG Measurement Heart [id number] <Conclusion> Normal sinus rhythm Normal ECG
[2018-08-01] MEDS: Insulin Reg-MEDIUM-Coverage SC SCH ×4 (10:43→22:30)
[2018-08-01] MEDS: Meropenem IV 1 gm in NS 1 GM/50 ML BAG IVPB SCH ×2 (10:44→22:33)
[2018-08-01] MEDS: Sodium Chloride 0.45% 1,000 ML IV SCH (10:45)
--- NOTE | 2018-08-01 11:03 | CP.PCM.CON ---
<Dandy Cross - Last Filed: 08/01/18 12:57> History of Present Illness - History of Present Illness History of Present Illness: Infectious disease consult note: 87-year-old female with past medical history of dementia, peptic ulcer disease, GERD, diabetes, hypertension, large hiatal hernia, COPD, erosive esophagitis [facility] the hospital from [facility] with reported episode of hematemesis. Of note patient's history is limited due to dementia. Patient yesterday was nauseous with reported 3 episodes of hematemesis. She described it as black vomit and she became concerned. She denies any abdominal pain or this ever occurring before. She denies any chest pain or shortness of breath. Infectious disease was consulted for sepsis. 12 point ROS performed however limited due to the dementia PMH: As above PSH: Hysterectomy, tonsillectomy, hip surgery SH: Former smoker, denies any alcohol or drug usage FH: Denies Review of Systems - Review of Systems All systems: reviewed and no additional remarkable complaints except Past Patient History - Infectious Disease Hx of Infectious Diseases: None - Tetanus Immunizations Tetanus Immunization: Unknown - Past Medical History & Family History Past Medical History?: Yes - Past Social History Smoking Status: Former Smoker - CARDIAC Hx Cardiac Disorders: Yes Hx Hypertension: Yes - PULMONARY Hx Respiratory Disorders: Yes (USED TO SMOKE CIGARETTES) Hx Chronic Obstructive Pulmonary Disease (COPD): Yes - NEUROLOGICAL Hx Neurological Disorder: Yes (NEUROPATHY) HX Cerebrovascular Accident: No Hx Dementia: Yes Hx Dizziness: Yes - HEENT Hx HEENT Problems: No Hx Blind: No Hx Cataracts: No Hx Deafness: No Hx Difficulty Chewing: No Hx Epistaxis: No Hx Glaucoma: No Hx Macular Degeneration: No - RENAL Hx Renal Failure: No - ENDOCRINE/METABOLIC Hx Endocrine Disorders: Yes Hx Diabetes Mellitus Type 2: Yes - HEMATOLOGICAL/ONCOLOGICAL Hx Blood Disorders: Yes Hx AIDS: No Hx Anemia: Yes Hx Hepatitis C: No - INTEGUMENTARY Hx Dermatological Problems: No Hx Basil Cell: No Hx Eczema: No Hx Melanoma: No Hx Psoriasis: No Hx Squamous Cell: No - MUSCULOSKELETAL/RHEUMATOLOGICAL Hx Musculoskeletal Disorders: Yes (HUMERUS FX,SHOULDER CONSTUSION, LS SPINE FRACTURE) Hx Arthritis: Yes Hx Falls: Yes Hx Unsteady Gait: Yes - GASTROINTESTINAL Hx Gastrointestinal Disorders: Yes (DIVERTICULOSIS,DIAPHRAGMATIC HERNIA,PUD) Hx Colostomy: No Hx Crohn's Disease: No Hx Diverticulitis: Yes Hx Gall Bladder Disease: No Hx Gastroesophageal Reflux: Yes Hx Ileostomy: No Hx Liver Failure: No Hx Pancreatitis: No HX Swallowing Problems: No Other/Comment: HEMATEMESIS 07-31-18,GI BLEED,HIATAL HERNIA - GENITOURINARY/GYNECOLOGICAL Hx Genitourinary Disorders: Yes (UROSEPSIS) Hx Hematuria: Yes Hx Incontinence: Yes Hx Sexually Transmitted Disorders: No Hx Urinary Tract Infection: No - PSYCHIATRIC Hx Psychophysiologic Disorder: Yes (INSOMNIA) Hx Anxiety: Yes Hx Depression: Yes Hx Substance Use: No - SURGICAL HISTORY Hx Surgeries: Yes Hx Amputation: No Hx Appendectomy: No Hx Cardiac Catheterization: No Hx Cholecystectomy: No Hx Coronary Stent: No Hx Gastric Bypass Surgery: No Hx Hysterectomy: Yes Hx Joint Replacement: No Hx Kidney Transplant: No Hx Liver Transplant: No Hx Mastectomy: No Hx Musculoskeletal Surgery: No Hx Open Heart Surgery: No Hx Orthopedic Surgery: Yes Hx Splenectomy: No Hx Valve Replacement: No Other/Comment: Tonsillectomy - ANESTHESIA Hx Anesthesia: Yes Hx Anesthesia Reactions: No (UNKNOWN) Hx Malignant Hyperthermia: No (UNKNOWN) Meds Allergies/Adverse Reactions: Allergies Allergy/AdvReac Type Severity Reaction Status Date / Time aspirin Allergy NAUSEA Verified 07/31/18 19:18 - Medications Medications: Current Medications Clonidine HCl (Catapres Tts1 0.1 Mg/24 Hr) 1 patch TD Q7D@1000 HANNA Last Admin: 07/31/18 19:15 Dose: 1 patch Meropenem (Merrem Iv 1 Gm Premix) 1 gm in 50 mls @ 100 mls/hr IVPB Q12 HANNA; Protocol Last Admin: 08/01/18 10:44 Dose: 100 mls/hr Sodium Chloride (Sodium Chloride 0.45%) 1,000 mls @ 80 mls/hr IV .[id number] HANNA Last Admin: 08/01/18 10:45 Dose: 80 mls/hr Potassium Chloride (Potassium Chloride 10 Meq/100 Ml) 10 meq in 100 mls @ 100 mls/hr IVPB Q2H HANNA Stop: 08/01/18 11:59 Last Admin: 08/01/18 10:44 Dose: 100 mls/hr Insulin Human Regular (Humulin R Med) 0 units SC ACHS HANNA; Protocol Last Admin: 08/01/18 10:43 Dose: 1 unit Ketorolac Tromethamine (Toradol) 15 mg IVP Q6 PRN PRN Reason: Pain, moderate (4-7) Last Admin: 08/01/18 06:43 Dose: 15 mg Ondansetron HCl (Zofran Inj) 4 mg IVP Q6 PRN PRN Reason: Nausea/Vomiting Last Admin: 08/01/18 09:28 Dose: 4 mg Pantoprazole Sodium (Protonix Inj) 40 mg IVP BID HANNA Last Admin: 08/01/18 10:45 Dose: 40 mg Physical Exam - Constitutional Appears: No Acute Distress - Head Exam Head Exam: ATRAUMATIC, NORMOCEPHALIC - Eye Exam Eye Exam: EOMI - ENT Exam ENT Exam: Mucous Membranes Moist - Respiratory Exam Respiratory Exam: Clear to Auscultation Bilateral. absent: Rales, Wheezes - Cardiovascular Exam Cardiovascular Exam: REGULAR RHYTHM, +S1, +S2 - GI/Abdominal Exam GI & Abdominal Exam: Soft. absent: Normal Bowel Sounds, Tenderness - Extremities Exam Extremities exam: Negative for: calf tenderness, pedal edema - Neurological Exam Neurological exam: Alert, Oriented x3 - Psychiatric Exam Psychiatric exam: Normal Mood - Skin Skin Exam: Dry, Warm Results - Vital Signs Recent Vital Signs: Last Vital Signs Temp 98.9 F 08/01/18 07:42 Pulse 74 08/01/18 07:42 Resp 20 08/01/18 07:42 BP 126/70 08/01/18 07:42 Pulse Ox 99 08/01/18 07:42 - Labs Result Diagrams: 08/01/18 06:40 08/01/18 06:40 Labs: Laboratory Results - last 24 hr 07/31/18 07/31/18 07/31/18 13:10 13:10 13:10 WBC 18.3 H D RBC 4.86 Hgb 14.1 D Hct 43.4 MCV 89.3 D MCH 29.0 MCHC 32.5 RDW 15.1 H Plt Count 287 MPV 8.8 Neut % (Auto) 87.8 H Lymph % (Auto) 4.2 L [place] % (Auto) 7.9 H Eos % (Auto) 0.0 L Baso % (Auto) 0.1 Lymph # (Auto) 0.8 L [place] # (Auto) 1.4 H Eos # (Auto) 0.0 Baso # (Auto) 0.01 Absolute Neuts (auto) 16.06 H Neutrophils % (Manual) 89 H Lymphocytes % (Manual) 8 L Monocytes % (Manual) 3 Platelet Evaluation Normal PT 11.2 INR 0.99 APTT 27.2 pO2 VBG pH VBG pCO2 VBG HCO3 VBG Total CO2 VBG O2 Sat (Calc) VBG Base Excess VBG Potassium Glucose Lactate FiO2 Sodium 137 Potassium 3.7 Chloride 93 L Carbon Dioxide 32 Anion Gap 16 BUN 32 H Creatinine 1.0 Est GFR ( Amer) > 60 Est GFR (Non-Af Amer) 52 POC Glucose (mg/dL) Random Glucose 342 H* D Calcium 9.4 Phosphorus 4.5 Magnesium 2.2 Total Bilirubin 0.9 AST 30 ALT 15 Alkaline Phosphatase 90 Troponin I Total Protein 7.8 Albumin 4.3 Globulin 3.5 Albumin/Globulin Ratio 1.2 Lipase 32 Venous Blood Potassium Urine Color Urine Appearance Urine pH Ur Specific [place] Urine Protein Urine Glucose (UA) Urine Ketones Urine Blood Urine Nitrate Urine Bilirubin Urine Urobilinogen Ur Leukocyte Esterase Urine RBC Urine WBC Ur Epithelial Cells Urine Bacteria Blood Type Antibody Screen BBK History Checked 07/31/18 07/31/18 07/31/18 13:10 15:35 15:40 WBC RBC Hgb Hct MCV MCH MCHC RDW Plt Count MPV Neut % (Auto) Lymph % (Auto) [place] % (Auto) Eos % (Auto) Baso % (Auto) Lymph # (Auto) [place] # (Auto) Eos # (Auto) Baso # (Auto) Absolute Neuts (auto) Neutrophils % (Manual) Lymphocytes % (Manual) Monocytes % (Manual) Platelet Evaluation PT INR APTT pO2 29 L VBG pH 7.37 VBG pCO2 55.0 VBG HCO3 31.8 H VBG Total CO2 33.5 H VBG O2 Sat (Calc) 56.5 VBG Base Excess 5.0 H VBG Potassium 3.1 L Glucose 278 H Lactate 1.8 FiO2 21.0 Sodium 136.0 Potassium Chloride 96.0 L Carbon Dioxide Anion Gap BUN Creatinine Est GFR ( Amer) Est GFR (Non-Af Amer) POC Glucose (mg/dL) Random Glucose Calcium Phosphorus Magnesium Total Bilirubin AST ALT Alkaline Phosphatase Troponin I Total Protein Albumin Globulin Albumin/Globulin Ratio Lipase Venous Blood Potassium 3.1 L Urine Color Yellow Urine Appearance Sl cloudy Urine pH 6.0 Ur Specific [place] >= 1.030 Urine Protein 100 H Urine Glucose (UA) 250 H Urine Ketones Trace H Urine Blood Small H Urine Nitrate Negative Urine Bilirubin Negative Urine Urobilinogen 0.2 Ur Leukocyte Esterase Small H Urine RBC 5 - 10 H Urine WBC 25 - 30 H Ur Epithelial Cells 6 - 8 H Urine Bacteria Many Blood Type A POSITIVE Antibody Screen Negative BBK History Checked Patient has bt 07/31/18 07/31/18 07/31/18 17:20 21:05 22:33 WBC RBC Hgb Hct MCV MCH MCHC RDW Plt Count MPV Neut % (Auto) Lymph % (Auto) [place] % (Auto) Eos % (Auto) Baso % (Auto) Lymph # (Auto) [place] # (Auto) Eos # (Auto) Baso # (Auto) Absolute Neuts (auto) Neutrophils % (Manual) Lymphocytes % (Manual) Monocytes % (Manual) Platelet Evaluation PT INR APTT pO2 VBG pH VBG pCO2 VBG HCO3 VBG Total CO2 VBG O2 Sat (Calc) VBG Base Excess VBG Potassium Glucose Lactate FiO2 Sodium Potassium Chloride Carbon Dioxide Anion Gap BUN Creatinine Est GFR ( Amer) Est GFR (Non-Af Amer) POC Glucose (mg/dL) 259 H 210 H Random Glucose Calcium Phosphorus Magnesium Total Bilirubin AST ALT Alkaline Phosphatase Troponin I 0.06 D Total Protein Albumin Globulin Albumin/Globulin Ratio Lipase Venous Blood Potassium Urine Color Urine Appearance Urine pH Ur Specific [place] Urine Protein Urine Glucose (UA) Urine Ketones Urine Blood Urine Nitrate Urine Bilirubin Urine Urobilinogen Ur Leukocyte Esterase Urine RBC Urine WBC Ur Epithelial Cells Urine Bacteria Blood Type Antibody Screen BBK History Checked 08/01/18 08/01/18 08/01/18 06:40 06:40 07:16 WBC 10.6 D RBC 3.70 Hgb 10.3 L D Hct 33.2 L MCV 89.7 MCH 27.8 MCHC 31.0 RDW 15.6 H Plt Count 239 MPV 8.6 Neut % (Auto) 74.9 H Lymph % (Auto) 14.3 L [place] % (Auto) 10.5 H Eos % (Auto) 0.2 L Baso % (Auto) 0.1 Lymph # (Auto) 1.5 [place] # (Auto) 1.1 H Eos # (Auto) 0.0 Baso # (Auto) 0.01 Absolute Neuts (auto) 7.95 H Neutrophils % (Manual) Lymphocytes % (Manual) Monocytes % (Manual) Platelet Evaluation PT INR APTT pO2 VBG pH VBG pCO2 VBG HCO3 VBG Total CO2 VBG O2 Sat (Calc) VBG Base Excess VBG Potassium Glucose Lactate FiO2 Sodium 137 Potassium 3.0 L Chloride 100 Carbon Dioxide 29 Anion Gap 10 BUN 28 H Creatinine 1.0 Est GFR ( Amer) > 60 Est GFR (Non-Af Amer) 52 POC Glucose (mg/dL) 169 H Random Glucose 153 H Calcium 7.9 L Phosphorus 3.7 Magnesium 2.0 Total Bilirubin 0.6 AST 21 ALT 14 Alkaline Phosphatase 63 Troponin I 0.06 Total Protein 5.8 Albumin 3.0 Globulin 2.7 Albumin/Globulin Ratio 1.1 Lipase Venous Blood Potassium Urine Color Urine Appearance Urine pH Ur Specific [place] Urine Protein Urine Glucose (UA) Urine Ketones Urine Blood Urine Nitrate Urine Bilirubin Urine Urobilinogen Ur Leukocyte Esterase Urine RBC Urine WBC Ur Epithelial Cells Urine Bacteria Blood Type Antibody Screen BBK History Checked Assessment & Plan - Assessment and Plan (Free Text) Assessment: Sepsis secondary to symptomatic urinary tract infection with gram-negative tootie Hematemesis Hiatal hernia Gastroparesis Peptic ulcer disease COPD Diabetes Dementia GERD Patient was given 1 dose of Rocephin and Flagyl, she has now been started on hyun openem which will continue CT of the abdomen showed large hiatal hernia, severe mural thickening in the body of the stomach at the level of the diaphragm consistent with gastritis or neoplastic lesion Follow-up septic work-up Urine culture was positive for gram-negative tootie, awaiting speciation Follow-up gastroenterology recommendations Follow cardiology recommendations Continue to monitor for any changes Case and plan to be reviewed and discussed with Dr. Tejada <Lito Tejada - Last Filed: 08/01/18 16:10> Meds - Medications Medications: Current Medications Clonidine HCl (Catapres Tts1 0.1 Mg/24 Hr) 1 patch TD Q7D@1000 HANNA Last Admin: 07/31/18 19:15 Dose: 1 patch Meropenem (Merrem Iv 1 Gm Premix) 1 gm in 50 mls @ 100 mls/hr IVPB Q12 HANNA; Protocol Last Admin: 08/01/18 10:44 Dose: 100 mls/hr Sodium Chloride (Sodium Chloride 0.45%) 1,000 mls @ 80 mls/hr IV .[id number] HANNA Last Admin: 05/16/19 10:45 Dose: 80 mls/hr Insulin Human Regular (Humulin R Med) 0 units SC [facility]; Protocol Last Admin: 08/01/18 13:56 Dose: Not Given Ketorolac Tromethamine (Toradol) 15 mg IVP Q6 PRN PRN Reason: Pain, moderate (4-7) Last Admin: 08/01/18 15:50 Dose: 15 mg Ondansetron HCl (Zofran Inj) 4 mg IVP Q6 PRN PRN Reason: Nausea/Vomiting Last Admin: 08/01/18 09:28 Dose: 4 mg Pantoprazole Sodium (Protonix Inj) 40 mg IVP BID [facility] Last Admin: 08/01/18 10:45 Dose: 40 mg Results - Vital Signs Recent Vital Signs: Last Vital Signs Temp 98.9 F 08/01/18 07:42 Pulse 96 H 08/01/18 10:00 Resp 20 08/01/18 07:42 BP 126/70 08/01/18 07:42 Pulse Ox 99 08/01/18 07:42 - Labs Result Diagrams: 08/01/18 06:40 08/01/18 06:40 Labs: Laboratory Results - last 24 hr 07/31/18 07/31/18 07/31/18 17:20 21:05 22:33 WBC RBC Hgb Hct MCV MCH MCHC RDW Plt Count MPV Neut % (Auto) Lymph % (Auto) [place] % (Auto) Eos % (Auto) Baso % (Auto) Lymph # (Auto) [place] # (Auto) Eos # (Auto) Baso # (Auto) Absolute Neuts (auto) Sodium Potassium Chloride Carbon Dioxide Anion Gap BUN Creatinine Est GFR ( Amer) Est GFR (Non-Af Amer) POC Glucose (mg/dL) 259 H 210 H Random Glucose Calcium Phosphorus Magnesium Total Bilirubin AST ALT Alkaline Phosphatase Troponin I 0.06 D Total Protein Albumin Globulin Albumin/Globulin Ratio 08/01/18 08/01/18 08/01/18 06:40 06:40 07:16 WBC 10.6 D RBC 3.70 Hgb 10.3 L D Hct 33.2 L MCV 89.7 MCH 27.8 MCHC 31.0 RDW 15.6 H Plt Count 239 MPV 8.6 Neut % (Auto) 74.9 H Lymph % (Auto) 14.3 L [place] % (Auto) 10.5 H Eos % (Auto) 0.2 L Baso % (Auto) 0.1 Lymph # (Auto) 1.5 [place] # (Auto) 1.1 H Eos # (Auto) 0.0 Baso # (Auto) 0.01 Absolute Neuts (auto) 7.95 H Sodium 137 Potassium 3.0 L Chloride 100 Carbon Dioxide 29 Anion Gap 10 BUN 28 H Creatinine 1.0 Est GFR ( Amer) > 60 Est GFR (Non-Af Amer) 52 POC Glucose (mg/dL) 169 H Random Glucose 153 H Calcium 7.9 L Phosphorus 3.7 Magnesium 2.0 Total Bilirubin 0.6 AST 21 ALT 14 Alkaline Phosphatase 63 Troponin I 0.06 Total Protein 5.8 Albumin 3.0 Globulin 2.7 Albumin/Globulin Ratio 1.1 08/01/18 08/01/18 11:21 16:04 WBC RBC Hgb Hct MCV MCH MCHC RDW Plt Count MPV Neut % (Auto) Lymph % (Auto) [place] % (Auto) Eos % (Auto) Baso % (Auto) Lymph # (Auto) [place] # (Auto) Eos # (Auto) Baso # (Auto) Absolute Neuts (auto) Sodium Potassium Chloride Carbon Dioxide Anion Gap BUN Creatinine Est GFR ( Amer) Est GFR (Non-Af Amer) POC Glucose (mg/dL) 178 H 191 H Random Glucose Calcium Phosphorus Magnesium Total Bilirubin AST ALT Alkaline Phosphatase Troponin I Total Protein Albumin Globulin Albumin/Globulin Ratio Attending/Attestation - Attestation I have personally seen and examined this patient.: Yes I have fully participated in the care of the patient.: Yes I have reviewed all pertinent clinical information: Yes
--- NOTE | 2018-08-01 12:42 | PN ---
DATE: 08/01/2018 SUBJECTIVE: She came in yesterday very lethargic, very much adamant with the coffee-ground emesis and elevated white count of 18,000 and a UTI. She is being seen by GI and Infectious Disease. Today she is doing much better. I think the IV fluids really helped her. MEDICATIONS: She is on Catapres for her blood pressure, insulin coverage and Merrem by Infectious Disease. Potassium replacement, Protonix IV, Toradol as needed, and Zofran. PHYSICAL EXAMINATION: VITAL SIGNS: She has a 98.9 temperature, 74 pulse, 126/70 blood pressure, 20 respiratory rate, and 99% O2 saturation on room air. HEENT: Head is atraumatic and normocephalic. HEART: Regular rate. LUNGS: Decreased breath sounds, but clear. ABDOMEN: Soft and positive bowel sounds. No guarding. No rebound or CVA tenderness. EXTREMITIES: No edema. NEUROLOGIC: She is much more alert today. Talking, animated, and smiling which is better. LABORATORY DATA: She has a 137 sodium, potassium is 3 I will replace the potassium, BUN 20, creatinine 1, GFR is 52, sugar is 123, calcium 7.9, phosphorous 3.7, magnesium 2, total bili is 0.6, AST is 21, ALT is 14, alk phos 53, troponin I is 0.06, and total protein is 5.8. White count is down to 10.6 from 18.3; hemoglobin is down to 10.3 from 14.1, she lost 4 grams of hemoglobin; hematocrit 33.2; and platelets of 239. Urine has many bacteria. ASSESSMENT AND PLAN: So, it looks like she is having a gastrointestinal bleed, 4 grams of hemoglobin less, possible systemic inflammatory response syndrome, and urinary tract infection. Dante Mcdaniel DO
--- NOTE | 2018-08-01 13:59 | CP.PCM.CON ---
History of Present Illness - History of Present Illness History of Present Illness: PGY1 General Surgery Consult Note for Dr. Mario Patient is an 87-year-old female with past medical history significant dementia, PUD, GERD, DM, HTN, COPD, large hiatal hernia and erosive esophagitis who pr esented to the ED from senior care with a complaint of coffee ground emesis. Please note, Patient's history was obtained from prior records due to dementia limiting ability to take a complete and thorough history. Per Nurse, Patient was no longer vomiting coffee ground emesis throughout the admission, and there was no visualization of hematemesis and/or dark brown vomitus. Nonetheless, the Patient's Nurse endorses visualizing Patients vomitus that was yellow in color. Patient is currently denying any nausea, vomiting, regurgitation, abdominal pain, fever, chills, and/or shortness of breath. Of note, CT without contrast of the abdomen was obtained and revealed known large paraesophageal hernia with most of the stomach lying in the chest along with gastric body inflammation/thickening at the diaphragmatic pinch. 12 system ROS is limited by dementia PMH: Dementia, PUD, GERD, DM, HTN, COPD, large hiatal hernia and erosive esophagitis s/p EGD (04/2018) which revealed Large paraesophageal hernia, + diffuse gastritis, EGD (09/2017) which revealed Large Type III Hiatal Hernia, Gatritis (+IM, -HP). EGD (06/2015) Colon - Diverticulosis and 2 tubular adenomas PSH: Hysterectomy, right hip surgery, tonsillectomy Family History: Patient denies Social History: Former tobacco use. Patient denies ETOH and/or recreational drug use Medications: MAR reviewed Allergies: ASA Review of Systems - Review of Systems Systems not reviewed;Unavailable: Other (limited due to dementia ) Past Patient History - Infectious Disease Hx of Infectious Diseases: None - Tetanus Immunizations Tetanus Immunization: Unknown - Past Medical History & Family History Past Medical History?: Yes - Past Social History Smoking Status: Former Smoker - CARDIAC Hx Cardiac Disorders: Yes Hx Hypertension: Yes - PULMONARY Hx Respiratory Disorders: Yes (USED TO SMOKE CIGARETTES) Hx Chronic Obstructive Pulmonary Disease (COPD): Yes - NEUROLOGICAL Hx Neurological Disorder: Yes (NEUROPATHY) HX Cerebrovascular Accident: No Hx Dementia: Yes Hx Dizziness: Yes - HEENT Hx HEENT Problems: No Hx Blind: No Hx Cataracts: No Hx Deafness: No Hx Difficulty Chewing: No Hx Epistaxis: No Hx Glaucoma: No Hx Macular Degeneration: No - RENAL Hx Renal Failure: No - ENDOCRINE/METABOLIC Hx Endocrine Disorders: Yes Hx Diabetes Mellitus Type 2: Yes - HEMATOLOGICAL/ONCOLOGICAL Hx Blood Disorders: Yes Hx AIDS: No Hx Anemia: Yes Hx Hepatitis C: No - INTEGUMENTARY Hx Dermatological Problems: No Hx Basil Cell: No Hx Eczema: No Hx Melanoma: No Hx Psoriasis: No Hx Squamous Cell: No - MUSCULOSKELETAL/RHEUMATOLOGICAL Hx Musculoskeletal Disorders: Yes (HUMERUS FX,SHOULDER CONSTUSION, LS SPINE FRACTURE) Hx Arthritis: Yes Hx Falls: Yes Hx Unsteady Gait: Yes - GASTROINTESTINAL Hx Gastrointestinal Disorders: Yes (DIVERTICULOSIS,DIAPHRAGMATIC HERNIA,PUD) Hx Colostomy: No Hx Crohn's Disease: No Hx Diverticulitis: Yes Hx Gall Bladder Disease: No Hx Gastroesophageal Reflux: Yes Hx Ileostomy: No Hx Liver Failure: No Hx Pancreatitis: No HX Swallowing Problems: No Other/Comment: HEMATEMESIS 07-31-18,GI BLEED,HIATAL HERNIA - GENITOURINARY/GYNECOLOGICAL Hx Genitourinary Disorders: Yes (UROSEPSIS) Hx Hematuria: Yes Hx Incontinence: Yes Hx Sexually Transmitted Disorders: No Hx Urinary Tract Infection: No - PSYCHIATRIC Hx Psychophysiologic Disorder: Yes (INSOMNIA) Hx Anxiety: Yes Hx Depression: Yes Hx Substance Use: No - SURGICAL HISTORY Hx Surgeries: Yes Hx Amputation: No Hx Appendectomy: No Hx Cardiac Catheterization: No Hx Cholecystectomy: No Hx Coronary Stent: No Hx Gastric Bypass Surgery: No Hx Hysterectomy: Yes Hx Joint Replacement: No Hx Kidney Transplant: No Hx Liver Transplant: No Hx Mastectomy: No Hx Musculoskeletal Surgery: No Hx Open Heart Surgery: No Hx Orthopedic Surgery: Yes Hx Splenectomy: No Hx Valve Replacement: No Other/Comment: Tonsillectomy - ANESTHESIA Hx Anesthesia: Yes Hx Anesthesia Reactions: No (UNKNOWN) Hx Malignant Hyperthermia: No (UNKNOWN) Meds Allergies/Adverse Reactions: Allergies Allergy/AdvReac Type Severity Reaction Status Date / Time aspirin Allergy NAUSEA Verified 07/31/18 19:18 - Medications Medications: Current Medications Clonidine HCl (Catapres Tts1 0.1 Mg/24 Hr) 1 patch TD Q7D@1000 [facility] Last Admin: 07/31/18 19:15 Dose: 1 patch Meropenem (Merrem Iv 1 Gm Premix) 1 gm in 50 mls @ 100 mls/hr IVPB Q12 [facility]; Protocol Last Admin: 08/01/18 10:44 Dose: 100 mls/hr Sodium Chloride (Sodium Chloride 0.45%) 1,000 mls @ 80 mls/hr IV .[id number] [facility] Last Admin: 08/01/18 10:45 Dose: 80 mls/hr Insulin Human Regular (Humulin R Med) 0 units SC ACHS [facility]; Protocol Last Admin: 08/01/18 10:43 Dose: 1 unit Ketorolac Tromethamine (Toradol) 15 mg IVP Q6 PRN PRN Reason: Pain, moderate (4-7) Last Admin: 08/01/18 06:43 Dose: 15 mg Ondansetron HCl (Zofran Inj) 4 mg IVP Q6 PRN PRN Reason: Nausea/Vomiting Last Admin: 08/01/18 09:28 Dose: 4 mg Pantoprazole Sodium (Protonix Inj) 40 mg IVP BID [facility] Last Admin: 08/01/18 10:45 Dose: 40 mg Physical Exam - Additional Findings Additional findings: - Constitutional Appears: Non-toxic, No Acute Distress, Chronically Ill - Eye Exam Eye Exam: EOMI, PERRL - ENT Exam ENT Exam: Mucous Membranes Moist - Respiratory Exam Respiratory Exam: Clear to Auscultation Bilateral. absent: Rales, Rhonchi, Wheezes - Cardiovascular Exam Cardiovascular Exam: RRR, +S1, +S2 - GI/Abdominal Exam GI & Abdominal Exam: Normal Bowel Sounds, Soft. absent: Tenderness, Distended, Firm, Guarding, Organomegaly, Rigid - Extremities Exam Extremities exam: Positive for: normal inspection. Negative for: pedal edema - Neurological Exam Neurological exam: Alert Additional comments: oriented X1 (person) - Psychiatric Exam Psychiatric exam: Normal Affect, Normal Mood - Skin Skin Exam: Dry, Warm Results - Vital Signs Recent Vital Signs: Last Vital Signs Temp 98.9 F 08/01/18 07:42 Pulse 74 08/01/18 07:42 Resp 20 08/01/18 07:42 BP 126/70 08/01/18 07:42 Pulse Ox 99 08/01/18 07:42 - Labs Result Diagrams: 08/01/18 06:40 08/01/18 06:40 Labs: Laboratory Results - last 24 hr 07/31/18 07/31/18 07/31/18 13:10 13:10 15:35 WBC RBC Hgb Hct MCV MCH MCHC RDW Plt Count MPV Neut % (Auto) Lymph % (Auto) [place] % (Auto) Eos % (Auto) Baso % (Auto) Lymph # (Auto) [place] # (Auto) Eos # (Auto) Baso # (Auto) Absolute Neuts (auto) Neutrophils % (Manual) 89 H Lymphocytes % (Manual) 8 L Monocytes % (Manual) 3 Platelet Evaluation Normal pO2 29 L VBG pH 7.37 VBG pCO2 55.0 VBG HCO3 31.8 H VBG Total CO2 33.5 H VBG O2 Sat (Calc) 56.5 VBG Base Excess 5.0 H VBG Potassium 3.1 L Sodium 136.0 Chloride 96.0 L Glucose 278 H Lactate 1.8 FiO2 21.0 Potassium Carbon Dioxide Anion Gap BUN Creatinine Est GFR ( Amer) Est GFR (Non-Af Amer) POC Glucose (mg/dL) Random Glucose Calcium Phosphorus Magnesium Total Bilirubin AST ALT Alkaline Phosphatase Troponin I Total Protein Albumin Globulin Albumin/Globulin Ratio Venous Blood Potassium 3.1 L Urine Color Urine Appearance Urine pH Ur Specific [place] Urine Protein Urine Glucose (UA) Urine Ketones Urine Blood Urine Nitrate Urine Bilirubin Urine Urobilinogen Ur Leukocyte Esterase Urine RBC Urine WBC Ur Epithelial Cells Urine Bacteria Blood Type A POSITIVE Antibody Screen Negative 07/31/18 07/31/18 07/31/18 15:40 17:20 21:05 WBC RBC Hgb Hct MCV MCH MCHC RDW Plt Count MPV Neut % (Auto) Lymph % (Auto) [place] % (Auto) Eos % (Auto) Baso % (Auto) Lymph # (Auto) [place] # (Auto) Eos # (Auto) Baso # (Auto) Absolute Neuts (auto) Neutrophils % (Manual) Lymphocytes % (Manual) Monocytes % (Manual) Platelet Evaluation pO2 VBG pH VBG pCO2 VBG HCO3 VBG Total CO2 VBG O2 Sat (Calc) VBG Base Excess VBG Potassium Sodium Chloride Glucose Lactate FiO2 Potassium Carbon Dioxide Anion Gap BUN Creatinine Est GFR ( Amer) Est GFR (Non-Af Amer) POC Glucose (mg/dL) 259 H 210 H Random Glucose Calcium Phosphorus Magnesium Total Bilirubin AST ALT Alkaline Phosphatase Troponin I Total Protein Albumin Globulin Albumin/Globulin Ratio Venous Blood Potassium Urine Color Yellow Urine Appearance Sl cloudy Urine pH 6.0 Ur Specific [place] >= 1.030 Urine Protein 100 H Urine Glucose (UA) 250 H Urine Ketones Trace H Urine Blood Small H Urine Nitrate Negative Urine Bilirubin Negative Urine Urobilinogen 0.2 Ur Leukocyte Esterase Small H Urine RBC 5 - 10 H Urine WBC 25 - 30 H Ur Epithelial Cells 6 - 8 H Urine Bacteria Many Blood Type Antibody Screen 07/31/18 08/01/18 08/01/18 22:33 06:40 06:40 WBC 10.6 D RBC 3.70 Hgb 10.3 L D Hct 33.2 L MCV 89.7 MCH 27.8 MCHC 31.0 RDW 15.6 H Plt Count 239 MPV 8.6 Neut % (Auto) 74.9 H Lymph % (Auto) 14.3 L [place] % (Auto) 10.5 H Eos % (Auto) 0.2 L Baso % (Auto) 0.1 Lymph # (Auto) 1.5 [place] # (Auto) 1.1 H Eos # (Auto) 0.0 Baso # (Auto) 0.01 Absolute Neuts (auto) 7.95 H Neutrophils % (Manual) Lymphocytes % (Manual) Monocytes % (Manual) Platelet Evaluation pO2 VBG pH VBG pCO2 VBG HCO3 VBG Total CO2 VBG O2 Sat (Calc) VBG Base Excess VBG Potassium Sodium 137 Chloride 100 Glucose Lactate FiO2 Potassium 3.0 L Carbon Dioxide 29 Anion Gap 10 BUN 28 H Creatinine 1.0 Est GFR ( Amer) > 60 Est GFR (Non-Af Amer) 52 POC Glucose (mg/dL) Random Glucose 153 H Calcium 7.9 L Phosphorus 3.7 Magnesium 2.0 Total Bilirubin 0.6 AST 21 ALT 14 Alkaline Phosphatase 63 Troponin I 0.06 D 0.06 Total Protein 5.8 Albumin 3.0 Globulin 2.7 Albumin/Globulin Ratio 1.1 Venous Blood Potassium Urine Color Urine Appearance Urine pH Ur Specific [place] Urine Protein Urine Glucose (UA) Urine Ketones Urine Blood Urine Nitrate Urine Bilirubin Urine Urobilinogen Ur Leukocyte Esterase Urine RBC Urine WBC Ur Epithelial Cells Urine Bacteria Blood Type Antibody Screen 08/01/18 08/01/18 07:16 11:21 WBC RBC Hgb Hct MCV MCH MCHC RDW Plt Count MPV Neut % (Auto) Lymph % (Auto) [place] % (Auto) Eos % (Auto) Baso % (Auto) Lymph # (Auto) [place] # (Auto) Eos # (Auto) Baso # (Auto) Absolute Neuts (auto) Neutrophils % (Manual) Lymphocytes % (Manual) Monocytes % (Manual) Platelet Evaluation pO2 VBG pH VBG pCO2 VBG HCO3 VBG Total CO2 VBG O2 Sat (Calc) VBG Base Excess VBG Potassium Sodium Chloride Glucose Lactate FiO2 Potassium Carbon Dioxide Anion Gap BUN Creatinine Est GFR ( Amer) Est GFR (Non-Af Amer) POC Glucose (mg/dL) 169 H 178 H Random Glucose Calcium Phosphorus Magnesium Total Bilirubin AST ALT Alkaline Phosphatase Troponin I Total Protein Albumin Globulin Albumin/Globulin Ratio Venous Blood Potassium Urine Color Urine Appearance Urine pH Ur Specific [place] Urine Protein Urine Glucose (UA) Urine Ketones Urine Blood Urine Nitrate Urine Bilirubin Urine Urobilinogen Ur Leukocyte Esterase Urine RBC Urine WBC Ur Epithelial Cells Urine Bacteria Blood Type Antibody Screen Assessment & Plan - Assessment and Plan (Free Text) Assessment: Patient is an 87yo female with PMHx significant for dementia, PUD, GERD, DM, HTN, COPD, large hiatal hernia and erosive esophagitis who presented to the ED from senior care for coffee ground emesis. Patient has known paraesophageal hernia and was found to have hernia Patient found to have large paraesophageal hernia with most of the stomach lying in the chest along with gastric body infla mmation/thickening at the diaphragmatic pinch found on CT of abdomen without contrast. Plan: - Advance diet slowly and as tolerated by patient - No immediate surgical intervention at this time - Protonix per GI recommendations - Patient may be discharged back to nursing facility once tolerating diet - Follow-up as an outpatient for elective hiatal repair vs gastrostomy tube/gastropexy Discussed with Dr. Marlon Chen PGY1
--- NOTE | 2018-08-01 14:56 | CP.PCM.PCO ---
Physician Communication Note - Physician Communication Note Physician Communication Note: Pt. seen c/o abdom pain,vomitted,after clear breakfast. Additional Comments - Additional Comments Additional Comments: As per GI, rec. small meals throughout day, and ensure seated up right, due to hx large hiatal hernia, No GI, workup rec at his time,per GI, cleared for DC back to NH after patient tolerates advanced diet. Will continue to monitor clinical status and follow closely.
--- NOTE | 2018-08-01 16:13 | CARD ---
APPROVED REPORT Date of service: 08/01/2018 EXAM: Two-dimensional and M-mode echocardiogram with Doppler and color Doppler. INDICATION EKG CHANGES 2D DIMENSIONS Left Atrium (2D)2.9 (1.6-4.0cm)IVSd1.3 (0.7-1.1cm) LVDd2.9 (3.9-5.9cm)PWd1.0 (0.7-1.1cm) LVDs2.0 (2.5-4.0cm)FS (%) 31.6 % LVEF (%)61.2 (>50%) M-Mode DIMENSIONS Aortic Root2.10 (2.2-3.7cm)Aortic Cusp Exc.1.20 (1.5-2.0cm) Aortic Valve AoV Peak [id number]/Luke Peak GR.7mmHg Mitral Valve E/A ratio0.0 TDI E/Lateral E'0.0E/Medial E'0.0 Tricuspid Valve TR Peak [id number] [id number] Peak Gr.22mmHg [id number] LEFT VENTRICLE The left ventricle is normal size. There is borderline concentric left ventricular hypertrophy. The left ventricular function is normal. The left ventricular ejection fraction is within the normal range. There is normal LV segmental wall motion. Transmitral Doppler flow pattern is Grade I-abnormal relaxation pattern. RIGHT VENTRICLE The right ventricle is normal size. There is normal right ventricular wall thickness. The right ventricular systolic function is normal. ATRIA The left atrium size is normal. The right atrium size is normal. AORTIC VALVE The aortic valve is moderately sclerotic. No aortic regurgitation is present. There is no aortic valvular stenosis. MITRAL VALVE The mitral valve is moderately thickened. Mitral regurgitation is trace. There is no mitral valve stenosis. TRICUSPID VALVE There is trace to mild tricuspid regurgitation. PULMONIC VALVE There is trace pulmonic valvular regurgitation. GREAT VESSELS The aortic root is normal in size. The IVC is normal in size and collapses >50% with inspiration. <Conclusion> There is borderline concentric left ventricular hypertrophy. The left ventricular function is normal. The left ventricular ejection fraction is within the normal range. There is normal LV segmental wall motion. Transmitral Doppler flow pattern is Grade I-abnormal relaxation pattern. Mitral regurgitation is trace. There is trace to mild tricuspid regurgitation.
--- NOTE | 2018-08-01 19:55 | US ---
HISTORY: Leg pain and swelling. Evaluate for DVT PHYSICIAN(S): Anderson Ozuna MD. TECHNIQUE: Duplex sonography and color-flow Doppler with graded compression were used to evaluate the deep venous systems of both lower extremities. FINDINGS: The visualized deep venous systems of both lower extremities are sonographically normal and compressible. Normal wave forms and augmentation are seen. There is no sonographic evidence for deep venous thrombosis in the visualized segments of both lower extremities. IMPRESSION: No sonographic evidence for deep venous thrombosis in the visualized segments of both lower extremities.
[2018-08-02] MEDS ORDERED: DiphenhydrAMINE 50 mg/ml Inj IVP STA (02:35)
[2018-08-02] MEDS: Sodium Chloride 0.45% 1,000 ML IV SCH ×2 (03:07→10:17)
[2018-08-02 06:04] LABS: HEMOGLOBIN 8.9 g/dL (12.0-16.0); MEAN CELL VOLUME 89.3 fl (80.0-105.0); MEAN CORPUSCULAR HEMOGLOBIN 27.9 pg (25.0-35.0); MEAN CORPUSCULAR HGB CONC 31.2 g/dl (31.0-37.0); MEAN PLATELET VOLUME 8.5 fl (7.0-11.0); RBC 3.19 10^6/uL (3.5-6.1); RED CELL DISTRIBUTION WIDTH 15.3 % (11.5-14.5); WHITE BLOOD COUNT 7.4 10^3/uL (4.5-11.0)
[2018-08-02 06:56] LABS: ALB/GLOB RATIO 1.1 (1.1-1.8); ALBUMIN 2.5 g/dL (3.0-4.8); ALT/SGPT 20 U/L (7-56); AST/SGOT 17 U/L (14-36); BLOOD UREA NITROGEN 23 mg/dL (7-21); CALCIUM 7.5 mg/dL (8.4-10.5); GFR NON-AFRICAN AMERICAN 52
[2018-08-02 09:08] VITALS: BP 167/64; RESP 16; TEMP 98.5; O2SAT 99
[2018-08-02] MEDS: Insulin Reg-MEDIUM-Coverage SC SCH ×2 (10:13→12:07)
[2018-08-02] MEDS: Meropenem IV 1 gm in NS 1 GM/50 ML BAG IVPB SCH (10:16)
--- NOTE | 2018-08-02 10:29 | CON ---
DATE OF CONSULTATION: 08/02/2018 HISTORY OF PRESENT ILLNESS: In short, the patient is an 87-year-old female with multiple medical issues, COPD, dementia, peptic ulcer disease, and GERD. The patient was admitted on the medical side from the prison for evaluation of bloody vomiting. Psych consult was called for evaluation of agitated behavior over nighttime, and the patient was yelling and screaming whole night long. The patient was seen and examined, previous records reviewed, discussed with the nursing staff. Medications reviewed. As per nursing staff, the patient has episodes of screaming and yelling, but there is no physical aggression, no agitation, and the patient presented the same way on last admissions, as per nursing report. Based on the previous record, this principal technical writer was involved into the patient's care in 2016 because the patient has episodes of confusion, yelling, and mild dementia, and the patient required prison placement and did not have power of tax attorney or legal guardian back then. Please review the previous record. Going back to the patient's presentation, the patient presented to be alert, but easily distracted, had difficulty to stay focused and concentrate. The patient is aware that she is in the hospital and circumstances of her admission to the medical side. The patient does not remember this principal technical writer from the previous admission. The patient reports that she feels fine. The patient reported that she does not feel hopeless or helpless. The main concern is vomiting as well as nausea feelings. The patient denied being depressed, denied thoughts of harming herself or others. At times, the patient reported that she has difficulty to fall asleep and to stay asleep at the nighttime. The patient reports that at prison, where she lives right now, the patient is aware what is the name of the prison. The patient reported that she lives in [facility], which is correct and true. The patient reported that the staff in the prison treats her nicely. The patient reported that she likes place where she lived right now. The patient denied hearing voices, denied seeing things, and had difficulty to comprehend those questions. The patient does not present to be psychotic. MEDICATIONS: Reviewed. The patient is on Catapres, Humulin, Toradol, meropenem, Zofran, Protonix, and sodium chloride. LABORATORY DATA: Labs reviewed. White blood cells were elevated on 07/31/2018, but going down today. Coagulation reviewed. Chemistry reviewed. Urinalysis reviewed. Urinalysis showed E-coli and urinary tract infection, for that the patient is on antibiotics. MENTAL STATUS EXAMINATION: The patient presented to be alert and oriented. The patient was not sure of what is the day today, but remembered that she is in the hospital. The patient also notes that she lives in prison, [facility]. Mood described as okay, "but I'm not feeling well because I'm vomiting. This is the patient's statement. Affect was constricted. Thought process at times circumstantial. Thought content, the patient denied visual, auditory, or tactile hallucinations. Denied paranoid ideation. The patient denied thoughts of harming herself or others, denied intent or plan. The patient does not present to be psychotic, agitated, or paranoid. Insight and judgment seemed to be limited, but improving. Impulses are well controlled. IMPRESSION: As per history, mild dementia. The patient was admitted on the medical side for urinary tract infection as well as episodes of vomiting blood. This principal technical writer cannot exclude delirium symptoms. PLAN: This principal technical writer will implement Remeron at the nighttime only as needed for insomnia, restlessness, as well as to stabilize her mood. Dr. Stallworth will follow up on this patient over the weekend. The patient is not in any acute distress. Should you have any questions give me a call back. Thank you very much for letting me participate in the care of your patient. Cherry Sanchez MD
[2018-08-02 11:09] VITALS: PULSE 55
--- NOTE | 2018-08-02 12:10 | PN ---
DATE: 08/02/2018 SUBJECTIVE: I saw her in bed. She has been yelling and screaming a lot over the past 12 hours. I am going to call Cherry, the psychiatrist, going to take a look at her, maybe put her on some medication for that. I will put her back on her Zoloft. MEDICATIONS: She is on Catapres, Merrem, IV Protonix, IV fluids, Toradol, and Zofran. PHYSICAL EXAMINATION: VITAL SIGNS: She has a 98.5 temperature, 76 pulse, 167/65 blood pressure, 16 respiratory rate, and 99% O2 saturation on 2 liters. HEENT: Head is atraumatic and normocephalic. HEART: Regular rate. LUNGS: Decreased breath sounds. ABDOMEN: Soft. EXTREMITIES: No edema. NEUROLOGIC: She is pleasant now but the nurses said last night she was screaming. LABORATORY DATA: She has a 7.4 white count, hemoglobin is now 8.9 which came in as 14.1. She lost 5 g of hemoglobin. I need to talk to GI about this. Hematocrit is 28.5 and platelets are 191. A 132 sodium, potassium 3.5, I will replace his potassium, BUN 23, creatinine 1, GFR is 52, sugar 133, calcium 7.5, total bili is 0.5, AST is 17, ALT is 29, alk phos 40, total protein is 4.9. ASSESSMENT AND PLAN: She is being seen by Infectious Disease, Gastrointestinal. I do think she might need something done. Check her stools for blood. No positive venous Dopplers in either lower extremity. She has a large hiatal hernia. I will keep an eye on her hemoglobin. It dropped 5 g since she got to the hospital. If it goes below 8, I will transfuse her. Dante Mcdaniel DO
--- NOTE | 2018-08-02 12:38 | CON ---
DATE OF CONSULTATION: 08/02/2018 CARDIOLOGY CONSULTATION HISTORY: The patient is an 87-year-old woman, who presents with hematemesis in the assisted. She has had some dark vomit in the past. She complains of lower abdominal pain. PAST MEDICAL HISTORY: The patient's past medical history is notable for COPD, dementia, as well as gastroesophageal reflux disease. On telemetry, she was noted to have an episode of nonsustained SVT, which was asymptomatic. Currently, the patient is in bed, unable to give a cogent history, but does complain of diffuse right lower quadrant pain. No angina. No shortness of breath noted. PHYSICAL EXAMINATION: VITAL SIGNS: Blood pressure 167/64, the heart rate is in the 70s. NECK: Negative JVD. LUNGS: Without rales. CARDIAC: Heart rate S1, S2. EXTREMITIES: Without edema. LABORATORY DATA: Hemoglobin is 8.9. Chemistries, BUN and creatinine are 23 and 1, glucose 133. Echocardiogram reveals good LV function with an EF of 61%. There is mild tricuspid regurg without pulmonary hypertension. IMPRESSION: 1. Transient supraventricular tachycardia. 2. Hypertension. 3. Abdominal pain. 4. Hematemesis. 5. History of gastritis. PLAN: Given these findings, we will start the patient on a beta chantal to help control her episodes of SVT. She is hemodynamically stable. Can DC telemetry today. Anderson Vásquez MD
--- NOTE | 2018-08-02 12:55 | CP.PCM.PN ---
<Deuce Armas - Last Filed: 08/02/18 12:48> Subjective - Date & Time of Evaluation Date of Evaluation: 08/02/18 Time of Evaluation: 12:48 - Subjective Subjective: Patient is resting comfortably in bed. Discussed with nurse, and patient had biliary emesis last night. No bleeding. Patient is confused and agitated when awake which is her baseline. Otherwise, tolerating liquid diet. Objective - Vital Signs/Intake and Output Vital Signs (last 24 hours): Temp Pulse Resp BP Pulse Ox 98.5 F 55 L 16 167/64 H 99 08/02/18 06:00 08/02/18 10:00 08/02/18 06:00 08/02/18 06:00 08/02/18 06:00 Intake and Output: 08/02/18 08/02/18 06:59 18:59 Intake Total 1050 Output Total 300 Balance 750 - Medications Medications: Current Medications Clonidine HCl (Catapres Tts1 0.1 Mg/24 Hr) 1 patch TD Q7D@1000 [facility] Last Admin: 07/31/18 19:15 Dose: 1 patch Meropenem (Merrem Iv 1 Gm Premix) 1 gm in 50 mls @ 100 mls/hr IVPB Q12 [facility]; Protocol Last Admin: 08/02/18 10:16 Dose: 100 mls/hr Sodium Chloride (Sodium Chloride 0.45%) 1,000 mls @ 80 mls/hr IV .[id number] [facility] Last Admin: 08/02/18 10:17 Dose: 80 mls/hr Insulin Human Regular (Humulin R Med) 0 units SC ACHS [facility]; Protocol Last Admin: 08/02/18 12:07 Dose: 3 unit Ketorolac Tromethamine (Toradol) 15 mg IVP Q6 PRN PRN Reason: Pain, moderate (4-7) Metoprolol Tartrate (Lopressor) 25 mg PO BID [facility] Mirtazapine (Remeron) 7.5 mg PO HS PRN PRN Reason: restlessness/insomnia/agitatio Ondansetron HCl (Zofran Inj) 4 mg IVP Q6 PRN PRN Reason: Nausea/Vomiting Last Admin: 08/01/18 20:06 Dose: 4 mg Pantoprazole Sodium (Protonix Inj) 40 mg IVP BID [facility] Last Admin: 08/02/18 10:17 Dose: 40 mg - Labs Labs: 08/02/18 05:20 08/02/18 05:20 PT 11.2 SECONDS (9.4-12.5) 07/31/18 13:10 INR 0.99 07/31/18 13:10 APTT 27.2 Seconds (26.9-38.3) 07/31/18 13:10 - Constitutional Appears: Non-toxic, No Acute Distress - Respiratory Exam Respiratory Exam: Clear to Ausculation Bilateral, NORMAL BREATHING PATTERN - Cardiovascular Exam Cardiovascular Exam: REGULAR RHYTHM, +S1, +S2 - GI/Abdominal Exam GI & Abdominal Exam: Soft, Normal Bowel Sounds. absent: Tenderness - Extremities Exam Extremities Exam: Normal Inspection. absent: Pedal Edema - Neurological Exam Neurological Exam: Altered - Psychiatric Exam Psychiatric exam: Agitated - Skin Skin Exam: Dry, Normal Color Assessment and Plan - Assessment and Plan (Free Text) Assessment: Patient is an 87yo female with PMHx significant for dementia, PUD, GERD, DM, HTN, COPD, large hiatal hernia and erosive esophagitis who presented to the ED from [facility] for coffee ground emesis -Nausea/vomiting -Large paraesophageal hernia Plan: -CT scan reviewed showing inflammation at diaphragmatic pinch - cannot rule out underlying ulcer disease (particularly Babar ulcer in setting of hernia) -Nausea/vomiting presumed 2/2 anatomy and lifestyle - recommend small meals, sitting upright during meals and not laying down soon after meals -Antiemetics per primary service -Continue Pantoprazole 40mg IV BID for now. OK to d/c on omeprazole 40mg daily. -Initial leukocytosis likely a result of hemoconcentration - do not suspect infectious etiology at this time, would discontinue antibiotic therapy in this patient unless urine culture is clinically relevant - ID following -Also, Hb drop is likely due to fluid resuscitation. Patient is at her baseline from previous admission. -Recommend tight glycemic control -Would discontinue Toradol (NSAID) and replace with Ultram or Tylenol as needed -Surgical consultation - No urgent surgical procedure indicated, but may consider outpatient gastropexy. -No plan for endoscopic evaluation at this time -Advance diet to small meals, gastoparesis diet. Case discussed with Dr. Cancino, see attestation. <Dejan Cancino - Last Filed: 08/02/18 16:58> Objective - Vital Signs/Intake and Output Vital Signs (last 24 hours): Temp Pulse Resp BP Pulse Ox 98.5 F 55 L 16 167/64 H 99 08/02/18 06:00 08/02/18 10:00 08/02/18 06:00 08/02/18 06:00 08/02/18 06:00 Intake and Output: 08/02/18 08/02/18 06:59 18:59 Intake Total 1050 Output Total 300 Balance 750 - Medications Medications: Current Medications Clonidine HCl (Catapres Tts1 0.1 Mg/24 Hr) 1 patch TD Q7D@1000 [facility] Last Admin: 07/31/18 19:15 Dose: 1 patch Meropenem (Merrem Iv 1 Gm Premix) 1 gm in 50 mls @ 100 mls/hr IVPB Q12 [facility]; Protocol Last Admin: 08/02/18 10:16 Dose: 100 mls/hr Sodium Chloride (Sodium Chloride 0.45%) 1,000 mls @ 80 mls/hr IV .[id number] [facility] Last Admin: 08/02/18 10:17 Dose: 80 mls/hr Insulin Human Regular (Humulin R Med) 0 units SC ACHS [facility]; Protocol Last Admin: 08/02/18 12:07 Dose: 3 unit Ketorolac Tromethamine (Toradol) 15 mg IVP Q6 PRN PRN Reason: Pain, moderate (4-7) Metoprolol Tartrate (Lopressor) 25 mg PO BID [facility] Mirtazapine (Remeron) 7.5 mg PO HS PRN PRN Reason: restlessness/insomnia/agitatio Ondansetron HCl (Zofran Inj) 4 mg IVP Q6 PRN PRN Reason: Nausea/Vomiting Last Admin: 08/01/18 20:06 Dose: 4 mg Pantoprazole Sodium (Protonix Inj) 40 mg IVP BID [facility] Last Admin: 08/02/18 10:17 Dose: 40 mg - Labs Labs: 08/02/18 05:20 08/02/18 05:20 PT 11.2 SECONDS (9.4-12.5) 07/31/18 13:10 INR 0.99 07/31/18 13:10 APTT 27.2 Seconds (26.9-38.3) 07/31/18 13:10 Attending/Attestation - Attestation I have fully participated in the care of the patient.: Yes I have reviewed all pertinent clinical information, including history, physical exam and plan: Yes Notes (Text): 08/02/18 16:57 DM / HTN COPD Dementia Nausea, vomiting in setting of large hiatal hernia - Advance diet slowly as tolerated - Continue with PPI therapy - Suggest small, frequent meals with strict aspiration precautions - Follow up surgical recommendations - Will continue to monitor patient clinical course
--- NOTE | 2018-08-02 15:13 | CP.PCM.PN ---
<Dandy Cross - Last Filed: 08/02/18 16:35> Subjective - Date & Time of Evaluation Date of Evaluation: 08/02/18 Time of Evaluation: 09:50 - Subjective Subjective: Infectious disease progress note: Patient seen and examined at bedside. No acute events overnight. C/o of some urinary symptoms. 3 episodes of n/v no hematemesis. No other complaints. 12 point ROS performed and negative unless stated above. Objective - Vital Signs/Intake and Output Vital Signs (last 24 hours): Temp Pulse Resp BP Pulse Ox 98.5 F 55 L 16 167/64 H 99 08/02/18 06:00 08/02/18 10:00 08/02/18 06:00 08/02/18 06:00 08/02/18 06:00 Intake and Output: 08/02/18 08/02/18 06:59 18:59 Intake Total 1050 Output Total 300 Balance 750 - Medications Medications: Current Medications Clonidine HCl (Catapres Tts1 0.1 Mg/24 Hr) 1 patch TD Q7D@1000 [facility] Last Admin: 07/31/18 19:15 Dose: 1 patch Meropenem (Merrem Iv 1 Gm Premix) 1 gm in 50 mls @ 100 mls/hr IVPB Q12 [facility]; Protocol Last Admin: 08/02/18 10:16 Dose: 100 mls/hr Sodium Chloride (Sodium Chloride 0.45%) 1,000 mls @ 80 mls/hr IV .[id number] [facility] Last Admin: 08/02/18 10:17 Dose: 80 mls/hr Insulin Human Regular (Humulin R Med) 0 units SC ACHS [facility]; Protocol Last Admin: 08/02/18 12:07 Dose: 3 unit Ketorolac Tromethamine (Toradol) 15 mg IVP Q6 PRN PRN Reason: Pain, moderate (4-7) Metoprolol Tartrate (Lopressor) 25 mg PO BID [facility] Mirtazapine (Remeron) 7.5 mg PO HS PRN PRN Reason: restlessness/insomnia/agitatio Ondansetron HCl (Zofran Inj) 4 mg IVP Q6 PRN PRN Reason: Nausea/Vomiting Last Admin: 08/01/18 20:06 Dose: 4 mg Pantoprazole Sodium (Protonix Inj) 40 mg IVP BID [facility] Last Admin: 08/02/18 10:17 Dose: 40 mg - Labs Labs: 08/02/18 05:20 08/02/18 05:20 PT 11.2 SECONDS (9.4-12.5) 07/31/18 13:10 INR 0.99 07/31/18 13:10 APTT 27.2 Seconds (26.9-38.3) 07/31/18 13:10 - Constitutional Appears: No Acute Distress - Head Exam Head Exam: ATRAUMATIC, NORMOCEPHALIC - Eye Exam Eye Exam: EOMI - ENT Exam ENT Exam: Mucous Membranes Moist - Respiratory Exam Respiratory Exam: Clear to Ausculation Bilateral. absent: Wheezes - Cardiovascular Exam Cardiovascular Exam: REGULAR RHYTHM, +S1, +S2 - GI/Abdominal Exam GI & Abdominal Exam: Soft. absent: Tenderness - Extremities Exam Extremities Exam: absent: Calf Tenderness, Pedal Edema - Neurological Exam Neurological Exam: Alert, Awake, Oriented x3 - Psychiatric Exam Psychiatric exam: Normal Mood - Skin Skin Exam: Dry, Warm Assessment and Plan - Assessment and Plan (Free Text) Assessment: Sepsis secondary to symptomatic urinary tract infection with E coli Hematemesis Hiatal hernia Gastroparesis Peptic ulcer disease COPD Diabetes Dementia GERD Cont meropenem ; Upon d/c can give vantin 100mg PO BID for 5 days Follow-up septic work-up Urine culture was positive for E coli Follow-up gastroenterology recommendations Follow cardiology recommendations Continue to monitor for any changes Case and plan to be reviewed and discussed with Dr. Tejada <Lito Tejada - Last Filed: 08/02/18 16:36> Objective - Vital Signs/Intake and Output Vital Signs (last 24 hours): Temp Pulse Resp BP Pulse Ox 98.5 F 55 L 16 167/64 H 99 08/02/18 06:00 08/02/18 10:00 08/02/18 06:00 08/02/18 06:00 08/02/18 06:00 Intake and Output: 08/02/18 08/02/18 06:59 18:59 Intake Total 1050 Output Total 300 Balance 750 - Medications Medications: Current Medications Clonidine HCl (Catapres Tts1 0.1 Mg/24 Hr) 1 patch TD Q7D@1000 [facility] Last Admin: 07/31/18 19:15 Dose: 1 patch Meropenem (Merrem Iv 1 Gm Premix) 1 gm in 50 mls @ 100 mls/hr IVPB Q12 [facility]; Protocol Last Admin: 08/02/18 10:16 Dose: 100 mls/hr Sodium Chloride (Sodium Chloride 0.45%) 1,000 mls @ 80 mls/hr IV .[id number] [facility] Last Admin: 08/02/18 10:17 Dose: 80 mls/hr Insulin Human Regular (Humulin R Med) 0 units SC ACHS [facility]; Protocol Last Admin: 08/02/18 12:07 Dose: 3 unit Ketorolac Tromethamine (Toradol) 15 mg IVP Q6 PRN PRN Reason: Pain, moderate (4-7) Metoprolol Tartrate (Lopressor) 25 mg PO BID [facility] Mirtazapine (Remeron) 7.5 mg PO HS PRN PRN Reason: restlessness/insomnia/agitatio Ondansetron HCl (Zofran Inj) 4 mg IVP Q6 PRN PRN Reason: Nausea/Vomiting Last Admin: 08/01/18 20:06 Dose: 4 mg Pantoprazole Sodium (Protonix Inj) 40 mg IVP BID [facility] Last Admin: 08/02/18 10:17 Dose: 40 mg - Labs Labs: 08/02/18 05:20 08/02/18 05:20 PT 11.2 SECONDS (9.4-12.5) 07/31/18 13:10 INR 0.99 07/31/18 13:10 APTT 27.2 Seconds (26.9-38.3) 07/31/18 13:10 Attending/Attestation - Attestation I have personally seen and examined this patient.: Yes I have fully participated in the care of the patient.: Yes I have reviewed all pertinent clinical information, including history, physical exam and plan: Yes
--- NOTE | 2018-08-03 10:03 | PQF ---
PROVIDER RESPONSE TEXT: As per id REVIEWER QUERY TEXT: Rule Out Sepsis Clarification Rule out Sepsis is documented in the Medical Record. Please clarify whether: -- Patient has sepsis - Please document confirmed, suspected or probable causative organism - Please document confirmed, suspected or probable localized infection - Please clarify if sepsis is related to a device - Please clarify if sepsis was present on admission -- Sepsis was ruled out (include corresponding diagnosis for patient?s clinical picture and treatment ) -- Patient had sepsis which is resolved -- Other, please specify The patient's Clinical Indicators include: Patient admitted for hematemesis. Afebrile on admission, wbc elevated x 1 day, lactate negative. Positive urine culture. 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 Please document if you agree with sepsis present on admission. Query created by: Shirlene Gonzalez on 08/02/2018 11:47 AM Electronically signed by: Dante Mcdaniel DO 08/03/2018 10:00 AM
== END 2018-08-02 18:25 | DRG 872 ==
LOC: ED 12:18 → ERH 15:26 → 3RNO 18:33
PROVIDERS: ADMIT Family Medicine; ATTEND Family Medicine
DX: A41.9 Sepsis, unspecified organism (principal); K92.0 Hematemesis; N39.0 Urinary tract infection, site not specified; I47.1 Supraventricular tachycardia; B96.20 Unspecified Escherichia coli [E. coli] as the cause of diseases classified elsewhere; K44.9 Diaphragmatic hernia without obstruction or gangrene; K29.70 Gastritis, unspecified, without bleeding; K21.0 Gastro-esophageal reflux disease with esophagitis; E11.43 Type 2 diabetes mellitus with diabetic autonomic (poly)neuropathy; K31.84 Gastroparesis; F03.90 Unspecified dementia, unspecified severity, without behavioral disturbance, psychotic disturbance, mood disturbance, and anxiety; J44.9 Chronic obstructive pulmonary disease, unspecified; E86.9 Volume depletion, unspecified; I10 Essential (primary) hypertension; N28.9 Disorder of kidney and ureter, unspecified; K27.9 Peptic ulcer, site unspecified, unspecified as acute or chronic, without hemorrhage or perforation; Z87.891 Personal history of nicotine dependence; Z79.84 Long term (current) use of oral hypoglycemic drugs